=== PATIENT | male | born 1950 | race Caucasian/White ===

== ENCOUNTER → 2020-02-15 09:24 | Outpatient (BNVA) | payer MEDICARE, SELFPAY | PROVIDERS: Visit Provider Internal Medicine | DX: I48.20 Chronic atrial fibrillation, unspecified (principal); Z51.81 Encounter for therapeutic drug level monitoring; Z79.01 Long term (current) use of anticoagulants | CPT/HCPCS: 85610; 99211 ==

== ENCOUNTER → 2020-03-14 09:34 | Outpatient (BNVA) | payer MEDICARE, SELFPAY | PROVIDERS: Visit Provider Internal Medicine | DX: I48.20 Chronic atrial fibrillation, unspecified (principal); Z51.81 Encounter for therapeutic drug level monitoring; Z79.01 Long term (current) use of anticoagulants | CPT/HCPCS: 85610; 99211 ==

== ENCOUNTER → 2020-04-11 09:22 | Outpatient (BNVA) | payer MEDICARE, SELFPAY | PROVIDERS: Visit Provider Internal Medicine | DX: I48.20 Chronic atrial fibrillation, unspecified (principal); Z51.81 Encounter for therapeutic drug level monitoring; Z79.01 Long term (current) use of anticoagulants | CPT/HCPCS: 85610; 99211 ==

== ENCOUNTER → 2020-05-09 09:19 | Outpatient (BNVA) | payer MEDICARE, SELFPAY | PROVIDERS: Visit Provider Internal Medicine | DX: I48.20 Chronic atrial fibrillation, unspecified (principal); Z51.81 Encounter for therapeutic drug level monitoring; Z79.01 Long term (current) use of anticoagulants | CPT/HCPCS: 85610; 99211 ==

== ENCOUNTER → 2020-06-06 09:24 | Outpatient (BNVA) | payer MEDICARE, SELFPAY | PROVIDERS: PCP Internal Medicine; Visit Provider Internal Medicine | DX: I48.20 Chronic atrial fibrillation, unspecified (principal); Z51.81 Encounter for therapeutic drug level monitoring; Z79.01 Long term (current) use of anticoagulants | CPT/HCPCS: 85610; 99211 ==

== ENCOUNTER → 2020-07-04 09:23 | Outpatient (BNVA) | payer MEDICARE, SELFPAY | PROVIDERS: PCP Internal Medicine; Visit Provider Internal Medicine | DX: I48.20 Chronic atrial fibrillation, unspecified (principal); Z51.81 Encounter for therapeutic drug level monitoring; Z79.01 Long term (current) use of anticoagulants | CPT/HCPCS: 85610; 99211 ==

== ENCOUNTER → 2020-07-25 09:09 | Outpatient (BNVA) | payer MEDICARE, SELFPAY | PROVIDERS: PCP Internal Medicine; Visit Provider Internal Medicine Cardiovascular Disease | DX: I25.5 Ischemic cardiomyopathy (principal); I25.10 Atherosclerotic heart disease of native coronary artery without angina pectoris; R09.89 Other specified symptoms and signs involving the circulatory and respiratory systems | CPT/HCPCS: 93005; 99202 ==

== ENCOUNTER 2020-08-01 06:59 | Outpatient (REF) | payer MEDICARE, SELFPAY ==
--- NOTE | ~2020-08-01 | US_ITS ---
EXAMINATION: US EXTRACRANIAL CAROTID DUPLEX, BILATERAL CLINICAL INFORMATION: Other specified symptoms and signs. Risk factor hyperlipidemia. COMPARISON: None TECHNIQUE: Real-time ultrasound and Doppler techniques (integrating B-mode 2-D vascular images, Doppler spectral analysis and color-flow Doppler imaging) were utilized to interrogate the extracranial carotid arteries, the vertebral arteries and proximal subclavian arteries bilaterally. The degree of stenosis is determined by criteria similar to NASCET. FINDINGS: Right Side: 1. There is mild calcified atherosclerotic plaque seen in the bifurcation/proximal ICA region. 2. The common carotid artery PSV proximally is 64 cm/s and distally 70 cm/s. 3. The proximal internal carotid artery velocities are 61 cm/s systolic and 15 cm/s diastolic. 4. The proximal external carotid artery PSV is 126 cm/s. 5. The vertebral artery shows antegrade flow. 6. The subclavian artery waveforms are normal. Left Side: 1. There is mild calcified atherosclerotic plaque seen in the bifurcation/proximal ICA region. 2. The common carotid artery PSV proximally is 80 cm/s and distally 80 cm/s. 3. The proximal internal carotid artery velocities are 64 cm/s systolic and 12 cm/s diastolic. 4. The proximal external carotid artery PSV is 101 cm/s. 5. The vertebral artery shows antegrade flow. 6. The subclavian artery waveforms are normal. US/US carotid duplex BI IMPRESSION: 1. RIGHT: Mild calcified atherosclerotic plaque. 0-49% right ICA stenosis. 2. LEFT: Mild calcified atherosclerotic plaque. 0-49% left ICA stenosis.
--- NOTE | ~2020-08-01 | XR_ITS ---
EXAMINATION: XR CHEST CLINICAL INFORMATION: Tobacco use COMPARISON: None TECHNIQUE: 2 views of the chest were obtained. FINDINGS: The cardiac and mediastinal contours are normal. The lungs are well inflated. The lungs are clear. There is no pleural effusion or pneumothorax. There are mild degenerative changes of the spine. XR/XR chest 2V IMPRESSION: Well-inflated lungs are otherwise unremarkable exam.
[2020-08-01 08:02] LABS: MANUAL DIFF FLAG NO
[2020-08-01 08:04] LABS: Basophils Absolute Auto 0.1 X10*3/uL (0.0-0.2); Basophils Percent Auto 1.3 % (0-2); Eosinophils Absolute Auto 0.5 X10*3/uL (0.0-0.4); Eosinophils Percent Auto 6.4 % (0-4); Hematocrit 45.7 % (42-52); Hemoglobin 15.3 g/dl (14.0-18.0); Imm Gran Abs Auto 0.02 X10*3/uL (0.00-0.03); Imm Gran Pct Auto 0.3 % (0.0-0.4); Lymphocytes Absolute Auto 1.8 X10*3/uL (1.2-4.9); Lymphocytes Percent Auto 24.2 % (20-40); Mean Corpuscular HGB Conc 33.5 g/dl (31.0-36.0); Mean Corpuscular Volume 92.5 fL (80-98); Mean Platelet Volume 9.8 fL (9.4-12.4); Monocytes Absolute Auto 0.7 X10*3/uL (0.1-1.2); Monocytes Percent Auto 8.5 % (2-11); Neutrophils Absolute Auto 4.5 X10*3/uL (2.0-8.3); Neutrophils Percent Auto 59.3 % (45-73); Platelet Count 218 X10*3/uL (160-400); Red Blood Count 4.94 X10*6/uL (4.60-5.80); White Blood Count 7.6 X10*3/uL (4.8-10.8)
[2020-08-01 08:27] LABS: Alanine Aminotransferase 18 U/L (0-40); Albumin Level 3.9 g/dL (3.5-5.0); Alkaline Phosphatase 82 U/L (39-117); Anion Gap 10 (12-20); Aspartate Amino Transferase 17 U/L (5-37); Bilirubin Total 0.7 mg/dL (0.0-1.0); Blood Urea Nitrogen 18 mg/dL (9-16); Calcium 8.7 mg/dL (8.4-10.2); Carbon Dioxide 28 mmol/L (22-29); Chloride 105 mmol/L (96-108); Cholesterol 158 mg/dL; Estimated Glomerular Filt Rate > 60; Glucose Random 103 mg/dL (60-115); HDL Cholesterol 38 mg/dL; LDL Cholesterol Calculated 100 mg/dl; Potassium 4.6 mmol/L (3.3-5.1); Sodium 138 mmol/L (135-145); Total Protein 6.9 g/dL (6.5-8.0); Triglycerides 103 mg/dL
[2020-08-01 08:51] LABS: Estimated Average Glucose 117 mg/dL; Free T4 (Free Thyroxine) 0.98 ng/dL (0.71-1.85); Hemoglobin A1C 149.5618 umol/L; Hemoglobin A1c % 5.7 %; Prostate Specific Antigen Scr 1.87 ng/mL (<0.05-4.0); Thyroid Stimulating Hormone 1.01 uIU/mL (0.32-4.0)
[2020-08-01 09:11] LABS: Folate 13.1 ng/mL (> or = 4.0); Vitamin B12 234 pg/mL (200-900)
== END 2020-08-01 07:00 | disposition home or self-care (01) ==
LOC: HO.US 06:59
PROVIDERS: Absent Provider Internal Medicine; PCP Internal Medicine; Referring Provider Urology; Visit Provider Internal Medicine Cardiovascular Disease
DX: Z12.5 Encounter for screening for malignant neoplasm of prostate (principal); R09.89 Other specified symptoms and signs involving the circulatory and respiratory systems; I25.5 Ischemic cardiomyopathy; E78.00 Pure hypercholesterolemia, unspecified; R73.02 Impaired glucose tolerance (oral); C61 Malignant neoplasm of prostate; Z72.0 Tobacco use
CPT/HCPCS: 36415; 71046; 80053; 80061; 82607; 82746; 83036; 84153; 84439; 84443; 85025; 85610; 93880; 99211

== ENCOUNTER → 2020-08-29 09:20 | Outpatient (BNVA) | payer MEDICARE, SELFPAY | PROVIDERS: PCP Internal Medicine; Visit Provider Internal Medicine | DX: I48.20 Chronic atrial fibrillation, unspecified (principal); Z51.81 Encounter for therapeutic drug level monitoring; Z79.01 Long term (current) use of anticoagulants | CPT/HCPCS: 85610; 99211 ==

== ENCOUNTER → 2020-09-03 14:15 | Outpatient (BNVA) | payer MEDICARE, SELFPAY | PROVIDERS: PCP Internal Medicine; Referring Provider Internal Medicine; Visit Provider Nurse Practitioner | DX: Z12.11 Encounter for screening for malignant neoplasm of colon (principal); I25.5 Ischemic cardiomyopathy; Z79.01 Long term (current) use of anticoagulants | CPT/HCPCS: Q3014 ==

== ENCOUNTER → 2020-09-07 07:26 | Outpatient (REF) | payer MEDICARE, SELFPAY ==
--- NOTE | 2020-09-07 07:29 | CA_ITS ---
Transthoracic Echocardiogram Patient (Last, First, Middle): Justa Blanchard L Gender: Male Date of : 1950 Age: 70 Procedure Date: 09/07/2020 Procedure Type: Transthoracic Echocardiogram Location: OP Height: 180.34 cm Weight: 77.11 kg BSA: 1.97 m2 Heart Rate: bpm BP: 120 / 70 mmHg Laborer Livestock: PEYTON Referring MD: Donnie Buchanan MD Symptoms: I25.5 - Ischemic cardiomyopathy Study Quality: Fair Conclusions: - The left ventricular systolic function is moderately decreased. The visually estimated ejection fraction is between 30-35%. - Normal right ventricular cavity size and systolic function. Findings Left Ventricle Normal left ventricular cavity size. There is normal left ventricular wall thickness. The left ventricular systolic function is moderately decreased. The visually estimated ejection fraction is between 30-35%. There is evidence of regional wall motion abnormalities. Abnormal diastolic function is noted. Spectral Doppler is indicative of a pseudonormal filling pattern. E/E prime ratio is >15, consistent with elevated filling pressures. Wall Motion Rest Echo Findings The anterior wall, anterolateral wall, and apical lateral segment are hypokinetic. The inferior wall, inferolateral wall, and basal inferoseptal segment are akinetic. Right Ventricle Normal right ventricular cavity size and systolic function. Atria The left atrium is normal in size. Aortic Valve There is a normal trileaflet aortic valve. There is mild calcification of the aortic valve. There is mild thickening of the aortic valve. There is no aortic valve stenosis. There is trace (trivial) aortic valve regurgitation. Mitral Valve The mitral valve appears normal. There is trace mitral valve regurgitation. There is no mitral valve stenosis. Pulmonic Valve Normal pulmonic valve structure and function. There is trace pulmonic valve regurgitation. Tricuspid Valve Normal tricuspid valve structure. There is trace tricuspid valve regurgitation. Normal right atrial pressure. There is no evidence of pulmonary hypertension. Great Vessels All visible segments of the aorta are normal in size. The visualized portions of the pulmonary artery and branches are normal. Venous The inferior vena cava is normal in size and collapses greater than 50% with inspiration. Pericardium/Pleural There is no evidence of pericardial effusion. Prior Study Comparison Changes noted compared to prior study dated: 10/18/2014. EF 30-35% from 40%. Measurements 2D Linear Measurements IVSd: 0.89 0.6-0.9/0.6-1.0 cm LVIDd: 5.68 3.9-5.3/4.2-5.9 cm LVIDd Index: 2.88 2.4-3.2/2.2-3.1 cm/m2 LVIDs: 4.89 2.0-3.6 cm LVPWd: 0.97 0.7-1.1 cm Ao Root: 3.40 2.1-3.5 cm LA Diam: 3.80 2.7-3.8/3.0-4.0 cm LAIDs Index: 1.93 1.5-2.3 cm/m2 LV Mass: 254.52 67-162/88-224 g LV Mass Index: 129.20 43-95/49-115 g/m2 LVOT Diam: 2.30 3.0+(-)1.3 cm 2D Systolic Function EF 4C: 39.80 >55% EF 2C: 40.10 >55% EF BiP: 39.10 >55% Mitral Valve MV Pk E: 0.70 MV PK A: 0.61 MV Decel Time: 296.00 E/A: 1.10 E'Lateral: 3.59 E'Medial: 3.37 E/E' Med: 20.70 E/E' Lat: 19.40 PHT: 87.00 MVA PHT: 2.53 Decel [place]: 2.36 Aortic Valve AoV Pk Juan: 1.21 AoV Mn Juan: 0.76 AoV VTI: 0.29 AoV Pk Grad: 6.00 Aov Mn Grad: 3.00 BIENVENIDO Cont.VTI: 2.49 AI Pk Juan: 3.97 AI [place]: 2.00 LVOT LVOT Pk Juan: 0.67 LVOT Mn Juan: 0.49 LVOT VTI: 0.17 LVOT Pk Grad: 2.00 LVOT Mn Grad: 1.00 LVOT Diam: 2.30 LVOT Area: 4.15 Diastolic Function MV Pk E: 0.70 MV Pk A: 0.61 E/A: 1.10 E'Medial: 3.37 E/E' Med: 20.70 E' Laterial: 3.59 E/E' Lat: 19.40 Tricuspid Valve TR Pk Juan: 1.67 TR Pk Grad: 11.00 RA Press: 3.00 RVSP: 14.00 Great Vessels Aorta Ao Root-2D: 3.40 2.0-3.7 cm Ao Asc: 3.30 2.1-3.4 cm Ao Arch: 3.00 Updated in Other Vendor System with Status of Final Ryan Jones MD electronically signed on 09/09/2020 2:18:25 PM with status of Final
== END ==
LOC: HO.CARD 07:26
PROVIDERS: PCP Internal Medicine; Visit Provider Internal Medicine Cardiovascular Disease
DX: I25.5 Ischemic cardiomyopathy (principal)
CPT/HCPCS: 93306; 99212

== ENCOUNTER → 2020-09-26 09:23 | Outpatient (BNVA) | payer MEDICARE, SELFPAY | PROVIDERS: PCP Internal Medicine; Visit Provider Internal Medicine | DX: I48.20 Chronic atrial fibrillation, unspecified (principal); Z51.81 Encounter for therapeutic drug level monitoring; Z79.01 Long term (current) use of anticoagulants | CPT/HCPCS: 85610; 99211 ==

== ENCOUNTER → 2020-09-27 08:15 | Outpatient (REF) | payer MEDICARE, SELFPAY ==
--- NOTE | ~2020-09-27 | NM_ITS ---
Myocardial perfusion study Indication: Ischemic cardiomyopathy to evaluate for myocardial ischemia Technique: The patient was brought in for a Lexiscan perfusion study on 09/27/2020. Patient performed low-level exercise and was injected 0.4 mg of Lexiscan intravenously. Within a minute of injection, 25 mCi of sestamibi was given intravenously. Images were obtained using the SPECT gamma camera interlaced with the gating device. Images were obtained in supine position. Resting perfusion study was performed on 09/28/2020. Patient was administered 25 mCi of sestamibi intravenously at rest. Images were then obtained in supine position. Images obtained with and without CT attenuation. Total DLP 80 mGy-cm. Images were processed with the software and compared side to side in short axis, horizontal long axis and vertical long axis views. Findings: The stress perfusion study showed non attenuated images show large area of moderately reduced uptake in the inferior wall as well as severely reduced uptake in the apex and absent uptake in the distal inferolateral and moderately reduced uptake in the mid and distal inferolateral wall of the LV myocardium. Attenuation corrected images are somewhat suboptimal due to interference of inferior wall uptake but shows severely reduced uptake in the distal anterior mid anterior, apex and moderately reduced uptake in the basal anterior and moderately to severely reduced uptake in the anterolateral wall of the LV myocardium. Inferior wall uptake is moderately reduced of all.. The gated study shows reduced LV systolic function with calculated LVEF of 36%. LV cavity is moderately dilated size. The gated study shows reduced inferior and adjacent inferolateral wall thickening and contraction of segments. Resting study shows non attenuated images show moderately to severely reduced uptake in the basal images were also mildly reduced for apical and severely reduced uptake in the apex. There is improved uptake in the distal inferolateral wall of the LV myocardium. Attenuation corrected images show normalized uptake in the anterior and anterolateral wall of the LV myocardium. Is also moderately reduced uptake in the inferior wall of the LV myocardium.. Gating at rest reveals inferior wall motion abnormality with ejection fraction at 39%. The findings are consistent with discogenic findings with non attenuated attenuated corrected images. There is fixed inferior wall defect on non attenuated corrected prior nontransmural infarct with underlying wall motion abnormality, however there is partially reversible defect on attenuated corrected as well as large area of severe intensity anterior anterolateral defect suggestive of a reversible ischemia.. NM/NM [place] perf SPECT rest & str Impression: 1. Myocardial perfusion imaging study shows possible large territory of LAD territory ischemia in the inferior and inferolateral wall as well as partially reversible inferior wall defect. 2. Gated LVEF is 36% with stress and 39% with stress 3. Transient ischemic dilatation present EKG is nondiagnostic for ischemia
--- NOTE | 2020-09-27 08:18 | CA_ITS ---
Acquisition Time: 2020-09-27 08:18:39 Total Exercise Time: 00:02:00 Test Indications: Dyspnea Medications: ATORVASTATIN METOPROLOL WARFARIN Protocol: LEXISCAN Max HR: 137 BPM 91% of Pred: 150 BPM Max BP: 120/064 mmHG Max Work Load: 1.0 METS Pharmacological stress test with Lexiscan injection, while sitting and kicking his legs, with shortness of breath following injection, no chest discomfort, with frequent PACs, rare PVCs, with normotensive response to injection, with nondiagnostic EKG for ischemia.In recovery he reported ongoing sob and was treated with Aminophylline 75mg IVP to reverse Lexiscan with resolution of symptom. Nuclear images pending. Test reviewed with Dr Jones. Referred By: Donnie Buchanan Overread By: MAIKEL WHATLEY
== END ==
LOC: HO.CARD 08:15
PROVIDERS: Visit Provider Internal Medicine Cardiovascular Disease
DX: Z01.810 Encounter for preprocedural cardiovascular examination (principal); I25.10 Atherosclerotic heart disease of native coronary artery without angina pectoris; I25.5 Ischemic cardiomyopathy
CPT/HCPCS: 78452; 93016; 93017; 93018; A9500; J0280; J2785

== ENCOUNTER → 2020-10-12 13:40 | Outpatient (BNVA) | payer MEDICARE, SELFPAY | PROVIDERS: PCP Internal Medicine; Visit Provider Internal Medicine | DX: I48.20 Chronic atrial fibrillation, unspecified (principal); Z51.81 Encounter for therapeutic drug level monitoring; Z79.01 Long term (current) use of anticoagulants | CPT/HCPCS: 85610; 99211 ==

== ENCOUNTER → 2020-10-15 09:25 | Outpatient (BNVA) | payer MEDICARE, SELFPAY | PROVIDERS: PCP Internal Medicine; Visit Provider Internal Medicine | DX: I48.20 Chronic atrial fibrillation, unspecified (principal); Z51.81 Encounter for therapeutic drug level monitoring; Z79.01 Long term (current) use of anticoagulants | CPT/HCPCS: 85610; 99211 ==

== ENCOUNTER → 2020-10-17 11:27 | Outpatient (BNVA) | payer MEDICARE, SELFPAY | PROVIDERS: PCP Internal Medicine; Visit Provider Internal Medicine Cardiovascular Disease | DX: I25.5 Ischemic cardiomyopathy (principal); I25.10 Atherosclerotic heart disease of native coronary artery without angina pectoris; R94.39 Abnormal result of other cardiovascular function study | CPT/HCPCS: 99212 ==

== ENCOUNTER 2020-10-22 08:11 | Outpatient (REF) | payer MEDICARE, SELFPAY ==
[2020-10-22 09:22] LABS: Hemoglobin 13.1 g/dl (14.0-18.0); Mean Corpuscular HGB Conc 32.8 g/dl (31.0-36.0); Mean Corpuscular Hemoglobin 30.3 pg (27.0-33.0); Mean Corpuscular Volume 92.6 fL (80-98); Mean Platelet Volume 9.9 fL (9.4-12.4); Platelet Count 247 X10*3/uL (160-400); Red Blood Count 4.32 X10*6/uL (4.60-5.80); Red Cell Distribution Width 13.7 % (11.0-16.0); White Blood Count 8.5 X10*3/uL (4.8-10.8)
[2020-10-22 09:30] LABS: INTERNATIONAL NORM RATIO 1.7 (0.9-1.1); Prothrombin Time 20.8 SEC (10.8-13.0)
[2020-10-22 10:01] LABS: Anion Gap 8 (12-20); Blood Urea Nitrogen 19 mg/dL (9-16); Calcium 8.6 mg/dL (8.4-10.2); Carbon Dioxide 27 mmol/L (22-29); Chloride 107 mmol/L (96-108); Estimated Glomerular Filt Rate > 60; Glucose Random 100 mg/dL (60-115); Potassium 5.5 mmol/L (3.3-5.1); Sodium 136 mmol/L (135-145)
== END 2020-10-22 08:12 | disposition home or self-care (01) ==
LOC: HO.LAB 08:11
PROVIDERS: PCP Internal Medicine; Visit Provider Internal Medicine Cardiovascular Disease
DX: I25.5 Ischemic cardiomyopathy (principal)
CPT/HCPCS: 36415; 80048; 85027; 85610

== ENCOUNTER → 2020-10-30 08:07 | Outpatient (BNVA) | payer MEDICARE, SELFPAY | PROVIDERS: PCP Internal Medicine; Visit Provider Internal Medicine | DX: I48.20 Chronic atrial fibrillation, unspecified (principal); Z51.81 Encounter for therapeutic drug level monitoring; Z79.01 Long term (current) use of anticoagulants | CPT/HCPCS: 85610; 99211 ==

== ENCOUNTER → 2020-11-05 08:36 | Outpatient (BNVA) | payer MEDICARE, SELFPAY | PROVIDERS: PCP Internal Medicine; Visit Provider Internal Medicine | DX: I48.20 Chronic atrial fibrillation, unspecified (principal); Z51.81 Encounter for therapeutic drug level monitoring; Z79.01 Long term (current) use of anticoagulants | CPT/HCPCS: 85610; 99211 ==

== ENCOUNTER → 2020-11-19 08:38 | Outpatient (BNVA) | payer MEDICARE, SELFPAY | PROVIDERS: PCP Internal Medicine; Visit Provider Internal Medicine | DX: I48.20 Chronic atrial fibrillation, unspecified (principal); Z51.81 Encounter for therapeutic drug level monitoring; Z79.01 Long term (current) use of anticoagulants | CPT/HCPCS: 85610 ==

== ENCOUNTER → 2020-12-03 09:40 | Outpatient (BNVA) | payer MEDICARE, SELFPAY | PROVIDERS: PCP Internal Medicine; Visit Provider Internal Medicine | DX: I48.20 Chronic atrial fibrillation, unspecified (principal); Z51.81 Encounter for therapeutic drug level monitoring; Z79.01 Long term (current) use of anticoagulants | CPT/HCPCS: 85610; 99211 ==

== ENCOUNTER → 2020-12-05 13:09 | Outpatient (BNVA) | payer MEDICARE, SELFPAY | PROVIDERS: PCP Internal Medicine; Visit Provider Nurse Practitioner Family ==

== ENCOUNTER → 2020-12-06 08:33 | Outpatient (BNVA) | payer MEDICARE, SELFPAY | PROVIDERS: PCP Internal Medicine; Visit Provider Internal Medicine | DX: I48.0 Paroxysmal atrial fibrillation (principal); Z51.81 Encounter for therapeutic drug level monitoring; Z79.01 Long term (current) use of anticoagulants | CPT/HCPCS: 85610; 99211 ==

== ENCOUNTER → 2020-12-12 07:18 | Outpatient (REF) | payer MEDICARE, SELFPAY ==
--- NOTE | 2020-12-12 07:21 | CA_ITS ---
Transthoracic Echocardiogram Patient (Last, First, Middle): Justa Blanchard L Gender: Male Date of : 1950 Age: 70 Procedure Date: 12/12/2020 Procedure Type: Transthoracic Echocardiogram Location: OP Height: 180.34 cm Weight: 79.38 kg BSA: 1.99 m2 Heart Rate: bpm BP: 122 / 60 mmHg Database Administration Project Manager: RAE Referring MD: Opal Moncada ACCOUNTING ADMINISTRATIVE ASSISTANTJuan Pablo Symptoms: I25.5 - Ischemic cardiomyopathy Study Quality: Fair ECG Rhythm: Sinus Conclusions: - The left ventricular systolic function is mild to moderately decreased. The calculated ejection fraction is 41% by biplane method. - The anterior wall is hypokinetic. - The inferolateral wall, the basal inferior, and mid inferior segments are akinetic. Findings Left Ventricle Normal left ventricular cavity size. The left ventricular systolic function is mild to moderately decreased. The calculated ejection fraction is 41% by biplane method. There is evidence of regional wall motion abnormalities. Wall Motion Rest Echo Findings The anterior wall is hypokinetic. The inferolateral wall, the basal inferior, and mid inferior segments are akinetic. Prior Study Comparison Changes noted compared to prior study dated: 09/07/2020. Slight improvement in LVEF but this could also be technical Measurements 2D Linear Measurements IVSd: 1.01 0.6-0.9/0.6-1.0 cm LVIDd: 5.74 3.9-5.3/4.2-5.9 cm LVIDd Index: 2.88 2.4-3.2/2.2-3.1 cm/m2 LVIDs: 5.14 2.0-3.6 cm LVPWd: 0.96 0.7-1.1 cm LV Mass: 279.96 67-162/88-224 g LV Mass Index: 140.68 43-95/49-115 g/m2 LVOT Diam: 2.20 3.0+(-)1.3 cm 2D Systolic Function EF 4C: 43.90 >55% EF 2C: 33.50 >55% EF BiP: 41.00 >55% Mitral Valve MV Pk E: 0.52 MV PK A: 0.85 MV Decel Time: 293.00 E/A: 0.60 E'Lateral: 3.15 E'Medial: 3.81 E/E' Med: 13.70 E/E' Lat: 16.60 PHT: 86.00 MVA PHT: 2.56 Decel [place]: 1.78 LVOT LVOT Pk Juan: 0.74 LVOT Mn Juan: 0.51 LVOT VTI: 0.19 LVOT Pk Grad: 2.00 LVOT Mn Grad: 1.00 LVOT Diam: 2.20 LVOT Area: 3.80 Diastolic Function MV Pk E: 0.52 MV Pk A: 0.85 E/A: 0.60 E'Medial: 3.81 E/E' Med: 13.70 E' Laterial: 3.15 E/E' Lat: 16.60 Right Ventricle TAPSE (mm): 24.00 TVS' Juan: 13.00 Updated in Other Vendor System with Status of Final Frank Wright MD electronically signed on 12/13/2020 3:47:07 PM with status of Final
== END ==
LOC: HO.CARD 07:18
PROVIDERS: Visit Provider Nurse Practitioner Family
DX: I25.5 Ischemic cardiomyopathy (principal); R94.39 Abnormal result of other cardiovascular function study; I25.10 Atherosclerotic heart disease of native coronary artery without angina pectoris; Z79.01 Long term (current) use of anticoagulants; Z98.890 Other specified postprocedural states
CPT/HCPCS: 93308; Q9957

== ENCOUNTER 2020-12-24 07:34 | Outpatient (REF) | payer MEDICARE, SELFPAY ==
[2020-12-24 08:56] LABS: Anion Gap 13 (12-20); Blood Urea Nitrogen 18 mg/dL (9-16); Calcium 8.8 mg/dL (8.4-10.2); Carbon Dioxide 23 mmol/L (22-29); Chloride 108 mmol/L (96-108); Estimated Glomerular Filt Rate > 60; Glucose Random 104 mg/dL (60-115); Potassium 4.6 mmol/L (3.3-5.1); Sodium 139 mmol/L (135-145)
== END 2020-12-24 07:35 | disposition home or self-care (01) ==
LOC: HO.LAB 07:34
PROVIDERS: Absent Provider Nurse Practitioner Family; PCP Internal Medicine; Visit Provider Internal Medicine Cardiovascular Disease
DX: I25.10 Atherosclerotic heart disease of native coronary artery without angina pectoris (principal)
CPT/HCPCS: 36415; 80048

== ENCOUNTER → 2021-01-03 09:35 | Outpatient (BNVA) | payer MEDICARE, SELFPAY | PROVIDERS: PCP Internal Medicine; Visit Provider Internal Medicine | DX: I48.20 Chronic atrial fibrillation, unspecified (principal); Z51.81 Encounter for therapeutic drug level monitoring; Z79.01 Long term (current) use of anticoagulants | CPT/HCPCS: 85610; 99211 ==

== ENCOUNTER → 2021-01-31 09:22 | Outpatient (BNVA) | payer MEDICARE, SELFPAY | PROVIDERS: PCP Internal Medicine; Visit Provider Internal Medicine | DX: I48.20 Chronic atrial fibrillation, unspecified (principal); Z51.81 Encounter for therapeutic drug level monitoring; Z79.01 Long term (current) use of anticoagulants | CPT/HCPCS: 85610; 99211 ==

== ENCOUNTER → 2021-02-14 10:11 | Outpatient (BNVA) | payer MEDICARE, SELFPAY | PROVIDERS: PCP Internal Medicine; Visit Provider Internal Medicine | DX: I48.20 Chronic atrial fibrillation, unspecified (principal); Z51.81 Encounter for therapeutic drug level monitoring; Z79.01 Long term (current) use of anticoagulants | CPT/HCPCS: 85610; 99211 ==

== ENCOUNTER → 2021-03-07 09:40 | Outpatient (BNVA) | payer MEDICARE, SELFPAY | PROVIDERS: PCP Internal Medicine; Referring Provider Internal Medicine; Visit Provider Internal Medicine Cardiovascular Disease | DX: Z01.810 Encounter for preprocedural cardiovascular examination (principal); I25.10 Atherosclerotic heart disease of native coronary artery without angina pectoris; I25.5 Ischemic cardiomyopathy | CPT/HCPCS: 93005; 99212 ==

== ENCOUNTER → 2021-03-14 09:40 | Outpatient (BNVA) | payer MEDICARE, SELFPAY | PROVIDERS: PCP Internal Medicine; Visit Provider Internal Medicine | DX: I48.20 Chronic atrial fibrillation, unspecified (principal); Z51.81 Encounter for therapeutic drug level monitoring; Z79.01 Long term (current) use of anticoagulants | CPT/HCPCS: 85610; 99211 ==

== ENCOUNTER 2021-04-10 08:50 | Day surgery (SDC) | payer MEDICARE, SELFPAY ==
[2021-04-04 12:50] VITALS: BMI 23.0
--- NOTE | 2021-04-09 10:26 | P.CONAN_ITS ---
Documented by User: Roberta Sanderson NP 04/09/21 10:46 HPI - Anesthesia Eval Consult details Narrative: 71yo M for Colonoscopy Cardiac cleared at low to intermediate Warfarin PMFSH Active Problems Active Problems: All Active Problems (Updated 02/14/21 @ 12:52 by Jumana Espitia, [employer]) Abnormal prostate specific antigen (PSA) (Acute) Encounter for Medicare annual wellness exam (Acute) Status post cardiac catheterization (Acute) Abnormal nuclear stress test (Acute) Current use of anticoagulant therapy (Acute) Coronary artery disease (Acute) Tobacco abuse (Acute) Colon cancer screening (Acute) Left carotid bruit (Acute) Preoperative cardiovascular examination (Acute) Thrombophilia (Acute) Ischemic cardiomyopathy (Acute) Prostate cancer (Acute) Hypercholesterolemia (Acute) Impaired glucose tolerance (Acute) Past Medical History Medical History Bladder cancer CAD (coronary artery disease) Erectile dysfunction Hx of myocardial infarction Hypercholesterolemia Impaired glucose tolerance Ischemic cardiomyopathy Mild carotid artery disease On anticoagulant therapy On beta ruslan at home Prostate cancer Family History Family History Mother No problems noted. Father No problems noted. Surgical History Surgical History H/O transurethral destruction of bladder lesion History of bladder surgery Hx of colonoscopy Hx of heart artery stent Status post cardiac catheterization Social History Social History Household Members: None Are you a primary daytime caregiver to a significant other at home: No Do you presently have visiting nurse or other home services: No Alcohol intake: current Alcohol intake frequency: holidays/special occasions only Patient Tobacco Use Status: Former Tobacco user Quit Date: 1999 Tobacco use type: Cigarette and Cigar Years Smoked: 40 Smoked in Last 30 Days: No Have you been hit, kicked, punched, or otherwise hurt by someone within the past year? If so, by whom?: No Are you DNR?: No Advance Directives: No Advance Directives Information Provided: Yes Advance Directives on File: No Recently lost weight without trying: No Current occupational status: disabled Meds Allergies Allergy/AdvReac Type Severity Reaction Status Date / Time penicillin G Allergy Unknown PASSED OUT Verified 04/04/21 12:54 Exam Exam Date and Time: April 09, 2021 1026 Height,Weight and Vital Signs: Height 6 ft Weight 77.111 kg Pertinent Lab Results Pertinent Lab Results: Laboratory Tests 10/22/20 12/24/20 08:44 07:45 WBC 8.5 Hgb 13.1 L Hct 40.0 L Plt Count 247 Sodium 139 Potassium 4.6 Chloride 108 Carbon Dioxide 23 BUN 18 H Creatinine 1.10 Narrative Narrative: EKG 02/2021 normal sinus rhythm with normal EKG at 74 beats per minute Cath 11/2020 Patient mid RCA stent 60% distal RCA and 40% proximal LCx stenosis. ECHO 11/2020 Conclusions: - The left ventricular systolic function is mild to moderately ? decreased.? The calculated ejection fraction is 41% by biplane ? method.? - The anterior wall is hypokinetic.? - The inferolateral wall, the basal inferior, and mid inferior ? segments are akinetic. ? Assessment and Plan Assessment Anesthesia Assessment: Chart Reviewed Documented by User: Jo Bland MD 04/10/21 09:13 [facility] Past Medical History Medical History Bladder cancer CAD (coronary artery disease) Erectile dysfunction Hx of myocardial infarction Hypercholesterolemia Impaired glucose tolerance Ischemic cardiomyopathy Mild carotid artery disease On anticoagulant therapy On beta ruslan at home Prostate cancer Family History Family History Mother No problems noted. Father No problems noted. Family history of problems with anesthesia: No Surgical History Surgical History H/O transurethral destruction of bladder lesion History of bladder surgery Hx of colonoscopy Hx of heart artery stent Status post cardiac catheterization History of Problems with Anesthesia: No Social History Social History Household Members: None Are you a primary daytime caregiver to a significant other at home: No Do you presently have visiting nurse or other home services: No Alcohol intake: current Alcohol intake frequency: holidays/special occasions only Patient Tobacco Use Status: Former Tobacco user Quit Date: 1999 Tobacco use type: Cigarette and Cigar Years Smoked: 40 Smoked in Last 30 Days: No Have you been hit, kicked, punched, or otherwise hurt by someone within the past year? If so, by whom?: No Are you DNR?: No Advance Directives: No Advance Directives Information Provided: Yes Advance Directives on File: No Recently lost weight without trying: No Current occupational status: disabled Meds Allergies Allergy/AdvReac Type Severity Reaction Status Date / Time penicillin G Allergy Unknown PASSED OUT Verified 04/04/21 12:54 Exam Airway Mallampati Class: II TM Dist: >3cm Neck ROM: Full Denture: Upper and Lower Heart: rrr Lungs: cta Assessment and Plan Assessment Anesthesia Assessment: Anesthesia Plan Discussed and Chart Reviewed Final Anesthetic Review Family History of Problems with Anesthesia: No History of Problems with Anesthesia: No NPO: Yes ASA Class: III Final Preanesthetic Review: No Changes in Pt Med Stat, Meds/Allgs Chart Reviewed and Consent Obtained/Reviewed Patient Risk: Intermediate Procedure Risk: Intermediate Anesthetic Plan Anesthetic Plan: MAC: Disposition: Standard PACU
[2021-04-10 09:03] VITALS: BP 118/56; PULSE 96; RESP 16; TEMP 36.8; O2SAT 97
--- NOTE | 2021-04-10 09:13 | P.HPSUR_ITS ---
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 Relevant Family History (Specify if Yes): No Relevant Social History: None Present Medications: see Short Stay Collaborative assessment Medical History: Significant History (Bladder cancer CAD (coronary artery disease) Erectile dysfunction Hx of myocardial infarction Hypercholesterolemia Impaired glucose tolerance Ischemic cardiomyopathy Mild carotid artery disease On anticoagulant therapy On beta ruslan at home Prostate cancer) History of Previous Operations: Relevant previous surgery/procedure and date(s) (H/O transurethral destruction of bladder lesion History of bladder surgery Hx of colonoscopy Hx of heart artery stent Status post cardiac catheterization) Allergies: Allergies Allergy/AdvReac Type Severity Reaction Status Date / Time penicillin G Allergy Unknown PASSED OUT Verified 04/04/21 12:54 Review of Systems Sugical H&P ROS: Negative: Constitution, Cardiovascular, Respiratory, Neurological, Psychiatric, Hem-Onc, Allergic/Immunologic, Gastrointestinal, Genitourinary, Musculoskeletal, Integumentary, Endocrine and Eyes/Ears/Nose/Throat Exam Surgical H&P Exam: Normal: HEENT, Normal: Heart, Normal: Lungs, Normal: Extremities, Normal: Abdomen, Normal: Skin and Normal: Neurological Plan Diagnosis/Plan: Unchanged I have reviewed the history and physical and performed a pertinent physical examination on my patient. No changes have occurred unless specified.
[2021-04-10 09:14] LABS: INTERNATIONAL NORM RATIO 1.1 (0.9-1.1)
--- NOTE | 2021-04-10 11:01 | P.OP_ITS ---
Operative Note Operative Note Date of Service: 04/10/21 Narrative: Operative Information Procedure Description: Colonoscopy COLONOSCOPY Instrument: Olympus variable stiffness adult scope 190L Colonoscopy Monitoring: Vital signs and clinical assessment, continuous EKG monitoring, Pulse oximetry, Carbon Dioxide monitoring and blood pressure monitoring were done throughout the procedure. Colon withdrawal time was 11 minutes. Procedure: The patient was placed in the left lateral decubitis position and pre-procedure medications were administered. After a digital rectal examination of the ano-rectum, the video colonoscope was inserted into the rectum and advanced through the colon to the cecum/TI. The colonoscope was slowly withdrawn in a retrograde panoramic fashion and the colon mucosa was carefully examined including a retroflexed view of the rectum. Findings and interventions are described below. Procedure Difficulty:easy Findings: Terminal Ileum-normal Cecum:normal Ascending Colon: diminutive polyp 3-4 mm removed with forceps Transverse Colon -normal Descending Colon: 7-9 mm sessile polyp removed with cold snare Sigmoid Colon: mild diverticulosis noted Rectum: Retroflexion with small internal hemorrhoids, grade I Anorectum - normal Colon preparation: [place] Bowel Preparation Scale Right colon; 3 Transverse colon: 3 Left colon; 3 (0 = Unprepared colon segment with mucosa not seen due to solid stool that cannot be cleared. 1 = Portion of mucosa of the colon segment seen, but other areas of the colon segment not well seen due to staining, residual stool and/or opaque liquid. 2 = Minor amount of residual staining, small fragments of stool and/or opaque liquid, but mucosa of colon segment seen well. 3 = Entire mucosa of colon segment seen well with no residual staining, small fragments of stool or opaque liquid) Impression and Post Procedure Diagnosis: polyps internal hemorrhoids diverticular disease Plan: High fiber diet leaflet Avoid straining at stool, epsom salts and sitz bath, anusol supps or cream Repeat Colonoscopy in 5-6 years due to polyps or earlier if clinically indicated restart lovenox tomorrow, but can take coumadin tonight Above findings were reviewed with the patient and relevant handouts were provided if indicated.
--- NOTE | 2021-04-10 11:01 | PM.OP ---
Brief Operative Note Date of Service: 04/10/21 Pre-op diagnosis: colon screening Post-op diagnosis: same Procedure: see op note Surgeon: Jama Rodriguez MD Anesthesia: MAC Was an Drama Critic used for this Procedure?: No Estimated blood loss (mL): 0 Condition: stable Disposition: PACU
[2021-04-10 11:07] VITALS: BP 78/40; PULSE 75; RESP 16; TEMP 36.2; O2SAT 97
[2021-04-10 11:11] VITALS: BP 91/50
[2021-04-10 11:14] VITALS: BP 106/51; PULSE 64; RESP 16; O2SAT 95
[2021-04-10 11:29] VITALS: BP 131/50; PULSE 64; RESP 18; TEMP 36.2; O2SAT 97
== END 2021-04-10 12:08 ==
LOC: HO.SSS 08:50
PROVIDERS: Nurse Practitioner; PCP Internal Medicine; Visit Provider Internal Medicine Gastroenterology
PROC: 0DJD8ZZ Inspection of Lower Intestinal Tract, Via Natural or Artificial Opening Endoscopic (ICD-10-PCS; CPT 45378; principal; 2021-04-10 10:10)
DX: Z12.11 Encounter for screening for malignant neoplasm of colon (principal); D12.4 Benign neoplasm of descending colon; K63.5 Polyp of colon; K57.30 Diverticulosis of large intestine without perforation or abscess without bleeding; K64.0 First degree hemorrhoids; I25.5 Ischemic cardiomyopathy; I25.10 Atherosclerotic heart disease of native coronary artery without angina pectoris; Z98.61 Coronary angioplasty status; I25.2 Old myocardial infarction; E78.00 Pure hypercholesterolemia, unspecified; Z87.891 Personal history of nicotine dependence; Z79.01 Long term (current) use of anticoagulants; Z79.899 Other long term (current) drug therapy; R73.02 Impaired glucose tolerance (oral); Z85.51 Personal history of malignant neoplasm of bladder; Z88.0 Allergy status to penicillin
CPT/HCPCS: 45385; 45380; 36415; 85610; 88305

== ENCOUNTER → 2021-04-15 09:19 | Outpatient (BNVA) | payer MEDICARE, SELFPAY | PROVIDERS: PCP Internal Medicine; Visit Provider Internal Medicine | DX: I48.20 Chronic atrial fibrillation, unspecified (principal); Z51.81 Encounter for therapeutic drug level monitoring; Z79.01 Long term (current) use of anticoagulants | CPT/HCPCS: 85610; 99211 ==

== ENCOUNTER → 2021-04-25 09:31 | Outpatient (BNVA) | payer MEDICARE, SELFPAY | PROVIDERS: PCP Internal Medicine; Visit Provider Internal Medicine | DX: I48.20 Chronic atrial fibrillation, unspecified (principal); Z51.81 Encounter for therapeutic drug level monitoring; Z79.01 Long term (current) use of anticoagulants | CPT/HCPCS: 85610; 99211 ==

== ENCOUNTER → 2021-04-30 09:31 | Outpatient (BNVA) | payer MEDICARE, SELFPAY | PROVIDERS: PCP Internal Medicine; Referring Provider Internal Medicine; Visit Provider Nurse Practitioner | DX: D12.6 Benign neoplasm of colon, unspecified (principal) | CPT/HCPCS: 99212 ==

== ENCOUNTER → 2021-05-09 09:35 | Outpatient (BNVA) | payer MEDICARE, SELFPAY | PROVIDERS: PCP Internal Medicine; Visit Provider Internal Medicine | DX: I48.20 Chronic atrial fibrillation, unspecified (principal); Z51.81 Encounter for therapeutic drug level monitoring; Z79.01 Long term (current) use of anticoagulants | CPT/HCPCS: 85610; 99211 ==

== ENCOUNTER 2021-05-30 08:52 | Outpatient (REF) | payer MEDICARE, SELFPAY ==
[2021-05-30 09:23] LABS: MANUAL DIFF FLAG NO
[2021-05-30 09:29] LABS: Basophils Absolute Auto 0.1 X10*3/uL (0.0-0.2); Basophils Percent Auto 0.7 % (0-2); Eosinophils Absolute Auto 0.4 X10*3/uL (0.0-0.4); Eosinophils Percent Auto 5.2 % (0-4); Hematocrit 46.8 % (42.0-52.0); Hemoglobin 15.3 g/dl (14.0-18.0); Imm Gran Abs Auto 0.02 X10*3/uL (0.00-0.03); Imm Gran Pct Auto 0.3 % (0.0-0.4); Immature Retic Fraction 10.1 % (2.3-13.4); Lymphocytes Absolute Auto 1.8 X10*3/uL (1.2-4.9); Lymphocytes Percent Auto 23.4 % (20-40); Mean Corpuscular HGB Conc 32.7 g/dl (31.0-36.0); Mean Corpuscular Volume 91.8 fL (80.0-98.0); Mean Platelet Volume 9.5 fL (9.4-12.4); Monocytes Absolute Auto 0.7 X10*3/uL (0.1-1.2); Monocytes Percent Auto 8.8 % (2-11); Neutrophils Absolute Auto 4.7 x10*3/uL (2.0-8.3); Neutrophils Percent Auto 61.6 % (45-73); Platelet Count 225 X10*3/uL (160-400); Red Cell Distribution Width 13.9 % (11.0-16.0); Retic HGB Equivalent 34.8 pg (30.0-35.0); Reticulocyte Percent 1.1 % (0.5-1.8); Reticulocytes Absolute 0.055 X10*6/uL (0.026-0.095); White Blood Count 7.6 X10*3/uL (4.8-10.8)
[2021-05-30 09:52] LABS: Alanine Aminotransferase 19 U/L (0-40); Albumin Level 4.1 g/dL (3.5-5.0); Alkaline Phosphatase 98 U/L (39-117); Anion Gap 12 (12-20); Aspartate Amino Transferase 16 U/L (5-37); Bilirubin Total 0.6 mg/dL (0.0-1.0); Blood Urea Nitrogen 20 mg/dL (9-16); Calcium 9.2 mg/dL (8.4-10.2); Carbon Dioxide 25 mmol/L (22-29); Chloride 107 mmol/L (96-108); Cholesterol 112 mg/dL; Estimated Glomerular Filt Rate > 60; Glucose Random 114 mg/dL (60-115); HDL Cholesterol 30 mg/dL; Iron 85 mcg/dL (45-160); LDL Cholesterol Calculated 67 mg/dl; Percent Iron Saturation 31 % (15-50); Potassium 5.2 mmol/L (3.3-5.1); Sodium 139 mmol/L (135-145); Total Iron Binding Capacity 278 mcg/dL (228-428); Total Protein 7.3 g/dL (6.5-8.0); Triglycerides 77 mg/dL; Unsaturated Iron Binding 193 ug/dL
[2021-05-30 10:16] LABS: Ferritin 186 ng/mL (20-250); Free T4 (Free Thyroxine) 1.22 ng/dL (0.71-1.85); Prostate Specific Antigen Scr 1.47 ng/mL (<0.05-4.0); Thyroid Stimulating Hormone 0.64 uIU/mL (0.32-4.0)
[2021-05-30 10:30] LABS: Vitamin B12 253 pg/mL (200-900)
== END 2021-05-30 08:53 | disposition home or self-care (01) ==
LOC: HO.LAB 08:52
PROVIDERS: Absent Provider Internal Medicine Cardiovascular Disease; PCP Internal Medicine; Referring Provider Nurse Practitioner Family; Visit Provider Internal Medicine
DX: Z12.5 Encounter for screening for malignant neoplasm of prostate (principal); I25.5 Ischemic cardiomyopathy; I25.10 Atherosclerotic heart disease of native coronary artery without angina pectoris; C61 Malignant neoplasm of prostate; E78.00 Pure hypercholesterolemia, unspecified
CPT/HCPCS: 36415; 80053; 80061; 82607; 82728; 82746; 83540; 84153; 84439; 84443; 85025; 85045; 85610; 99211

== ENCOUNTER → 2021-06-27 09:22 | Outpatient (BNVA) | payer MEDICARE, SELFPAY | PROVIDERS: PCP Internal Medicine; Visit Provider Internal Medicine | DX: I48.20 Chronic atrial fibrillation, unspecified (principal); Z51.81 Encounter for therapeutic drug level monitoring; Z79.01 Long term (current) use of anticoagulants | CPT/HCPCS: 85610; 99211 ==

== ENCOUNTER → 2021-07-25 09:34 | Outpatient (BNVA) | payer MEDICARE, SELFPAY | PROVIDERS: PCP Internal Medicine; Visit Provider Internal Medicine | DX: I48.20 Chronic atrial fibrillation, unspecified (principal); Z51.81 Encounter for therapeutic drug level monitoring; Z79.01 Long term (current) use of anticoagulants | CPT/HCPCS: 85610; 99211 ==

== ENCOUNTER → 2021-08-22 09:32 | Outpatient (BNVA) | payer MEDICARE, SELFPAY | PROVIDERS: PCP Internal Medicine; Visit Provider Internal Medicine | DX: I48.20 Chronic atrial fibrillation, unspecified (principal); Z79.01 Long term (current) use of anticoagulants; Z51.81 Encounter for therapeutic drug level monitoring | CPT/HCPCS: 85610; 99211 ==

== ENCOUNTER → 2021-09-10 09:00 | Outpatient (BNVA) | payer MEDICARE, SELFPAY | PROVIDERS: PCP Internal Medicine; Referring Provider Internal Medicine; Visit Provider Internal Medicine Cardiovascular Disease | DX: I25.5 Ischemic cardiomyopathy (principal); I25.10 Atherosclerotic heart disease of native coronary artery without angina pectoris | CPT/HCPCS: 99212 ==

== ENCOUNTER → 2021-09-19 09:18 | Outpatient (BNVA) | payer MEDICARE, SELFPAY | PROVIDERS: PCP Internal Medicine; Visit Provider Internal Medicine | DX: I48.20 Chronic atrial fibrillation, unspecified (principal); Z79.01 Long term (current) use of anticoagulants; Z51.81 Encounter for therapeutic drug level monitoring | CPT/HCPCS: 85610; 99211 ==

== ENCOUNTER 2021-09-24 07:08 | Outpatient (REF) | payer MEDICARE, SELFPAY ==
--- NOTE | ~2021-09-24 | XR_ITS ---
EXAMINATION: XR KNEE STANDING, BILATERAL XR KNEE, LEFT XR HIP, BILATERAL WITH AP PELVIS CLINICAL INFORMATION: Trochanteric bursitis, right hip. Chronic bilateral hip pain. Bilateral knee pain. COMPARISON: None. TECHNIQUE: AP standing view of both knees with lateral and sunrise views of the left knee. AP pelvis with 2 views of each hip. FINDINGS: AP view of the pelvis does not demonstrate any evidence of acute fracture or diastasis. No evidence of fusion or widening of the sacroiliac joints. Hip joint spaces appear maintained. No destructive bony lesions appreciated. There are some vascular calcifications present. Degenerative disc disease is seen at the L5-S1 level with facet arthropathy. 2 views of the right hip do not demonstrate any evidence of acute fracture or dislocation. Hip joint space is maintained. No significant spurring is seen about the greater trochanter. 2 views of the left hip do not demonstrate any evidence of acute fracture or dislocation. Hip joint space maintained. No evidence of calcific tendinitis of the greater trochanter. AP standing view of the right knee shows maintenance of the medial and lateral joint space compartments. No acute fracture or dislocation is evident. 3 views of the left knee demonstrate minimal spurring of the lateral facet of the patellofemoral joint without narrowing of the joint space. Medial and lateral joint space compartments are maintained. No left knee effusion is appreciated. Vascular calcifications present. XR/XR hip BI w PEL1V IMPRESSION: Degenerative change lower lumbar spine. No evidence of acute fracture or diastasis of the pelvis. No significant right or left hip abnormality is appreciated. No significant abnormality of the knees appreciated.
== END 2021-09-24 07:09 | disposition home or self-care (01) ==
LOC: HO.XRAY 07:08
PROVIDERS: PCP Internal Medicine; Visit Provider Internal Medicine
DX: M70.61 Trochanteric bursitis, right hip (principal); M70.62 Trochanteric bursitis, left hip
CPT/HCPCS: 73521

== ENCOUNTER 2021-09-26 08:38 | Outpatient (REF) | payer MEDICARE, SELFPAY ==
--- NOTE | ~2021-09-26 | XR_ITS ---
EXAMINATION: XR KNEE STANDING, BILATERAL XR KNEE, LEFT XR HIP, BILATERAL WITH AP PELVIS CLINICAL INFORMATION: Trochanteric bursitis, right hip. Chronic bilateral hip pain. Bilateral knee pain. COMPARISON: None. TECHNIQUE: AP standing view of both knees with lateral and sunrise views of the left knee. AP pelvis with 2 views of each hip. FINDINGS: AP view of the pelvis does not demonstrate any evidence of acute fracture or diastasis. No evidence of fusion or widening of the sacroiliac joints. Hip joint spaces appear maintained. No destructive bony lesions appreciated. There are some vascular calcifications present. Degenerative disc disease is seen at the L5-S1 level with facet arthropathy. 2 views of the right hip do not demonstrate any evidence of acute fracture or dislocation. Hip joint space is maintained. No significant spurring is seen about the greater trochanter. 2 views of the left hip do not demonstrate any evidence of acute fracture or dislocation. Hip joint space maintained. No evidence of calcific tendinitis of the greater trochanter. AP standing view of the right knee shows maintenance of the medial and lateral joint space compartments. No acute fracture or dislocation is evident. 3 views of the left knee demonstrate minimal spurring of the lateral facet of the patellofemoral joint without narrowing of the joint space. Medial and lateral joint space compartments are maintained. No left knee effusion is appreciated. Vascular calcifications present. XR/XR knee standing BI IMPRESSION: Degenerative change lower lumbar spine. No evidence of acute fracture or diastasis of the pelvis. No significant right or left hip abnormality is appreciated. No significant abnormality of the knees appreciated.
--- NOTE | ~2021-09-26 | XR_ITS ---
EXAMINATION: XR KNEE STANDING, BILATERAL XR KNEE, LEFT XR HIP, BILATERAL WITH AP PELVIS CLINICAL INFORMATION: Trochanteric bursitis, right hip. Chronic bilateral hip pain. Bilateral knee pain. COMPARISON: None. TECHNIQUE: AP standing view of both knees with lateral and sunrise views of the left knee. AP pelvis with 2 views of each hip. FINDINGS: AP view of the pelvis does not demonstrate any evidence of acute fracture or diastasis. No evidence of fusion or widening of the sacroiliac joints. Hip joint spaces appear maintained. No destructive bony lesions appreciated. There are some vascular calcifications present. Degenerative disc disease is seen at the L5-S1 level with facet arthropathy. 2 views of the right hip do not demonstrate any evidence of acute fracture or dislocation. Hip joint space is maintained. No significant spurring is seen about the greater trochanter. 2 views of the left hip do not demonstrate any evidence of acute fracture or dislocation. Hip joint space maintained. No evidence of calcific tendinitis of the greater trochanter. AP standing view of the right knee shows maintenance of the medial and lateral joint space compartments. No acute fracture or dislocation is evident. 3 views of the left knee demonstrate minimal spurring of the lateral facet of the patellofemoral joint without narrowing of the joint space. Medial and lateral joint space compartments are maintained. No left knee effusion is appreciated. Vascular calcifications present. XR/XR knee LT 2V IMPRESSION: Degenerative change lower lumbar spine. No evidence of acute fracture or diastasis of the pelvis. No significant right or left hip abnormality is appreciated. No significant abnormality of the knees appreciated.
== END 2021-09-26 08:39 | disposition home or self-care (01) ==
LOC: HO.HOSX 08:38
PROVIDERS: PCP Internal Medicine; Visit Provider Physician Assistant
DX: M17.12 Unilateral primary osteoarthritis, left knee (principal); M70.61 Trochanteric bursitis, right hip; M70.62 Trochanteric bursitis, left hip
CPT/HCPCS: 20610; 73560; 73565; 99202; J1040

== ENCOUNTER → 2021-10-18 09:05 | Outpatient (BNVA) | payer MEDICARE, SELFPAY | PROVIDERS: PCP Internal Medicine; Visit Provider Internal Medicine | DX: I48.20 Chronic atrial fibrillation, unspecified (principal); Z79.01 Long term (current) use of anticoagulants; Z51.81 Encounter for therapeutic drug level monitoring | CPT/HCPCS: 85610; 99211 ==

== ENCOUNTER → 2021-11-08 08:59 | Outpatient (BNVA) | payer MEDICARE, SELFPAY | PROVIDERS: PCP Internal Medicine; Visit Provider Internal Medicine | DX: I48.20 Chronic atrial fibrillation, unspecified (principal); Z79.01 Long term (current) use of anticoagulants; Z51.81 Encounter for therapeutic drug level monitoring | CPT/HCPCS: 85610; 99211 ==

== ENCOUNTER → 2021-11-15 08:45 | Outpatient (BNVA) | payer MEDICARE, SELFPAY | PROVIDERS: PCP Internal Medicine; Visit Provider Internal Medicine | DX: I48.20 Chronic atrial fibrillation, unspecified (principal); Z79.01 Long term (current) use of anticoagulants; Z51.81 Encounter for therapeutic drug level monitoring | CPT/HCPCS: 85610; 99211 ==

== ENCOUNTER → 2021-12-13 08:51 | Outpatient (BNVA) | payer MEDICARE, SELFPAY | PROVIDERS: PCP Internal Medicine; Visit Provider Internal Medicine | DX: I48.20 Chronic atrial fibrillation, unspecified (principal); Z79.01 Long term (current) use of anticoagulants; Z51.81 Encounter for therapeutic drug level monitoring | CPT/HCPCS: 85610; 99211 ==

== ENCOUNTER → 2022-01-10 08:53 | Outpatient (BNVA) | payer MEDICARE, SELFPAY | PROVIDERS: PCP Internal Medicine; Visit Provider Internal Medicine | DX: I48.20 Chronic atrial fibrillation, unspecified (principal); Z79.01 Long term (current) use of anticoagulants; Z51.81 Encounter for therapeutic drug level monitoring | CPT/HCPCS: 85610; 99211 ==

== ENCOUNTER → 2022-02-07 09:16 | Outpatient (BNVA) | payer MEDICARE, SELFPAY | PROVIDERS: PCP Internal Medicine; Visit Provider Internal Medicine | DX: I48.20 Chronic atrial fibrillation, unspecified (principal); Z79.01 Long term (current) use of anticoagulants; Z51.81 Encounter for therapeutic drug level monitoring | CPT/HCPCS: 85610; 99211 ==

== ENCOUNTER → 2022-02-14 09:27 | Outpatient (BNVA) | payer MEDICARE, SELFPAY | PROVIDERS: PCP Internal Medicine; Visit Provider Internal Medicine | DX: I48.20 Chronic atrial fibrillation, unspecified (principal); Z79.01 Long term (current) use of anticoagulants; Z51.81 Encounter for therapeutic drug level monitoring | CPT/HCPCS: 85610; 99211 ==

== ENCOUNTER 2022-02-26 07:22 | Outpatient (REF) | payer MEDICARE, SELFPAY ==
[2022-02-26 08:22] LABS: Basophils Absolute Auto 0.1 X10*3/uL (0.0-0.2); Basophils Percent Auto 0.9 % (0-2); Eosinophils Absolute Auto 0.4 X10*3/uL (0.0-0.4); Eosinophils Percent Auto 4.2 % (0-4); Hematocrit 45.1 % (42.0-52.0); Hemoglobin 15.1 g/dl (14.0-18.0); Imm Gran Abs Auto 0.02 X10*3/uL (0.00-0.03); Imm Gran Pct Auto 0.2 % (0.0-0.4); Lymphocytes Absolute Auto 2.9 X10*3/uL (1.2-4.9); Lymphocytes Percent Auto 30.2 % (20-40); MANUAL DIFF FLAG SCAN; Mean Corpuscular HGB Conc 33.5 g/dl (31.0-36.0); Mean Corpuscular Hemoglobin 30.8 pg (27.0-33.0); Mean Platelet Volume 9.7 fL (9.4-12.4); Monocytes Absolute Auto 0.6 X10*3/uL (0.1-1.2); Monocytes Percent Auto 6.4 % (2-11); Neutrophils Absolute Auto 5.5 x10*3/uL (2.0-8.3); Neutrophils Percent Auto 58.1 % (45-73); Platelet Count 244 X10*3/uL (160-400); Red Cell Distribution Width 14.1 % (11.0-16.0); SCAN SMEAR FLAG 1; White Blood Count 9.5 X10*3/uL (4.8-10.8)
[2022-02-26 08:32] LABS: Estimated Average Glucose 120 mg/dL; Hemoglobin A1C 148.6356 umol/L; Hemoglobin A1c % 5.8 %
[2022-02-26 08:47] LABS: Alanine Aminotransferase 11 U/L (0-40); Albumin Level 4.1 g/dL (3.5-5.0); Alkaline Phosphatase 89 U/L (39-117); Anion Gap 15 (12-20); Aspartate Amino Transferase 14 U/L (5-37); Bilirubin Total 0.3 mg/dL (0.0-1.0); Blood Urea Nitrogen 21 mg/dL (9-16); Carbon Dioxide 23 mmol/L (22-29); Chloride 106 mmol/L (96-108); Cholesterol 185 mg/dL; Estimated Glomerular Filt Rate > 60; Glucose Random 115 mg/dL (60-115); HDL Cholesterol 33 mg/dL; LDL Cholesterol Calculated 120 mg/dl; Potassium 5.1 mmol/L (3.3-5.1); Sodium 139 mmol/L (135-145); Total Protein 7.3 g/dL (6.5-8.0); Triglycerides 160 mg/dL
[2022-02-26 08:49] LABS: SLIDE REVIEW VERIFIED
[2022-02-26 08:55] LABS: B Type Natriuretic Peptide 136 pg/mL (<100)
[2022-02-26 09:10] LABS: Free T4 (Free Thyroxine) 1.09 ng/dL (0.71-1.85); Prostate Specific Antigen Scr 1.45 ng/mL (<0.05-4.0); Thyroid Stimulating Hormone 0.71 uIU/mL (0.32-4.0)
[2022-02-26 09:33] LABS: Folate 13.4 ng/mL (> or = 4.0); Vitamin B12 183 pg/mL (200-900)
== END 2022-02-26 07:23 | disposition home or self-care (01) ==
LOC: HO.LAB 07:22
PROVIDERS: PCP Internal Medicine; Visit Provider Internal Medicine
DX: Z12.5 Encounter for screening for malignant neoplasm of prostate (principal); C61 Malignant neoplasm of prostate; I25.5 Ischemic cardiomyopathy; R73.02 Impaired glucose tolerance (oral); E78.00 Pure hypercholesterolemia, unspecified
CPT/HCPCS: 36415; 80053; 80061; 82607; 82746; 83036; 83880; 84153; 84439; 84443; 85025

== ENCOUNTER → 2022-03-07 09:01 | Outpatient (REF) | payer MEDICARE, SELFPAY ==
--- NOTE | 2022-03-07 09:04 | CA_ITS ---
Transthoracic Echocardiogram Patient (Last, First, Middle): Justa Blanchard L Gender: Male Date of : 1950 Age: 72 Procedure Date: 03/07/2022 Procedure Type: Transthoracic Echocardiogram Location: OP Height: 182.88 cm Weight: 75.3 kg BSA: 1.97 m2 Heart Rate: bpm BP: 105 / 60 mmHg Concrete Laborer: TO Referring MD: Donnie Buchanan MD Symptoms: I25.5 - Ischemic cardiomyopathy Study Quality: Fair Conclusions: - Normal left ventricular cavity size. There is mildly increased left ventricular wall thickness. The left ventricular systolic function is moderately decreased. The visually estimated ejection fraction is between 30-35%. - The basal inferior, mid inferior, basal inferoseptal, and basal anteroseptal segments are akinetic. - Normal right ventricular cavity size and systolic function. - There is mild dilatation of the ascending aorta measuring 3.40 cm. Findings Left Ventricle Normal left ventricular cavity size. There is mildly increased left ventricular wall thickness. The left ventricular systolic function is moderately decreased. The visually estimated ejection fraction is between 30 35%. There is evidence of regional wall motion abnormalities. There is moderate global hypokinesis. Abnormal diastolic function is noted. Spectral Doppler is indicative of an impaired relaxation filling pattern. E/E prime ratio is >15, consistent with elevated filling pressures. Wall Motion Rest Echo Findings The basal inferior, mid inferior, basal inferoseptal, and basal anteroseptal segments are akinetic. Right Ventricle Normal right ventricular cavity size and systolic function. Atria The left atrium is normal in size. The right atrium is normal in size. Aortic Valve Normal aortic valve structure and function. There is no aortic valve stenosis. There is trace (trivial) aortic valve regurgitation. Mitral Valve The mitral valve appears normal. There is no mitral valve regurgitation. There is no mitral valve stenosis. Pulmonic Valve The pulmonic valve is likely normal. There is trace pulmonic valve regurgitation. Tricuspid Valve Normal tricuspid valve structure and function. There is trace tricuspid valve regurgitation. Tricuspid regurgitation envelope is inadequate for calculation of right ventricular systolic pressure. Normal right atrial pressure. Great Vessels There is mild dilatation of the ascending aorta measuring 3.40 cm. The visualized portions of the pulmonary artery and branches are normal. Venous The inferior vena cava is normal in size and collapses greater than 50% with inspiration. Pericardium/Pleural There is no evidence of pericardial effusion. Prior Study Comparison Changes noted compared to prior study dated: 12/12/2020. EF 30-35% (worse than before). Measurements 2D Linear Measurements IVSd: 0.98 0.6-0.9/0.6-1.0 cm LVIDd: 5.14 3.9-5.3/4.2-5.9 cm LVIDd Index: 2.61 2.4-3.2/2.2-3.1 cm/m2 LVIDs: 4.35 2.0-3.6 cm LVPWd: 0.91 0.7-1.1 cm LA Diam: 3.60 2.7-3.8/3.0-4.0 cm LAIDs Index: 1.83 1.5-2.3 cm/m2 LV Mass: 220.10 67-162/88-224 g LV Mass Index: 111.72 43-95/49-115 g/m2 LVOT Diam: 2.10 3.0+(-)1.3 cm 2D Systolic Function EF 4C: 35.50 >55% EF 2C: 32.70 >55% EF BiP: 35.20 >55% Mitral Valve MV Pk E: 0.39 MV PK A: 1.00 MV Decel Time: 188.00 E/A: 0.40 E'Lateral: 2.39 E'Medial: 2.61 E/E' Med: 15.10 E/E' Lat: 16.50 PHT: 55.00 MVA PHT: 4.00 Decel Rawlins: 2.09 Aortic Valve AoV Pk Juan: 1.43 AoV Mn Juan: 1.00 AoV VTI: 0.31 AoV Pk Grad: 8.00 Aov Mn Grad: 4.00 BIENVENIDO Cont.VTI: 1.86 AI Pk Juan: 3.93 AI Rawlins: 2.00 LVOT LVOT Pk Juan: 0.75 LVOT Mn Juan: 0.49 LVOT VTI: 0.17 LVOT Pk Grad: 2.00 LVOT Mn Grad: 1.00 LVOT Diam: 2.10 LVOT Area: 3.46 Diastolic Function MV Pk E: 0.39 MV Pk A: 1.00 E/A: 0.40 E'Medial: 2.61 E/E' Med: 15.10 E' Laterial: 2.39 E/E' Lat: 16.50 Right Ventricle TAPSE (mm): 18.40 TVS' Juan: 11.20 Tricuspid Valve RA Press: 3.00 Great Vessels Aorta Sinus of Valsalva: 3.24 2.0-3.[address] [place]: 2.53 1.7-3.4 cm Ao Asc: 3.40 2.1-3.4 cm Updated in Other Vendor System with Status of Final Ryan Jones MD electronically signed on 03/10/2022 9:01:17 AM with status of Final
== END ==
LOC: HO.CARD 09:01
PROVIDERS: PCP Internal Medicine; Visit Provider Internal Medicine Cardiovascular Disease
DX: I25.5 Ischemic cardiomyopathy (principal)
CPT/HCPCS: 93306

== ENCOUNTER → 2022-03-14 09:25 | Outpatient (BNVA) | payer MEDICARE, SELFPAY | PROVIDERS: PCP Internal Medicine; Visit Provider Internal Medicine | DX: I48.20 Chronic atrial fibrillation, unspecified (principal); Z51.81 Encounter for therapeutic drug level monitoring; Z79.01 Long term (current) use of anticoagulants | CPT/HCPCS: 85610; 99211 ==

== ENCOUNTER → 2022-03-25 09:14 | Outpatient (BNVA) | payer MEDICARE, SELFPAY | PROVIDERS: PCP Internal Medicine; Referring Provider Internal Medicine; Visit Provider Internal Medicine Cardiovascular Disease | DX: I25.5 Ischemic cardiomyopathy (principal); I25.10 Atherosclerotic heart disease of native coronary artery without angina pectoris; R42 Dizziness and giddiness | CPT/HCPCS: 93005; 99212 ==

== ENCOUNTER → 2022-04-11 09:24 | Outpatient (BNVA) | payer MEDICARE, SELFPAY | PROVIDERS: PCP Internal Medicine; Visit Provider Internal Medicine | DX: I48.20 Chronic atrial fibrillation, unspecified (principal); Z79.01 Long term (current) use of anticoagulants; Z51.81 Encounter for therapeutic drug level monitoring | CPT/HCPCS: 85610; 99211 ==

== ENCOUNTER → 2022-05-09 09:13 | Outpatient (BNVA) | payer MEDICARE, SELFPAY | PROVIDERS: PCP Internal Medicine; Visit Provider Internal Medicine | DX: I48.20 Chronic atrial fibrillation, unspecified (principal); Z79.01 Long term (current) use of anticoagulants; Z51.81 Encounter for therapeutic drug level monitoring | CPT/HCPCS: 85610; 99211 ==

== ENCOUNTER → 2022-05-28 09:31 | Outpatient (BNVA) | payer MEDICARE, SELFPAY | PROVIDERS: PCP Internal Medicine; Visit Provider Internal Medicine | DX: I48.20 Chronic atrial fibrillation, unspecified (principal); Z79.01 Long term (current) use of anticoagulants; Z51.81 Encounter for therapeutic drug level monitoring | CPT/HCPCS: 85610; 99211 ==

== ENCOUNTER → 2022-06-04 09:03 | Outpatient (BNVA) | payer MEDICARE, SELFPAY | PROVIDERS: PCP Internal Medicine; Visit Provider Internal Medicine | DX: I48.20 Chronic atrial fibrillation, unspecified (principal); Z79.01 Long term (current) use of anticoagulants; Z51.81 Encounter for therapeutic drug level monitoring | CPT/HCPCS: 85610; 99211 ==

== ENCOUNTER → 2022-07-02 09:19 | Outpatient (BNVA) | payer MEDICARE, SELFPAY | PROVIDERS: PCP Internal Medicine; Visit Provider Internal Medicine | DX: I48.20 Chronic atrial fibrillation, unspecified (principal); Z79.01 Long term (current) use of anticoagulants; Z51.81 Encounter for therapeutic drug level monitoring | CPT/HCPCS: 85610; 99211 ==

== ENCOUNTER → 2022-07-14 13:14 | Outpatient (BNVA) | payer MEDICARE, SELFPAY | PROVIDERS: PCP Internal Medicine; Visit Provider Internal Medicine | DX: Z45.02 Encounter for adjustment and management of automatic implantable cardiac defibrillator (principal); I25.5 Ischemic cardiomyopathy; I25.10 Atherosclerotic heart disease of native coronary artery without angina pectoris; I48.20 Chronic atrial fibrillation, unspecified; Z79.01 Long term (current) use of anticoagulants; Z51.81 Encounter for therapeutic drug level monitoring | CPT/HCPCS: 85610; 99211; 99212 ==

== ENCOUNTER → 2022-08-12 09:12 | Outpatient (BNVA) | payer MEDICARE, SELFPAY | PROVIDERS: PCP Internal Medicine; Visit Provider Internal Medicine | DX: I48.20 Chronic atrial fibrillation, unspecified (principal); Z79.01 Long term (current) use of anticoagulants; Z51.81 Encounter for therapeutic drug level monitoring | CPT/HCPCS: 85610; 99211 ==

== ENCOUNTER 2022-08-18 12:40 | Outpatient (REF) | payer MEDICARE, SELFPAY ==
[2022-08-18 14:30] LABS: Estimated Average Glucose 126 mg/dL
[2022-08-18 14:52] LABS: Alanine Aminotransferase 21 U/L (0-40); Alkaline Phosphatase 104 U/L (39-117); Anion Gap 12 (12-20); Aspartate Amino Transferase 19 U/L (5-37); Bilirubin Total 0.7 mg/dL (0.0-1.0); Blood Urea Nitrogen 17 mg/dL (9-16); Calcium 8.6 mg/dL (8.4-10.2); Carbon Dioxide 25 mmol/L (22-29); Chloride 107 mmol/L (96-108); Cholesterol 115 mg/dL; Estimated Glomerular Filt Rate > 60; Glucose Random 101 mg/dL (60-115); HDL Cholesterol 30 mg/dL; LDL Cholesterol Calculated 65 mg/dl; Potassium 4.5 mmol/L (3.3-5.1); Sodium 139 mmol/L (135-145); Total Protein 6.6 g/dL (6.5-8.0); Triglycerides 102 mg/dL
[2022-08-18 15:12] LABS: Folate 18.4 ng/mL (> or = 4.0); Vitamin B12 1490 pg/mL (200-900)
== END 2022-08-18 12:41 | disposition home or self-care (01) ==
LOC: HO.HMGCLDS 12:40
PROVIDERS: PCP Internal Medicine; Visit Provider Internal Medicine
DX: R73.02 Impaired glucose tolerance (oral) (principal); E78.00 Pure hypercholesterolemia, unspecified
CPT/HCPCS: 36415; 80053; 80061; 82607; 82746; 83036

== ENCOUNTER → 2022-08-26 09:16 | Outpatient (BNVA) | payer MEDICARE, SELFPAY | PROVIDERS: PCP Internal Medicine; Visit Provider Internal Medicine | DX: I48.20 Chronic atrial fibrillation, unspecified (principal); Z79.01 Long term (current) use of anticoagulants; Z51.81 Encounter for therapeutic drug level monitoring | CPT/HCPCS: 85610; 99211 ==

== ENCOUNTER → 2022-09-05 10:48 | Outpatient (BNVA) | payer MEDICARE, SELFPAY | PROVIDERS: PCP Internal Medicine; Visit Provider Internal Medicine | DX: I48.20 Chronic atrial fibrillation, unspecified (principal); Z79.01 Long term (current) use of anticoagulants; Z51.81 Encounter for therapeutic drug level monitoring | CPT/HCPCS: 85610; 99211 ==

== ENCOUNTER → 2022-09-19 09:15 | Outpatient (BNVA) | payer MEDICARE, SELFPAY | PROVIDERS: PCP Internal Medicine; Visit Provider Internal Medicine | DX: I48.20 Chronic atrial fibrillation, unspecified (principal); Z79.01 Long term (current) use of anticoagulants; Z51.81 Encounter for therapeutic drug level monitoring | CPT/HCPCS: 85610; 99211 ==

== ENCOUNTER → 2022-10-17 09:19 | Outpatient (BNVA) | payer MEDICARE, SELFPAY | PROVIDERS: PCP Internal Medicine; Visit Provider Internal Medicine | DX: I48.20 Chronic atrial fibrillation, unspecified (principal); Z79.01 Long term (current) use of anticoagulants; Z51.81 Encounter for therapeutic drug level monitoring | CPT/HCPCS: 85610; 99211 ==

== ENCOUNTER → 2022-10-28 23:59 | Outpatient (BNV) | payer MEDICARE, SELFPAY ==
--- NOTE | 2022-11-04 11:21 | A.OFFVIS_ITS ---
Intake Intake Visit Reasons: Remote HF Monitoring- [employer] Allergies penicillin G Allergy (Unknown, Verified 10/17/22 09:30) PASSED OUT [facility] Medical History (Updated 08/07/22 @ 08:37 by Benny Ramírez MD) Abnormal nuclear stress test Bladder cancer CAD (coronary artery disease) Colon cancer screening COVID-19 virus infection Encounter for Medicare annual wellness exam Erectile dysfunction Hx of myocardial infarction Hypercholesterolemia ICD (implantable cardioverter-defibrillator) in place Impaired glucose tolerance Ischemic cardiomyopathy Mild carotid artery disease On anticoagulant therapy On beta ruslan at home Preoperative cardiovascular examination Prostate cancer Surgical History (Updated 07/14/22 @ 14:33 by Donnie Buchanan MD) H/O transurethral destruction of bladder lesion History of bladder surgery Hx of colonoscopy Hx of heart artery stent Status post cardiac catheterization Family History Mother No problems noted. Father No problems noted. 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 Heart failure parameters are stable [id number] Cardiac Device Interrogation, cardio physiologic monitor Procedure code (CPT) selection complete Coding Level of Care Code Procedure Only Diagnoses CPT Codes Cardiac Device Check - Cardiac Device 15: [id number] Cardiac Device Interrogation, cardio physiologic monitor ([id number])
== END ==
PROVIDERS: PCP Internal Medicine; Visit Provider Internal Medicine Cardiovascular Disease
DX: I25.5 Ischemic cardiomyopathy (principal); Z95.810 Presence of automatic (implantable) cardiac defibrillator
CPT/HCPCS: 93297

== ENCOUNTER 2022-11-14 09:23 | Outpatient (AMB) | payer MEDICARE, SELFPAY ==
[2022-11-14 09:32] LABS: Prothrombin Time Whole Bld POC 54.4 sec (11.1-13.5); ~PT, ~INR - Anti Coag Clinic 4.5 (0.9-1.1)
--- NOTE | 2022-11-14 10:12 | MHC.OFFVISCO ---
Intake Intake Visit Reasons: Anticoagulation Allergies penicillin G Allergy (Unknown, Verified 11/14/22 09:27) PASSED OUT Medication List - Last Reconciled 11/14/22 by Joan Huitron RN atorvastatin 40 mg PO DAILY 90 days cyanocobalamin (vitamin B-12) 2,500 mcg PO .qod ezetimibe (Zetia) 10 mg PO DAILY metoprolol succinate ER (Toprol XL) 50 mg PO DAILY 90 days valsartan 80 mg PO DAILY 90 days warfarin 5 mg See Protocol PO DAILY Nursing Note PT.STATES THAT HE HAS BEEN TAKING MORE TYLENOL THAN USUAL AND LIKELY NOT HYDRATING WELL WHILE PAINTING HIS HOUSE IN THE EXTREME HEAT RECENTLY. HOLD WARFARIN TOMORROW(TOOK TODAY) 2.5MGM THURSDAY THEN RESUME USUAL DOSE AND FOLLOW-UP IN 1 WEEK. [place] TODAY GOOD UNDERSTANDING OF DOSING INSTR VERB. 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
== END 2022-11-14 10:15 | disposition home or self-care (01) ==
LOC: HO.ACS 09:23
PROVIDERS: PCP Internal Medicine; Visit Provider Internal Medicine
DX: Z79.01 Long term (current) use of anticoagulants (principal)

== ENCOUNTER → 2022-11-14 09:23 | Outpatient (BNVA) | payer MEDICARE, SELFPAY | PROVIDERS: PCP Internal Medicine; Visit Provider Internal Medicine | DX: I48.20 Chronic atrial fibrillation, unspecified (principal); Z79.01 Long term (current) use of anticoagulants; Z51.81 Encounter for therapeutic drug level monitoring | CPT/HCPCS: 85610; 99211 ==

== ENCOUNTER 2022-11-18 08:35 | Outpatient (AMB) | payer MEDICARE, SELFPAY ==
[2022-11-18 08:40] VITALS: BP 140/72; PULSE 79; O2SAT 98; BMI 23.8
--- NOTE | 2022-11-18 08:40 | A.OFFPC_ITS ---
Vital Signs 11/18/22 08:40 11/18/22 09:05 Height 5 ft 11 in Weight 171 lb BMI 23.8 BP 140/72 H 128/70 Blood Pressure Location Lt brachial Lt brachial Position Sitting Sitting Pulse 79 Pulse Source Pulse Oximeter Pulse Oximetry (%) 98 Oxygen Delivery Method Room Air Intake Visit Reasons: CAD, cholesterol Allergies penicillin G Allergy (Unknown, Verified 11/18/22 08:41) PASSED OUT Tobacco use date assessed: 08/07/22 Fall risk assessment: No Falls in past year Last assessed Fall Risk: 11/18/22 Dental Screening Dental Screen Date: 11/18/22 Did you have a dental visit in the last 12 months?: Yes Did you have a dental problem in the last 6 months where you did not have access to dental care?: No Was dental information given to patient?: Patient has dentist HPI CAD, cholesterol HPI Details 72-year-old male smoker with a history of prostate cancer hypercholesterolemia ICD coming in for follow-up last seen in July 2022 blood work was requested-states has fired but is asymptomatic - feels like beesting sometimes last few seconds. [facility] Medical History (Updated 11/18/22 @ 09:00 by Benny Ramírez MD) Abnormal nuclear stress test Abnormal prostate specific antigen (PSA) Bladder cancer CAD (coronary artery disease) Colon cancer screening COVID-19 virus infection Encounter for Medicare annual wellness exam Erectile dysfunction Hx of myocardial infarction Hypercholesterolemia ICD (implantable cardioverter-defibrillator) in place Impaired glucose tolerance Ischemic cardiomyopathy Mild carotid artery disease On anticoagulant therapy On beta ruslan at home Preoperative cardiovascular examination Prostate cancer Surgical History (Updated 07/14/22 @ 14:33 by Donnie Buchanan MD) H/O transurethral destruction of bladder lesion History of bladder surgery Hx of colonoscopy Hx of heart artery stent Status post cardiac catheterization Family History Mother No problems noted. Father No problems noted. 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 1. Little interest or pleasure in doing things: not at all 2. Feeling down, depressed, or hopeless: not at all 3. Trouble falling or staying asleep, or sleeping too much: not at all 4. Feeling tired or having little energy: not at all 5. Poor appetite or overeating: not at all 6. Feeling bad about yourself - or that you are a failure or have let yourself or your family down: not at all 7. Trouble concentrating on things, such as reading the newspaper or watching television: not at all 8. Moving or speaking so slowly that other people could have noticed. Or the opposite - being so fidgety or restless that you have been moving around a lot more than usual: not at all 9. Thoughts that you would be better off or of hurting yourself in some way: not at all Total score: 0 Depression Screening Interpretation: Negative Source: Developed by Drs. Tom Clark, Teagan Edwards, Chuy Stauffer and colleagues, with an educational cassandra from [employer]. Thrive Questionnaire Date Thrive assessed: 08/07/22 AUDIT C Alcohol Use Questionnaire (AUDIT-C) 1. How often do you have a drink containing alcohol?: Monthly or less 2. How many drinks containing alcohol do you have on a typical day when you are drinking?: 1 or 2 3. How often do you have six or more drinks on one occasion?: Never Total Score: 1 Score Reviewed/Action Taken: No REGGIE-7 AMB Questionnaire REGGIE-7 Date REGGIE - 7 assessed: 08/07/22 Source: Developed by Drs. Tom Clark, Chuy Johnson and colleagues, with an educational cassandra from [employer]. Physical exam (Primary Care) Vital Signs: Last Vital Signs Pulse 79 11/18/22 08:40 BP 140/72 H 11/18/22 08:40 Pulse Ox 98 11/18/22 08:40 Oxygen Delivery Method Room Air 11/18/22 08:40 BMI result Body Mass Index 23.8 Tobacco/Smoking Status: Tobacco use Status Tobacco use date assessed 08/07/22 11/18/22 08:45 Patient Tobacco Use Status Former Tobacco user 11/18/22 08:45 Tobacco use type Cigarette,Cigar 11/18/22 08:45 e-Cigarette/Vaping Use Never Used 11/18/22 08:45 PHQ-9: PHQ-9 Score PHQ-9: Total score 0 11/18/22 08:45 Depression Screening Interpretation: Negative Thrive Assessment: Date of Thrive Assessment Date Thrive assessed 08/07/22 11/18/22 08:45 Const General: alert; No acute distress Eyes Conjunctivae: conjunctivae normal Resp Auscultation: clear to auscultation bilaterally Cardio Rate: regular rate Rhythm: regular rhythm GI Inspection: Yes normal to inspection Extrem General: Yes normal to inspection and No edema Assessment and Plan Assessment & Plan (1) Tobacco abuse: Code(s): Z72.0 - Tobacco use Plan: Patient strongly advised to stop smoking ! (2) Coronary artery disease: Comment: 04/[address] Swann,Echocardiogram January 2019 ejection fraction 40% dilated left atrium. Evidence of basal mid inferior septal mid anterior septal and basal inferior wall infarct Code(s): I25.10 - Atherosclerotic heart disease of [place] coronary artery without angina pectoris Qualifiers: Coronary Disease-Associated Artery/Lesion type: [place] artery Hoh vs. transplanted heart: [place] heart Associated angina: without angina Qualified Code(s): I25.10 - Atherosclerotic heart disease of [place] coronary artery without angina pectoris Plan: Control the cholesterol, weight, blood pressure, and stop smoking (3) Ischemic cardiomyopathy: Code(s): I25.5 - Ischemic cardiomyopathy Plan: Continue with present medication (4) Hypercholesterolemia: Code(s): E78.00 - Pure hypercholesterolemia, unspecified Plan: Avoid fried foods, chicken skin, eggs, butter margarine, pastries and meat. Be it pork or beef they have a lot of cholesterol LDL goal of less than 70 (5) Impaired glucose tolerance: Code(s): R73.02 - Impaired glucose tolerance (oral) Plan: Decrease the amount of carbohydrate intake, pasta, bread, rice and potatoes are all sugar and that is aside from all the sweet stuff, remember that fruits are good but they are Sweet also. (6) Prostate cancer: Comment: Low risk [place] 6 Code(s): C61 - Malignant neoplasm of prostate Plan: Continue to monitor (7) ICD (implantable cardioverter-defibrillator) in place: Comment: [employer] single-chamber ICD in place for primary prevention, April 2022 Code(s): Z95.810 - Presence of automatic (implantable) cardiac defibrillator Plan: Patient is followed up by Cardiology and regularly monitor Orders: Orders Vitamin B12 and Folate 4 Months I25.10 - Atherosclerotic heart disease of [place] coronary artery without angina pectoris B Type Natriuretic Peptide 4 Months I25.10 - Atherosclerotic heart disease of [place] coronary artery without angina pectoris Comprehensive Met. Panel 4 Months I25.10 - Atherosclerotic heart disease of [place] coronary artery without angina pectoris Lipid Panel 4 Months E78.00 - Pure hypercholesterolemia, unspecified, I25.10 - Atherosclerotic heart disease of [place] coronary artery without angina pectoris Free T4 (Free Thyroxine) 4 Months I25.10 - Atherosclerotic heart disease of [place] coronary artery without angina pectoris Thyroid Stimulating Hormone 4 Months I25.10 - Atherosclerotic heart disease of [place] coronary artery without angina pectoris Complete Blood Count Auto Diff 4 Months I25.10 - Atherosclerotic heart disease of [place] coronary artery without angina pectoris Hemoglobin A1c 4 Months R73.02 - Impaired glucose tolerance (oral) Medications: Refilled atorvastatin 40 mg PO DAILY 90 days 90 tabs 2RF E78.00 - Pure hypercholesterolemia, unspecified Coding Level of Care Code Est Pt Level 4 (76812) Diagnoses Tobacco abuse Z72.0 Coronary artery disease I25.10 Coronary Disease-Associated Artery/Lesion type: [place] artery Hoh vs. transplanted heart: [place] heart Associated angina: without angina Ischemic cardiomyopathy I25.5 Hypercholesterolemia E78.00 Impaired glucose tolerance R73.02 Prostate cancer C61 ICD (implantable cardioverter-defibrillator) in place Z95.810 Additional Codes PHQ-9 - 51938 - PHQ-9 Billing: Y ([id number])
[2022-11-18 09:05] VITALS: BP 128/70
== END 2022-11-18 09:27 | disposition home or self-care (01) ==
PROVIDERS: Visit Provider Internal Medicine
DX: E78.00 Pure hypercholesterolemia, unspecified (principal); C61 Malignant neoplasm of prostate; Z72.0 Tobacco use; I25.10 Atherosclerotic heart disease of native coronary artery without angina pectoris; I25.5 Ischemic cardiomyopathy; R73.02 Impaired glucose tolerance (oral); Z95.810 Presence of automatic (implantable) cardiac defibrillator
CPT/HCPCS: 99214

== ENCOUNTER 2022-11-21 11:25 | Outpatient (AMB) | payer MEDICARE, SELFPAY ==
[2022-11-21 11:37] LABS: Prothrombin Time Whole Bld POC 37.8 sec (11.1-13.5); ~PT, ~INR - Anti Coag Clinic 3.1 (0.9-1.1)
--- NOTE | 2022-11-21 11:42 | MHC.OFFVISCO ---
Intake Intake Visit Reasons: Anticoagulation Allergies penicillin G Allergy (Unknown, Verified 11/21/22 11:30) PASSED OUT Medication List - Last Reconciled 11/21/22 by Beronica Domínguez RN atorvastatin 40 mg PO DAILY 90 days cyanocobalamin (vitamin B-12) 2,500 mcg PO .qod ezetimibe (Zetia) 10 mg PO DAILY metoprolol succinate ER (Toprol XL) 50 mg PO DAILY 90 days valsartan 80 mg PO DAILY 90 days warfarin 5 mg See Protocol PO DAILY Nursing Note Amb to ACS, accomp by spouse, feeling ok after recent elevated INR Medications and supplements reviewed No changes in health, diet, medications, or supplements Denies any unusual signs and symptoms of bruising, bleeding Denies any new Chest pain, SOB, or clotting INR: 3.1 just above therapeutic range Nutritional guidance given: ok for greens today then balance greens and reds in diet Dose: continue usual dosing; 7.5mg x 3 days and 5mg x 4 days F/U INR: 2 weeks Patient verbalizes understanding of instructions given with accurate read back/ teach back of dosing Anti-Coag Initial Assessment Social Hx Patient Tobacco Use Status: Former Tobacco user Quit Date: 1999 Tobacco use type: Cigarette and Cigar alcohol intake: current Alcohol intake frequency: holidays/special occasions only Coding Level of Care Code Est Patient Level 1 Diagnoses Current use of anticoagulant therapy Z79.01 Time Spent (min) 15 Assessment & Plan Assessment & Plan (1) Current use of anticoagulant therapy: 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
== END 2022-11-21 11:47 | disposition home or self-care (01) ==
LOC: HO.ACS 11:25
PROVIDERS: PCP Internal Medicine; Visit Provider Internal Medicine
DX: Z79.01 Long term (current) use of anticoagulants (principal)

== ENCOUNTER → 2022-11-21 11:25 | Outpatient (BNVA) | payer MEDICARE, SELFPAY | PROVIDERS: PCP Internal Medicine; Visit Provider Internal Medicine | DX: I48.20 Chronic atrial fibrillation, unspecified (principal); Z79.01 Long term (current) use of anticoagulants; Z51.81 Encounter for therapeutic drug level monitoring | CPT/HCPCS: 85610; 99211 ==

== ENCOUNTER → 2022-12-02 23:59 | Outpatient (BNV) | payer MEDICARE, SELFPAY ==
--- NOTE | 2022-12-02 09:40 | A.OFFVIS_ITS ---
Intake Intake Visit Reasons: Remote HF Monitoring- [employer] Allergies penicillin G Allergy (Unknown, Verified 11/21/22 11:30) PASSED OUT [facility] Medical History (Updated 11/18/22 @ 09:00 by Benny Ramírez MD) Abnormal nuclear stress test Abnormal prostate specific antigen (PSA) Bladder cancer CAD (coronary artery disease) Colon cancer screening COVID-19 virus infection Encounter for Medicare annual wellness exam Erectile dysfunction Hx of myocardial infarction Hypercholesterolemia ICD (implantable cardioverter-defibrillator) in place Impaired glucose tolerance Ischemic cardiomyopathy Mild carotid artery disease On anticoagulant therapy On beta ruslan at home Preoperative cardiovascular examination Prostate cancer Surgical History (Updated 07/14/22 @ 14:33 by Donnie Buchanan MD) H/O transurethral destruction of bladder lesion History of bladder surgery Hx of colonoscopy Hx of heart artery stent Status post cardiac catheterization Family History Mother No problems noted. Father No problems noted. 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 Heart failure parameters are within normal limits but on the rise. Will follow on a monthly basis. [id number] Cardiac Device Interrogation, cardio physiologic monitor Procedure code (CPT) selection complete Coding Level of Care Code Procedure Only Diagnoses CPT Codes Cardiac Device Check - Cardiac Device 15: [id number] Cardiac Device Interrogation, cardio physiologic monitor ([id number])
== END ==
PROVIDERS: PCP Internal Medicine; Visit Provider Internal Medicine Cardiovascular Disease
DX: R55 Syncope and collapse (principal)
CPT/HCPCS: 93297

== ENCOUNTER 2022-12-05 08:45 | Outpatient (AMB) | payer MEDICARE, SELFPAY ==
[2022-12-05 09:12] LABS: Prothrombin Time Whole Bld POC 55.5 sec (11.1-13.5); ~PT, ~INR - Anti Coag Clinic 4.6 (0.9-1.1)
--- NOTE | 2022-12-05 09:23 | MHC.OFFVISCO ---
Intake Intake Visit Reasons: Anticoagulation Allergies penicillin G Allergy (Unknown, Verified 12/05/22 09:04) PASSED OUT Medication List - Last Reconciled 12/05/22 by Parvin Cortez RN atorvastatin 40 mg PO DAILY 90 days cyanocobalamin (vitamin B-12) 2,500 mcg PO .qod ezetimibe (Zetia) 10 mg PO DAILY metoprolol succinate ER (Toprol XL) 50 mg PO DAILY 90 days valsartan 80 mg PO DAILY 90 days warfarin 5 mg See Protocol PO DAILY Nursing Note INR 4.6?? out of therapeutic range Medications and supplements reviewed Patient status: PAINTING HOUSE/ ? ENOUGH FLUIDS Medications or supplements: NO CHANGES Diet: MAY NOT HAVE HAD ENOUGH GREENS Denies any signs and symptoms of bleeding or clotting or unusual bruising Bleeding, bruising, clotting discussed Nutritional guidance given: GREENS TODAY Dose: ALREADY TOOK TODAY'S DOSE HOLD TOMORROW THEN REDUCE DOSE 7.5MG X 2 DAYS/ 5MG X 5 DAYS F/U INR Date : 1 WEEK ?? Patient verbalizing understanding of instructions given. 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
== END 2022-12-05 09:26 | disposition home or self-care (01) ==
LOC: HO.ACS 08:45
PROVIDERS: PCP Internal Medicine; Visit Provider Internal Medicine
DX: Z79.01 Long term (current) use of anticoagulants (principal)

== ENCOUNTER → 2022-12-05 08:45 | Outpatient (BNVA) | payer MEDICARE, SELFPAY | PROVIDERS: PCP Internal Medicine; Visit Provider Internal Medicine | DX: I48.20 Chronic atrial fibrillation, unspecified (principal); Z79.01 Long term (current) use of anticoagulants; Z51.81 Encounter for therapeutic drug level monitoring | CPT/HCPCS: 85610; 99211 ==

== ENCOUNTER 2022-12-12 09:56 | Outpatient (AMB) | payer MEDICARE, SELFPAY ==
--- NOTE | 2022-12-12 09:59 | MHC.OFFVISCO ---
Intake Intake Visit Reasons: Anticoagulation Allergies penicillin G Allergy (Unknown, Verified 12/12/22 09:59) PASSED OUT Medication List - Last Reconciled 12/12/22 by Parvin Cortez RN atorvastatin 40 mg PO DAILY 90 days cyanocobalamin (vitamin B-12) 2,500 mcg PO .qod ezetimibe (Zetia) 10 mg PO DAILY metoprolol succinate ER (Toprol XL) 50 mg PO DAILY 90 days valsartan 80 mg PO DAILY 90 days warfarin 5 mg See Protocol PO DAILY Nursing Note INR: 2.5 in therapeutic range- NOW HTAT HE FINALLY FIISHED PAINTING TTHE EXTERIOR OF HIS ENTIRE HOUSE AND GARAGE Medications and supplements reviewed No changes in health, diet, medications, or supplements, Denies any signs and symptoms of bleeding or bruising or clotting. Bleeding, bruising, clotting discussed Nutritional guidance given - KEEP UP WEEKLY GREENS SUCH SPINACH Dose: RESUME 7.5MG X 3 DAYS / 5MG X 4 DAYS F/U INR: 4 WEEKS Patient verbalizes understanding of instructions given Anti-Coag Initial Assessment Social Hx Patient Tobacco Use Status: Former Tobacco user Quit Date: 1999 Tobacco use type: Cigarette and Cigar alcohol intake: current Alcohol intake frequency: holidays/special occasions only Coding Level of Care Code Est Patient Level 1 Diagnoses Current use of anticoagulant therapy Z79.01 Assessment & Plan Assessment & Plan (1) Current use of anticoagulant therapy: Code(s): Z79.01 - snf (current) use of 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
[2022-12-12 10:05] LABS: Prothrombin Time Whole Bld POC 30.2 sec (11.1-13.5); ~PT, ~INR - Anti Coag Clinic 2.5 (0.9-1.1)
== END 2022-12-12 10:17 | disposition home or self-care (01) ==
LOC: HO.ACS 09:56
PROVIDERS: PCP Internal Medicine; Visit Provider Internal Medicine
DX: Z79.01 Long term (current) use of anticoagulants (principal)

== ENCOUNTER → 2022-12-12 09:56 | Outpatient (BNVA) | payer MEDICARE, SELFPAY | PROVIDERS: PCP Internal Medicine; Visit Provider Internal Medicine | DX: I48.20 Chronic atrial fibrillation, unspecified (principal); Z79.01 Long term (current) use of anticoagulants; Z51.81 Encounter for therapeutic drug level monitoring | CPT/HCPCS: 85610; 99211 ==

== ENCOUNTER 2023-01-09 09:15 | Outpatient (AMB) | payer MEDICARE, SELFPAY ==
[2023-01-09 09:44] LABS: Prothrombin Time Whole Bld POC 44.8 sec (11.1-13.5); ~PT, ~INR - Anti Coag Clinic 3.7 (0.9-1.1)
--- NOTE | 2023-01-09 09:49 | MHC.OFFVISCO ---
Intake Intake Visit Reasons: Anticoagulation Allergies penicillin G Allergy (Unknown, Verified 01/09/23 09:36) PASSED OUT Medication List - Last Reconciled 01/09/23 by Beronica Domínguez RN atorvastatin 40 mg PO DAILY 90 days cyanocobalamin (vitamin B-12) 2,500 mcg PO .qod ezetimibe (Zetia) 10 mg PO DAILY metoprolol succinate ER 50 mg PO DAILY valsartan 80 mg PO DAILY 90 days warfarin 5 mg See Protocol PO DAILY Nursing Note Amb to ACS feeling well Medications and supplements reviewed No changes in health, diet, medications, or supplements Denies any unusual signs and symptoms of bruising, bleeding Denies any new Chest pain, SOB, or clotting INR: 3.7 above therapeutic range, pt has been up and down for several visits Nutritional guidance given: ok for greens today then balance greens and reds in diet, be consistent with amounts and types of greens, food list reviewed Dose: already took warfarin today so decrease tomorrow to 2.5mg the resume usual dosing;7.5mg x 3 days and 5mg x 4 days F/U INR: 2 weeks Patient verbalizes understanding of instructions given with accurate read back/ teach back of dosing Anti-Coag Initial Assessment Social Hx Patient Tobacco Use Status: Former Tobacco user Quit Date: 1999 Tobacco use type: Cigarette and Cigar alcohol intake: current Alcohol intake frequency: holidays/special occasions only Coding Level of Care Code Est Patient Level 1 Diagnoses Current use of anticoagulant therapy Z79.01 Time Spent (min) 15 Results AMB INR Fingerstick AMB INR Fingerstick 3.7 Last Edit by Beronica Domínguez RN on 01/09/23 09:45 interface failure Assessment & Plan Assessment & Plan (1) Current use of anticoagulant therapy: Code(s): Z79.01 - jail (current) use of 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
== END 2023-01-09 09:54 | disposition home or self-care (01) ==
LOC: HO.ACS 09:15
PROVIDERS: PCP Internal Medicine; Visit Provider Internal Medicine
DX: Z79.01 Long term (current) use of anticoagulants (principal)

== ENCOUNTER → 2023-01-09 09:15 | Outpatient (BNVA) | payer MEDICARE, SELFPAY | PROVIDERS: PCP Internal Medicine; Visit Provider Internal Medicine | DX: I48.20 Chronic atrial fibrillation, unspecified (principal); Z79.01 Long term (current) use of anticoagulants; Z51.81 Encounter for therapeutic drug level monitoring | CPT/HCPCS: 85610; 99211 ==

== ENCOUNTER 2023-01-23 09:18 | Outpatient (AMB) | payer MEDICARE, SELFPAY ==
[2023-01-23 09:28] LABS: Prothrombin Time Whole Bld POC 37.6 sec (11.1-13.5); ~PT, ~INR - Anti Coag Clinic 3.1 (0.9-1.1)
--- NOTE | 2023-01-23 09:30 | MHC.OFFVISCO ---
Intake Intake Visit Reasons: Anticoagulation Allergies penicillin G Allergy (Unknown, Verified 01/23/23 09:20) PASSED OUT Medication List - Last Reconciled 01/23/23 by Joan Huitron RN atorvastatin 40 mg PO DAILY 90 days cyanocobalamin (vitamin B-12) 2,500 mcg PO .qod ezetimibe (Zetia) 10 mg PO DAILY metoprolol succinate ER 50 mg PO DAILY valsartan 80 mg PO DAILY 90 days warfarin 5 mg See Protocol PO DAILY Nursing Note NO CP,SOB,DIET/MED CHANGES,FALLS OR SX OF BLEEDING. CONTINUE PRESENT DOSE AND FOLLOW-UP IN 3 WEEKS. GOOD UNDERSTANDING OF DOSING INSTR. 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
== END 2023-01-23 09:38 | disposition home or self-care (01) ==
LOC: HO.ACS 09:18
PROVIDERS: PCP Internal Medicine; Visit Provider Internal Medicine
DX: Z79.01 Long term (current) use of anticoagulants (principal)

== ENCOUNTER → 2023-01-23 09:18 | Outpatient (BNVA) | payer MEDICARE, SELFPAY | PROVIDERS: PCP Internal Medicine; Visit Provider Internal Medicine | DX: I48.20 Chronic atrial fibrillation, unspecified (principal); Z79.01 Long term (current) use of anticoagulants; Z51.81 Encounter for therapeutic drug level monitoring | CPT/HCPCS: 85610; 99211 ==

== ENCOUNTER 2023-02-13 09:04 | Outpatient (AMB) | payer MEDICARE, SELFPAY ==
[2023-02-13 09:19] LABS: Prothrombin Time Whole Bld POC 35.3 sec (11.1-13.5); ~PT, ~INR - Anti Coag Clinic 2.9 (0.9-1.1)
--- NOTE | 2023-02-13 09:22 | MHC.OFFVISCO ---
Intake Intake Visit Reasons: Anticoagulation Allergies penicillin G Allergy (Unknown, Verified 02/13/23 09:12) PASSED OUT Medication List - Last Reconciled 02/13/23 by Joan Huitron RN atorvastatin 40 mg PO DAILY 90 days cyanocobalamin (vitamin B-12) 2,500 mcg PO .qod ezetimibe (Zetia) 10 mg PO DAILY metoprolol succinate ER 50 mg PO DAILY valsartan 80 mg PO DAILY 90 days warfarin 5 mg See Protocol PO DAILY Nursing Note NO CP,SOB,DIET/MED CHANGES,FALLS OR SX OF BLEEDING. CONTINUE PRESENT DOSING AND FOLLOW-UP IN WEEKS. GOOD UNDERSTANDING OF DOSING INSTR. 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
== END 2023-02-13 09:24 | disposition home or self-care (01) ==
LOC: HO.ACS 09:04
PROVIDERS: PCP Internal Medicine; Visit Provider Internal Medicine
DX: Z79.01 Long term (current) use of anticoagulants (principal)

== ENCOUNTER → 2023-02-13 09:04 | Outpatient (BNVA) | payer MEDICARE, SELFPAY | PROVIDERS: PCP Internal Medicine; Visit Provider Internal Medicine | DX: I48.20 Chronic atrial fibrillation, unspecified (principal); Z51.81 Encounter for therapeutic drug level monitoring; Z79.01 Long term (current) use of anticoagulants | CPT/HCPCS: 85610; 99211 ==

== ENCOUNTER → 2023-03-01 23:59 | Outpatient (BNV) | payer MEDICARE, SELFPAY ==
--- NOTE | 2023-03-06 15:55 | A.OFFVIS_ITS ---
Intake Intake Visit Reasons: Remote HF Monitoring- [employer] Allergies penicillin G Allergy (Unknown, Verified 02/13/23 09:12) PASSED OUT [facility] Medical History (Updated 11/18/22 @ 09:00 by Benny Ramírez MD) ICD (implantable cardioverter-defibrillator) in place COVID-19 virus infection Abnormal prostate specific antigen (PSA) Encounter for Medicare annual wellness exam Abnormal nuclear stress test Hx of myocardial infarction Mild carotid artery disease On anticoagulant therapy On beta ruslan at home CAD (coronary artery disease) Preoperative cardiovascular examination Ischemic cardiomyopathy Colon cancer screening Hypercholesterolemia Impaired glucose tolerance Erectile dysfunction Prostate cancer Bladder cancer Surgical History (Updated 07/14/22 @ 14:33 by Donnie Buchanan MD) Status post cardiac catheterization Hx of heart artery stent Hx of colonoscopy H/O transurethral destruction of bladder lesion History of bladder surgery Family History Mother No problems noted. Father No problems noted. 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 Heart failure parameters were elevated. Clinical follow-up with patient shows no other symptoms of heart failure [id number] Cardiac Device Interrogation, cardio physiologic monitor Procedure code (CPT) selection complete Coding Level of Care Code Procedure Only CPT Codes Cardiac Device Check - Cardiac Device 15: [id number] Cardiac Device Interrogation, cardio physiologic monitor ([id number])
== END ==
PROVIDERS: PCP Internal Medicine; Visit Provider Internal Medicine Cardiovascular Disease
DX: I25.5 Ischemic cardiomyopathy (principal); Z95.810 Presence of automatic (implantable) cardiac defibrillator
CPT/HCPCS: 93297

== ENCOUNTER 2023-03-09 08:44 | Outpatient (AMB) | payer MEDICARE, SELFPAY ==
[2023-03-09 08:53] VITALS: BP 132/68; PULSE 66; O2SAT 99; BMI 22.7
--- NOTE | 2023-03-09 08:53 | MHC.PC.OV ---
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 Allergies penicillin G Allergy (Unknown, Verified 03/09/23 08:54) PASSED OUT Medication List - Last Reconciled 03/09/23 by Benny Ramírez MD atorvastatin 40 mg PO DAILY 90 days cyanocobalamin (vitamin B-12) 2,500 mcg PO .qod ezetimibe (Zetia) 10 mg PO DAILY metoprolol succinate ER 50 mg PO DAILY multivitamin (One-A-Day Essential tablet) 1 tab PO DAILY valsartan 80 mg PO DAILY 90 days warfarin 5 mg See Protocol PO DAILY Tobacco use date assessed: 03/09/23 Fall risk assessment: No Falls in past year Last assessed Fall Risk: 03/09/23 Dental Screening Dental Screen Date: 03/09/23 Did you have a dental visit in the last 12 months?: Yes Did you have a dental problem in the last 6 months where you did not have access to dental care?: No Was dental information given to patient?: Patient has dentist HPI Annual Physical HPI Details 73-year-old male smoker with coronary artery disease ischemic cardiomyopathy with an ICD implant hypercholesterolemia impaired glucose tolerance history of prostate cancer and metastatic bladder cancer(complete response local/chemo/radiation therapy) coming in for physical exam. Patient had colonoscopy done March 2021. Review of the notes patient has been follow-up with cardiology for monitoring of the ICD. Review of the notes in November 2022 has seen neurology for the bladder . Last note from cardiology June 2022 severe ischemic cardiomyopathy on valsartan mental continue with atorvastatin and Zetia target goal LDL 50 cancer. Patient feels good but states occasionally gets dizzy and knows to eat as he forgets eating being busy helping with son. Otherwise no chest pains does have episodes of shortness of breath on heavy activity and knows to stop. Reminded about the blood work [facility] Medical History (Updated 03/09/23 @ 09:02 by Benny Ramírez MD) ICD (implantable cardioverter-defibrillator) in place COVID-19 virus infection Abnormal prostate specific antigen (PSA) Encounter for Medicare annual wellness exam Abnormal nuclear stress test Hx of myocardial infarction Mild carotid artery disease On anticoagulant therapy On beta ruslan at home CAD (coronary artery disease) Preoperative cardiovascular examination Ischemic cardiomyopathy Colon cancer screening Hypercholesterolemia Impaired glucose tolerance Erectile dysfunction Prostate cancer Bladder cancer Surgical History (Updated 07/14/22 @ 14:33 by Donnie Buchanan MD) Status post cardiac catheterization Hx of heart artery stent Hx of colonoscopy H/O transurethral destruction of bladder lesion History of bladder surgery Family History Mother No problems noted. Father No problems noted. 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 How often do you have a drink containing alcohol?: Monthly or less 2. How many drinks containing alcohol do you have on a typical day when you are drinking?: 1 or 2 3. How often do you have six or more drinks on one occasion?: Never Total Score: 1 Score Reviewed/Action Taken: No REGGIE-7 AMB Questionnaire REGGIE-7 Date REGGIE - 7 assessed: 08/07/22 Source: Developed by Drs. Tom Clark, Teagan Edwards, Chuy Stauffer and colleagues, with an educational cassandra from [employer]. Review of Systems Const Denies poor appetite and Denies weakness Eyes Denies no additional complaints ENT Reports Normal hearing present, Denies dizziness, Denies nasal congestion, Denies tinnitus and Denies sore throat Card Denies chest pain, Denies syncope, Denies rapid heart rate and Denies dyspnea Resp Denies cough and Denies dyspnea GI Denies change in stool character, Reports constipation, Denies diarrhea, Denies nausea and Denies vomiting Denies dysuria and Denies urinary frequency Neuro Reports Normal hearing present, Denies confusion, Denies dizziness, Denies syncope and Denies weakness Psych Denies confusion Physical exam (Primary Care) Vital Signs: Last Vital Signs Pulse 66 03/09/23 08:53 BP 132/68 03/09/23 08:53 Pulse Ox 99 03/09/23 08:53 Oxygen Delivery Method Room Air 03/09/23 08:53 BMI result Body Mass Index 22.7 Tobacco/Smoking Status: Tobacco use Status Tobacco use date assessed 03/09/23 03/09/23 08:58 Patient Tobacco Use Status Former Tobacco user 03/09/23 08:58 Tobacco use type Cigarette,Cigar 03/09/23 08:58 e-Cigarette/Vaping Use Never Used 03/09/23 08:58 Thrive Assessment: Date of Thrive Assessment Date Thrive assessed 08/07/22 03/09/23 08:58 Const General: No confusion Orientation/consciousness: No confusion HENMT Head: Yes normocephalic Ears: external ears normal and TM's normal bilaterally Face and sinus: Yes normal facial exam Mouth: moist mucous membranes Throat: Yes tonsils normal Eyes Conjunctivae: conjunctivae normal Pupils: Equal, round and reactive pupils present and Pupil accommodation reflex normal Direct Ophthalmoscopy: normal light reflex Neck Neck: No lymphadenopathy Thyroid: Thyroid normal Chest Chest palpation & inspection: normal inspection of the chest Resp Effort & Inspection: normal respiratory effort and no audible wheezes Auscultation: clear to auscultation bilaterally, no crackles, no wheezes and lung sounds not diminished Cardio Rate: regular rate Rhythm: regular rhythm Peripheral pulses: radial pulses present and dorsalis pedis present GI Other: Declined rectal Palpation (GI): no masses Auscultation: normal bowel sounds and normoactive bowel sounds Rectal Exam - Male: Yes deferred Other: Declined exam Skin General skin exam: no rashes or lesions noted Rashes: no rashes Neuro General: No confusion Cranial nerves: Yes Equal, round and reactive pupils present and Yes Normal hearing present Cognition (Neuro): normal cognition Gait exam (Neuro): Normal gait present Motor exam (neuro): 5/5 motor strength present throughout Deep tendon reflexes (DTR's): Right brachioradialis reflex intensity grade: 2+, Left brachioradialis reflex intensity grade: 2+, Right patellar reflex intensity grade: 2+ and Left patellar reflex intensity grade: 2+ Extrem General: No edema Assessment and Plan Assessment & Plan (1) Annual physical exam: Code(s): Z00.00 - Encounter for general adult medical examination without abnormal findings (2) Tobacco abuse: Code(s): Z72.0 - Tobacco use Plan: Patient is strongly advised to stop smoking! (3) Coronary artery disease: Comment: 04/[address] [place] [address] Swann,Echocardiogram January 2019 ejection fraction 40% dilated left atrium. Evidence of basal mid inferior septal mid anterior septal and basal inferior wall infarct Code(s): I25.10 - Atherosclerotic heart disease of enterprise coronary artery without angina pectoris Qualifiers: Coronary Disease-Associated Artery/Lesion type: enterprise artery [place] vs. transplanted heart: enterprise heart Associated angina: without angina Qualified Code(s): I25.10 - Atherosclerotic heart disease of enterprise coronary artery without angina pectoris Plan: Control the cholesterol, weight, blood pressure, continue with aspirin (4) ICD (implantable cardioverter-defibrillator) in place: Comment: [place] single-chamber ICD in place for primary prevention, April 2022 Code(s): Z95.810 - Presence of automatic (implantable) cardiac defibrillator Plan: Patient continues to follow-up with cardiology (5) Ischemic cardiomyopathy: Code(s): I25.5 - Ischemic cardiomyopathy Plan: Continue to follow-up with cardiology patient has the ICD continue with anticoagulation (6) Prostate cancer: Comment: Low risk [place] 6 Code(s): C61 - Malignant neoplasm of prostate Plan: Patient follows up with urology on surveillance (7) Impaired glucose tolerance: Code(s): R73.02 - Impaired glucose tolerance (oral) Plan: Decrease the amount of carbohydrate intake, pasta, bread, rice and potatoes are all sugar and that is aside from all the sweet stuff, remember that fruits are good but they are Sweet also. (8) Hypercholesterolemia: Code(s): E78.00 - Pure hypercholesterolemia, unspecified Plan: Avoid fried foods, chicken skin, eggs, butter margarine, pastries and meat. Be it pork or beef they have a lot of cholesterol LDL goal of less than 50 and triglyceride of less than 150. Patient on atorvastatin 40 mg once a day and Zetia 10 mg once a day Medications: Changed From warfarin 7.5MG Thu, 5MG SUN TUE THUR SAT 5 mg See Protocol PO DAILY 90 tabs 3RF I25.5 - Ischemic cardiomyopathy To warfarin 7.5MG Thu, 5MG SUN TUE THUR SAT or as directed 5 mg See Protocol PO DAILY 180 tabs 3RF I25.5 - Ischemic cardiomyopathy Coding Level of Care Code Est Pt Prev Care >65y(63420) Diagnoses Annual physical exam Z00.00 Tobacco abuse Z72.0 Coronary artery disease involving enterprise coronary artery of enterprise heart without angina pectoris I25.10 Coronary Disease-Associated Artery/Lesion type: enterprise artery [place] vs. transplanted heart: enterprise heart Associated angina: without angina ICD (implantable cardioverter-defibrillator) in place Z95.810 Ischemic cardiomyopathy I25.5 Prostate cancer C61 Impaired glucose tolerance R73.02 Hypercholesterolemia E78.00
== END 2023-03-09 10:01 | disposition home or self-care (01) ==
PROVIDERS: Visit Provider Internal Medicine
DX: Z00.00 Encounter for general adult medical examination without abnormal findings (principal); C61 Malignant neoplasm of prostate; Z72.0 Tobacco use; I25.10 Atherosclerotic heart disease of native coronary artery without angina pectoris; Z95.810 Presence of automatic (implantable) cardiac defibrillator; I25.5 Ischemic cardiomyopathy; R73.02 Impaired glucose tolerance (oral); E78.00 Pure hypercholesterolemia, unspecified
CPT/HCPCS: 99397

== ENCOUNTER 2023-03-13 08:58 | Outpatient (AMB) | payer MEDICARE, SELFPAY ==
--- NOTE | 2023-03-13 09:26 | MHC.OFFVISCO ---
Intake Intake Visit Reasons: Anticoagulation Allergies penicillin G Allergy (Unknown, Verified 03/13/23 09:13) PASSED OUT Medication List - Last Reconciled 03/13/23 by Parvin Cortez RN atorvastatin 40 mg PO DAILY 90 days cyanocobalamin (vitamin B-12) 2,500 mcg PO .qod ezetimibe (Zetia) 10 mg PO DAILY metoprolol succinate ER 50 mg PO DAILY multivitamin (One-A-Day Essential tablet) 1 tab PO DAILY valsartan 80 mg PO DAILY 90 days warfarin 5 mg See Protocol PO DAILY Nursing Note INR: 3.3 OUT OF therapeutic range STARTED NEW MVI 1 MONTH AGO WITHOUT VIT K - MAYBE RAISING THE INR Medications and supplements reviewed No changes in health, diet, medications, or supplements, Denies any signs and symptoms of bleeding or bruising or clotting. Bleeding, bruising, clotting discussed Nutritional guidance given - ENC COOKED GREENS TO LOWER THE INR Dose: KEEP THE DOSE THE SAME FOR NOW INCREASE COOKED GREENS 7.5MG X 3 DAYS/ 5MG X 4 DAYS F/U INR: 4 WEEKS Patient verbalizes understanding of instructions given Anti-Coag Initial Assessment Social Hx Patient Tobacco Use Status: Former Tobacco user Quit Date: 1999 Tobacco use type: Cigarette and Cigar alcohol intake: current Alcohol intake frequency: holidays/special occasions only Coding Level of Care Code Est Patient Level 1 Diagnoses Current use of anticoagulant therapy Z79.01 Results AMB INR Fingerstick AMB INR Fingerstick 3.3 Last Edit by Parvin Cortez RN on 03/13/23 09:22 MANUAL ENTRY Assessment & Plan Assessment & Plan (1) Current use of anticoagulant therapy: Code(s): Z79.01 - emt intermediate (current) use of 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
[2023-03-13 10:29] LABS: ~PT, ~INR - Anti Coag Clinic 3.3 (0.9-1.1)
== END 2023-03-13 09:28 | disposition home or self-care (01) ==
LOC: HO.ACS 08:58
PROVIDERS: PCP Internal Medicine; Visit Provider Internal Medicine
DX: Z79.01 Long term (current) use of anticoagulants (principal)

== ENCOUNTER → 2023-03-13 08:58 | Outpatient (BNVA) | payer MEDICARE, SELFPAY | PROVIDERS: PCP Internal Medicine; Visit Provider Internal Medicine | DX: I48.20 Chronic atrial fibrillation, unspecified (principal); Z79.01 Long term (current) use of anticoagulants; Z51.81 Encounter for therapeutic drug level monitoring | CPT/HCPCS: 85610; 99211 ==

== ENCOUNTER 2023-03-16 13:38 | Outpatient (AMB) | payer MEDICARE, SELFPAY ==
[2023-03-16 14:07] VITALS: BP 130/62; PULSE 82; BMI 22.7
--- NOTE | 2023-03-16 14:07 | MHC.OFFVIS ---
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 Allergies penicillin G Allergy (Unknown, Verified 03/16/23 14:10) PASSED OUT Medication List - Last Reconciled 03/16/23 by Opal Moncada NP-C atorvastatin 40 mg PO DAILY 90 days cyanocobalamin (vitamin B-12) 2,500 mcg PO .qod ezetimibe (Zetia) 10 mg PO DAILY metoprolol succinate ER 50 mg PO DAILY multivitamin (One-A-Day Essential tablet) 1 tab PO DAILY valsartan 80 mg PO DAILY 90 days warfarin 5 mg See Protocol PO DAILY HPI 6 mth fu w/ Rustam Scinticfic HPI Details Justa is a 73-year-old male with past medical history of hyperlipidemia, impaired fasting glucose, mild carotid stenosis, coronary artery disease, ischemic cardiomyopathy, ICD who presents for follow-up. Today he reports he has been doing well with no concerning symptoms. He denies chest discomfort, shortness of breath, palpitations, presyncope, syncope, PND, orthopnea or edema. He says he was busy this past summer with painting his house and garage which he tolerated well. He is taking his meds as directed. No bleeding issues reported. [facility] Medical History ICD (implantable cardioverter-defibrillator) in place COVID-19 virus infection Abnormal prostate specific antigen (PSA) Encounter for Medicare annual wellness exam Abnormal nuclear stress test Hx of myocardial infarction Mild carotid artery disease On anticoagulant therapy On beta ruslan at home CAD (coronary artery disease) Preoperative cardiovascular examination Ischemic cardiomyopathy Colon cancer screening Hypercholesterolemia Impaired glucose tolerance Erectile dysfunction Prostate cancer Bladder cancer Surgical History Status post cardiac catheterization Hx of heart artery stent Hx of colonoscopy H/O transurethral destruction of bladder lesion History of bladder surgery Family History Mother No problems noted. Father No problems noted. 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 Cognitive needs: No Hearing needs: Yes Vision needs: Yes Review of Systems Const All systems reviewed & are unremarkable except as noted in HPI and below ENT Denies dizziness Card Denies chest pain, Denies chest pain at rest, Denies chest pain with activity, Denies rapid heart rate, Denies pedal edema, Denies edema, Denies leg edema, Denies lightheadedness, Denies palpitations, Denies dyspnea, Denies dyspnea on exertion and Denies orthopnea Resp Denies cough, Denies dyspnea and Denies dyspnea on exertion GI Denies hematochezia and Denies change in stool character Musc Denies abnormal gait, Denies muscle weakness, Denies numbness, Denies radiating pain into limb, Denies stiffness and Denies tingling Neuro Denies abnormal gait, Denies dizziness, Denies numbness and Denies tingling Endo Denies palpitations Physical Exam Vital Signs: Last Vital Signs Pulse 82 03/16/23 14:07 BP 130/62 03/16/23 14:07 BMI result Body Mass Index 22.7 Const General: cooperative, healthy appearing, comfortable and no acute distress Orientation/consciousness: patient oriented x3 Neck Neck: Yes normal visual inspection Resp Effort & Inspection: normal respiratory effort Auscultation: clear to auscultation bilaterally, no crackles, no rales, no rhonchi and no wheezes Cardio Jugular venous distension: no JVD Rate: regular rate Rhythm: regular rhythm Heart sounds: S1 normal heart sound present, S2 normal heart sound present, no murmurs and no rubs GI Inspection: Yes normal to inspection Skin General skin exam: no rashes or lesions noted Neuro General: patient oriented x3 Extrem General: Yes normal to inspection Psych Appearance: grossly normal Mental Status: mental status grossly normal Speech and movement: Normal speech and movement present Office Procedures Cardiac Device Check Cardiac Device Check Details: [employer] single lead ICD interrogation today, VVI mode rate 40, battery life 13 years, brief NSVT episodes, longus 10 seconds, monitor only, no therapies, RV threshold 1.5 at 0.4 milliseconds. [id number] Cardiac Device Check, single lead implantable defibrillator Procedure code (CPT) selection complete Assessment & Plan Assessment & Plan (1) Ischemic cardiomyopathy: Code(s): I25.5 - Ischemic cardiomyopathy Plan: History of ischemic cardiomyopathy. Last echo done 03/07/2022 showing EF 30-35%, basal inferior mid inferior basal inferior septal and basal anterior septal akinetic. He does have a known RCA stent in place, with prior ID. single lead AICD in place. Short episodes of NSVT noted, no therapies. He is on metoprolol XL and valsartan for neurohormonal modulation. On examination today has no clinical signs of heart failure. Labs done on 08/18/2022 showed potassium 4.5, creatinine 1.07. Continue current med management without change. Signs and symptoms of heart failure reviewed with him. Will plan to update echo prior to next visit. (2) ICD (implantable cardioverter-defibrillator) in place: Comment: [employer] single-chamber ICD in place for primary prevention, April 2022 Code(s): Z95.810 - Presence of automatic (implantable) cardiac defibrillator Plan: [employer] single-chamber ICD in place. Functioning normally on interrogation today. Brief runs of NSVT. Monitoring zone only, no therapies. Continue metoprolol XL. Continue remote monitoring. Next office interrogation due in 6 months (3) Coronary artery disease: Comment: 04/[address] Swann,Echocardiogram January 2019 ejection fraction 40% dilated left atrium. Evidence of basal mid inferior septal mid anterior septal and basal inferior wall infarct Code(s): I25.10 - Atherosclerotic heart disease of [place] coronary artery without angina pectoris Qualifiers: Associated angina: without angina Coronary Disease-Associated Artery/Lesion type: [place] artery [place] vs. transplanted heart: [place] heart Qualified Code(s): I25.10 - Atherosclerotic heart disease of [place] coronary artery without angina pectoris Plan: CAD with inferior ID 2011, RCA stent placed. Residual ischemic cardiomyopathy. No reports of anginal sounding symptoms. He is not on aspirin as he is on Coumadin. Coumadin use is for noncardiac reason. He reports history of clot in the past. [place] [facility] [place] and PCP for this. Continue atorvastatin with ideal LDL goal less than 70. Labs done on 08/18/2022 showed LDL 65. Continue metoprolol XL. Signs and symptoms of angina reviewed with him. 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 Orders: Orders CA echo transthoracic complete 5 Months I25.10 - Atherosclerotic heart disease of [place] coronary artery without angina pectoris, I25.5 - Ischemic cardiomyopathy Coding Level of Care Code Est Pt Level 4 (22217) Diagnoses Ischemic cardiomyopathy I25.5 ICD (implantable cardioverter-defibrillator) in place Z95.810 Coronary artery disease involving [place] coronary artery of [place] heart without angina pectoris I25.10 Associated angina: without angina Coronary Disease-Associated Artery/Lesion type: [place] artery [place] vs. transplanted heart: [place] heart Hypercholesterolemia E78.00 Current use of anticoagulant therapy Z79.01 CPT Codes Cardiac Device Check - Cardiac Device 4: [id number]-[id number] Cardiac Device Check, single lead implantable defibrillator ([id number]) Time Spent (min) 28
== END 2023-03-16 14:50 | disposition home or self-care (01) ==
PROVIDERS: PCP Internal Medicine; Visit Provider Nurse Practitioner Family
DX: I25.5 Ischemic cardiomyopathy (principal); Z95.810 Presence of automatic (implantable) cardiac defibrillator; I25.10 Atherosclerotic heart disease of native coronary artery without angina pectoris; E78.00 Pure hypercholesterolemia, unspecified; Z79.01 Long term (current) use of anticoagulants
CPT/HCPCS: 93282; 99214

== ENCOUNTER → 2023-03-16 13:38 | Outpatient (BNVA) | payer MEDICARE, SELFPAY | PROVIDERS: PCP Internal Medicine; Visit Provider Nurse Practitioner Family | DX: I25.5 Ischemic cardiomyopathy (principal); I25.10 Atherosclerotic heart disease of native coronary artery without angina pectoris; I10 Essential (primary) hypertension; R73.02 Impaired glucose tolerance (oral); E78.00 Pure hypercholesterolemia, unspecified; Z98.890 Other specified postprocedural states; Z95.5 Presence of coronary angioplasty implant and graft; Z79.01 Long term (current) use of anticoagulants; Z45.02 Encounter for adjustment and management of automatic implantable cardiac defibrillator | CPT/HCPCS: 99212 ==

== ENCOUNTER 2023-03-20 09:12 | Outpatient (REF) | payer MEDICARE, SELFPAY ==
[2023-03-20 10:25] LABS: MANUAL DIFF FLAG NO
[2023-03-20 10:30] LABS: Basophils Absolute Auto 0.1 X10*3/uL (0.0-0.2); Basophils Percent Auto 1.4 % (0-2); Eosinophils Absolute Auto 0.4 X10*3/uL (0.0-0.4); Hematocrit 47.5 % (42.0-52.0); Hemoglobin 15.5 g/dl (14.0-18.0); Imm Gran Abs Auto 0.02 X10*3/uL (0.00-0.03); Imm Gran Pct Auto 0.3 % (0.0-0.4); Lymphocytes Absolute Auto 1.9 X10*3/uL (1.2-4.9); Lymphocytes Percent Auto 23.7 % (20-40); Mean Corpuscular HGB Conc 32.6 g/dl (31.0-36.0); Mean Corpuscular Hemoglobin 29.5 pg (27.0-33.0); Mean Corpuscular Volume 90.5 fL (80.0-98.0); Mean Platelet Volume 9.8 fL (9.4-12.4); Monocytes Absolute Auto 0.7 X10*3/uL (0.1-1.2); Monocytes Percent Auto 8.3 % (2-11); Neutrophils Absolute Auto 4.8 x10*3/uL (2.0-8.3); Neutrophils Percent Auto 61.3 % (45-73); Platelet Count 205 X10*3/uL (160-400); Red Blood Count 5.25 X10*6/uL (4.60-5.80); Red Cell Distribution Width 14.1 % (11.0-16.0); White Blood Count 7.8 X10*3/uL (4.8-10.8)
[2023-03-20 11:05] LABS: Estimated Average Glucose 128 mg/dL; Hemoglobin A1c % 6.1 % (<6.0)
[2023-03-20 11:06] LABS: B Type Natriuretic Peptide 70 pg/mL (<100)
[2023-03-20 11:09] LABS: Alanine Aminotransferase 32 U/L (0-40); Albumin Level 4.2 g/dL (3.5-5.0); Alkaline Phosphatase 95 U/L (39-117); Anion Gap 11 (12-20); Aspartate Amino Transferase 26 U/L (5-37); Bilirubin Total 0.7 mg/dL (0.0-1.0); Blood Urea Nitrogen 17 mg/dL (9-16); Calcium 9.5 mg/dL (8.4-10.2); Carbon Dioxide 27 mmol/L (22-29); Chloride 105 mmol/L (96-108); Cholesterol 111 mg/dL (<200); Estimated Glomerular Filt Rate > 60; Glucose Random 121 mg/dL (60-115); HDL Cholesterol 32 mg/dL (>40); LDL Cholesterol Calculated 62 mg/dL (<100); Potassium 5.2 mmol/L (3.3-5.1); Sodium 138 mmol/L (135-145); Total Protein 7.7 g/dL (6.5-8.0); Triglycerides 85 mg/dL (<150)
[2023-03-20 11:16] LABS: Folate 15.7 ng/mL (> or = 4.0); Vitamin B12 506 pg/mL (200-900)
[2023-03-20 11:23] LABS: Free T4 (Free Thyroxine) 1.08 ng/dL (0.71-1.85); Thyroid Stimulating Hormone 0.96 uIU/mL (0.32-4.0)
== END 2023-03-20 09:13 | disposition home or self-care (01) ==
LOC: HO.HMGCLDS 09:12
PROVIDERS: PCP Internal Medicine; Visit Provider Internal Medicine
DX: I25.10 Atherosclerotic heart disease of native coronary artery without angina pectoris (principal); R73.02 Impaired glucose tolerance (oral); E78.00 Pure hypercholesterolemia, unspecified
CPT/HCPCS: 36415; 80053; 80061; 82607; 82746; 83036; 83880; 84439; 84443; 85025

== ENCOUNTER 2023-03-24 08:14 | Outpatient (AMB) | payer MEDICARE, SELFPAY ==
--- NOTE | 2023-03-24 08:23 | MHC.PC.OV ---
Vital Signs 03/24/23 08:25 Height 5 ft 11 in Weight 162 lb BMI 22.6 BP 130/68 Blood Pressure Location Lt brachial Position Sitting Pulse 75 Pulse Source Pulse Oximeter Pulse Oximetry (%) 93 Oxygen Delivery Method Room Air Intake Visit Reasons: 4mon f/u Allergies penicillin G Allergy (Unknown, Verified 03/24/23 08:25) PASSED OUT Tobacco use date assessed: 03/09/23 Fall risk assessment: No Falls in past year Last assessed Fall Risk: 03/24/23 Dental Screening Dental Screen Date: 03/24/23 Did you have a dental visit in the last 12 months?: Yes Did you have a dental problem in the last 6 months where you did not have access to dental care?: No Was dental information given to patient?: Patient has dentist HPI 4mon f/u HPI Details 73-year-old male smoker with coronary artery disease ischemic cardiomyopathy prostate cancer impaired glucose tolerance hypercholesterolemia coming in for follow-up. Last seen in February 2023. Patient did have blood work done and is here for follow-up. Colonoscopy is up-to-date March 2021 5-6 years. Noted notes from Cardiology in February 2023 patient has an ICD had a device check last echo was February 2022 ejection fraction of 30 35% basal inferior mid inferior basal inferior septal and basal anterior septal akinetic known RCA stent(April 2011) noted short episodes of an SVT. Metoprolol valsartan. PFSH Medical History ICD (implantable cardioverter-defibrillator) in place COVID-19 virus infection Abnormal prostate specific antigen (PSA) Encounter for Medicare annual wellness exam Abnormal nuclear stress test Hx of myocardial infarction Mild carotid artery disease On anticoagulant therapy On beta ruslan at home CAD (coronary artery disease) Preoperative cardiovascular examination Ischemic cardiomyopathy Colon cancer screening Hypercholesterolemia Impaired glucose tolerance Erectile dysfunction Prostate cancer Bladder cancer Surgical History Status post cardiac catheterization Hx of heart artery stent Hx of colonoscopy H/O transurethral destruction of bladder lesion History of bladder surgery Family History Mother No problems noted. Father No problems noted. 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 1. Little interest or pleasure in doing things: not at all 2. Feeling down, depressed, or hopeless: not at all 3. Trouble falling or staying asleep, or sleeping too much: not at all 4. Feeling tired or having little energy: not at all 5. Poor appetite or overeating: not at all 6. Feeling bad about yourself - or that you are a failure or have let yourself or your family down: not at all 7. Trouble concentrating on things, such as reading the newspaper or watching television: not at all 8. Moving or speaking so slowly that other people could have noticed. Or the opposite - being so fidgety or restless that you have been moving around a lot more than usual: not at all 9. Thoughts that you would be better off or of hurting yourself in some way: not at all Total score: 0 Depression Screening Interpretation: Negative Depression Screening Done: Yes Source: Developed by Drs. Tom Clark, Teagan Edwards, Chuy Stauffer and colleagues, with an educational cassandra from [employer]. Thrive Questionnaire Date Thrive assessed: 08/07/22 AUDIT C Alcohol Use Questionnaire (AUDIT-C) 1. How often do you have a drink containing alcohol?: Monthly or less 2. How many drinks containing alcohol do you have on a typical day when you are drinking?: 1 or 2 3. How often do you have six or more drinks on one occasion?: Never Total Score: 1 Score Reviewed/Action Taken: No REGGIE-7 AMB Questionnaire REGGIE-7 Date REGGIE - 7 assessed: 08/07/22 Source: Developed by Drs. Tom Clark, Teagan Edwards, Chuy Stauffer and colleagues, with an educational cassandra from [employer]. Physical exam (Primary Care) Vital Signs: Last Vital Signs Pulse 75 03/24/23 08:25 BP 130/68 03/24/23 08:25 Pulse Ox 93 03/24/23 08:25 Oxygen Delivery Method Room Air 03/24/23 08:25 BMI result Body Mass Index 22.6 Tobacco/Smoking Status: Tobacco use Status Tobacco use date assessed 03/09/23 03/24/23 08:31 Patient Tobacco Use Status Former Tobacco user 03/24/23 08:31 Tobacco use type Cigarette,Cigar 03/24/23 08:31 e-Cigarette/Vaping Use Never Used 03/24/23 08:31 PHQ-9: PHQ-9 Score PHQ-9: Total score 0 03/24/23 08:31 Depression Screening Interpretation: Negative Thrive Assessment: Date of Thrive Assessment Date Thrive assessed 08/07/22 03/24/23 08:31 Const General: alert; No acute distress Eyes Conjunctivae: conjunctivae normal Resp Auscultation: clear to auscultation bilaterally Cardio Rate: regular rate Rhythm: regular rhythm GI Inspection: Yes normal to inspection Extrem General: Yes normal to inspection and No edema Assessment and Plan Assessment & Plan (1) Tobacco abuse: Code(s): Z72.0 - Tobacco use Plan: Patient is strongly advised to stop smoking! (2) Thrombophilia: Comment: Dr. Knight ? Splenic thrombus Code(s): D68.59 - Other primary thrombophilia Plan: Anticoagulation for this problem (3) Ischemic cardiomyopathy: Code(s): I25.5 - Ischemic cardiomyopathy Plan: Patient is being followed up by Cardiology continue blood pressure control and neural hormonal treatment (4) Impaired glucose tolerance: Code(s): R73.02 - Impaired glucose tolerance (oral) Plan: Decrease the amount of carbohydrate intake, pasta, bread, rice and potatoes are all sugar and that is aside from all the sweet stuff, remember that fruits are good but they are Sweet also. Discussed with the patient increasing A1c (5) Hypercholesterolemia: Code(s): E78.00 - Pure hypercholesterolemia, unspecified Plan: Avoid fried foods, chicken skin, eggs, butter margarine, pastries and meat. Be it pork or beef they have a lot of cholesterol LDL goal of less than 70 and triglyceride of less than 150. Patient is on atorvastatin 40 mg once a day and Zetia 10 mg once a day (6) Coronary artery disease: Comment: 04/[address] [place] [address] Swann,Echocardiogram January 2019 ejection fraction 40% dilated left atrium. Evidence of basal mid inferior septal mid anterior septal and basal inferior wall infarct Code(s): I25.10 - Atherosclerotic heart disease of [place] coronary artery without angina pectoris Qualifiers: Coronary Disease-Associated Artery/Lesion type: [place] artery [place] vs. transplanted heart: [place] heart Associated angina: without angina Qualified Code(s): I25.10 - Atherosclerotic heart disease of [place] coronary artery without angina pectoris Plan: Control the cholesterol, weight, blood pressure presently on anticoagulation (7) ICD (implantable cardioverter-defibrillator) in place: Comment: [employer] single-chamber ICD in place for primary prevention, April 2022 Code(s): Z95.810 - Presence of automatic (implantable) cardiac defibrillator Plan: Interrogation done by Cardiology recently showingN SVT episodes Orders: Orders B Type Natriuretic Peptide 6 Months R73.02 - Impaired glucose tolerance (oral) Comprehensive Met. Panel 6 Months R73.02 - Impaired glucose tolerance (oral) Hemoglobin A1c 6 Months R73.02 - Impaired glucose tolerance (oral) Lipid Panel 6 Months E78.00 - Pure hypercholesterolemia, unspecified, R73.02 - Impaired glucose tolerance (oral) Coding Level of Care Code Est Pt Level 4 (83287) Diagnoses Tobacco abuse Z72.0 Thrombophilia D68.59 Ischemic cardiomyopathy I25.5 Impaired glucose tolerance R73.02 Hypercholesterolemia E78.00 Coronary artery disease involving [place] coronary artery of [place] heart without angina pectoris I25.10 Coronary Disease-Associated Artery/Lesion type: [place] artery [place] vs. transplanted heart: [place] heart Associated angina: without angina ICD (implantable cardioverter-defibrillator) in place Z95.810 Additional Codes PHQ-9 - 77966 - PHQ-9 Billing: ([id number])
[2023-03-24 08:25] VITALS: BP 130/68; PULSE 75; O2SAT 93; BMI 22.6
== END 2023-03-24 08:53 | disposition home or self-care (01) ==
PROVIDERS: PCP Internal Medicine; Visit Provider Internal Medicine
DX: Z72.0 Tobacco use (principal); D68.59 Other primary thrombophilia; I25.5 Ischemic cardiomyopathy; R73.02 Impaired glucose tolerance (oral); E78.00 Pure hypercholesterolemia, unspecified; I25.10 Atherosclerotic heart disease of native coronary artery without angina pectoris; Z95.810 Presence of automatic (implantable) cardiac defibrillator
CPT/HCPCS: 99214

== ENCOUNTER 2023-04-10 09:26 | Outpatient (AMB) | payer MEDICARE, SELFPAY ==
[2023-04-10 09:33] LABS: Prothrombin Time Whole Bld POC 35.8 sec (11.1-13.5)
--- NOTE | 2023-04-10 09:36 | MHC.OFFVISCO ---
Intake Intake Visit Reasons: Anticoagulation Allergies penicillin G Allergy (Unknown, Verified 04/10/23 09:27) PASSED OUT Medication List - Last Reconciled 04/10/23 by Beronica Doímnguez RN atorvastatin 40 mg PO DAILY 90 days cyanocobalamin (vitamin B-12) 2,500 mcg PO .qod ezetimibe (Zetia) 10 mg PO DAILY metoprolol succinate ER 50 mg PO DAILY multivitamin (One-A-Day Essential tablet) 1 tab PO DAILY valsartan 80 mg PO DAILY 90 days warfarin 5 mg See Protocol PO DAILY Nursing Note Amb to ACS feeling well Medications and supplements reviewed No changes in health, diet, medications, or supplements Denies any unusual signs and symptoms of bruising, bleeding Denies any new Chest pain, SOB, or clotting INR: 3.0 in therapeutic range Nutritional guidance given: discussion with pt regarding INRs at top or above range, reviewed greens in diet, sts only green this week was spinach (sts small serving ) on Thursday, encouraged good greens 2-3 times a week, keeping spinach to only once a week and balance greens and reds in diet Dose: continue usual dosing; 7.5mg x 3 days and 5mg x 4 days F/U INR: 1 month Patient verbalizes understanding of instructions given with accurate read back/ teach back of dosing Anti-Coag Initial Assessment Social Hx Patient Tobacco Use Status: Former Tobacco user Quit Date: 1999 Tobacco use type: Cigarette and Cigar alcohol intake: current Alcohol intake frequency: holidays/special occasions only Questionnaires HAS-BLED Does the patient had uncontrolled Hypertension?: No Does the patient have renal disease?: No Does the patient have liver disease?: No Does the patient have a history of stroke?: No Has the patient had major bleeding or predisposition to bleeding?: No Does the patient have labile INRs?: No Is the patient over 65 years of age?: Yes Is the patient on medications that gives them a predisposition to bleeding?: Yes Does the patient use alcohol?: No HAS-BLED Score: 2 CHADSVASC Age: 66-74 Gender: Male Does the patient have a history of CHF?: No Does the patient have a history of Hypertension?: Yes Does the patient have a history of Stroke/TIA/Thromboembolism?: Yes Does the patient have a history of Vascular Disease (prior IL, PAD or aortic plaque)?: No Does the patient have a history of Diabetes?: No CHADS VACS Score: 4 [place] Prediction Score Rsk VTE Active Cancer: No Previous VTE, excluding superficial vein thrombosis: Yes Reduced mobility: No Already known Thrombophilic Condition: Yes With-in last month Trauma and/or Surgery: No Elderly 70 year or older: No Heart and/or Respiratory Failure: No Acute Myocardial infarction and/or Ischemic Stroke: No Acute Infection and/or Rheumatologic Disorder: No Obesity (BMI 30 or greater): No Ongoing Hormonal Treatment: No Score: 6 [place] Score less than 4; Low Risk of VTE [place] Score 4 or greater; High Risk of VTE Coding Level of Care Code Est Patient Level 1 Diagnoses Current use of anticoagulant therapy Z79.01 Time Spent (min) 15 Assessment & Plan Assessment & Plan (1) Current use of anticoagulant therapy: Code(s): Z79.01 - senior care (current) use of 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
== END 2023-04-10 10:04 | disposition home or self-care (01) ==
LOC: HO.ACS 09:26
PROVIDERS: PCP Internal Medicine; Visit Provider Internal Medicine
DX: Z79.01 Long term (current) use of anticoagulants (principal)

== ENCOUNTER → 2023-04-10 09:26 | Outpatient (BNVA) | payer MEDICARE, SELFPAY | PROVIDERS: PCP Internal Medicine; Visit Provider Internal Medicine | DX: I48.20 Chronic atrial fibrillation, unspecified (principal); Z79.01 Long term (current) use of anticoagulants; Z51.81 Encounter for therapeutic drug level monitoring | CPT/HCPCS: 85610; 99211 ==

== ENCOUNTER 2023-04-25 09:05 | Outpatient (AMB) | payer MEDICARE, SELFPAY ==
[2023-04-25 09:47] VITALS: BP 120/60; PULSE 72; TEMP 36.9; O2SAT 100; BMI 23.0
--- NOTE | 2023-04-25 09:47 | MHC.OFFWIV ---
Intake Vital Signs 04/25/23 09:47 Height 5 ft 11 in Weight 165 lb BMI 23.0 BP 120/60 Blood Pressure Location Rt brachial Position Sitting Pulse 72 Pulse Source Pulse Oximeter Temp 98.5 F Temp Source Oral Pulse Oximetry (%) 100 Oxygen Delivery Method Room Air Intake Visit Reasons: EST/hand dog bite([phone]) Intake Note: Pt is here today c/o Lt hand dog bite x2 days ago (his dog) Last TD 2021 Patient Tobacco Use Status: Former Tobacco user Quit Date: 1999 Allergies penicillin G Allergy (Unknown, Verified 04/25/23 10:03) PASSED OUT Do you need a note to return to daycare/school/sports/work: No HPI HPI Comments History of Present Illness Details This is a 73-year-old male with a past medical history of hyperlipidemia, hypertension, ischemic cardiomyopathy and coronary artery disease presenting for evaluation of left hand pain after being bitten by his own dog 2 days ago. Patient states that he has 2 dogs that were in a conflict and he was breaking the event when has small manage her doxepin bit him on the top of his left hand. Patient cleanse the area thoroughly with soap and water and has been applying Neosporin ointment topically. Patient denies having any fevers but has had chills and describes an aching pain on the dorsal surface of his left hand. Of note, patient's most recent tetanus immunization was in 2021. [facility] Medical History ICD (implantable cardioverter-defibrillator) in place COVID-19 virus infection Abnormal prostate specific antigen (PSA) Encounter for Medicare annual wellness exam Abnormal nuclear stress test Hx of myocardial infarction Mild carotid artery disease On anticoagulant therapy On beta ruslan at home CAD (coronary artery disease) Preoperative cardiovascular examination Ischemic cardiomyopathy Colon cancer screening Hypercholesterolemia Impaired glucose tolerance Erectile dysfunction Prostate cancer Bladder cancer Surgical History Status post cardiac catheterization Hx of heart artery stent Hx of colonoscopy H/O transurethral destruction of bladder lesion History of bladder surgery Family History Mother No problems noted. Father No problems noted. 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 Cognitive needs: No Hearing needs: Yes Vision needs: Yes Review of Systems Const All systems reviewed & are unremarkable except as noted in HPI and below Reports chills, Denies fatigue, Denies fever(s) and Denies malaise Musc Reports no additional complaints and Reports other (dorsal left hand pain) Skin/Breast Reports erythema and Reports wounds Neuro Denies Sensory deficit (Neuro) Psych Reports no additional complaints Endo Denies fatigue Physical Exam Vital Signs: Last Vital Signs Temp 98.5 F 04/25/23 09:47 Pulse 72 04/25/23 09:47 BP 120/60 04/25/23 09:47 Pulse Ox 100 04/25/23 09:47 Oxygen Delivery Method Room Air 04/25/23 09:47 BMI result Body Mass Index 23.0 Patient is afebrile. Const General: cooperative, healthy appearing, comfortable, no acute distress and well developed Nutritional Appearance: average body habitus Orientation/consciousness: patient oriented x3 Limitations: no limitations Skin Lesions: lesion noted (There is macular erythema with underlying edema over left hand ) left dorsal hand Wounds: wounds noted (Surface abrasions and single puncture wound left dorsal hand) Neuro General: patient oriented x3 Cognition (Neuro): normal cognition Motor exam (neuro): 5/5 motor strength present throughout Sensory Exam: No Sensory deficit (Neuro) Extrem General: Yes normal to inspection Left upper extremity: hand Details: normal capillary refill, neuromotor exam normal, neurosensory exam normal, normal ROM of fingers, warmth, swelling, laceration and other (Erythema dorsal surface left hand) Psych Appearance: grossly normal Mental Status: mental status grossly normal Insight: Good insight present (Psych) Judgement: Good judgement present (Psych) Assessment & Plan Assessment & Plan (1) Dog bite of left hand with infection: Comment: Localized cellulitis to the left hand without evidence of lymphangitis or retained foreign body. Code(s): S61.452A - Open bite of left hand, initial encounter; L08.9 - Local infection of the skin and subcutaneous tissue, unspecified; W54.0XXA - Bitten by dog, initial encounter Plan: Augmentin b.i.d. x 10 days. Patient will follow up with his primary care physician or at urgent care for any worsening symptoms including fever, increased pain or increased redness extending up the left arm. Medications: New amoxicillin-pot clavulanate 875-125 mg 1 tab PO Q12H 20 tabs 0RF Coding Level of Care Code Est Pt Level 3 (11519) Diagnoses Dog bite of left hand with infection S61.452A; L08.9; W54.0XXA Time Spent (min) 20
== END 2023-04-25 11:19 | disposition home or self-care (01) ==
PROVIDERS: PCP Internal Medicine; Visit Provider Physician Assistant
DX: S61.452A Open bite of left hand, initial encounter (principal); L08.9 Local infection of the skin and subcutaneous tissue, unspecified; W54.0XXA Bitten by dog, initial encounter
CPT/HCPCS: 99213

== ENCOUNTER 2023-05-08 08:47 | Outpatient (AMB) | payer MEDICARE, SELFPAY ==
--- NOTE | 2023-05-08 09:36 | MHC.OFFVISCO ---
Intake Intake Visit Reasons: Anticoagulation Allergies penicillin G Allergy (Unknown, Verified 05/08/23 09:26) PASSED OUT Medication List - Last Reconciled 05/08/23 by Parvin Cortez RN atorvastatin 40 mg PO DAILY 90 days cyanocobalamin (vitamin B-12) 2,500 mcg PO .qod ezetimibe (Zetia) 10 mg PO DAILY metoprolol succinate ER 50 mg PO DAILY multivitamin (One-A-Day Essential tablet) 1 tab PO DAILY valsartan 80 mg PO DAILY 90 days warfarin 5 mg See Protocol PO DAILY Nursing Note INR: 2.8 in therapeutic range Medications and supplements reviewed PT IS S/P LEFT HAND CELLULTITIS S/P DOG BITE WAS ON ANTBX - COMPLETED COURSE AND IS BETTER /COMPLETED 1 WEEK AGO - ENC GREENS THIS WK DUE TO DELAYED ONSET OF ANTBX INCRASING THE INR Denies any signs and symptoms of bleeding or bruising or clotting. Bleeding, bruising, clotting discussed Nutritional guidance given - AN EXTRA GREENS THIS WK Dose: 7.5MG X 3 DAYS 5MG X 4 DAYS F/U INR: 4 WEEKS Patient verbalizes understanding of instructions given Anti-Coag Initial Assessment Social Hx Patient Tobacco Use Status: Former Tobacco user Quit Date: 1999 Tobacco use type: Cigarette and Cigar alcohol intake: current Alcohol intake frequency: holidays/special occasions only Coding Level of Care Code Est Patient Level 1 Diagnoses Current use of anticoagulant therapy Z79.01 Results AMB INR Fingerstick AMB INR Fingerstick 2.8 Last Edit by Parvin Cortez RN on 05/08/23 09:33 MANUAL ENTRY FAILED INTERFACING Assessment & Plan Assessment & Plan (1) Current use of anticoagulant therapy: Code(s): Z79.01 - residential (current) use of 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
[2023-05-08 09:40] LABS: ~PT, ~INR - Anti Coag Clinic 2.8 (0.9-1.1)
== END 2023-05-08 09:40 | disposition home or self-care (01) ==
LOC: HO.ACS 08:47
PROVIDERS: PCP Internal Medicine; Visit Provider Internal Medicine
DX: Z79.01 Long term (current) use of anticoagulants (principal)

== ENCOUNTER → 2023-05-08 08:47 | Outpatient (BNVA) | payer MEDICARE, SELFPAY | PROVIDERS: PCP Internal Medicine; Visit Provider Internal Medicine | DX: I48.20 Chronic atrial fibrillation, unspecified (principal); Z79.01 Long term (current) use of anticoagulants; Z51.81 Encounter for therapeutic drug level monitoring | CPT/HCPCS: 85610; 99211 ==

== ENCOUNTER → 2023-05-25 23:59 | Outpatient (BNV) | payer MEDICARE, SELFPAY ==
--- NOTE | 2023-05-25 16:50 | MHC.OFFVIS ---
Intake Intake Visit Reasons: Remote HF Monitoring- [employer] [employer] Allergies penicillin G Allergy (Unknown, Verified 05/08/23 09:26) PASSED OUT [facility] Medical History ICD (implantable cardioverter-defibrillator) in place COVID-19 virus infection Abnormal prostate specific antigen (PSA) Encounter for Medicare annual wellness exam Abnormal nuclear stress test Hx of myocardial infarction Mild carotid artery disease On anticoagulant therapy On beta ruslan at home CAD (coronary artery disease) Preoperative cardiovascular examination Ischemic cardiomyopathy Colon cancer screening Hypercholesterolemia Impaired glucose tolerance Erectile dysfunction Prostate cancer Bladder cancer Surgical History Status post cardiac catheterization Hx of heart artery stent Hx of colonoscopy H/O transurethral destruction of bladder lesion History of bladder surgery Family History Mother No problems noted. Father No problems noted. 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 Heart logic score is elevated, patient clinically having no symptoms. Advised to call us [id number] Cardiac Device Interrogation, cardio physiologic monitor Procedure code (CPT) selection complete Assessment & Plan Assessment & Plan (1) ICD (implantable cardioverter-defibrillator) in place: Comment: [employer] [employer] single-chamber ICD in place for primary prevention, April 2022 Code(s): Z95.810 - Presence of automatic (implantable) cardiac defibrillator Plan: See above Coding Level of Care Code Procedure Only Diagnoses ICD (implantable cardioverter-defibrillator) in place Z95.810 CPT Codes Cardiac Device Check - Cardiac Device 15: [id number] Cardiac Device Interrogation, cardio physiologic monitor ([id number])
== END ==
PROVIDERS: PCP Internal Medicine; Visit Provider Internal Medicine Cardiovascular Disease
DX: I25.5 Ischemic cardiomyopathy (principal); Z95.810 Presence of automatic (implantable) cardiac defibrillator
CPT/HCPCS: 93297

== ENCOUNTER → 2023-05-25 23:59 | Outpatient (BNV) | payer MEDICARE, SELFPAY ==
--- NOTE | 2023-05-25 16:48 | A.OFFVIS_ITS ---
Intake Intake Visit Reasons: Remote ICD Check- [employer] [place] [employer] Allergies penicillin G Allergy (Unknown, Verified 05/08/23 09:26) [facility] Medical History ICD (implantable cardioverter-defibrillator) in place COVID-19 virus infection Abnormal prostate specific antigen (PSA) Encounter for Medicare annual wellness exam Abnormal nuclear stress test Hx of myocardial infarction Mild carotid artery disease On anticoagulant therapy On beta ruslan at home CAD (coronary artery disease) Preoperative cardiovascular examination Ischemic cardiomyopathy Colon cancer screening Hypercholesterolemia Impaired glucose tolerance Erectile dysfunction Prostate cancer Bladder cancer Surgical History Status post cardiac catheterization Hx of heart artery stent Hx of colonoscopy H/O transurethral destruction of bladder lesion History of bladder surgery Family History Mother No problems noted. Father No problems noted. 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 ICD function is adequate. [place] [id number] Cardiac Interrogation, implant defibrillator w/interim Procedure code (CPT) selection complete Assessment & Plan Assessment & Plan (1) ICD (implantable cardioverter-defibrillator) in place: Comment: [employer] single-chamber ICD in place for primary prevention, April 2022 Code(s): Z95.810 - Presence of automatic (implantable) cardiac defibrillator Plan: See above Coding Level of Care Code Procedure Only Diagnoses ICD (implantable cardioverter-defibrillator) in place Z95.810 CPT Codes Cardiac Device Check - Cardiac Device 13: [id number] Cardiac Interrogation, implant defibrillator w/interim ([id number])
== END ==
PROVIDERS: PCP Internal Medicine; Visit Provider Internal Medicine Cardiovascular Disease
DX: I25.5 Ischemic cardiomyopathy (principal); Z95.810 Presence of automatic (implantable) cardiac defibrillator
CPT/HCPCS: 93295

== ENCOUNTER 2023-06-12 09:24 | Outpatient (AMB) | payer MEDICARE, SELFPAY ==
[2023-06-12 09:43] LABS: Prothrombin Time Whole Bld POC 45.7 sec (11.1-13.5); ~PT, ~INR - Anti Coag Clinic 3.8 (0.9-1.1)
--- NOTE | 2023-06-12 09:51 | MHC.OFFVISCO ---
Intake Intake Visit Reasons: Anticoagulation Allergies penicillin G Allergy (Unknown, Verified 06/12/23 09:37) PASSED OUT Medication List - Last Reconciled 06/12/23 by Parvin Cortez RN atorvastatin 40 mg PO DAILY 90 days cyanocobalamin (vitamin B-12) 2,500 mcg PO .qod ezetimibe (Zetia) 10 mg PO DAILY metoprolol succinate ER 50 mg PO DAILY multivitamin (One-A-Day Essential tablet) 1 tab PO DAILY valsartan 80 mg PO DAILY 90 days warfarin 5 mg See Protocol PO DAILY Nursing Note INR 3.8 out of therapeutic range Medications and supplements reviewed Patient status: STATES HE HAD A BAD COLD 2 WEEKS AGO TOOK TYLENOL AND NIGHT QUIL A FEW TIMES HE STATED HE FELT HIS DEFIBRILLATOR GO OFF FELT LIKE A KICK IN THE CHEST, HE WAS ENC TO F/U WITH SECURITY ENGINEER- HE STATED HE HAS AN ECHO IN NEAR FUTURE AND HIS HEART ACTIVITY IS SENT TO HIS SECURITY ENGINEER STATES HE TOOK TYLENOL THIS AM FOR SINUS HEADACHE HE WAS ENC TO F/U WITH MD IF HIS SYMPTOMS PERSIST Medications or supplements: RX THE SAME Diet: GOOD EVEN WITH COLD Denies any signs and symptoms of bleeding or clotting or unusual bruising Bleeding, bruising, clotting discussed Nutritional guidance given: REVIEW FOOD LIST WEEKLY Dose: 2.5MG TODAY THEN 7.5MG X 3DAYS/ 5MG X 4 DAYS F/U INR Date: 07/10/23 PER PT REQUEST ?? Patient verbalizing understanding of instructions given. Anti-Coag Initial Assessment Social Hx Patient Tobacco Use Status: Former Tobacco user Quit Date: 1999 Tobacco use type: Cigarette and Cigar alcohol intake: current Alcohol intake frequency: holidays/special occasions only Coding Level of Care Code Est Patient Level 1 Diagnoses Current use of anticoagulant therapy Z79.01 Assessment & Plan Assessment & Plan (1) Current use of anticoagulant therapy: Code(s): Z79.01 - USP (current) use of 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
== END 2023-06-12 10:01 | disposition home or self-care (01) ==
LOC: HO.ACS 09:24
PROVIDERS: PCP Internal Medicine; Visit Provider Internal Medicine
DX: Z79.01 Long term (current) use of anticoagulants (principal)

== ENCOUNTER → 2023-06-12 09:24 | Outpatient (BNVA) | payer MEDICARE, SELFPAY | PROVIDERS: PCP Internal Medicine; Visit Provider Internal Medicine | DX: I48.20 Chronic atrial fibrillation, unspecified (principal); Z79.01 Long term (current) use of anticoagulants; Z51.81 Encounter for therapeutic drug level monitoring | CPT/HCPCS: 85610; 99211 ==

== ENCOUNTER → 2023-06-29 23:59 | Outpatient (BNV) | payer MEDICARE, SELFPAY ==
--- NOTE | 2023-06-30 16:27 | A.OFFVIS_ITS ---
Intake Intake Visit Reasons: Remote HF Monitoring- [employer] [employer] Allergies penicillin G Allergy (Unknown, Verified 06/12/23 09:37) PASSED OUT [facility], [facility] Medical History ICD (implantable cardioverter-defibrillator) in place COVID-19 virus infection Abnormal prostate specific antigen (PSA) Encounter for Medicare annual wellness exam Abnormal nuclear stress test Hx of myocardial infarction Mild carotid artery disease On anticoagulant therapy On beta ruslan at home CAD (coronary artery disease) Preoperative cardiovascular examination Ischemic cardiomyopathy Colon cancer screening Hypercholesterolemia Impaired glucose tolerance Erectile dysfunction Prostate cancer Bladder cancer Surgical History Status post cardiac catheterization Hx of heart artery stent Hx of colonoscopy H/O transurethral destruction of bladder lesion History of bladder surgery Family History Mother No problems noted. Father No problems noted. 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 Heart failure parameters are within normal limits [id number] Cardiac Device Interrogation, cardio physiologic monitor Procedure code (CPT) selection complete Assessment & Plan Assessment & Plan (1) ICD (implantable cardioverter-defibrillator) in place: Comment: [place] [employer] single-chamber ICD in place for primary prevention, April 2022 Code(s): Z95.810 - Presence of automatic (implantable) cardiac defibrillator Plan: See above Coding Level of Care Code Procedure Only Diagnoses ICD (implantable cardioverter-defibrillator) in place Z95.810 CPT Codes Cardiac Device Check - Cardiac Device 15: [id number] Cardiac Device Interrogation, cardio physiologic monitor ([id number])
== END ==
PROVIDERS: PCP Internal Medicine; Visit Provider Internal Medicine Cardiovascular Disease
DX: I25.5 Ischemic cardiomyopathy (principal); Z95.810 Presence of automatic (implantable) cardiac defibrillator
CPT/HCPCS: 93297

== ENCOUNTER 2023-07-10 09:20 | Outpatient (AMB) | payer MEDICARE, SELFPAY ==
--- NOTE | 2023-07-10 09:26 | MHC.OFFVISCO ---
Intake Intake Visit Reasons: Anticoagulation Allergies penicillin G Allergy (Unknown, Verified 07/10/23 09:23) PASSED OUT Medication List - Last Reconciled 07/10/23 by Laly Ridley RN atorvastatin 40 mg PO DAILY 90 days cyanocobalamin (vitamin B-12) 2,500 mcg PO .qod ezetimibe (Zetia) 10 mg PO DAILY metoprolol succinate ER 50 mg PO DAILY multivitamin (One-A-Day Essential tablet) 1 tab PO DAILY valsartan 80 mg PO DAILY 90 days warfarin 5 mg See Protocol PO DAILY Nursing Note INR 3.3-?? out of therapeutic range of 2-3 Medications and supplements reviewed Patient status: pt with injury to left ring finger from ban saw yesterday- splint in place, enc to monitor and seek medical attention if nec Medications or supplements: no changes Diet: same Denies any signs and symptoms of bleeding or clotting or unusual bruising Bleeding, bruising, clotting discussed Nutritional guidance given: eat greens to lower Dose: 2.5mg today and tomm then cont reg- 7.5mg x 3, 5mg x 4 F/U INR Date : pt req 3 weeks?? Patient verbalizing understanding of instructions given. Anti-Coag Initial Assessment Social Hx Patient Tobacco Use Status: Former Tobacco user Quit Date: 1999 Tobacco use type: Cigarette and Cigar alcohol intake: current Alcohol intake frequency: holidays/special occasions only Coding Level of Care Code Est Patient Level 1 Diagnoses Current use of anticoagulant therapy Z79.01 Results AMB INR Fingerstick AMB INR Fingerstick 3.3 Last Edit by Laly Ridley RN on 07/10/23 09:29 Assessment & Plan Assessment & Plan (1) Current use of anticoagulant therapy: Code(s): Z79.01 - intermediate manager (current) use of 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
[2023-07-10 09:29] LABS: Prothrombin Time Whole Bld POC 39.6 sec (11.1-13.5); ~PT, ~INR - Anti Coag Clinic 3.3 (0.9-1.1)
== END 2023-07-10 09:33 | disposition home or self-care (01) ==
LOC: HO.ACS 09:20
PROVIDERS: PCP Internal Medicine; Visit Provider Internal Medicine
DX: Z79.01 Long term (current) use of anticoagulants (principal)

== ENCOUNTER → 2023-07-10 09:20 | Outpatient (BNVA) | payer MEDICARE, SELFPAY | PROVIDERS: PCP Internal Medicine; Visit Provider Internal Medicine | DX: I48.20 Chronic atrial fibrillation, unspecified (principal); Z79.01 Long term (current) use of anticoagulants; Z51.81 Encounter for therapeutic drug level monitoring | CPT/HCPCS: 85610; 99211 ==

== ENCOUNTER 2023-07-31 09:14 | Outpatient (AMB) | payer MEDICARE, SELFPAY ==
[2023-07-31 09:29] LABS: Prothrombin Time Whole Bld POC 34.3 sec (11.1-13.5); ~PT, ~INR - Anti Coag Clinic 2.9 (0.9-1.1)
--- NOTE | 2023-07-31 09:35 | MHC.OFFVISCO ---
Intake Intake Visit Reasons: Anticoagulation Allergies penicillin G Allergy (Unknown, Verified 07/31/23 09:24) PASSED OUT Medication List - Last Reconciled 07/31/23 by Beronica Augustine RN atorvastatin 40 mg PO DAILY 90 days cyanocobalamin (vitamin B-12) 2,500 mcg PO .qod ezetimibe (Zetia) 10 mg PO DAILY metoprolol succinate ER 50 mg PO DAILY multivitamin (One-A-Day Essential tablet) 1 tab PO DAILY valsartan 80 mg PO DAILY 90 days warfarin 5 mg See Protocol PO DAILY Nursing Note INR: 2.9 in therapeutic range of 2-3 Medications and supplements reviewed: no changes No changes in health, diet, medications, or supplements, Denies any signs and symptoms of bleeding or bruising or clotting. Bleeding, bruising, clotting discussed Nutritional guidance given to acoid greens today then to balance reds and greens. Dose: cont usual dose of 7.5mg X 3 days and 5mg X 4 days F/U INR: 4 weeks Patient verbalizes understanding of instructions given Anti-Coag Initial Assessment Social Hx Patient Tobacco Use Status: Former Tobacco user Quit Date: 1999 Tobacco use type: Cigarette and Cigar alcohol intake: current Alcohol intake frequency: holidays/special occasions only Coding Level of Care Code Est Patient Level 1 Diagnoses Current use of anticoagulant therapy Z79.01 Assessment & Plan Assessment & Plan (1) Current use of anticoagulant therapy: Code(s): Z79.01 - assisted (current) use of 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
== END 2023-07-31 09:39 | disposition home or self-care (01) ==
LOC: HO.ACS 09:14
PROVIDERS: PCP Internal Medicine; Visit Provider Internal Medicine
DX: Z79.01 Long term (current) use of anticoagulants (principal)

== ENCOUNTER → 2023-07-31 09:14 | Outpatient (BNVA) | payer MEDICARE, SELFPAY | PROVIDERS: PCP Internal Medicine; Visit Provider Internal Medicine | DX: I48.20 Chronic atrial fibrillation, unspecified (principal); Z79.01 Long term (current) use of anticoagulants; Z51.81 Encounter for therapeutic drug level monitoring | CPT/HCPCS: 85610; 99211 ==

== ENCOUNTER → 2023-08-03 23:59 | Outpatient (BNV) | payer MEDICARE, SELFPAY ==
--- NOTE | 2023-08-12 10:07 | A.OFFVIS_ITS ---
Intake Intake Visit Reasons: REmote HF monitoring- [employer] Allergies penicillin G Allergy (Unknown, Verified 07/31/23 09:24) PASSED OUT [facility] Medical History ICD (implantable cardioverter-defibrillator) in place COVID-19 virus infection Abnormal prostate specific antigen (PSA) Encounter for Medicare annual wellness exam Abnormal nuclear stress test Hx of myocardial infarction Mild carotid artery disease On anticoagulant therapy On beta ruslan at home CAD (coronary artery disease) Preoperative cardiovascular examination Ischemic cardiomyopathy Colon cancer screening Hypercholesterolemia Impaired glucose tolerance Erectile dysfunction Prostate cancer Bladder cancer Surgical History Status post cardiac catheterization Hx of heart artery stent Hx of colonoscopy H/O transurethral destruction of bladder lesion History of bladder surgery Family History Mother No problems noted. Father No problems noted. 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 Heart failure parameters are stable [id number] Cardiac Device Interrogation, cardio physiologic monitor Procedure code (CPT) selection complete Assessment & Plan Assessment & Plan (1) ICD (implantable cardioverter-defibrillator) in place: Comment: [employer] single-chamber ICD in place for primary prevention, April 2022 Code(s): Z95.810 - Presence of automatic (implantable) cardiac defibrillator Plan: See above Coding Level of Care Code Procedure Only Diagnoses ICD (implantable cardioverter-defibrillator) in place Z95.810 CPT Codes Cardiac Device Check - Cardiac Device 15: [id number] Cardiac Device Interrogation, cardio physiologic monitor ([id number])
== END ==
PROVIDERS: PCP Internal Medicine; Visit Provider Internal Medicine Cardiovascular Disease
DX: Z45.02 Encounter for adjustment and management of automatic implantable cardiac defibrillator (principal)
CPT/HCPCS: 93297

== ENCOUNTER → 2023-08-03 23:59 | Outpatient (BNV) | payer MEDICARE, SELFPAY ==
--- NOTE | 2023-08-12 10:06 | MHC.OFFVIS ---
Intake Intake Visit Reasons: Remote device check- [employer] Allergies penicillin G Allergy (Unknown, Verified 07/31/23 09:24) PASSED OUT [facility] Medical History ICD (implantable cardioverter-defibrillator) in place COVID-19 virus infection Abnormal prostate specific antigen (PSA) Encounter for Medicare annual wellness exam Abnormal nuclear stress test Hx of myocardial infarction Mild carotid artery disease On anticoagulant therapy On beta ruslan at home CAD (coronary artery disease) Preoperative cardiovascular examination Ischemic cardiomyopathy Colon cancer screening Hypercholesterolemia Impaired glucose tolerance Erectile dysfunction Prostate cancer Bladder cancer Surgical History Status post cardiac catheterization Hx of heart artery stent Hx of colonoscopy H/O transurethral destruction of bladder lesion History of bladder surgery Family History Mother No problems noted. Father No problems noted. 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 ICD function is adequate. [id number] Cardiac Interrogation, implant defibrillator w/interim Procedure code (CPT) selection complete Assessment & Plan Assessment & Plan (1) ICD (implantable cardioverter-defibrillator) in place: Comment: [employer] single-chamber ICD in place for primary prevention, April 2022 Code(s): Z95.810 - Presence of automatic (implantable) cardiac defibrillator Plan: See above Coding Level of Care Code Procedure Only Diagnoses ICD (implantable cardioverter-defibrillator) in place Z95.810 CPT Codes Cardiac Device Check - Cardiac Device 13: [id number] Cardiac Interrogation, implant defibrillator w/interim ([id number])
== END ==
PROVIDERS: PCP Internal Medicine; Visit Provider Internal Medicine Cardiovascular Disease
DX: Z45.02 Encounter for adjustment and management of automatic implantable cardiac defibrillator (principal)
CPT/HCPCS: 93295

== ENCOUNTER → 2023-08-17 08:50 | Outpatient (REF) | payer MEDICARE, SELFPAY ==
--- NOTE | 2023-08-17 08:52 | CA_ITS ---
Transthoracic Echocardiogram Patient (Last, First, Middle): Justa Blanchard L Gender: Male Date of : 1950 Age: 73 Procedure Date: 08/17/2023 Procedure Type: Transthoracic Echocardiogram Location: OP Height: 182.88 cm Weight: 74.39 kg BSA: 1.96 m2 Heart Rate: 75 bpm BP: 120 / 62 mmHg Title I Teacher: GREGG Referring MD: Opal Moncada COB [employer] Electrical Instrument Repairer: Donnie Buchanan MD Symptoms: I25.5 - Ischemic cardiomyopathy Study Quality: Fair ECG Rhythm: Sinus Conclusions: - 1. Moderate to severe LV systolic dysfunction with LVEF of 30 35% with moderately dilated LV with regional wall motion abnormality consistent with ischemic cardiomyopathy 2. Mild aortic regurgitation 3. No gross pericardial effusion Findings Left Ventricle Moderately increased left ventricular cavity size. There is normal left ventricular wall thickness. The left ventricular systolic function is moderate to severely decreased. The visually estimated ejection fraction is between 30-35%. There is evidence of regional wall motion abnormalities. Spectral Doppler is indicative of an impaired relaxation filling pattern. E/E prime ratio is between 8 and 15 consistent with indeterminate filling pressures. Wall Motion Rest Echo Findings The apex, apical inferior, apical lateral, and apical septum segments are hypokinetic. The inferoseptal wall, anterolateral wall, inferolateral wall, the basal inferior, and mid inferior segments are akinetic. All other scored wall segments showed normal motion. Right Ventricle Normal right ventricular cavity size and systolic function. There is an ICD wire seen in the right ventricle. Atria The left atrium is likely dilated. There is no evidence of interatrial shunt. The right atrium is normal in size. Aortic Valve There is mild calcification of the aortic valve. There is no aortic valve stenosis. There is mild aortic valve regurgitation. Mitral Valve There is mild anterior and posterior mitral leaflet thickening. There is mild mitral annular calcification. There is trace mitral valve regurgitation. There is no mitral valve stenosis. Pulmonic Valve The pulmonic valve is likely normal. There is trace pulmonic valve regurgitation. Tricuspid Valve Normal tricuspid valve structure. Tricuspid regurgitation envelope is inadequate for calculation of right ventricular systolic pressure. Normal right atrial pressure. Great Vessels The pulmonary artery was not well visualized. There is no dilatation of the ascending aorta measuring 3.40 cm. Small plaque is seen in the sino tubular ridge. Venous The inferior vena cava is normal in size and collapses greater than 50% with inspiration. Pericardium/Pleural There is no evidence of pericardial effusion. Prior Study Comparison No significant change compared to prior study dated: 03/07/2022. Measurements 2D Linear Measurements IVSd: 0.98 0.6-0.9/0.6-1.0 cm LVIDd: 6.26 3.9-5.3/4.2-5.9 cm LVIDd Index: 3.19 2.4-3.2/2.2-3.1 cm/m2 LVIDs: 5.36 2.0-3.6 cm LA Diam: 4.10 2.7-3.8/3.0-4.0 cm LAIDs Index: 2.09 1.5-2.3 cm/m2 LVOT Diam: 2.50 3.0+(-)1.3 cm 2D Systolic Function EF 4C: 31.40 >55% EF 2C: 36.50 >55% EF BiP: 32.20 >55% Mitral Valve MV Pk E: 0.58 MV PK A: 1.06 MV Decel Time: 208.00 E/A: 0.50 E'Lateral: 3.30 E'Medial: 3.08 E/E' Med: 18.70 E/E' Lat: 17.50 PHT: 61.00 MVA PHT: 3.61 Decel Simpson: 2.78 Aortic Valve AoV Pk Juan: 1.42 AoV Mn Juan: 0.98 AoV VTI: 0.31 AoV Pk Grad: 8.00 Aov Mn Grad: 4.00 BIENVENIDO Cont.VTI: 2.10 AI Pk Juan: 4.47 AI VTI: 2.00 AI Simpson: 3.37 LVOT LVOT Pk Juan: 0.63 LVOT Mn Juan: 0.44 LVOT VTI: 0.13 LVOT Pk Grad: 2.00 LVOT Mn Grad: 1.00 LVOT Diam: 2.50 LVOT Area: 4.91 Diastolic Function MV Pk E: 0.58 MV Pk A: 1.06 E/A: 0.50 E'Medial: 3.08 E/E' Med: 18.70 E' Laterial: 3.30 E/E' Lat: 17.50 Right Ventricle TAPSE (mm): 21.20 TVS' Juan: 12.40 Tricuspid Valve RA Press: 3.00 Great Vessels Aorta Sinus of Valsalva: 3.40 2.0-3.5 cm Ao Asc: 3.40 2.1-3.4 cm Pulmonary Veins Pulm Vein S/D 1.70 Pulmonary Valve PV Pk Juan: 0.91 Peak PV Grad: 3.00 Updated in Other Vendor System with Status of Final Donnie Buchanan MD electronically signed on 08/18/2023 10:56:03 AM with status of Final
== END ==
LOC: HO.CARD 08:50
PROVIDERS: PCP Internal Medicine; Visit Provider Nurse Practitioner Family
DX: I25.5 Ischemic cardiomyopathy (principal); I25.10 Atherosclerotic heart disease of native coronary artery without angina pectoris
CPT/HCPCS: 93306

== ENCOUNTER → 2023-08-17 08:52 | Outpatient (BNV) | payer MEDICARE, SELFPAY | PROVIDERS: PCP Internal Medicine; Visit Provider Internal Medicine Cardiovascular Disease | DX: I35.1 Nonrheumatic aortic (valve) insufficiency (principal); I25.5 Ischemic cardiomyopathy; I34.81 Nonrheumatic mitral (valve) annulus calcification | CPT/HCPCS: 93306 ==

== ENCOUNTER → 2023-08-28 09:12 | Outpatient (BNVA) | payer MEDICARE, SELFPAY | PROVIDERS: PCP Internal Medicine; Visit Provider Internal Medicine | DX: I48.20 Chronic atrial fibrillation, unspecified (principal); Z51.81 Encounter for therapeutic drug level monitoring; Z79.01 Long term (current) use of anticoagulants | CPT/HCPCS: 99211 ==

== ENCOUNTER 2023-08-31 11:03 | Outpatient (REF) | payer MEDICARE, SELFPAY ==
--- NOTE | ~2023-08-31 | XR_ITS ---
EXAMINATION: XR CHEST CLINICAL INFORMATION: Tobacco use COMPARISON: Previous chest x-ray most recent July 2020 TECHNIQUE: 2 views of the chest were obtained. FINDINGS: Left subclavian single chamber pacemaker AICD device projects over the right ventricular apex, new from prior exam. The cardiac and mediastinal contours are normal. The lungs are well-inflated. There is mild biapical pleural thickening. Lungs are otherwise clear. No pleural effusion or pneumothorax. Curvature of the lower thoracic and upper lumbar spine to the right and degenerative changes. XR/XR chest 2V IMPRESSION: New left subclavian pacemaker AICD device. Hyperinflation. No evidence for acute disease in the chest.
== END 2023-08-31 11:04 | disposition home or self-care (01) ==
LOC: HO.HMGCX 11:03
PROVIDERS: PCP Internal Medicine; Visit Provider Internal Medicine
DX: Z72.0 Tobacco use (principal)
CPT/HCPCS: 71046

== ENCOUNTER → 2023-09-07 23:59 | Outpatient (BNV) | payer MEDICARE, SELFPAY ==
--- NOTE | 2023-09-08 15:38 | MHC.OFFVIS ---
Intake Visit Reasons: Remote HF monitoring- [employer] Allergies penicillin G Allergy (Unknown, Verified 07/31/23 09:24) PASSED OUT [facility] Medical History ICD (implantable cardioverter-defibrillator) in place COVID-19 virus infection Abnormal prostate specific antigen (PSA) Encounter for Medicare annual wellness exam Abnormal nuclear stress test Hx of myocardial infarction Mild carotid artery disease On anticoagulant therapy On beta ruslan at home CAD (coronary artery disease) Preoperative cardiovascular examination Ischemic cardiomyopathy Colon cancer screening Hypercholesterolemia Impaired glucose tolerance Erectile dysfunction Prostate cancer Bladder cancer Surgical History Status post cardiac catheterization Hx of heart artery stent Hx of colonoscopy H/O transurethral destruction of bladder lesion History of bladder surgery Family History Mother No problems noted. Father No problems noted. 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 Heart failure parameters are normal. [id number] Cardiac Device Interrogation, cardio physiologic monitor Procedure code (CPT) selection complete Assessment & Plan Assessment & Plan (1) ICD (implantable cardioverter-defibrillator) in place: Comment: [employer] single-chamber ICD in place for primary prevention, April 2022 Code(s): Z95.810 - Presence of automatic (implantable) cardiac defibrillator Category: Medical Plan: See above Coding Level of Care Code Procedure Only Diagnoses ICD (implantable cardioverter-defibrillator) in place Z95.810 CPT Codes Cardiac Device Check - Cardiac Device 15: [id number] Cardiac Device Interrogation, cardio physiologic monitor ([id number])
== END ==
PROVIDERS: PCP Internal Medicine; Visit Provider Internal Medicine Cardiovascular Disease
DX: Z45.02 Encounter for adjustment and management of automatic implantable cardiac defibrillator (principal)
CPT/HCPCS: 93297

== ENCOUNTER 2023-09-14 09:40 | Outpatient (AMB) | payer MEDICARE, SELFPAY ==
[2023-09-14 09:48] LABS: Prothrombin Time Whole Bld POC 31.4 sec (11.1-13.5); ~PT, ~INR - Anti Coag Clinic 2.6 (0.9-1.1)
--- NOTE | 2023-09-14 09:50 | MHC.OFFVISCO ---
Intake Intake Visit Reasons: Anticoagulation Allergies penicillin G Allergy (Unknown, Verified 09/14/23 09:41) PASSED OUT Medication List - Last Reconciled 09/14/23 by Beronica Domínguez RN atorvastatin 40 mg PO DAILY 90 days cyanocobalamin (vitamin B-12) 2,500 mcg PO .qod ezetimibe (Zetia) 10 mg PO DAILY metoprolol succinate ER 50 mg PO DAILY multivitamin (One-A-Day Essential tablet) 1 tab PO DAILY valsartan 80 mg PO DAILY 90 days warfarin 5 mg See Protocol PO DAILY Nursing Note Amb to ACS feeling well Medications and supplements reviewed No changes in health, diet, medications, or supplements, Denies any signs and symptoms of bleeding, bruising, or clotting. INR 2.6 in therapeutic range Dose: continue usual dosing 7.5mg x 3 days and 5mg x 4 days balance greens and reds in diet, be consistent F/U INR:4 weeks Patient verbalizes understanding of instructions given Anti-Coag Initial Assessment Social Hx Patient Tobacco Use Status: Former Tobacco user Quit Date: 1999 Tobacco use type: Cigarette and Cigar alcohol intake: current Alcohol intake frequency: holidays/special occasions only Coding Level of Care Code Est Patient Level 1 Diagnoses Current use of anticoagulant therapy Z79.01 Time Spent (min) 15 Assessment & Plan Assessment & Plan (1) Current use of anticoagulant therapy: Code(s): 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
== END 2023-09-14 09:55 | disposition home or self-care (01) ==
LOC: HO.ACS 09:40
PROVIDERS: PCP Internal Medicine; Visit Provider Internal Medicine
DX: Z79.01 Long term (current) use of anticoagulants (principal)

== ENCOUNTER → 2023-09-14 09:40 | Outpatient (BNVA) | payer MEDICARE, SELFPAY | PROVIDERS: PCP Internal Medicine; Visit Provider Internal Medicine | DX: Z45.02 Encounter for adjustment and management of automatic implantable cardiac defibrillator (principal); I25.5 Ischemic cardiomyopathy; I25.10 Atherosclerotic heart disease of native coronary artery without angina pectoris; E78.00 Pure hypercholesterolemia, unspecified; I48.20 Chronic atrial fibrillation, unspecified; Z79.01 Long term (current) use of anticoagulants; Z51.81 Encounter for therapeutic drug level monitoring | CPT/HCPCS: 85610; 99211; 99212 ==

== ENCOUNTER 2023-09-14 14:38 | Outpatient (AMB) | payer MEDICARE, SELFPAY ==
[2023-09-14 15:09] VITALS: BP 120/62; PULSE 80; BMI 22.4
--- NOTE | 2023-09-14 15:09 | A.OFFVIS_ITS ---
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: No Allergies penicillin G Allergy (Unknown, Verified 09/14/23 15:10) PASSED OUT Medication List - Last Reconciled 09/14/23 by Opal Moncada NP-C atorvastatin 40 mg PO DAILY 90 days cyanocobalamin (vitamin B-12) 2,500 mcg PO .qod ezetimibe (Zetia) 10 mg PO DAILY metoprolol succinate ER 50 mg PO DAILY multivitamin (One-A-Day Essential tablet) 1 tab PO DAILY valsartan 80 mg PO DAILY 90 days warfarin 5 mg See Protocol PO DAILY HPI HPI 6 [facility]: Details: Justa is a 73-year-old male with past medical history of hyperlipidemia, impaired fasting glucose, mild carotid stenosis, coronary artery disease, ischemic cardiomyopathy, ICD who presents for follow-up. Today he reports he has been doing well with no concerning symptoms. He denies chest discomfort, shortness of breath, palpitations, presyncope, syncope, PND, orthopnea or edema. No ICD shocks. He is taking his meds as directed. No bleeding issues reported. [facility] Medical History ICD (implantable cardioverter-defibrillator) in place COVID-19 virus infection Abnormal prostate specific antigen (PSA) Encounter for Medicare annual wellness exam Abnormal nuclear stress test Hx of myocardial infarction Mild carotid artery disease On anticoagulant therapy On beta ruslan at home CAD (coronary artery disease) Preoperative cardiovascular examination Ischemic cardiomyopathy Colon cancer screening Hypercholesterolemia Impaired glucose tolerance Erectile dysfunction Prostate cancer Bladder cancer Surgical History Status post cardiac catheterization Hx of heart artery stent Hx of colonoscopy H/O transurethral destruction of bladder lesion History of bladder surgery Family History Mother No problems noted. Father No problems noted. 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 Cognitive needs: No Hearing needs: Yes Vision needs: Yes Review of Systems Const All systems reviewed & are unremarkable except as noted in HPI and below Denies fatigue Card Denies chest pain, Denies chest pain at rest, Denies chest pain with activity, Denies syncope, Denies rapid heart rate, Denies dyspnea on exertion and Denies orthopnea Resp Denies dyspnea on exertion Neuro Denies syncope Endo Denies fatigue Physical Exam Vital Signs: Last Vital Signs Pulse 80 09/14/23 15:09 BP 120/62 09/14/23 15:09 BMI result Body Mass Index 22.4 Const General: cooperative, healthy appearing, comfortable and no acute distress Orientation/consciousness: patient oriented x3 Neck Neck: Yes normal visual inspection and Yes no JVD Resp Effort & Inspection: normal respiratory effort Auscultation: clear to auscultation bilaterally, no crackles, no rales, no rhonchi and no wheezes Cardio Jugular venous distension: no JVD Rate: regular rate Rhythm: regular rhythm Heart sounds: S1 normal heart sound present, S2 normal heart sound present, no murmurs and no rubs Neuro General: patient oriented x3 Extrem General: Yes normal to inspection Psych Appearance: grossly normal Mental Status: mental status grossly normal Speech and movement: Normal speech and movement present Office Procedures Cardiac Device Check Cardiac Device Check Details: [employer] single lead ICD interrogation today shows battery 15 years, high V rate of 14 beats falling in VF zone, rate 216, occurring 09/13/2023 at 14:00, asymptomatic, VVI mode, low rate 40 V pacing less than 1%. V threshold 1.2 volts at 0.4 milliseconds [id number] Cardiac Device Check, single lead implantable defibrillator Procedure code (CPT) selection complete Assessment & Plan Assessment & Plan (1) Ischemic cardiomyopathy: Code(s): I25.5 - Ischemic cardiomyopathy Category: Medical Plan: History of ischemic cardiomyopathy. Echo done 03/07/2022 showing EF 30-35%, basal inferior mid inferior basal inferior septal and basal anterior septal akinetic. Echocardiogram done on 08/17/2023 showing EF 30-35%, regional wall motion abnormality present. He does have a known RCA stent in place, with prior TN. single lead AICD in place. Short episodes of NSVT noted, no therapies. He is on metoprolol XL and valsartan for neurohormonal modulation. On examination today has no clinical signs of heart failure. Labs done on 08/18/2022 showed potassium 5.3, creatinine 1.15. He has upcoming PCP visit and anticipates labs to be done. Continue current med management without change. If potassium remains elevated then valsartan use may need to be readdressed. Signs and symptoms of heart failure reviewed with him. Cardiology follow-up 6 months, sooner if needed (2) ICD (implantable cardioverter-defibrillator) in place: Comment: [employer] single-chamber ICD in place for primary prevention, April 2022 Code(s): Z95.810 - Presence of automatic (implantable) cardiac defibrillator Category: Medical Plan: [employer] single-chamber ICD in place. Functioning normally on interrogation today. Brief runs of NSVT. Monitoring zone only, no therapies. 1 episode does fall in the VF zone with heart rate 216. At this time will have him increase metoprolol XL dose from 50 mg daily up to 75 mg daily. Continue remote monitoring. Next office interrogation due in 6 months (3) Coronary artery disease: Comment: 04/[address] Swann,Echocardiogram January 2019 ejection fraction 40% dilated left atrium. Evidence of basal mid inferior septal mid anterior septal and basal inferior wall infarct Code(s): I25.10 - Atherosclerotic heart disease of grindstone coronary artery without angina pectoris Category: Medical Qualifiers: Associated angina: without angina Coronary Disease-Associated Artery/Lesion type: grindstone artery [place] vs. transplanted heart: grindstone heart Qualified Code(s): I25.10 - Atherosclerotic heart disease of grindstone coronary artery without angina pectoris Plan: CAD with inferior TN 2011, RCA stent placed. Residual ischemic cardiomyopathy. No reports of anginal sounding symptoms. He is not on aspirin as he is on Coumadin. Coumadin use is for noncardiac reason. He reports history of clot in the past. He follows with the [facility] and PCP for this. Continue atorvastatin with ideal LDL goal less than 70. Labs done on 03/20/2023 showed LDL 62. Continue metoprolol XL. Signs and symptoms of angina reviewed with him. Cardiology office visit 6 months, sooner if needed (4) Hypercholesterolemia: Code(s): E78.00 - Pure hypercholesterolemia, unspecified Category: Medical Plan: As above (5) Current use of anticoagulant therapy: Code(s): Z79.01 - prison (current) use of 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 Plan: On Coumadin for noncardiac reason. Plan Time spent on chart review, documentation, interview and assessment Medications: Changed From metoprolol succinate ER 50 mg PO DAILY 90 tabs 3RF I25.5 - Ischemic cardiomyopathy To metoprolol succinate ER dose increased 75 mg (1.5 x 50 mg) PO DAILY 135 tabs 3RF 90 days I25.5 - Ischemic cardiomyopathy Coding Level of Care Code Est Pt Level 4 (95719) Diagnoses Ischemic cardiomyopathy I25.5 ICD (implantable cardioverter-defibrillator) in place Z95.810 Coronary artery disease involving grindstone coronary artery of grindstone heart without angina pectoris I25.10 Associated angina: without angina Coronary Disease-Associated Artery/Lesion type: grindstone artery [place] vs. transplanted heart: grindstone heart Hypercholesterolemia E78.00 Current use of anticoagulant therapy Z79.01 CPT Codes Cardiac Device Check - Cardiac Device 4: [id number] Cardiac Device Check, single lead implantable defibrillator ([id number]) Time Spent (min) 30
== END 2023-09-14 15:44 | disposition home or self-care (01) ==
PROVIDERS: PCP Internal Medicine; Visit Provider Nurse Practitioner Family
DX: I25.5 Ischemic cardiomyopathy (principal); Z95.810 Presence of automatic (implantable) cardiac defibrillator; I25.10 Atherosclerotic heart disease of native coronary artery without angina pectoris; E78.00 Pure hypercholesterolemia, unspecified
CPT/HCPCS: 93282; 99214

== ENCOUNTER 2023-09-17 08:27 | Outpatient (REF) | payer MEDICARE, SELFPAY ==
[2023-09-17 10:40] LABS: Estimated Average Glucose 123 mg/dL; Hemoglobin A1c % 5.9 % (<6.0)
[2023-09-17 10:51] LABS: Alanine Aminotransferase 49 U/L (0-40); Alkaline Phosphatase 90 U/L (39-117); Anion Gap 14 (12-20); Aspartate Amino Transferase 40 U/L (5-37); Bilirubin Total 0.4 mg/dL (0.0-1.0); Blood Urea Nitrogen 23 mg/dL (9-16); Carbon Dioxide 23 mmol/L (22-29); Chloride 105 mmol/L (96-108); Cholesterol 103 mg/dL (<200); Estimated Glomerular Filt Rate > 60; Glucose Random 105 mg/dL (60-115); HDL Cholesterol 31 mg/dL (>40); LDL Cholesterol Calculated 58 mg/dL (<100); Potassium 4.6 mmol/L (3.3-5.1); Sodium 137 mmol/L (135-145); Total Protein 7.4 g/dL (6.5-8.0); Triglycerides 70 mg/dL (<150)
[2023-09-17 10:54] LABS: B Type Natriuretic Peptide 90 pg/mL (<100)
== END 2023-09-17 08:28 | disposition home or self-care (01) ==
LOC: HO.HMGCLDS 08:27
PROVIDERS: PCP Internal Medicine; Visit Provider Internal Medicine
DX: R73.02 Impaired glucose tolerance (oral) (principal); E78.00 Pure hypercholesterolemia, unspecified
CPT/HCPCS: 36415; 80053; 80061; 83036; 83880

== ENCOUNTER 2023-09-22 08:12 | Outpatient (AMB) | payer MEDICARE, SELFPAY ==
--- NOTE | 2023-09-22 08:30 | MHC.PC.OV ---
Vital Signs 09/22/23 08:33 Height 5 ft 11 in Weight 160 lb 4 oz BMI 22.3 BP 110/62 Blood Pressure Location Rt brachial Position Sitting Pulse 69 Pulse Source Pulse Oximeter Pulse Oximetry (%) 95 Oxygen Delivery Method Room Air Intake Visit Reasons: IGT Intake Note: Patient is here to follow up on IGT and lab results. 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 Jig Grinder Required: No Molding Technician: Not Required per policy Accompanied by: Self / Same As Patient Allergies penicillin G Allergy (Unknown, Verified 09/22/23 08:32) PASSED OUT Tobacco use date assessed: 09/22/23 Fall risk assessment: No Falls in past year Last assessed Fall Risk: 09/22/23 Dental Screening Dental Screen Date: 09/22/23 Did you have a dental visit in the last 12 months?: Yes Did you have a dental problem in the last 6 months where you did not have access to dental care?: No Was dental information given to patient?: Patient has dentist HPI IGT HPI Details 73 year old male smoker ischemic cardiomyopathy impaired glucose tolerance coronary artery disease([place] 2011) patient does have an implantable cardioverter defibrillator in place. Patient was seen by Cardiology in September 13 echocardiogram done 08/15/2023 EF of 30 35% noted short episodes of an SVT on metoprolol and valsartan noted mild hyperkalemia patient was noted to have 1 episode falling in the VF zone heart rate advised to increase metoprolol XL 50 mg to 75 mg once a day plus anticoagulation. Noted urgent care visit for a dog bite on left hand. PAtient states has been eating at that time [facility] Medical History ICD (implantable cardioverter-defibrillator) in place COVID-19 virus infection Abnormal prostate specific antigen (PSA) Encounter for Medicare annual wellness exam Abnormal nuclear stress test Hx of myocardial infarction Mild carotid artery disease On anticoagulant therapy On beta ruslan at home CAD (coronary artery disease) Preoperative cardiovascular examination Ischemic cardiomyopathy Colon cancer screening Hypercholesterolemia Impaired glucose tolerance Erectile dysfunction Prostate cancer Bladder cancer Surgical History Status post cardiac catheterization Hx of heart artery stent Hx of colonoscopy H/O transurethral destruction of bladder lesion History of bladder surgery Family History Mother No problems noted. Father No problems noted. 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 1. Little interest or pleasure in doing things: not at all 2. Feeling down, depressed, or hopeless: not at all 3. Trouble falling or staying asleep, or sleeping too much: not at all 4. Feeling tired or having little energy: not at all 5. Poor appetite or overeating: not at all 6. Feeling bad about yourself - or that you are a failure or have let yourself or your family down: not at all 7. Trouble concentrating on things, such as reading the newspaper or watching television: not at all 8. Moving or speaking so slowly that other people could have noticed. Or the opposite - being so fidgety or restless that you have been moving around a lot more than usual: not at all 9. Thoughts that you would be better off or of hurting yourself in some way: not at all Total score: 0 Depression Screening Interpretation: Negative Depression Screening Done: Yes Source: Developed by Drs. Tom Clark, Teagan Edwards, Chuy Stauffer and colleagues, with an educational cassandra from [employer]. Thrive Questionnaire Date Thrive assessed: 09/22/23 I am a: Patient What is your living situation today?: I have a steady place to live Within the past 12 months, did the food you bought not last and you didn't have the money to get more?: Never true Within the past 12 months, did you worry whether your food would run out before you got money to buy more?: Never true Do you have trouble paying for medicines?: No Do you have trouble getting transportation to medical appointments?: No Do you have trouble paying your heating and electricity bill?: No Do you have trouble taking care of your child, family member or friend?: No Do you have trouble with day-to-day activities such as bathing, preparing meals, shopping, managing finances, etc.?: No Are you currently unemployed and looking for a job?: No Are you interested in more education?: No Currently or been in a relationship where the following occur: no concerns reported THRIVE Score: 0 AUDIT C Alcohol Use Questionnaire (AUDIT-C) 1. How often do you have a drink containing alcohol?: Monthly or less 2. How many drinks containing alcohol do you have on a typical day when you are drinking?: 1 or 2 Total Score: 1 REGGIE-7 AMB Questionnaire REGGIE-7 Date REGGIE - 7 assessed: 09/22/23 Feeling nervous, anxious, or on edge: 0 = Not at all Not being able to stop or control worryin = Not at all Worrying too much about different things: 0 = Not at all Trouble relaxin = Not at all Being so restless that it is hard to sit still: 0 = Not at all Becoming easily annoyed or irritable: 0 = Not at all Feeling afraid as if something awful might happen: 0 = Not at all Total REGGIE-7 score (0-4 normal; 5-9 mild; 10-14 moderate; 15-21 severe): 0 Source: Developed by Drs. Tom Clark, Teagan Edwards, Chuy Stauffer and colleagues, with an educational cassandra from [employer]. Physical exam (Primary Care) Vital Signs: Last Vital Signs Pulse 69 09/22/23 08:33 BP 110/62 09/22/23 08:33 Pulse Ox 95 09/22/23 08:33 Oxygen Delivery Method Room Air 09/22/23 08:33 BMI result Body Mass Index 22.3 Tobacco/Smoking Status: Tobacco use Status Tobacco use date assessed 09/22/23 09/22/23 08:39 Patient Tobacco Use Status Former Tobacco user 09/22/23 08:32 Tobacco use type Cigarette,Cigar 09/22/23 08:32 e-Cigarette/Vaping Use Never Used 09/22/23 08:32 PHQ-9: PHQ-9 Score PHQ-9: Total score 0 09/22/23 08:32 Depression Screening Interpretation: Negative Thrive Assessment: Date of Thrive Assessment Date Thrive assessed 09/22/23 09/22/23 08:32 Currently or been in a relationship where the following occur: no concerns reported Const General: alert; No acute distress Eyes Conjunctivae: conjunctivae normal Resp Auscultation: clear to auscultation bilaterally Cardio Rate: regular rate Rhythm: regular rhythm GI Inspection: Yes normal to inspection Extrem General: Yes normal to inspection and No edema Assessment and Plan Assessment & Plan (1) Tobacco abuse: Comment: stopped 2022 Code(s): Z72.0 - Tobacco use Plan: Patient is strongly advised to stop smoking! (2) Ischemic cardiomyopathy: Code(s): I25.5 - Ischemic cardiomyopathy Plan: Patient continue to follow-up with cardiology. Noted on interrogation of the ICD episode of V F and was advised to increase metoprolol to 75 mg once a day (3) Impaired glucose tolerance: Code(s): R73.02 - Impaired glucose tolerance (oral) Plan: Decrease the amount of carbohydrate intake, pasta, bread, rice and potatoes are all sugar and that is aside from all the sweet stuff, remember that fruits are good but they are Sweet also. (4) Hypercholesterolemia: Code(s): E78.00 - Pure hypercholesterolemia, unspecified Plan: Avoid fried foods, chicken skin, eggs, butter margarine, pastries and meat. Be it pork or beef they have a lot of cholesterol (5) Prostate cancer: Comment: Low risk Cornel 6 Code(s): C61 - Malignant neoplasm of prostate Plan: Continue to monitor (6) Coronary artery disease: Comment: 04/[address] [place] [address] Swann,Echocardiogram January 2019 ejection fraction 40% dilated left atrium. Evidence of basal mid inferior septal mid anterior septal and basal inferior wall infarct Code(s): I25.10 - Atherosclerotic heart disease of [place] coronary artery without angina pectoris Qualifiers: Coronary Disease-Associated Artery/Lesion type: [place] artery [place] vs. transplanted heart: [place] heart Associated angina: without angina Qualified Code(s): I25.10 - Atherosclerotic heart disease of [place] coronary artery without angina pectoris Plan: Control the cholesterol, weight, blood pressure, diabetes presently on anticoagulation (7) ICD (implantable cardioverter-defibrillator) in place: Comment: [employer] single-chamber ICD in place for primary prevention, April 2022 Code(s): Z95.810 - Presence of automatic (implantable) cardiac defibrillator Plan: Patient follows up with Cardiology with routine surveillance (8) LFT elevation: Code(s): R79.89 - Other specified abnormal findings of blood chemistry Plan: Noted in the blood work elevated liver function test will repeat test as well as ultrasound of the abdomen. Medications: New sildenafil administer 30 minutes to 4 hours before activity 100 mg PO DAILY PRN 14 tabs 4RF sexual activity Coding Level of Care Code Est Pt Level 4 (46377) Diagnoses Tobacco abuse Z72.0 Ischemic cardiomyopathy I25.5 Impaired glucose tolerance R73.02 Hypercholesterolemia E78.00 Prostate cancer C61 Coronary artery disease involving [place] coronary artery of [place] heart without angina pectoris I25.10 Coronary Disease-Associated Artery/Lesion type: [place] artery [place] vs. transplanted heart: [place] heart Associated angina: without angina ICD (implantable cardioverter-defibrillator) in place Z95.810 LFT elevation R79.89
[2023-09-22 08:33] VITALS: BP 110/62; PULSE 69; O2SAT 95; BMI 22.3
== END 2023-09-22 09:04 | disposition home or self-care (01) ==
PROVIDERS: PCP Internal Medicine; Visit Provider Internal Medicine
DX: Z72.0 Tobacco use (principal); I25.5 Ischemic cardiomyopathy; R73.02 Impaired glucose tolerance (oral); E78.00 Pure hypercholesterolemia, unspecified; C61 Malignant neoplasm of prostate; I25.10 Atherosclerotic heart disease of native coronary artery without angina pectoris; Z95.810 Presence of automatic (implantable) cardiac defibrillator; R79.89 Other specified abnormal findings of blood chemistry
CPT/HCPCS: 99214

== ENCOUNTER 2023-10-01 07:45 | Outpatient (REF) | payer MEDICARE, SELFPAY ==
--- NOTE | ~2023-10-01 | US_ITS ---
EXAMINATION: US ABDOMEN COMPLETE CLINICAL INFORMATION: Other specified abnormal findings of blood chemistry. COMPARISON: None available. TECHNIQUE: Real-time imaging of the abdominal viscera. FINDINGS: PANCREAS: Normal. ABDOMINAL AORTA: Calcific atherosclerotic change seen without aneurysm. INFERIOR VENA CAVA: Visualized portions are normal. LIVER: The liver is normal in size. The liver contour is normal. There is mild increased liver parenchymal echogenicity, consistent with hepatic steatosis. No focal hepatic lesion. There is no intrahepatic biliary duct dilatation seen. GALLBLADDER: The gallbladder is physiologically distended without evidence of stones, sludge, polyps, wall thickening or pericholecystic fluid. COMMON BILE DUCT: Normal in caliber measuring 0.6 cm in diameter. RIGHT KIDNEY: No hydronephrosis. No renal calculi or focal parenchymal lesions. The kidney measures 10.5 cm in maximum dimension. LEFT KIDNEY: No hydronephrosis. No renal calculi or focal parenchymal lesions. The kidney measures 10.1 cm in maximum dimension. SPLEEN: Not visualized. FREE FLUID: None. US/US abdomen complete IMPRESSION: Hepatic steatosis.
== END 2023-10-01 07:46 | disposition home or self-care (01) ==
LOC: HO.US 07:45
PROVIDERS: PCP Internal Medicine; Visit Provider Internal Medicine
DX: R79.89 Other specified abnormal findings of blood chemistry (principal)
CPT/HCPCS: 76700

== ENCOUNTER 2023-10-03 13:11 | Outpatient (REF) | payer MEDICARE, SELFPAY ==
[2023-10-03 15:29] LABS: Alanine Aminotransferase 77 U/L (0-40); Albumin Level 4.1 g/dL (3.5-5.0); Alkaline Phosphatase 93 U/L (39-117); Anion Gap 10 (12-20); Aspartate Amino Transferase 55 U/L (5-37); Bilirubin Total 0.5 mg/dL (0.0-1.0); Blood Urea Nitrogen 19 mg/dL (9-16); Calcium 9.4 mg/dL (8.4-10.2); Carbon Dioxide 27 mmol/L (22-29); Chloride 105 mmol/L (96-108); Estimated Glomerular Filt Rate > 60; Glucose Random 98 mg/dL (60-115); Potassium 4.5 mmol/L (3.3-5.1); Sodium 137 mmol/L (135-145); Total Protein 7.5 g/dL (6.5-8.0)
[2023-10-05 08:42] LABS: HBS Num1 0.64 mIU/mL (0-7.99); HBc Num1 0.25 S/CO (0.00-0.79); HBsAGNum1 0.32 S/CO (0.00-0.99); Hepatitis B Core Antibody Nonreactive (Nonreactive); Hepatitis B Surface Antigen Negative (Negative); ~HepC Num1 0.14 S/CO (0.00-0.79); ~Hepatitis B Surface Antibody NONREACTIVE (Nonreactive); ~Hepatitis C Antibody Nonreactive (Nonreactive)
== END 2023-10-03 13:12 | disposition home or self-care (01) ==
LOC: HO.HMGCLDS 13:11
PROVIDERS: PCP Internal Medicine; Visit Provider Internal Medicine
DX: R79.89 Other specified abnormal findings of blood chemistry (principal)
CPT/HCPCS: 36415; 80053; 86704; 86706; 86803; 87340

== ENCOUNTER 2023-10-12 09:19 | Outpatient (AMB) | payer MEDICARE, SELFPAY ==
--- NOTE | 2023-10-12 09:29 | MHC.OFFVISCO ---
Intake Intake Visit Reasons: Anticoagulation Allergies penicillin G Allergy (Unknown, Verified 10/12/23 09:24) PASSED OUT Medication List - Last Reconciled 10/12/23 by Beronica Domínguez, RN atorvastatin 40 mg PO DAILY 90 days cyanocobalamin (vitamin B-12) 2,500 mcg PO .qod ezetimibe (Zetia) 10 mg PO DAILY metoprolol succinate ER 75 mg (1.5 x 50 mg) PO DAILY 90 days multivitamin (One-A-Day Essential tablet) 1 tab PO DAILY sildenafil 100 mg PO DAILY PRN valsartan 80 mg PO DAILY 90 days warfarin 5 mg See Protocol PO DAILY Nursing Note Amb to ACS feeling well, sts he had dental bone extraction about 3 weeks ago, was off warfarin and did Lovenx bridge discussion with pt as last visit here was 09/13 and quick review of ACS notes we were not aware of procedure, sts he took lovenox for 3 days after dental and then ran out no noted INRs done during that time reviewed with pt importance of informing ACS of all procedures especially those involving holds of warfarin and lovenox bridging pt sts lovenox was from Dr Ramírez Medications and supplements reviewed, pt sts his metoprolol was increased and he feels much better already No other changes in health, diet, medications, or supplements, Denies any signs and symptoms of bleeding, bruising,or clotting. Bleeding, bruising, clotting discussed INR 1.9 below therapeutic range increase dose today to 10mg then resume usual dosing 7.5mg x 3 days and 5mg x 4 days Nutritional guidance given- no cooked greens today or tomorrow (sts now he had cooked spinach last night) then balance greens and reds i diet F/U INR: 2 weeks Patient verbalizes understanding of instructions given Anti-Coag Initial Assessment Social Hx Patient Tobacco Use Status: Former Tobacco user Tobacco use type: Cigarette and Cigar alcohol intake: current Alcohol intake frequency: holidays/special occasions only Coding Level of Care Code Est Patient Level 1 Diagnoses Current use of anticoagulant therapy Z79.01 Time Spent (min) 15 Assessment & Plan Assessment & Plan (1) Current use of anticoagulant therapy: Code(s): 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
[2023-10-12 09:34] LABS: ~PT, ~INR - Anti Coag Clinic 1.9 (0.9-1.1)
== END 2023-10-12 10:23 | disposition home or self-care (01) ==
LOC: HO.ACS 09:19
PROVIDERS: PCP Internal Medicine; Visit Provider Internal Medicine
DX: Z79.01 Long term (current) use of anticoagulants (principal)

== ENCOUNTER → 2023-10-12 09:19 | Outpatient (BNVA) | payer MEDICARE, SELFPAY | PROVIDERS: PCP Internal Medicine; Visit Provider Internal Medicine | DX: I48.20 Chronic atrial fibrillation, unspecified (principal); Z79.01 Long term (current) use of anticoagulants; Z51.81 Encounter for therapeutic drug level monitoring | CPT/HCPCS: 85610; 99211 ==

== ENCOUNTER → 2023-10-12 23:59 | Outpatient (BNV) | payer MEDICARE, SELFPAY ==
--- NOTE | 2023-10-19 13:27 | MHC.OFFVIS ---
Intake Visit Reasons: Remote ICD Monitoring- [employer] Allergies penicillin G Allergy (Unknown, Verified 10/12/23 09:24) PASSED OUT [facility] Medical History ICD (implantable cardioverter-defibrillator) in place COVID-19 virus infection Abnormal prostate specific antigen (PSA) Encounter for Medicare annual wellness exam Abnormal nuclear stress test Hx of myocardial infarction Mild carotid artery disease On anticoagulant therapy On beta ruslan at home CAD (coronary artery disease) Preoperative cardiovascular examination Ischemic cardiomyopathy Colon cancer screening Hypercholesterolemia Impaired glucose tolerance Erectile dysfunction Prostate cancer Bladder cancer Surgical History Status post cardiac catheterization Hx of heart artery stent Hx of colonoscopy H/O transurethral destruction of bladder lesion History of bladder surgery Family History Mother No problems noted. Father No problems noted. 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 ICD function is adequate [id number] Cardiac Interrogation, implant defibrillator w/interim Procedure code (CPT) selection complete Assessment & Plan Assessment & Plan (1) ICD (implantable cardioverter-defibrillator) in place: Comment: [employer] single-chamber ICD in place for primary prevention, April 2022 Code(s): Z95.810 - Presence of automatic (implantable) cardiac defibrillator Category: Medical Plan: See above Coding Level of Care Code Procedure Only Diagnoses ICD (implantable cardioverter-defibrillator) in place Z95.810 CPT Codes Cardiac Device Check - Cardiac Device 13: [id number] Cardiac Interrogation, implant defibrillator w/interim ([id number])
== END ==
PROVIDERS: PCP Internal Medicine; Visit Provider Internal Medicine Cardiovascular Disease
DX: Z45.02 Encounter for adjustment and management of automatic implantable cardiac defibrillator (principal)
CPT/HCPCS: 93295

== ENCOUNTER 2023-10-26 09:11 | Outpatient (AMB) | payer MEDICARE, SELFPAY ==
--- NOTE | 2023-10-26 09:20 | MHC.OFFVISCO ---
Intake Intake Visit Reasons: Anticoagulation Allergies penicillin G Allergy (Unknown, Verified 10/26/23 09:17) PASSED OUT Medication List - Last Reconciled 10/26/23 by Laly Ridley RN atorvastatin 40 mg PO DAILY 90 days cyanocobalamin (vitamin B-12) 2,500 mcg PO .qod ezetimibe (Zetia) 10 mg PO DAILY metoprolol succinate ER 75 mg (1.5 x 50 mg) PO DAILY 90 days multivitamin (One-A-Day Essential tablet) 1 tab PO DAILY sildenafil 100 mg PO DAILY PRN valsartan 80 mg PO DAILY 90 days warfarin 5 mg See Protocol PO DAILY Nursing Note INR: 2.6- in therapeutic range of 2-3 Medications and supplements reviewed- no changes No changes in health, diet, medications, or supplements, Denies any signs and symptoms of bleeding or bruising or clotting. Bleeding, bruising, clotting discussed Nutritional guidance given Dose: 7.5mg x 3, 5mg x 4 F/U INR: 4 weeks Patient verbalizes understanding of instructions given Anti-Coag Initial Assessment Social Hx Patient Tobacco Use Status: Former Tobacco user Tobacco use type: Cigarette and Cigar alcohol intake: current Alcohol intake frequency: holidays/special occasions only Coding Level of Care Code Est Patient Level 1 Diagnoses Current use of anticoagulant therapy Z79.01 Results AMB INR Fingerstick AMB INR Fingerstick 2.6 Last Edit by Laly Ridley RN on 10/26/23 09:22 Assessment & Plan Assessment & Plan (1) Current use of anticoagulant therapy: Code(s): 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
[2023-10-26 09:21] LABS: Prothrombin Time Whole Bld POC 30.6 sec (11.1-13.5); ~PT, ~INR - Anti Coag Clinic 2.6 (0.9-1.1)
== END 2023-10-26 09:25 | disposition home or self-care (01) ==
LOC: HO.ACS 09:11
PROVIDERS: PCP Internal Medicine; Visit Provider Internal Medicine
DX: Z79.01 Long term (current) use of anticoagulants (principal)

== ENCOUNTER → 2023-10-26 09:11 | Outpatient (BNVA) | payer MEDICARE, SELFPAY | PROVIDERS: PCP Internal Medicine; Visit Provider Internal Medicine | DX: I48.20 Chronic atrial fibrillation, unspecified (principal); Z51.81 Encounter for therapeutic drug level monitoring; Z79.01 Long term (current) use of anticoagulants | CPT/HCPCS: 85610; 99211 ==

== ENCOUNTER → 2023-11-16 23:59 | Outpatient (BNV) | payer MEDICARE, SELFPAY ==
--- NOTE | 2023-11-18 14:38 | A.OFFVIS_ITS ---
Intake Visit Reasons: Remote ICD check- [employer] Allergies penicillin G Allergy (Unknown, Verified 10/26/23 09:17) PASSED OUT [facility] Medical History (Updated 10/25/23 @ 10:07 by Benny Ramírez MD) LFT elevation ICD (implantable cardioverter-defibrillator) in place COVID-19 virus infection Abnormal prostate specific antigen (PSA) Encounter for Medicare annual wellness exam Abnormal nuclear stress test Hx of myocardial infarction Mild carotid artery disease On anticoagulant therapy On beta ruslan at home CAD (coronary artery disease) Preoperative cardiovascular examination Ischemic cardiomyopathy Colon cancer screening Hypercholesterolemia Impaired glucose tolerance Erectile dysfunction Prostate cancer Bladder cancer Surgical History Status post cardiac catheterization Hx of heart artery stent Hx of colonoscopy H/O transurethral destruction of bladder lesion History of bladder surgery Family History Mother No problems noted. Father No problems noted. 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 ICD function is adequate. Nonsustained [place] episode noted [id number] Cardiac Interrogation, implant defibrillator w/interim Procedure code (CPT) selection complete Assessment & Plan Assessment & Plan (1) ICD (implantable cardioverter-defibrillator) in place: Comment: [employer] single-chamber ICD in place for primary prevention, April 2022 Code(s): Z95.810 - Presence of automatic (implantable) cardiac defibrillator Category: Medical Plan: See above Coding Level of Care Code Procedure Only Diagnoses ICD (implantable cardioverter-defibrillator) in place Z95.810 CPT Codes Cardiac Device Check - Cardiac Device 13: [id number] Cardiac Interrogation, implant defibrillator w/interim ([id number])
== END ==
PROVIDERS: PCP Internal Medicine; Visit Provider Internal Medicine Cardiovascular Disease
DX: I47.20 Ventricular tachycardia, unspecified (principal); Z95.810 Presence of automatic (implantable) cardiac defibrillator
CPT/HCPCS: 93295

== ENCOUNTER → 2023-11-16 23:59 | Outpatient (BNV) | payer MEDICARE, SELFPAY ==
--- NOTE | 2023-11-18 15:30 | A.OFFVIS_ITS ---
Intake Visit Reasons: REmote HF monitoring- [employer] Allergies penicillin G Allergy (Unknown, Verified 10/26/23 09:17) PASSED OUT [facility] Medical History (Updated 10/25/23 @ 10:07 by Benny Ramírez MD) LFT elevation ICD (implantable cardioverter-defibrillator) in place COVID-19 virus infection Abnormal prostate specific antigen (PSA) Encounter for Medicare annual wellness exam Abnormal nuclear stress test Hx of myocardial infarction Mild carotid artery disease On anticoagulant therapy On beta ruslan at home CAD (coronary artery disease) Preoperative cardiovascular examination Ischemic cardiomyopathy Colon cancer screening Hypercholesterolemia Impaired glucose tolerance Erectile dysfunction Prostate cancer Bladder cancer Surgical History Status post cardiac catheterization Hx of heart artery stent Hx of colonoscopy H/O transurethral destruction of bladder lesion History of bladder surgery Family History Mother No problems noted. Father No problems noted. 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 Heart failure parameters are stable [id number] Cardiac Device Interrogation, cardio physiologic monitor Procedure code (CPT) selection complete Assessment & Plan Assessment & Plan (1) ICD (implantable cardioverter-defibrillator) in place: Comment: [employer] single-chamber ICD in place for primary prevention, April 2022 Code(s): Z95.810 - Presence of automatic (implantable) cardiac defibrillator Category: Medical Plan: See above Coding Level of Care Code Procedure Only Diagnoses ICD (implantable cardioverter-defibrillator) in place Z95.810 CPT Codes Cardiac Device Check - Cardiac Device 15: [id number] Cardiac Device Interrogation, cardio physiologic monitor ([id number])
== END ==
PROVIDERS: PCP Internal Medicine; Visit Provider Internal Medicine Cardiovascular Disease
DX: Z45.02 Encounter for adjustment and management of automatic implantable cardiac defibrillator (principal)
CPT/HCPCS: 93297

== ENCOUNTER 2023-11-23 09:27 | Outpatient (AMB) | payer MEDICARE, SELFPAY ==
[2023-11-23 09:54] LABS: Prothrombin Time Whole Bld POC 30.8 sec (11.1-13.5); ~PT, ~INR - Anti Coag Clinic 2.6 (0.9-1.1)
--- NOTE | 2023-11-23 09:59 | MHC.OFFVISCO ---
Intake Intake Visit Reasons: Anticoagulation Allergies penicillin G Allergy (Unknown, Verified 11/23/23 09:49) PASSED OUT Medication List - Last Reconciled 11/23/23 by Joan Huitron RN atorvastatin 40 mg PO DAILY 90 days cyanocobalamin (vitamin B-12) 2,500 mcg PO .qod ezetimibe (Zetia) 10 mg PO DAILY metoprolol succinate ER 75 mg (1.5 x 50 mg) PO DAILY 90 days multivitamin (One-A-Day Essential tablet) 1 tab PO DAILY sildenafil 100 mg PO DAILY PRN valsartan 80 mg PO DAILY 90 days warfarin 5 mg See Protocol PO DAILY Nursing Note NO CP,SOB,DIET/MED CHANGES,FALLS OR SX OF BLEEDING. CONTINUE PRESENT DOSE AND FOLLOW-UP IN 4 WEEKS. GOOD UNDERSTANDING OF DOSING INSTR. 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
== END 2023-11-23 10:00 | disposition home or self-care (01) ==
LOC: HO.ACS 09:27
PROVIDERS: PCP Internal Medicine; Visit Provider Internal Medicine
DX: Z79.01 Long term (current) use of anticoagulants (principal)

== ENCOUNTER → 2023-11-23 09:27 | Outpatient (BNVA) | payer MEDICARE, SELFPAY | PROVIDERS: PCP Internal Medicine; Visit Provider Internal Medicine | DX: I48.20 Chronic atrial fibrillation, unspecified (principal); Z79.01 Long term (current) use of anticoagulants; Z51.81 Encounter for therapeutic drug level monitoring | CPT/HCPCS: 85610; 99211 ==

== ENCOUNTER 2023-12-10 08:43 | Outpatient (AMB) | payer MEDICARE, SELFPAY ==
[2023-12-10 08:46] VITALS: BP 110/56; PULSE 72; O2SAT 93
--- NOTE | 2023-12-10 08:46 | A.OFFPC_ITS ---
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 Allergies penicillin G Allergy (Unknown, Verified 12/10/23 08:47) PASSED OUT Medication List - Last Reconciled 12/10/23 by Ifeoma Del Castillo PA-C atorvastatin 40 mg PO DAILY 90 days cyanocobalamin (vitamin B-12) 2,500 mcg PO .qod ezetimibe (Zetia) 10 mg PO DAILY metoprolol succinate ER 75 mg (1.5 x 50 mg) PO DAILY 90 days multivitamin (One-A-Day Essential tablet) 1 tab PO DAILY ondansetron 4 mg PO Q8H PRN sildenafil 100 mg PO DAILY PRN valsartan 80 mg PO DAILY 90 days warfarin 5 mg See Protocol PO DAILY Tobacco use date assessed: 09/22/23 Fall risk assessment: 1 Fall in past year ([facility]) Last assessed Fall Risk: 12/10/23 Dental Screening Dental Screen Date: 09/22/23 HPI [facility] 12/02 fell/BP HPI Details 73 year old male smoker with past histor y of ischemic cardiomyopathy, impaired glucose tolerance, coronary artery disease ([place] 2011) with implantable cardioverter defibrillator in place last seen by Dr. Ramírez 08/2023 coming in for hospital follow up. In review of the notes, patient presented to [facility] ED 12/02/2023 after a syncopal episode labs were within normal limits, chest x-ray with no acute abnormalities, left elbow x-ray was normal, CT head with a nondisplaced fracture of the left occipital bone and no fracture of the C-spine.? Patient was admitted to medicine for observation. Echo was done which showed ejection fraction of 35-40% with inferobasilar and basal inferoseptal koch akinetic and mild aortic regurgitation.? Syncopal episode was likely secondary to dehydration advised plenty of water intake.? Patient was evaluated by PT and consulted by Cardiology and Neurology and cleared to be discharged home 12/04/2023. Patient also follows with cardiology for regular device interrogations. Patient states he has two stitches in his elbow which he would like to be removed at this appointment. He also mentions his visiting nurse has mentioned he has been having low normal blood pressures. He also has a chronic dry cough and is unsure if it is associated with the Valsartan. Lastly he notes he has been having bilateral rib pain that keeps him up at night when he moves in his sleep. PENDING SALE TO [facility] Medical History (Updated 12/10/23 @ 09:45 by Ifeoma Del Castillo PA-C) LFT elevation ICD (implantable cardioverter-defibrillator) in place COVID-19 virus infection Abnormal prostate specific antigen (PSA) Encounter for Medicare annual wellness exam Abnormal nuclear stress test Hx of myocardial infarction Mild carotid artery disease On anticoagulant therapy On beta ruslan at home CAD (coronary artery disease) Preoperative cardiovascular examination Ischemic cardiomyopathy Colon cancer screening Hypercholesterolemia Impaired glucose tolerance Erectile dysfunction Prostate cancer Bladder cancer Surgical History Status post cardiac catheterization Hx of heart artery stent Hx of colonoscopy H/O transurethral destruction of bladder lesion History of bladder surgery Family History Mother No problems noted. Father No problems noted. 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 How often do you have a drink containing alcohol?: Monthly or less 2. How many drinks containing alcohol do you have on a typical day when you are drinking?: 1 or 2 3. How often do you have six or more drinks on one occasion?: Never Total Score: 1 REGGIE-7 AMB Questionnaire REGGIE-7 Date REGGIE - 7 assessed: 09/22/23 Source: Developed by Drs. Tom Clark, Teagan Edwards, Chuy Stauffer and colleagues, with an educational cassandra from [employer]. Review of Systems Const Denies body aches, Denies chills, Denies fever(s), Denies headache(s) and Denies poor appetite Eyes Reports no additional complaints ENT Reports dizziness (occasional) and Denies headache(s) Card Denies chest pain, Denies edema, Denies irregular heart rhythm, Reports lightheadedness and Denies dyspnea Resp Reports cough and Denies dyspnea GI Denies abdominal pain, Denies constipation, Denies diarrhea, Denies nausea and Denies vomiting Reports no additional complaints Musc Details: bilateral rib pain Skin/Breast Details: two intact sutures in left elbow with normal wound healing Neuro Reports dizziness (occasional) and Denies headache(s) Psych Reports no additional complaints Physical exam (Primary Care) Vital Signs: Last Vital Signs Pulse 72 12/10/23 08:46 BP 110/56 L 12/10/23 08:46 Pulse Ox 93 12/10/23 08:46 Oxygen Delivery Method Room Air 12/10/23 08:46 Tobacco/Smoking Status: Tobacco use Status Tobacco use date assessed 09/22/23 12/10/23 08:50 Patient Tobacco Use Status Former Tobacco user 12/10/23 08:50 Tobacco use type Cigarette,Cigar 12/10/23 08:50 e-Cigarette/Vaping Use Never Used 12/10/23 08:50 Thrive Assessment: Date of Thrive Assessment Date Thrive assessed 09/22/23 12/10/23 08:50 Const General: cooperative, healthy appearing, comfortable and no acute distress Orientation/consciousness: patient oriented x3 HENMT Head: Yes normocephalic Ears: hearing grossly normal bilaterally General nose exam: Normal external nose present Eyes General: appearance normal, both eyes and all related structures Conjunctivae: conjunctivae normal Neck Neck: Yes full ROM and Yes no lymphadenopathy Chest Other: bilateral rib tenderness to palpation Resp Effort & Inspection: normal respiratory effort Auscultation: clear to auscultation bilaterally, no crackles, no rales, no rhonchi and no wheezes Cardio Rate: regular rate Rhythm: regular rhythm Skin Other: two intact sutures of left elbow with routine healing Neuro General: patient oriented x3 Gait exam (Neuro): Normal gait present Extrem General: Yes normal to inspection, Yes full ROM and No edema Psych Affect: normal affect Attitude: cooperative Insight: Good insight present (Psych) Judgement: Good judgement present (Psych) Assessment and Plan Assessment & Plan (1) Syncope: Code(s): R55 - Syncope and collapse Plan: Patient was found to have a syncopal episode and evaluated at [facility] ED. his defibrillator did not administer shock and syncope was thought to be likely secondary to dehydration. Advised patient to stay well hydrated and follow up with Cardiology. He also mentions his blood pressure has been low normal and he has been having a cough. Advised patient to reach out to Cardiology in regards to possible adjustment of valsartan. (2) Elbow laceration: Code(s): S51.019A - Laceration without foreign body of unspecified elbow, initial encounter Plan: Elbow laceration is well healed at this visit. Both stitches removed successfully without complication. Continue to keep this area clean and dry. (3) Rib pain: Code(s): R07.81 - Pleurodynia Plan: Patient has been having increased rib pain since his fall. States it is diffic ult to fall asleep as he moves in his sleep and wakes up in pain. We will trial muscle relaxers to help with this pain. (4) Occipital fracture: Code(s): S02.119A - Unspecified fracture of occiput, initial encounter for closed fracture Plan: Continue with pain management no surgical intervention indicated at this time. Plan This note was constructed using voice recognition software. While every effort has been made to ensure accuracy and copy operator, still areas may have been included sometimes these areas may affect the content or meeting of the given symptoms. Total time spent caring for the patient today was 30 minutes. This includes time spent before the visit reviewing the chart, time spent during the visit, and time spent after the visit and documentation. Medications: New cyclobenzaprine 5 mg PO BEDTIME PRN 20 tabs 0RF muscle spasm Coding Level of Care Code Est Pt Level 4 (93575) Diagnoses Syncope R55 Elbow laceration S51.019A Rib pain R07.81 Occipital fracture S02.119A
== END 2023-12-10 09:22 | disposition home or self-care (01) ==
PROVIDERS: PCP Internal Medicine
DX: R55 Syncope and collapse (principal); S51.019A Laceration without foreign body of unspecified elbow, initial encounter; R07.81 Pleurodynia; S02.119A Unspecified fracture of occiput, initial encounter for closed fracture
CPT/HCPCS: 99214

== ENCOUNTER 2023-12-10 09:44 | Outpatient (AMB) | payer MEDICARE, SELFPAY ==
[2023-12-10 10:07] LABS: Prothrombin Time Whole Bld POC 23.7 sec (11.1-13.5)
--- NOTE | 2023-12-10 10:20 | MHC.OFFVISCO ---
Intake Intake Visit Reasons: Anticoagulation Allergies penicillin G Allergy (Unknown, Verified 12/10/23 09:55) PASSED OUT Medication List - Last Reconciled 12/10/23 by Parvin Cortez RN atorvastatin 40 mg PO DAILY 90 days cyanocobalamin (vitamin B-12) 2,500 mcg PO .qod cyclobenzaprine 5 mg PO BEDTIME PRN ezetimibe (Zetia) 10 mg PO DAILY metoprolol succinate ER 75 mg (1.5 x 50 mg) PO DAILY 90 days multivitamin (One-A-Day Essential tablet) 1 tab PO DAILY ondansetron 4 mg PO Q8H PRN sildenafil 100 mg PO DAILY PRN valsartan 80 mg PO DAILY 90 days warfarin 5 mg See Protocol PO DAILY Nursing Note INR: 2.0 in therapeutic range- INR 1.3 on Thursday12/07/23 with [facility]- resumed warfarin thursday s/p unwitnessed fall in Garage - fell back hit head - skull fracture and rib contusions and elbow lac with sutures ? if r/t to B/p and heat and not drinking enough water: pt enc to monitor b/p at home, discuss b/p meds with MD, enc to avoid working in extreme heat - to get up and down slowly and enc to drink water especially in hot weather - states he only has 1 water bottle /day, Medications and supplements reviewed- muscle relaxer prn- enc to be careful may make him tiered,he would to take something for pain- due to bleed risk - enc extra strength tylenol instead of NSAID if still in pain enc to discuss with MD. it was explained that tyelnol while safer on stomach still can raise the INR and to adjust diet to offset affects Diet: states his appetite is decreased and has nausea med prn - he states it helps Denies any signs and symptoms of bleeding or bruising or clotting. Bleeding, bruising, clotting discussed Nutritional guidance given - for now no greens today or tomorrow but to increase his servings x 2 while taking tylenol like broccoli or a spinach Dose: decrease weekly amt for now 7.5mg x 2 days/ 5mg x 5days x 1 week while healing f/u 1 week F/U INR: 11/16/23 Patient verbalizes understanding of instructions given msg sent to PCP Anti-Coag Initial Assessment Social Hx Patient Tobacco Use Status: Former Tobacco user Tobacco use type: Cigarette and Cigar alcohol intake: current Alcohol intake frequency: holidays/special occasions only Coding Level of Care Code Est Patient Level 1 Diagnoses Current use of anticoagulant therapy Z79.01 Results AMB INR Fingerstick AMB INR Fingerstick 2.0 Last Edit by Parvin Cortez RN on 12/10/23 10:09 manual entry Assessment & Plan Assessment & Plan (1) Current use of anticoagulant therapy: Code(s): Z79.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
== END 2023-12-10 10:34 | disposition home or self-care (01) ==
LOC: HO.ACS 09:44
PROVIDERS: PCP Internal Medicine; Visit Provider Internal Medicine
DX: Z79.01 Long term (current) use of anticoagulants (principal)

== ENCOUNTER → 2023-12-10 09:44 | Outpatient (BNVA) | payer MEDICARE, SELFPAY | PROVIDERS: PCP Internal Medicine; Visit Provider Internal Medicine | DX: I48.20 Chronic atrial fibrillation, unspecified (principal); Z79.01 Long term (current) use of anticoagulants; Z51.81 Encounter for therapeutic drug level monitoring | CPT/HCPCS: 85610; 99211 ==

== ENCOUNTER 2023-12-17 09:09 | Outpatient (AMB) | payer MEDICARE, SELFPAY ==
[2023-12-17 09:41] LABS: Prothrombin Time Whole Bld POC 33.6 sec (11.1-13.5); ~PT, ~INR - Anti Coag Clinic 2.8 (0.9-1.1)
--- NOTE | 2023-12-17 09:50 | MHC.OFFVISCO ---
Intake Intake Visit Reasons: Anticoagulation Allergies penicillin G Allergy (Unknown, Verified 12/17/23 09:35) PASSED OUT Nursing Note Pt to ACS in WC accompanied by . INR: 2.8 in therapeutic range of 2-3 See previous note regarding pt fall. States is feeling better. Bp is good. It had been on the lower side per pt. Valsartan has been decreased since the fall. Medications and supplements reviewed No changes in health, or supplements, appetite is improving. Denies any signs and symptoms of bleeding or bruising or clotting. 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
== END 2023-12-17 09:56 | disposition home or self-care (01) ==
LOC: HO.ACS 09:09
PROVIDERS: PCP Internal Medicine; Visit Provider Internal Medicine
DX: Z79.01 Long term (current) use of anticoagulants (principal)

== ENCOUNTER → 2023-12-17 09:09 | Outpatient (BNVA) | payer MEDICARE, SELFPAY | PROVIDERS: PCP Internal Medicine; Visit Provider Internal Medicine | DX: I48.20 Chronic atrial fibrillation, unspecified (principal); Z79.01 Long term (current) use of anticoagulants; Z51.81 Encounter for therapeutic drug level monitoring | CPT/HCPCS: 85610; 99211 ==

== ENCOUNTER 2023-12-31 09:00 | Outpatient (AMB) | payer MEDICARE, SELFPAY ==
[2023-12-31 09:22] LABS: Prothrombin Time Whole Bld POC 32.4 sec (11.1-13.5); ~PT, ~INR - Anti Coag Clinic 2.7 (0.9-1.1)
--- NOTE | 2023-12-31 09:28 | MHC.OFFVISCO ---
Intake Intake Visit Reasons: Anticoagulation Allergies penicillin G Allergy (Unknown, Verified 12/31/23 09:14) PASSED OUT Medication List - Last Reconciled 12/31/23 by Parvin Cortez RN atorvastatin 40 mg PO DAILY 90 days cyanocobalamin (vitamin B-12) 2,500 mcg PO .qod ezetimibe (Zetia) 10 mg PO DAILY metoprolol succinate ER 75 mg (1.5 x 50 mg) PO DAILY 90 days multivitamin (One-A-Day Essential tablet) 1 tab PO DAILY ondansetron 4 mg PO Q8H PRN sildenafil 100 mg PO DAILY PRN valsartan 40 mg PO DAILY warfarin 5 mg See Protocol PO DAILY Nursing Note Pt came to appt with and walking with his walker as a safety measure INR: 2.7 in therapeutic range Medications and supplements reviewed About 1 month now since fall- ribs are feeling better, pt walking with walker - states he occ has a dizzy spell - when walking long distance prefers to walk with walker to be on safe side Denies any signs and symptoms of bleeding or bruising or clotting. Bleeding, bruising, clotting discussed Nutritional guidance given Dose: keep same dose 7.5mg thursday and thu/ 5mg x 5 days F/U INR: 3 weeks Patient verbalizes understanding of instructions given Anti-Coag Initial Assessment Social Hx Patient Tobacco Use Status: Former Tobacco user Tobacco use type: Cigarette and Cigar alcohol intake: current Alcohol intake frequency: holidays/special occasions only Coding Level of Care Code Est Patient Level 1 Diagnoses Current use of anticoagulant therapy Z79.01 Results AMB INR Fingerstick AMB INR Fingerstick 2.7 Last Edit by Parvin Cortez RN on 12/31/23 09:24 manual entry Assessment & Plan Assessment & Plan (1) Current use of anticoagulant therapy: Code(s): 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
== END 2023-12-31 09:31 | disposition home or self-care (01) ==
LOC: HO.ACS 09:00
PROVIDERS: PCP Internal Medicine; Visit Provider Internal Medicine
DX: Z79.01 Long term (current) use of anticoagulants (principal)

== ENCOUNTER → 2023-12-31 09:00 | Outpatient (BNVA) | payer MEDICARE, SELFPAY | PROVIDERS: PCP Internal Medicine; Visit Provider Internal Medicine | DX: I48.20 Chronic atrial fibrillation, unspecified (principal); Z79.01 Long term (current) use of anticoagulants; Z51.81 Encounter for therapeutic drug level monitoring | CPT/HCPCS: 85610; 99211 ==

== ENCOUNTER 2024-01-21 09:01 | Outpatient (AMB) | payer MEDICARE, SELFPAY ==
[2024-01-21 09:16] LABS: Prothrombin Time Whole Bld POC 41.5 sec (11.1-13.5); ~PT, ~INR - Anti Coag Clinic 3.5 (0.9-1.1)
--- NOTE | 2024-01-21 09:16 | MHC.OFFVISCO ---
Intake Intake Visit Reasons: Anticoagulation Allergies penicillin G Allergy (Unknown, Verified 01/21/24 09:09) PASSED OUT Medication List - Last Reconciled 01/21/24 by Parvin Cortez RN atorvastatin 40 mg PO DAILY 90 days cyanocobalamin (vitamin B-12) 2,500 mcg PO .qod ezetimibe (Zetia) 10 mg PO DAILY metoprolol succinate ER 50 mg PO BID 90 days multivitamin (One-A-Day Essential tablet) 1 tab PO DAILY ondansetron 4 mg PO Q8H PRN sildenafil 100 mg PO DAILY PRN valsartan 40 mg PO DAILY warfarin 5 mg See Protocol PO DAILY Nursing Note INR 3.5 out of therapeutic range Medications and supplements reviewed Patient status: HEALING POST FALL RIBS AND HEAD FEEL BETTER- STILL HAS OCC BOUTS OF DIZZINESS Medications or supplements: B/P MEDS DECREASED Diet: GOOD- HAS NOT HAD USUAL WEEKLY SPINACH Denies any signs and symptoms of bleeding or clotting or unusual bruising Bleeding, bruising, clotting discussed Nutritional guidance given: RESUME WEEKLY SPINACH Dose: KEEP SAME FOR NOW F/U INR Date: 7.5MG SUN WED/ 5MG X 5 DAYS ?? Patient AND verbalizing understanding of instructions given. 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
== END 2024-01-21 09:28 | disposition home or self-care (01) ==
LOC: HO.ACS 09:01
PROVIDERS: PCP Internal Medicine; Visit Provider Internal Medicine
DX: Z79.01 Long term (current) use of anticoagulants (principal)

== ENCOUNTER → 2024-01-21 09:01 | Outpatient (BNVA) | payer MEDICARE, SELFPAY | PROVIDERS: PCP Internal Medicine; Visit Provider Internal Medicine | DX: I48.20 Chronic atrial fibrillation, unspecified (principal); Z79.01 Long term (current) use of anticoagulants; Z51.81 Encounter for therapeutic drug level monitoring | CPT/HCPCS: 85610; 99211 ==

== ENCOUNTER → 2024-01-25 23:59 | Outpatient (BNV) | payer MEDICARE, SELFPAY ==
--- NOTE | 2024-01-27 15:47 | MHC.OFFVIS ---
Intake Visit Reasons: Remote HF monitoring- [id number] Allergies penicillin G Allergy (Unknown, Verified 01/21/24 09:09) PASSED OUT [facility] Medical History (Updated 12/10/23 @ 09:45 by Ifeoma Del Castillo PA-C) LFT elevation ICD (implantable cardioverter-defibrillator) in place COVID-19 virus infection Abnormal prostate specific antigen (PSA) Encounter for Medicare annual wellness exam Abnormal nuclear stress test Hx of myocardial infarction Mild carotid artery disease On anticoagulant therapy On beta ruslan at home CAD (coronary artery disease) Preoperative cardiovascular examination Ischemic cardiomyopathy Colon cancer screening Hypercholesterolemia Impaired glucose tolerance Erectile dysfunction Prostate cancer Bladder cancer Surgical History Status post cardiac catheterization Hx of heart artery stent Hx of colonoscopy H/O transurethral destruction of bladder lesion History of bladder surgery Family History Mother No problems noted. Father No problems noted. 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 Heart failure parameters are stable [id number] Cardiac Device Interrogation, cardio physiologic monitor Procedure code (CPT) selection complete Assessment & Plan Assessment & Plan (1) ICD (implantable cardioverter-defibrillator) in place: Comment: [email or web address] single-chamber ICD in place for primary prevention, April 2022 Code(s): Z95.810 - Presence of automatic (implantable) cardiac defibrillator Category: Medical Plan: See above Coding Level of Care Code Procedure Only Diagnoses ICD (implantable cardioverter-defibrillator) in place Z95.810 CPT Codes Cardiac Device Check - Cardiac Device 15: [id number] Cardiac Device Interrogation, cardio physiologic monitor ([id number])
== END ==
PROVIDERS: PCP Internal Medicine; Visit Provider Internal Medicine Cardiovascular Disease
DX: Z45.02 Encounter for adjustment and management of automatic implantable cardiac defibrillator (principal)
CPT/HCPCS: 93297

== ENCOUNTER 2024-02-04 09:31 | Outpatient (AMB) | payer MEDICARE, SELFPAY ==
--- NOTE | 2024-02-04 09:44 | MHC.OFFVISCO ---
Intake Intake Visit Reasons: Anticoagulation Allergies penicillin G Allergy (Unknown, Verified 02/04/24 09:36) PASSED OUT Medication List - Last Reconciled 02/04/24 by Beronica Augustine RN atorvastatin 40 mg PO DAILY 90 days cyanocobalamin (vitamin B-12) 2,500 mcg PO .qod ezetimibe (Zetia) 10 mg PO DAILY metoprolol succinate ER 50 mg PO BID 90 days multivitamin (One-A-Day Essential tablet) 1 tab PO DAILY ondansetron 4 mg PO Q8H PRN sildenafil 100 mg PO DAILY PRN valsartan 40 mg PO DAILY warfarin 5 mg See Protocol PO DAILY Nursing Note INR: 2.5 in therapeutic range OF 2-3 Medications and supplements reviewed No changes in health, diet, medications, or supplements, Denies any signs and symptoms of bleeding or bruising or clotting. Bleeding, bruising, clotting discussed Nutritional guidance given Dose: SAME DOSE OF 5MG x 5 DAYS AND 7.5MG x 2 DAYS F/U INR: 4 WEEKS Patient verbalizes understanding of instructions given Anti-Coag Initial Assessment Social Hx Patient Tobacco Use Status: Former Tobacco user Tobacco use type: Cigarette and Cigar alcohol intake: current Alcohol intake frequency: holidays/special occasions only Coding Level of Care Code Est Patient Level 1 Diagnoses Current use of anticoagulant therapy Z79.01 Results AMB INR Fingerstick AMB INR Fingerstick 2.5 Last Edit by Beronica Augustine RN on 02/04/24 09:41 INTERFACE DELAY Assessment & Plan Assessment & Plan (1) Current use of anticoagulant therapy: Code(s): Z79.01 - USP (current) use of 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
[2024-02-04 09:48] LABS: Prothrombin Time Whole Bld POC 30.1 sec (11.1-13.5); ~PT, ~INR - Anti Coag Clinic 2.5 (0.9-1.1)
== END 2024-02-04 09:45 | disposition home or self-care (01) ==
LOC: HO.ACS 09:31
PROVIDERS: PCP Internal Medicine; Visit Provider Internal Medicine
DX: Z79.01 Long term (current) use of anticoagulants (principal)

== ENCOUNTER → 2024-02-04 09:31 | Outpatient (BNVA) | payer MEDICARE, SELFPAY | PROVIDERS: PCP Internal Medicine; Visit Provider Internal Medicine | DX: I48.20 Chronic atrial fibrillation, unspecified (principal); Z79.01 Long term (current) use of anticoagulants; Z51.81 Encounter for therapeutic drug level monitoring | CPT/HCPCS: 85610; 99211 ==

== ENCOUNTER → 2024-02-29 23:59 | Outpatient (BNV) | payer MEDICARE, SELFPAY ==
--- NOTE | 2024-03-01 10:46 | A.OFFVIS_ITS ---
Intake Visit Reasons: Remote HF monitoring- [employer] Allergies penicillin G Allergy (Unknown, Verified 02/04/24 09:36) PASSED OUT [facility] Medical History (Updated 12/10/23 @ 09:45 by Ifeoma Del Castillo PA-C) LFT elevation ICD (implantable cardioverter-defibrillator) in place COVID-19 virus infection Abnormal prostate specific antigen (PSA) Encounter for Medicare annual wellness exam Abnormal nuclear stress test Hx of myocardial infarction Mild carotid artery disease On anticoagulant therapy On beta ruslan at home CAD (coronary artery disease) Preoperative cardiovascular examination Ischemic cardiomyopathy Colon cancer screening Hypercholesterolemia Impaired glucose tolerance Erectile dysfunction Prostate cancer Bladder cancer Surgical History Status post cardiac catheterization Hx of heart artery stent Hx of colonoscopy H/O transurethral destruction of bladder lesion History of bladder surgery Family History Mother No problems noted. Father No problems noted. 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 Heart failure parameters are within normal limits [id number] Cardiac Device Interrogation, cardio physiologic monitor Procedure code (CPT) selection complete Assessment & Plan Assessment & Plan (1) ICD (implantable cardioverter-defibrillator) in place: Comment: [employer] single-chamber ICD in place for primary prevention, April 2022 Code(s): Z95.810 - Presence of automatic (implantable) cardiac defibrillator Category: Medical Plan: See above Coding Level of Care Code Procedure Only Diagnoses ICD (implantable cardioverter-defibrillator) in place Z95.810 CPT Codes Cardiac Device Check - Cardiac Device 15: [id number] Cardiac Device Interrogation, cardio physiologic monitor ([id number])
== END ==
PROVIDERS: PCP Internal Medicine; Visit Provider Internal Medicine Cardiovascular Disease
DX: Z45.02 Encounter for adjustment and management of automatic implantable cardiac defibrillator (principal)
CPT/HCPCS: 93297

== ENCOUNTER → 2024-02-29 23:59 | Outpatient (BNV) | payer MEDICARE, SELFPAY ==
--- NOTE | 2024-03-01 10:45 | A.OFFVIS_ITS ---
Intake Visit Reasons: Remote ICD check- [employer] Allergies penicillin G Allergy (Unknown, Verified 02/04/24 09:36) PASSED OUT [facility] Medical History (Updated 12/10/23 @ 09:45 by Ifeoma Del Castillo PA-C) LFT elevation ICD (implantable cardioverter-defibrillator) in place COVID-19 virus infection Abnormal prostate specific antigen (PSA) Encounter for Medicare annual wellness exam Abnormal nuclear stress test Hx of myocardial infarction Mild carotid artery disease On anticoagulant therapy On beta ruslan at home CAD (coronary artery disease) Preoperative cardiovascular examination Ischemic cardiomyopathy Colon cancer screening Hypercholesterolemia Impaired glucose tolerance Erectile dysfunction Prostate cancer Bladder cancer Surgical History Status post cardiac catheterization Hx of heart artery stent Hx of colonoscopy H/O transurethral destruction of bladder lesion History of bladder surgery Family History Mother No problems noted. Father No problems noted. 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 ICD function is adequate [id number] Cardiac Interrogation, implant defibrillator w/interim Procedure code (CPT) selection complete Assessment & Plan Assessment & Plan (1) ICD (implantable cardioverter-defibrillator) in place: Comment: [employer] single-chamber ICD in place for primary prevention, April 2022 Code(s): Z95.810 - Presence of automatic (implantable) cardiac defibrillator Category: Medical Plan: See above Coding Level of Care Code Procedure Only Diagnoses ICD (implantable cardioverter-defibrillator) in place Z95.810 CPT Codes Cardiac Device Check - Cardiac Device 13: [id number] Cardiac Interrogation, implant defibrillator w/interim ([id number])
== END ==
PROVIDERS: PCP Internal Medicine; Visit Provider Internal Medicine Cardiovascular Disease
DX: Z45.02 Encounter for adjustment and management of automatic implantable cardiac defibrillator (principal)
CPT/HCPCS: 93295

== ENCOUNTER 2024-03-03 09:13 | Outpatient (AMB) | payer MEDICARE, SELFPAY ==
[2024-03-03 09:28] LABS: Prothrombin Time Whole Bld POC 31.5 sec (11.1-13.5); ~PT, ~INR - Anti Coag Clinic 2.6 (0.9-1.1)
--- NOTE | 2024-03-03 09:29 | MHC.OFFVISCO ---
Intake Intake Visit Reasons: Anticoagulation Allergies penicillin G Allergy (Unknown, Verified 03/03/24 09:20) PASSED OUT Medication List - Last Reconciled 03/03/24 by Parvin Cortez RN atorvastatin 40 mg PO DAILY 90 days cyanocobalamin (vitamin B-12) 2,500 mcg PO .qod ezetimibe (Zetia) 10 mg PO DAILY metoprolol succinate ER 50 mg PO BID 90 days multivitamin (One-A-Day Essential tablet) 1 tab PO DAILY ondansetron 4 mg PO Q8H PRN sildenafil 100 mg PO DAILY PRN valsartan 40 mg PO DAILY warfarin 5 mg See Protocol PO DAILY Nursing Note INR: 2.6 in therapeutic range Medications and supplements reviewed No changes in health, diet, medications, or supplements, Denies any signs and symptoms of bleeding or bruising or clotting. Bleeding, bruising, clotting discussed Nutritional guidance given Dose: 7.5MG X 2 DAYS/ 5MG X 5 DAYS F/U INR: 1 MONTH Patient verbalizes understanding of instructions given Anti-Coag Initial Assessment Social Hx Patient Tobacco Use Status: Former Tobacco user Tobacco use type: Cigarette and Cigar alcohol intake: current Alcohol intake frequency: holidays/special occasions only Questionnaires HAS-BLED Does the patient had uncontrolled Hypertension?: No Does the patient have renal disease?: No Does the patient have liver disease?: No Does the patient have a history of stroke?: No Has the patient had major bleeding or predisposition to bleeding?: No Does the patient have labile INRs?: No Is the patient over 65 years of age?: Yes Is the patient on medications that gives them a predisposition to bleeding?: Yes Does the patient use alcohol?: No HAS-BLED Score: 2 CHADSVASC Age: 66-74 Gender: Male Does the patient have a history of CHF?: No Does the patient have a history of Hypertension?: Yes Does the patient have a history of Stroke/TIA/Thromboembolism?: Yes (SPLENIC VEIN DVT ) Does the patient have a history of Vascular Disease (prior [place], PAD or aortic plaque)?: Yes ([place]) Does the patient have a history of Diabetes?: No CHADS VACS Score: 5 Bebeto Prediction Score Rsk VTE Active Cancer: No Previous VTE, excluding superficial vein thrombosis: Yes Reduced mobility: No 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 ) With-in last month Trauma and/or Surgery: No Elderly 70 year or older: Yes Heart and/or Respiratory Failure: No Acute Myocardial infarction and/or Ischemic Stroke: Yes ([place]) Acute Infection and/or Rheumatologic Disorder: No Obesity (BMI 30 or greater): No Ongoing Hormonal Treatment: No Score: 8 Bebeto Score less than 4; Low Risk of VTE Bebeto Score 4 or greater; High Risk of VTE Coding Level of Care Code Est Patient Level 1 Diagnoses Current use of anticoagulant therapy Z79.01 Results AMB INR Fingerstick AMB INR Fingerstick 2.6 Last Edit by Parvin Cortez RN on 03/03/24 09:26 MANUAL ENTRY Assessment & Plan Assessment & Plan (1) Current use of anticoagulant therapy: Code(s): 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
== END 2024-03-03 09:35 | disposition home or self-care (01) ==
LOC: HO.ACS 09:13
PROVIDERS: PCP Internal Medicine; Visit Provider Internal Medicine
DX: Z79.01 Long term (current) use of anticoagulants (principal)

== ENCOUNTER → 2024-03-03 09:13 | Outpatient (BNVA) | payer MEDICARE, SELFPAY | PROVIDERS: PCP Internal Medicine; Visit Provider Internal Medicine | DX: I48.20 Chronic atrial fibrillation, unspecified (principal); Z79.01 Long term (current) use of anticoagulants; Z51.81 Encounter for therapeutic drug level monitoring | CPT/HCPCS: 85610; 99211 ==

== ENCOUNTER 2024-03-10 08:47 | Outpatient (AMB) | payer MEDICARE, SELFPAY ==
[2024-03-10 09:01] VITALS: BP 122/58; PULSE 60; O2SAT 98; BMI 21.8
--- NOTE | 2024-03-10 09:01 | MHC.PC.OV ---
Vital Signs 03/10/24 09:01 Height 5 ft 11 in Weight 156 lb BMI 21.8 BP 122/58 L Blood Pressure Location Lt brachial Position Sitting Pulse 60 Pulse Source Pulse Oximeter Pulse Oximetry (%) 98 Oxygen Delivery Method Room Air Intake Visit Reasons: PE [employer] Required: No Accompanied by: Self / Same As Patient Allergies penicillin G Allergy (Unknown, Verified 03/10/24 09:07) PASSED OUT Medication List - Last Reconciled 03/10/24 by Benny Ramírez MD atorvastatin 40 mg PO DAILY 90 days cyanocobalamin (vitamin B-12) 2,500 mcg PO .qod ezetimibe (Zetia) 10 mg PO DAILY metoprolol succinate ER 50 mg PO BID 90 days multivitamin (One-A-Day Essential tablet) 1 tab PO DAILY sildenafil 100 mg PO DAILY PRN valsartan 40 mg PO DAILY warfarin 5 mg See Protocol PO DAILY Tobacco use date assessed: 09/22/23 Fall risk assessment: No Falls in past year Last assessed Fall Risk: 03/10/24 Dental Screening Dental Screen Date: 09/22/23 Did you have a dental visit in the last 12 months?: No Did you have a dental problem in the last 6 months where you did not have access to dental care?: No HPI PE HPI Details 74-year-old male smoker with a history of syncope(question of dehydration) having occipital fracture, history of prostate cancer with impaired glucose tolerance hypercholesterolemia ischemic cardiomyopathy with ICD with coronary artery disease steatohepatitis coming in for physical exam last seen in November 2023. Last colon test was 2020 5-6 years. Patient has also been seen by Urology in August for the bladder cancer and prostate cancer . On surveillance, still occ dizzy PAtients )2 sats runnig 89 but it does go up 94-95, continue to monitor. [facility] Medical History (Updated 03/10/24 @ 09:51 by Benny Ramírez MD) Tobacco abuse LFT elevation ICD (implantable cardioverter-defibrillator) in place COVID-19 virus infection Abnormal prostate specific antigen (PSA) Encounter for Medicare annual wellness exam Abnormal nuclear stress test Hx of myocardial infarction Mild carotid artery disease On anticoagulant therapy On beta ruslan at home CAD (coronary artery disease) Preoperative cardiovascular examination Ischemic cardiomyopathy Colon cancer screening Hypercholesterolemia Impaired glucose tolerance Erectile dysfunction Prostate cancer Bladder cancer Surgical History Status post cardiac catheterization Hx of heart artery stent Hx of colonoscopy H/O transurethral destruction of bladder lesion History of bladder surgery Family History Mother No problems noted. Father No problems noted. 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 1. Little interest or pleasure in doing things: not at all 2. Feeling down, depressed, or hopeless: not at all 3. Trouble falling or staying asleep, or sleeping too much: not at all 4. Feeling tired or having little energy: not at all 5. Poor appetite or overeating: not at all 6. Feeling bad about yourself - or that you are a failure or have let yourself or your family down: not at all 7. Trouble concentrating on things, such as reading the newspaper or watching television: not at all 8. Moving or speaking so slowly that other people could have noticed. Or the opposite - being so fidgety or restless that you have been moving around a lot more than usual: not at all 9. Thoughts that you would be better off or of hurting yourself in some way: not at all Total score: 0 Source: Developed by Drs. Tom Clark, Teagan Edwards, Chuy Stauffer and colleagues, with an educational cassandra from [employer]. Thrive Questionnaire Date Thrive assessed: 03/10/24 I am a: Patient What is your living situation today?: I have a steady place to live Within the past 12 months, did the food you bought not last and you didn't have the money to get more?: Never true Within the past 12 months, did you worry whether your food would run out before you got money to buy more?: Never true Do you have trouble paying for medicines?: No Do you have trouble getting transportation to medical appointments?: No Do you have trouble paying your heating and electricity bill?: No Do you have trouble taking care of your child, family member or friend?: No Do you have trouble with day-to-day activities such as bathing, preparing meals, shopping, managing finances, etc.?: No Are you currently unemployed and looking for a job?: No Are you interested in more education?: No THRIVE Score: 0 AUDIT C Alcohol Use Questionnaire (AUDIT-C) 1. How often do you have a drink containing alcohol?: Monthly or less 2. How many drinks containing alcohol do you have on a typical day when you are drinking?: 1 or 2 3. How often do you have six or more drinks on one occasion?: Never Total Score: 1 REGGIE-7 AMB Questionnaire REGGIE-7 Date REGGIE - 7 assessed: 03/10/24 Feeling nervous, anxious, or on edge: 0 = Not at all Not being able to stop or control worryin = Not at all Worrying too much about different things: 0 = Not at all Trouble relaxin = Not at all Being so restless that it is hard to sit still: 0 = Not at all Becoming easily annoyed or irritable: 0 = Not at all Feeling afraid as if something awful might happen: 0 = Not at all Total REGGIE-7 score (0-4 normal; 5-9 mild; 10-14 moderate; 15-21 severe): 0 Source: Developed by Drs. Tom Clark, Teagan Edwards, Chuy Stauffer and colleagues, with an educational cassandra from [employer]. REGGIE-7 Assessment Billing REGGIE-7 Assessment Tool: REGGIE-7 Assessment 57648 Review of Systems Const Denies poor appetite and Denies weakness Eyes Denies no additional complaints ENT Reports Normal hearing present, Denies dizziness, Denies nasal congestion, Denies tinnitus and Denies sore throat Card Denies chest pain, Denies syncope, Denies rapid heart rate and Denies dyspnea Resp Denies cough and Denies dyspnea GI Denies change in stool character, Reports constipation, Denies diarrhea, Denies nausea and Denies vomiting Denies dysuria and Denies urinary frequency Neuro Reports Normal hearing present, Denies confusion, Denies dizziness, Denies syncope and Denies weakness Psych Denies confusion Physical exam (Primary Care) Vital Signs: Last Vital Signs Pulse 60 03/10/24 09:01 BP 122/58 L 03/10/24 09:01 Pulse Ox 98 03/10/24 09:01 Oxygen Delivery Method Room Air 03/10/24 09:01 BMI result Body Mass Index 21.8 Tobacco/Smoking Status: Tobacco use Status Tobacco use date assessed 09/22/23 03/10/24 09:02 Patient Tobacco Use Status Former Tobacco user 03/10/24 09:02 Tobacco use type Cigarette,Cigar 03/10/24 09:02 e-Cigarette/Vaping Use Never Used 03/10/24 09:02 PHQ-9: PHQ-9 Score PHQ-9: Total score 0 03/10/24 09:10 Thrive Assessment: Date of Thrive Assessment Date Thrive assessed 03/10/24 03/10/24 09:02 Const General: No confusion Orientation/consciousness: No confusion HENMT Head: Yes normocephalic Ears: external ears normal and TM's normal bilaterally Face and sinus: Yes normal facial exam Mouth: moist mucous membranes Throat: Yes tonsils normal Eyes Conjunctivae: conjunctivae normal Pupils: Equal, round and reactive pupils present and Pupil accommodation reflex normal Direct Ophthalmoscopy: normal light reflex Neck Neck: No lymphadenopathy Thyroid: Thyroid normal Chest Chest palpation & inspection: normal inspection of the chest Resp Effort & Inspection: normal respiratory effort and no audible wheezes Auscultation: clear to auscultation bilaterally, no crackles, no wheezes and lung sounds not diminished Cardio Rate: regular rate Rhythm: regular rhythm Peripheral pulses: radial pulses present and dorsalis pedis present GI Other: mild hernia bilateral guaiac negative, did noted enlargement of prostate Palpation (GI): no masses Auscultation: normal bowel sounds and normoactive bowel sounds Other: bilateral mild inguinal hernia Skin General skin exam: no rashes or lesions noted Rashes: no rashes Neuro General: No confusion Cranial nerves: Yes Equal, round and reactive pupils present and Yes Normal hearing present Cognition (Neuro): normal cognition Gait exam (Neuro): Normal gait present Motor exam (neuro): 5/5 motor strength present throughout Deep tendon reflexes (DTR's): Right brachioradialis reflex intensity grade: 2+, Left brachioradialis reflex intensity grade: 2+, Right patellar reflex intensity grade: 2+ and Left patellar reflex intensity grade: 2+ Extrem General: No edema Coding Level of Care Code Est Pt Prev Care >65y(11949) Diagnoses Ischemic cardiomyopathy I25.5 Impaired glucose tolerance R73.02 Hypercholesterolemia E78.00 Coronary artery disease involving [place] coronary artery of [place] heart without angina pectoris I25.10 Coronary Disease-Associated Artery/Lesion type: [place] artery [place] vs. transplanted heart: [place] heart Associated angina: without angina Prostate cancer C61 ICD (implantable cardioverter-defibrillator) in place Z95.810 Hepatic steatosis K76.0 Syncope, unspecified syncope type R55 Syncope type: unspecified Annual physical exam Z00.00 SOB (shortness of breath) on exertion R06.02 Additional Codes REGGIE-7 Assessment Billing - REGGIE-7 Assessment Tool: REGGIE-7 Assessment 20015 ([id number]) Assessment & Plan Assessment & Plan (1) Ischemic cardiomyopathy: Code(s): I25.5 - Ischemic cardiomyopathy Category: Medical Plan: Continue with blood pressure control continue with cholesterol control. Continue with anticoagulation with Coumadin (2) Impaired glucose tolerance: Code(s): R73.02 - Impaired glucose tolerance (oral) Category: Medical Plan: Decrease the amount of carbohydrate intake, pasta, bread, rice and potatoes are all sugar and that is aside from all the sweet stuff, remember that fruits are good but they are Sweet also. (3) Hypercholesterolemia: Code(s): E78.00 - Pure hypercholesterolemia, unspecified Category: Medical Plan: Avoid fried foods, chicken skin, eggs, butter margarine, pastries and meat. Be it pork or beef they have a lot of cholesterol LDL goal of less than 70 and triglyceride of less than 150. 09/14/2023 last blood work (4) Coronary artery disease: Comment: 04/[address] [place] [address] Swann,Echocardiogram January 2019 ejection fraction 40% dilated left atrium. Evidence of basal mid inferior septal mid anterior septal and basal inferior wall infarct Code(s): I25.10 - Atherosclerotic heart disease of [place] coronary artery without angina pectoris Category: Medical Qualifiers: Coronary Disease-Associated Artery/Lesion type: [place] artery [place] vs. transplanted heart: [place] heart Associated angina: without angina Qualified Code(s): I25.10 - Atherosclerotic heart disease of [place] coronary artery without angina pectoris Plan: Control the cholesterol, weight, blood pressure, diabetes continue with anticoagulation (5) Prostate cancer: Comment: Low risk Cornel 6 Code(s): C61 - Malignant neoplasm of prostate Category: Medical Plan: Continue to follow-up with urology on sildenafil (6) ICD (implantable cardioverter-defibrillator) in place: Comment: [employer] single-chamber ICD in place for primary prevention, April 2022 Code(s): Z95.810 - Presence of automatic (implantable) cardiac defibrillator Category: Medical Plan: Patient continues to follow-up with cardiology with device check (7) Hepatic steatosis: Comment: September 2023 Code(s): K76.0 - Fatty (change of) liver, not elsewhere classified Category: Medical Plan: Low-fat diet and exercise (8) Syncope: Code(s): R55 - Syncope and collapse Category: Medical Qualifiers: Syncope type: unspecified Qualified Code(s): R55 - Syncope and collapse Plan: believed to be dehydration, with the O2 sat labile will do pulmonary function tests. (9) Annual physical exam: Code(s): Z00.00 - Encounter for general adult medical examination without abnormal findings Category: Medical Plan: Patient is advised to eat healthy, keep well hydrated, keep active and have adequate sleep. (10) SOB (shortness of breath) on exertion: Code(s): R06.02 - Shortness of breath Category: Medical Plan: Patient is ordered to have a lung function test Orders: Orders Comprehensive Met. Panel Today I25.5 - Ischemic cardiomyopathy Free T4 (Free Thyroxine) Today I25.5 - Ischemic cardiomyopathy Lipid Panel Today E78.00 - Pure hypercholesterolemia, unspecified, I25.5 - Ischemic cardiomyopathy Magnesium Today C61 - Malignant neoplasm of prostate PFT pulmonary function test Today R06.02 - Shortness of breath Complete Blood Count Auto Diff Today I25.5 - Ischemic cardiomyopathy Thyroid Stimulating Hormone Today I25.5 - Ischemic cardiomyopathy Vitamin B12 and Folate Today I25.5 - Ischemic cardiomyopathy PSA,Total (Free>4and<10) Today C61 - Malignant neoplasm of prostate UA CC w/rflx Micro + Cult Today C61 - Malignant neoplasm of prostate, R30.0 - Dysuria US carotid duplex BI Today R55 - Syncope and collapse
== END 2024-03-10 09:58 | disposition home or self-care (01) ==
PROVIDERS: PCP Internal Medicine; Visit Provider Internal Medicine
DX: Z00.00 Encounter for general adult medical examination without abnormal findings (principal); I25.5 Ischemic cardiomyopathy; C61 Malignant neoplasm of prostate; R73.02 Impaired glucose tolerance (oral); E78.00 Pure hypercholesterolemia, unspecified; I25.10 Atherosclerotic heart disease of native coronary artery without angina pectoris; Z95.810 Presence of automatic (implantable) cardiac defibrillator; K76.0 Fatty (change of) liver, not elsewhere classified; R55 Syncope and collapse; R06.02 Shortness of breath

== ENCOUNTER → 2024-03-10 08:47 | Outpatient (BNVA) | payer MEDICARE, SELFPAY | PROVIDERS: PCP Internal Medicine; Visit Provider Internal Medicine | DX: Z00.00 Encounter for general adult medical examination without abnormal findings (principal); I25.5 Ischemic cardiomyopathy; R73.02 Impaired glucose tolerance (oral); E78.00 Pure hypercholesterolemia, unspecified; I25.10 Atherosclerotic heart disease of native coronary artery without angina pectoris; C61 Malignant neoplasm of prostate; K76.0 Fatty (change of) liver, not elsewhere classified; R55 Syncope and collapse; Z95.810 Presence of automatic (implantable) cardiac defibrillator; R06.02 Shortness of breath | CPT/HCPCS: 96127; 99397 ==

== ENCOUNTER 2024-03-11 09:58 | Outpatient (REF) | payer MEDICARE, SELFPAY ==
[2024-03-11 13:04] LABS: MANUAL DIFF FLAG NO
[2024-03-11 13:11] LABS: Basophils Absolute Auto 0.1 X10*3/uL (0.0-0.2); Eosinophils Absolute Auto 0.2 X10*3/uL (0.0-0.4); Eosinophils Percent Auto 2.8 % (0-4); Hematocrit 44.3 % (42.0-52.0); Hemoglobin 14.8 g/dl (14.0-18.0); Imm Gran Abs Auto 0.03 X10*3/uL (0.00-0.03); Imm Gran Pct Auto 0.3 % (0.0-0.4); Lymphocytes Percent Auto 23.7 % (20-40); Mean Corpuscular HGB Conc 33.4 g/dl (31.0-36.0); Mean Corpuscular Hemoglobin 30.8 pg (27.0-33.0); Mean Corpuscular Volume 92.1 fL (80.0-98.0); Mean Platelet Volume 9.7 fL (9.4-12.4); Monocytes Absolute Auto 0.6 X10*3/uL (0.1-1.2); Monocytes Percent Auto 7.1 % (2-11); Neutrophils Absolute Auto 5.6 x10*3/uL (2.0-8.3); Neutrophils Percent Auto 65.1 % (45-73); Platelet Count 213 X10*3/uL (160-400); Red Blood Count 4.81 X10*6/uL (4.60-5.80); Red Cell Distribution Width 13.8 % (11.0-16.0); White Blood Count 8.6 X10*3/uL (4.8-10.8)
[2024-03-11 13:16] LABS: Appearance Urine Clear; Color Urine Dark Yellow; Glucose Urine UA Negative (Negative); Leukocyte Esterase Urine Negative (Negative); Nitrite Urine Negative (Negative); PH 6.5 (5.0-9.0); Specific Gravity - Urine 1.015 (1.005-1.025); Urine Blood Negative (Negative); Urine Ketones Negative (Negative); Urine Protein Negative (Neg-Trace)
[2024-03-11 13:33] LABS: Alanine Aminotransferase 45 U/L (0-40); Alkaline Phosphatase 96 U/L (39-117); Anion Gap 9 (12-20); Aspartate Amino Transferase 35 U/L (5-37); Bilirubin Total 0.7 mg/dL (0.0-1.0); Blood Urea Nitrogen 14 mg/dL (9-16); Calcium 8.8 mg/dL (8.4-10.2); Carbon Dioxide 29 mmol/L (22-29); Chloride 102 mmol/L (96-108); Cholesterol 108 mg/dL (<200); Estimated Glomerular Filt Rate > 60; Glucose Random 109 mg/dL (60-115); HDL Cholesterol 29 mg/dL (>40); LDL Cholesterol Calculated 57 mg/dL (<100); Potassium 4.2 mmol/L (3.3-5.1); Sodium 136 mmol/L (135-145); Total Protein 7.3 g/dL (6.5-8.0); Triglycerides 110 mg/dL (<150)
[2024-03-11 13:53] LABS: Free T4 (Free Thyroxine) 1.16 ng/dL (0.71-1.85); Thyroid Stimulating Hormone 0.77 uIU/mL (0.32-4.0)
[2024-03-11 13:56] LABS: PSA,Total (Free>4and<10) 1.39 ng/mL (0.00-4.00)
[2024-03-11 14:12] LABS: Folate 16.8 ng/mL (> or = 4.0); Vitamin B12 495 pg/mL (200-900)
== END 2024-03-11 09:59 | disposition home or self-care (01) ==
LOC: HO.HMGCLDS 09:58
PROVIDERS: PCP Internal Medicine; Visit Provider Internal Medicine
DX: I25.5 Ischemic cardiomyopathy (principal); C61 Malignant neoplasm of prostate; E78.00 Pure hypercholesterolemia, unspecified; R30.0 Dysuria; Z12.5 Encounter for screening for malignant neoplasm of prostate
CPT/HCPCS: 36415; 80053; 80061; 81003; 82607; 82746; 83735; 84153; 84439; 84443; 85025

== ENCOUNTER 2024-03-14 13:54 | Outpatient (AMB) | payer MEDICARE, SELFPAY ==
--- NOTE | 2024-03-14 14:10 | A.OFFVIS_ITS ---
Vital Signs 03/14/24 14:11 03/14/24 14:21 03/14/24 14:22 Height 5 ft 11 in Weight 156 lb 8.451 oz BMI 21.8 BP 114/58 L 113/57 L 108/54 L Blood Pressure Location Lt brachial Lt brachial Lt brachial Position Supine Sitting Standing Pulse 72 74 78 Intake Visit Reasons: 6 mth w/ samuel sci Intake Note: 6 month follow-up with Samuel Cormierfic was in [facility] [place] [place] in Nov feeling ok gets a little dizzy if turns to the left or getting up sometmes Blood Bank Attendant Required: No Allergies penicillin G Allergy (Unknown, Verified 03/10/24 09:07) PASSED OUT Medication List - Last Reconciled 03/14/24 by Donnie Buchanan MD atorvastatin 40 mg PO DAILY 90 days cyanocobalamin (vitamin B-12) 2,500 mcg PO .qod ezetimibe (Zetia) 10 mg PO DAILY metoprolol succinate ER 50 mg PO BID 90 days multivitamin (One-A-Day Essential tablet) 1 tab PO DAILY sildenafil 100 mg PO DAILY PRN valsartan 40 mg PO DAILY warfarin 5 mg See Protocol PO DAILY HPI Comments Details: Justa comes for follow-up. In November he was admitted to [facility] with what appears to be a syncopal episode. 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 By the time the came back he was in the chair with altered mental status and 911 was called and was brought to the emergency room. Workup in [facility] had shown no significant other abnormalities. Was felt that this was an orthostatic syncope. However he said he had a syncope with head injury and since then he has been having symptoms of lightheadedness very feels the world spinning especially when he changes the position of the head. [facility] Medical History Tobacco abuse LFT elevation ICD (implantable cardioverter-defibrillator) in place COVID-19 virus infection Abnormal prostate specific antigen (PSA) Encounter for Medicare annual wellness exam Abnormal nuclear stress test Hx of myocardial infarction Mild carotid artery disease On anticoagulant therapy On beta ruslan at home CAD (coronary artery disease) Preoperative cardiovascular examination Ischemic cardiomyopathy Colon cancer screening Hypercholesterolemia Impaired glucose tolerance Erectile dysfunction Prostate cancer Bladder cancer Surgical History Status post cardiac catheterization Hx of heart artery stent Hx of colonoscopy H/O transurethral destruction of bladder lesion History of bladder surgery Family History Mother No problems noted. Father No problems noted. 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 Cognitive needs: No Hearing needs: Yes Vision needs: Yes (Glasses) Review of Systems Const Denies chills, Denies fatigue, Denies fever(s), Reports frequent falls, Denies weakness, Denies weight gain and Denies weight loss ENT Reports dizziness Card Denies chest pain, Denies leg edema, Denies lightheadedness, Denies palpitations, Denies dyspnea, Denies dyspnea on exertion, Denies orthopnea and Denies other (loss of consciousness) Resp Denies cough, Denies dyspnea and Denies dyspnea on exertion GI Denies hematochezia and Denies change in stool character Musc Denies abnormal gait, Denies muscle weakness, Denies numbness, Denies radiating pain into limb and Denies tingling Neuro Denies abnormal gait, Reports dizziness, Reports frequent falls, Denies numbness, Denies tingling and Denies weakness Endo Denies fatigue and Denies palpitations Physical Exam Vital Signs: Last Vital Signs Pulse 78 03/14/24 14:22 BP 108/54 L 03/14/24 14:22 BMI result Body Mass Index 21.8 Const General: cooperative, healthy appearing, comfortable and no acute distress Orientation/consciousness: patient oriented x3 Neck Neck: Yes normal visual inspection and Yes no JVD Resp Effort & Inspection: normal respiratory effort Auscultation: clear to auscultation bilaterally, no crackles, no rales, no rhonchi and no wheezes Cardio Jugular venous distension: no JVD Rate: regular rate Rhythm: regular rhythm Heart sounds: S1 normal heart sound present, S2 normal heart sound present, no murmurs and no rubs Neuro General: patient oriented x3 Extrem General: Yes normal to inspection Psych Appearance: grossly normal Mental Status: mental status grossly normal Speech and movement: Normal speech and movement present Office Procedures Cardiac Device Check Cardiac Device Check Details: Single-chamber [employer] ICD in place. Programmed in VVI at 40 beats per minute. Battery life is excellent at 14.5 years. Ventricular capture thresholds adequate. Pacing and shocking lead impedance is stable. Ventricular sensing is excellent. Few episodes of ventricular tachycardia noted with 1 episode of reported VFib but this was very transient. 18780-[id number] Cardiac Device Check, single lead implantable defibrillator Procedure code (CPT) selection complete Assessment & Plan Assessment & Plan (1) Syncope: Code(s): R55 - Syncope and collapse Category: Medical Qualifiers: Syncope type: unspecified Qualified Code(s): R55 - Syncope and collapse Plan: Syncopal episode in November which clearly appears to be orthostatic in nature. Since then he has increased his fluid intake. On today's exam he does not have any episodes of orthostasis in his blood pressures remained stable after reducing his valsartan dose. I have also discussed with him to maintain adequate hydration and participate in orthostatic precautions. His current dizziness appears to be vertiginous in nature and have referred him to physical therapy to see if they can help him with his symptoms. (2) Ischemic cardiomyopathy: Code(s): I25.5 - Ischemic cardiomyopathy Category: Medical Plan: Ischemic cardiomyopathy moderate LV systolic dysfunction ischemic in nature. Clinically appears to be euvolemic and well compensated. Not able to tolerate any uptitration of neurohormonal modulation other medications. Continue current dose of valsartan and metoprolol. No indication for diuretic regimen. Signs and symptoms of heart failure were discussed. Avoidance of salt loading was discussed. (3) ICD (implantable cardioverter-defibrillator) in place: Comment: [employer] single-chamber ICD in place for primary prevention, April 2022 Code(s): Z95.810 - Presence of automatic (implantable) cardiac defibrillator Category: Medical Plan: ICD in place, working well. Will follow remotely for heart failure and device functioning. (4) Coronary artery disease: Comment: 04/[address] Swann,Echocardiogram January 2019 ejection fraction 40% dilated left atrium. Evidence of basal mid inferior septal mid anterior septal and basal inferior wall infarct Code(s): I25.10 - Atherosclerotic heart disease of one[place] coronary artery without angina pectoris Category: Medical Qualifiers: Coronary Disease-Associated Artery/Lesion type: [place] artery [place] vs. transplanted heart: oneida heart Associated angina: without angina Qualified Code(s): I25.10 - Atherosclerotic heart disease of one[place] coronary artery without angina pectoris Plan: CAD with prior inferior STEMI in 2011 and following that had another event. Clinically no symptoms of angina. Continue warfarin therapy and avoid aspirin therapy to reduce bleeding risk. Continue high-intensity statin therapy and e zetimibe with target goal LDL closer to 60 mg/dL. Will follow up in the clinic in 6 months time, sooner p.r.n.. Thank you for allowing me to partake in his care Orders: Orders PT Evaluation and Treatment Today H81.90 - Unspecified disorder of vestibular function, unspecified ear Coding Level of Care Code Est Pt Level 4 (58153) Complex EM visit Add On G2211 Diagnoses Syncope, unspecified syncope type R55 Syncope type: unspecified Ischemic cardiomyopathy I25.5 ICD (implantable cardioverter-defibrillator) in place Z95.810 Coronary artery disease involving oneida coronary artery of one[place] heart without angina pectoris I25.10 Coronary Disease-Associated Artery/Lesion type: [place] artery [place] vs. transplanted heart: oneida heart Associated angina: without angina CPT Codes Cardiac Device Check - Cardiac Device 4: [id number] Cardiac Device Check, single lead implantable defibrillator ([id number])
[2024-03-14 14:11] VITALS: BP 114/58; PULSE 72; BMI 21.8
[2024-03-14 14:21] VITALS: BP 113/57; PULSE 74
[2024-03-14 14:22] VITALS: BP 108/54; PULSE 78
== END 2024-03-14 14:41 | disposition home or self-care (01) ==
PROVIDERS: PCP Internal Medicine; Visit Provider Internal Medicine Cardiovascular Disease
DX: R55 Syncope and collapse (principal); I25.5 Ischemic cardiomyopathy; Z95.810 Presence of automatic (implantable) cardiac defibrillator; I25.10 Atherosclerotic heart disease of native coronary artery without angina pectoris
CPT/HCPCS: 93282; 99214; G2211

== ENCOUNTER → 2024-03-14 13:54 | Outpatient (BNVA) | payer MEDICARE, SELFPAY | PROVIDERS: PCP Internal Medicine; Visit Provider Internal Medicine Cardiovascular Disease | DX: R55 Syncope and collapse (principal); I25.5 Ischemic cardiomyopathy; I25.10 Atherosclerotic heart disease of native coronary artery without angina pectoris; H81.90 Unspecified disorder of vestibular function, unspecified ear; Z95.810 Presence of automatic (implantable) cardiac defibrillator | CPT/HCPCS: 99212 ==

== ENCOUNTER 2024-03-31 09:16 | Outpatient (AMB) | payer MEDICARE, SELFPAY ==
[2024-03-31 09:38] LABS: Prothrombin Time Whole Bld POC 40.3 sec (11.1-13.5); ~PT, ~INR - Anti Coag Clinic 3.4 (0.9-1.1)
--- NOTE | 2024-03-31 09:40 | MHC.OFFVISCO ---
Intake Intake Visit Reasons: Anticoagulation Allergies penicillin G Allergy (Unknown, Verified 03/31/24 09:25) PASSED OUT Medication List - Last Reconciled 03/31/24 by Parvin Cortez RN atorvastatin 40 mg PO DAILY 90 days cyanocobalamin (vitamin B-12) 2,500 mcg PO .qod ezetimibe (Zetia) 10 mg PO DAILY metoprolol succinate ER 50 mg PO BID 90 days multivitamin (One-A-Day Essential tablet) 1 tab PO DAILY sildenafil 100 mg PO DAILY PRN valsartan 40 mg PO DAILY warfarin 5 mg See Protocol PO DAILY Nursing Note INR: 3.4 OUT OF therapeutic range- had less greens over Thanksgiving and more foods that raise than lower Medications and supplements reviewed No changes in health, medications, or supplements, Denies any signs and symptoms of bleeding or bruising or clotting. Bleeding, bruising, clotting discussed Nutritional guidance given - COOKED GREENS TO LOWER THE INR MORE THAN RAW GREENS Dose: [] F/U INR: []Patient verbalizes understanding of instructions given Anti-Coag Initial Assessment Social Hx Patient Tobacco Use Status: Former Tobacco user Tobacco use type: Cigarette and Cigar alcohol intake: current Alcohol intake frequency: holidays/special occasions only Coding Level of Care Code Est Patient Level 1 Diagnoses Current use of anticoagulant therapy Z79.01 Results AMB INR Fingerstick AMB INR Fingerstick 3.4 Last Edit by Parvin Cortez RN on 03/31/24 09:34 MANUAL ENTRY Assessment & Plan Assessment & Plan (1) Current use of anticoagulant therapy: Code(s): Z79.01 - [facility] (current) use of 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
== END 2024-03-31 09:42 | disposition home or self-care (01) ==
LOC: HO.ACS 09:16
PROVIDERS: PCP Internal Medicine; Visit Provider Internal Medicine
DX: Z79.01 Long term (current) use of anticoagulants (principal)

== ENCOUNTER → 2024-03-31 09:16 | Outpatient (BNVA) | payer MEDICARE, SELFPAY | PROVIDERS: PCP Internal Medicine; Visit Provider Internal Medicine | DX: I48.20 Chronic atrial fibrillation, unspecified (principal); Z79.01 Long term (current) use of anticoagulants; Z51.81 Encounter for therapeutic drug level monitoring | CPT/HCPCS: 85610; 99211 ==

== ENCOUNTER → 2024-04-05 23:59 | Outpatient (BNV) | payer MEDICARE, SELFPAY ==
--- NOTE | 2024-04-06 15:34 | A.OFFVIS_ITS ---
Intake Visit Reasons: Remote ICD check- [employer] Allergies penicillin G Allergy (Unknown, Verified 03/31/24 09:25) PASSED OUT [facility] Medical History Tobacco abuse LFT elevation ICD (implantable cardioverter-defibrillator) in place COVID-19 virus infection Abnormal prostate specific antigen (PSA) Encounter for Medicare annual wellness exam Abnormal nuclear stress test Hx of myocardial infarction Mild carotid artery disease On anticoagulant therapy On beta ruslan at home CAD (coronary artery disease) Preoperative cardiovascular examination Ischemic cardiomyopathy Colon cancer screening Hypercholesterolemia Impaired glucose tolerance Erectile dysfunction Prostate cancer Bladder cancer Surgical History Status post cardiac catheterization Hx of heart artery stent Hx of colonoscopy H/O transurethral destruction of bladder lesion History of bladder surgery Family History Mother No problems noted. Father No problems noted. 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 ICD function is adequate [id number] Cardiac Interrogation, implant defibrillator w/interim Procedure code (CPT) selection complete Assessment & Plan Assessment & Plan (1) ICD (implantable cardioverter-defibrillator) in place: Comment: [employer] single-chamber ICD in place for primary prevention, April 2022 Code(s): Z95.810 - Presence of automatic (implantable) cardiac defibrillator Category: Medical Plan: See above Coding Level of Care Code Procedure Only Diagnoses ICD (implantable cardioverter-defibrillator) in place Z95.810 CPT Codes Cardiac Device Check - Cardiac Device 13: [id number] Cardiac Interrogation, implant defibrillator w/interim ([id number])
== END ==
PROVIDERS: PCP Internal Medicine; Visit Provider Internal Medicine Cardiovascular Disease
DX: Z45.02 Encounter for adjustment and management of automatic implantable cardiac defibrillator (principal)
CPT/HCPCS: 93295

== ENCOUNTER 2024-04-16 08:35 | Outpatient (REF) | payer MEDICARE, SELFPAY ==
--- NOTE | 2024-04-16 08:00 | PFT_ITS ---
Flows: FEV1: 61 % of predicted at 1.98 L FVC: 101 % of predicted at 4.44 L FEV1/FVC: 45 % Bronchodilator response: Present Volumes: Total lung capacity: 97 % of predicted at 7.36 L Residual volume: 116 % of predicted at 3.28 L Slow vital capacity: 88 % of predicted at 4.08 L Expiratory reserve volume: 110 % of predicted at 1.50 L Diffusion capacity: Severely decreased, adjusts to being moderately decreased after correction for alveolar ventilation. Impression: Moderate obstructive ventilatory defect with positive bronchodilator response. Decreased diffusion capacity suggests emphysema. MTDD
[2024-04-16 10:11] VITALS: PULSE 81; O2SAT 96
== END 2024-04-16 08:36 | disposition home or self-care (01) ==
LOC: HO.RESP 08:35
PROVIDERS: PCP Internal Medicine; Visit Provider Internal Medicine
DX: R06.02 Shortness of breath (principal)
CPT/HCPCS: 94010; 94640; 94727; 94729

== ENCOUNTER 2024-04-19 13:03 | Outpatient (REF) | payer MEDICARE, SELFPAY ==
--- NOTE | ~2024-04-19 | US_ITS ---
EXAMINATION: US EXTRACRANIAL CAROTID DUPLEX, BILATERAL CLINICAL INFORMATION: Syncope and collapse. COMPARISON: None available. TECHNIQUE: Real-time ultrasound and Doppler techniques (integrating B-mode 2-D vascular images, Doppler spectral analysis and color-flow Doppler imaging) were utilized to interrogate the extracranial carotid arteries, the vertebral arteries and proximal subclavian arteries bilaterally. The degree of stenosis is determined by criteria similar to NASCET. FINDINGS: Right Side: 1. There is mild atherosclerotic plaque seen in the bifurcation/proximal ICA region. 2. The common carotid artery PSV proximally is 79 cm/s and distally 70 cm/s. 3. The proximal internal carotid artery velocities are 100 cm/s systolic and 13 cm/s diastolic. 4. The proximal external carotid artery PSV is 165 cm/s. 5. The vertebral artery shows antegrade flow. 6. The subclavian artery waveforms are normal. Left Side: 1. There is [id number] atherosclerotic plaque seen in the bifurcation/proximal ICA region. 2. The common carotid artery PSV proximally is 101 cm/s and distally 109 cm/s. 3. The proximal internal carotid artery velocities are 131 cm/s systolic and 26 cm/s diastolic. 4. The proximal external carotid artery PSV is 159 cm/s. 5. The vertebral artery shows antegrade flow. 6. The subclavian artery waveforms are normal. US/US carotid duplex BI IMPRESSION: 1. RIGHT: Minimal, non-hemodynamically significant stenosis of the proximal right internal carotid artery corresponding to a 0-49% stenosis by velocity criteria. 2. LEFT: Moderate, hemodynamically significant stenosis of the proximal left internal carotid artery corresponding to a 50-79% stenosis by velocity criteria. 3. There has been some progression of disease with a change in the category severity of disease on the left only from 0-49% to 50-79% when compared to the previous study dated 08/01/2020. Electronically signed by: Troy Tovar MD 04/22/2024 12:51 AM SHRUTI
== END 2024-04-19 13:04 | disposition home or self-care (01) ==
LOC: HO.US 13:03
PROVIDERS: PCP Internal Medicine; Visit Provider Internal Medicine
DX: R55 Syncope and collapse (principal); R06.02 Shortness of breath
CPT/HCPCS: 93880

== ENCOUNTER 2024-04-28 09:20 | Outpatient (AMB) | payer MEDICARE, SELFPAY ==
--- NOTE | 2024-04-28 09:43 | MHC.OFFVISCO ---
Intake Intake Visit Reasons: Anticoagulation Allergies penicillin G Allergy (Unknown, Verified 04/28/24 09:33) PASSED OUT Medication List - Last Reconciled 04/28/24 by Beronica Augustine RN atorvastatin 40 mg PO DAILY 90 days cyanocobalamin (vitamin B-12) 2,500 mcg PO .qod ezetimibe (Zetia) 10 mg PO DAILY metoprolol succinate ER 50 mg PO BID 90 days multivitamin (One-A-Day Essential tablet) 1 tab PO DAILY sildenafil 100 mg PO DAILY PRN valsartan 40 mg PO DAILY warfarin 5 mg See Protocol PO DAILY Nursing Note INR: 3.0 in therapeutic range of 2-3 Medications and supplements reviewed No changes in health, diet, medications, or supplements, Denies any signs and symptoms of bleeding or bruising or clotting. Bleeding, bruising, clotting discussed Nutritional guidance given Dose: 5mg X 5 days and 7.5mg X 2 days F/U INR: 4 weeks Patient verbalizes understanding of instructions given Anti-Coag Initial Assessment Social Hx Patient Tobacco Use Status: Former Tobacco user Tobacco use type: Cigarette and Cigar alcohol intake: current Alcohol intake frequency: holidays/special occasions only Coding Level of Care Code Est Patient Level 1 Diagnoses Current use of anticoagulant therapy Z79.01 Results AMB INR Fingerstick AMB INR Fingerstick 3.0 Last Edit by Beronica Augustine RN on 04/28/24 09:40 interface delay Assessment & Plan Assessment & Plan (1) Current use of anticoagulant therapy: Code(s): Z79.01 - long term care pharmacist (current) use of 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
[2024-04-28 09:46] LABS: Prothrombin Time Whole Bld POC 35.4 sec (11.1-13.5)
== END 2024-04-28 09:46 | disposition home or self-care (01) ==
LOC: HO.ACS 09:20
PROVIDERS: PCP Internal Medicine; Visit Provider Internal Medicine
DX: Z79.01 Long term (current) use of anticoagulants (principal)

== ENCOUNTER → 2024-04-28 09:20 | Outpatient (BNVA) | payer MEDICARE, SELFPAY | PROVIDERS: PCP Internal Medicine; Visit Provider Internal Medicine | DX: I48.20 Chronic atrial fibrillation, unspecified (principal); Z79.01 Long term (current) use of anticoagulants; Z51.81 Encounter for therapeutic drug level monitoring | CPT/HCPCS: 85610; 99211 ==

== ENCOUNTER → 2024-05-09 23:59 | Outpatient (BNV) | payer MEDICARE, SELFPAY ==
--- NOTE | 2024-05-13 17:13 | A.OFFVIS_ITS ---
Intake Visit Reasons: Remote ICD check- [employer] Allergies penicillin G Allergy (Unknown, Verified 04/28/24 09:33) PASSED OUT [facility] Medical History Tobacco abuse LFT elevation ICD (implantable cardioverter-defibrillator) in place COVID-19 virus infection Abnormal prostate specific antigen (PSA) Encounter for Medicare annual wellness exam Abnormal nuclear stress test Hx of myocardial infarction Mild carotid artery disease On anticoagulant therapy On beta ruslan at home CAD (coronary artery disease) Preoperative cardiovascular examination Ischemic cardiomyopathy Colon cancer screening Hypercholesterolemia Impaired glucose tolerance Erectile dysfunction Prostate cancer Bladder cancer Surgical History Status post cardiac catheterization Hx of heart artery stent Hx of colonoscopy H/O transurethral destruction of bladder lesion History of bladder surgery Family History Mother No problems noted. Father No problems noted. 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 ICD function is adequate [id number] Cardiac Interrogation, implant defibrillator w/interim Procedure code (CPT) selection complete Assessment & Plan Assessment & Plan (1) ICD (implantable cardioverter-defibrillator) in place: Comment: [employer] single-chamber ICD in place for primary prevention, April 2022 Code(s): Z95.810 - Presence of automatic (implantable) cardiac defibrillator Category: Medical Plan: See above Coding Level of Care Code Procedure Only Diagnoses ICD (implantable cardioverter-defibrillator) in place Z95.810 CPT Codes Cardiac Device Check - Cardiac Device 13: [id number] Cardiac Interrogation, implant defibrillator w/interim ([id number])
== END ==
PROVIDERS: PCP Internal Medicine; Visit Provider Internal Medicine Cardiovascular Disease
DX: Z45.02 Encounter for adjustment and management of automatic implantable cardiac defibrillator (principal)
CPT/HCPCS: 93295

== ENCOUNTER 2024-05-26 09:26 | Outpatient (AMB) | payer MEDICARE, SELFPAY ==
[2024-05-26 09:48] LABS: Prothrombin Time Whole Bld POC 30.7 sec (11.1-13.5); ~PT, ~INR - Anti Coag Clinic 2.6 (0.9-1.1)
--- NOTE | 2024-05-26 09:51 | MHC.OFFVISCO ---
Intake Intake Visit Reasons: Anticoagulation Allergies penicillin G Allergy (Unknown, Verified 05/26/24 09:43) PASSED OUT Medication List - Last Reconciled 05/26/24 by Parvin Cortez RN atorvastatin 40 mg PO DAILY 90 days cyanocobalamin (vitamin B-12) 2,500 mcg PO .qod ezetimibe (Zetia) 10 mg PO DAILY metoprolol succinate ER 50 mg PO BID 90 days multivitamin (One-A-Day Essential tablet) 1 tab PO DAILY sildenafil 100 mg PO DAILY PRN valsartan 40 mg PO DAILY warfarin 5 mg See Protocol PO DAILY Nursing Note INR: 2.6 in therapeutic range Medications and supplements reviewed No changes in health, diet, medications, or supplements, Denies any signs and symptoms of bleeding or bruising or clotting. 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
== END 2024-05-26 09:52 | disposition home or self-care (01) ==
LOC: HO.ACS 09:26
PROVIDERS: PCP Internal Medicine; Visit Provider Internal Medicine
DX: Z79.01 Long term (current) use of anticoagulants (principal)

== ENCOUNTER → 2024-06-14 23:59 | Outpatient (BNV) | payer MEDICARE, SELFPAY ==
--- NOTE | 2024-06-15 10:52 | MHC.OFFVIS ---
Intake Visit Reasons: remote ICD check- [employer] Allergies penicillin G Allergy (Unknown, Verified 05/26/24 09:43) PASSED OUT [facility] Medical History Tobacco abuse LFT elevation ICD (implantable cardioverter-defibrillator) in place COVID-19 virus infection Abnormal prostate specific antigen (PSA) Encounter for Medicare annual wellness exam Abnormal nuclear stress test Hx of myocardial infarction Mild carotid artery disease On anticoagulant therapy On beta ruslan at home CAD (coronary artery disease) Preoperative cardiovascular examination Ischemic cardiomyopathy Colon cancer screening Hypercholesterolemia Impaired glucose tolerance Erectile dysfunction Prostate cancer Bladder cancer Surgical History Status post cardiac catheterization Hx of heart artery stent Hx of colonoscopy H/O transurethral destruction of bladder lesion History of bladder surgery Family History Mother No problems noted. Father No problems noted. 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 ICD function is adequate [id number] Cardiac Interrogation, implant defibrillator w/interim Procedure code (CPT) selection complete Assessment & Plan Assessment & Plan (1) ICD (implantable cardioverter-defibrillator) in place: Comment: [employer] single-chamber ICD in place for primary prevention, April 2022 Code(s): Z95.810 - Presence of automatic (implantable) cardiac defibrillator Category: Medical Plan: See above Coding Level of Care Code Procedure Only Diagnoses ICD (implantable cardioverter-defibrillator) in place Z95.810 CPT Codes Cardiac Device Check - Cardiac Device 13: [id number] Cardiac Interrogation, implant defibrillator w/interim ([id number])
== END ==
PROVIDERS: PCP Internal Medicine; Visit Provider Internal Medicine Cardiovascular Disease
DX: Z45.02 Encounter for adjustment and management of automatic implantable cardiac defibrillator (principal)
CPT/HCPCS: 93295

== ENCOUNTER 2024-06-23 09:49 | Outpatient (AMB) | payer MEDICARE, SELFPAY ==
[2024-06-23 09:56] LABS: Prothrombin Time Whole Bld POC 37.4 sec (11.1-13.5); ~PT, ~INR - Anti Coag Clinic 3.1 (0.9-1.1)
--- NOTE | 2024-06-23 09:58 | MHC.OFFVISCO ---
Intake Intake Visit Reasons: Anticoagulation Allergies penicillin G Allergy (Unknown, Verified 06/23/24 09:52) PASSED OUT Medication List - Last Reconciled 06/23/24 by Beronica Augustine RN atorvastatin 40 mg PO DAILY 90 days cyanocobalamin (vitamin B-12) 2,500 mcg PO .qod ezetimibe (Zetia) 10 mg PO DAILY metoprolol succinate ER 50 mg PO BID 90 days multivitamin (One-A-Day Essential tablet) 1 tab PO DAILY sildenafil 100 mg PO DAILY PRN valsartan 40 mg PO DAILY warfarin 5 mg See Protocol PO DAILY Nursing Note INR: 3.1 in therapeutic range 2-3 Medications and supplements reviewed No changes in health, diet, medications, or supplements, Denies any signs and symptoms of bleeding or bruising or clotting. Bleeding, bruising, clotting discussed Nutritional guidance given Dose: 5mg X 5 days and 7.5mg X 2 days F/U INR: 4 weeks Patient verbalizes understanding of instructions given Anti-Coag Initial Assessment Social Hx Patient Tobacco Use Status: Former Tobacco user Tobacco use type: Cigarette and Cigar alcohol intake: current Alcohol intake frequency: holidays/special occasions only Coding Level of Care Code Est Patient Level 1 Diagnoses Current use of anticoagulant therapy Z79.01 Results AMB INR Fingerstick AMB INR Fingerstick 3.1 Last Edit by Beronica Augustine RN on 06/23/24 09:58 interface delay Assessment & Plan Assessment & Plan (1) Current use of anticoagulant therapy: Code(s): Z79.01 - terminal carman (current) use of 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
== END 2024-06-23 10:01 | disposition home or self-care (01) ==
LOC: HO.ACS 09:49
PROVIDERS: PCP Internal Medicine; Visit Provider Internal Medicine
DX: Z79.01 Long term (current) use of anticoagulants (principal)

== ENCOUNTER → 2024-06-23 09:49 | Outpatient (BNVA) | payer MEDICARE, SELFPAY | PROVIDERS: PCP Internal Medicine; Visit Provider Internal Medicine | DX: I48.20 Chronic atrial fibrillation, unspecified (principal); Z79.01 Long term (current) use of anticoagulants; Z51.81 Encounter for therapeutic drug level monitoring | CPT/HCPCS: 85610; 99211 ==

== ENCOUNTER 2024-07-06 08:49 | Outpatient (AMB) | payer MEDICARE, SELFPAY ==
[2024-07-06 08:55] VITALS: BP 136/68; PULSE 81; O2SAT 94; BMI 21.3
--- NOTE | 2024-07-06 08:55 | A.OFFPC_ITS ---
Vital Signs 07/06/24 08:55 Height 5 ft 11 in Weight 153 lb BMI 21.3 BP 136/68 Blood Pressure Location Lt brachial Position Sitting Pulse 81 Pulse Source Pulse Oximeter Pulse Oximetry (%) 94 Oxygen Delivery Method Room Air Intake Visit Reasons: 3 month f/u Allergies penicillin G Allergy (Unknown, Verified 07/06/24 08:56) PASSED OUT Medication List - Last Reconciled 07/06/24 by Benny Ramírez MD albuterol sulfate 90 mcg/actuation 2 puffs inhalation Q4-6H PRN atorvastatin 40 mg PO DAILY 90 days cyanocobalamin (vitamin B-12) 2,500 mcg PO .qod ezetimibe (Zetia) 10 mg PO DAILY metoprolol succinate ER 50 mg PO BID 90 days multivitamin (One-A-Day Essential tablet) 1 tab PO DAILY sildenafil 100 mg PO DAILY PRN valsartan 40 mg PO DAILY warfarin 5 mg See Protocol PO DAILY Tobacco use date assessed: 07/06/24 Fall risk assessment: No Falls in past year Last assessed Fall Risk: 07/06/24 Dental Screening Dental Screen Date: 07/06/24 Did you have a dental visit in the last 12 months?: Yes Did you have a dental problem in the last 6 months where you did not have access to dental care?: No Was dental information given to patient?: Patient has dentist [facility] Medical History Tobacco abuse LFT elevation ICD (implantable cardioverter-defibrillator) in place COVID-19 virus infection Abnormal prostate specific antigen (PSA) Encounter for Medicare annual wellness exam Abnormal nuclear stress test Hx of myocardial infarction Mild carotid artery disease On anticoagulant therapy On beta ruslan at home CAD (coronary artery disease) Preoperative cardiovascular examination Ischemic cardiomyopathy Colon cancer screening Hypercholesterolemia Impaired glucose tolerance Erectile dysfunction Prostate cancer Bladder cancer Surgical History Status post cardiac catheterization Hx of heart artery stent Hx of colonoscopy H/O transurethral destruction of bladder lesion History of bladder surgery Family History Mother No problems noted. Father No problems noted. 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 1. Little interest or pleasure in doing things: not at all 2. Feeling down, depressed, or hopeless: not at all 3. Trouble falling or staying asleep, or sleeping too much: not at all 4. Feeling tired or having little energy: not at all 5. Poor appetite or overeating: not at all 6. Feeling bad about yourself - or that you are a failure or have let yourself or your family down: not at all 7. Trouble concentrating on things, such as reading the newspaper or watching television: not at all 8. Moving or speaking so slowly that other people could have noticed. Or the opposite - being so fidgety or restless that you have been moving around a lot more than usual: not at all 9. Thoughts that you would be better off or of hurting yourself in some way: not at all Total score: 0 Depression Screening Interpretation: Negative Depression Screening Done: Yes Source: Developed by Drs. Tom Clark, Teagan Edwards, Chuy Stauffer and colleagues, with an educational cassandra from [employer] Thrive Questionnaire Date Thrive assessed: 07/06/24 I am a: Patient What is your living situation today?: I have a steady place to live Within the past 12 months, did the food you bought not last and you didn't have the money to get more?: Never true Within the past 12 months, did you worry whether your food would run out before you got money to buy more?: Never true Do you have trouble paying for medicines?: No Do you have trouble getting transportation to medical appointments?: No Do you have trouble paying your heating and electricity bill?: No Do you have trouble taking care of your child, family member or friend?: No Do you have trouble with day-to-day activities such as bathing, preparing meals, shopping, managing finances, etc.?: No Are you currently unemployed and looking for a job?: No Are you interested in more education?: No Currently or been in a relationship where the following occur: No concerns reported THRIVE Score: 0 AUDIT C Alcohol Use Questionnaire (AUDIT-C) 2. How many drinks containing alcohol do you have on a typical day when you are drinking?: 1 or 2 3. How often do you have six or more drinks on one occasion?: Never Total Score: 0 REGGIE-7 AMB Questionnaire REGGIE-7 Date REGIGE - 7 assessed: 07/06/24 Feeling nervous, anxious, or on edge: 0 = Not at all Not being able to stop or control worryin = Not at all Worrying too much about different things: 0 = Not at all Trouble relaxin = Not at all Being so restless that it is hard to sit still: 0 = Not at all Becoming easily annoyed or irritable: 0 = Not at all Feeling afraid as if something awful might happen: 0 = Not at all Total REGGIE-7 score (0-4 normal; 5-9 mild; 10-14 moderate; 15-21 severe): 0 Source: Developed by Drs. Tom Clark, Teagan Edwards, Chuy Stauffer and colleagues, with an educational cassandra from [employer] REGGIE-7 Assessment Billing REGGIE-7 Assessment Tool: REGGIE-7 Assessment 64793 Physical exam (Primary Care) Vital Signs: Last Vital Signs Pulse 81 07/06/24 08:55 BP 136/68 07/06/24 08:55 Pulse Ox 94 07/06/24 08:55 Oxygen Delivery Method Room Air 07/06/24 08:55 BMI result Body Mass Index 21.3 Tobacco/Smoking Status: Tobacco use Status Tobacco use date assessed 07/06/24 07/06/24 09:02 Patient Tobacco Use Status Former Tobacco user 07/06/24 09:02 Tobacco use type Cigarette,Cigar 07/06/24 09:02 e-Cigarette/Vaping Use Never Used 07/06/24 09:02 PHQ-9: PHQ-9 Score PHQ-9: Total score 0 07/06/24 09:27 Depression Screening Interpretation: Negative Thrive Assessment: Date of Thrive Assessment Date Thrive assessed 07/06/24 07/06/24 09:02 Currently or been in a relationship where the following occur: No concerns reported Const General: alert; No acute distress Eyes Conjunctivae: conjunctivae normal Resp Auscultation: clear to auscultation bilaterally Cardio Rate: regular rate Rhythm: regular rhythm GI Inspection: Yes normal to inspection Extrem General: Yes normal to inspection and No edema Coding Level of Care Code Est Pt Level 4 (33680) Complex EM visit Add On G2211 Diagnoses Hepatic steatosis K76.0 Coronary artery disease involving viejas coronary artery of viejas heart without angina pectoris I25.10 Associated angina: without angina Coronary Disease-Associated Artery/Lesion type: viejas artery [place] vs. transplanted heart: viejas heart Ischemic cardiomyopathy I25.5 Prostate cancer C61 Hypercholesterolemia E78.00 Impaired glucose tolerance R73.02 COPD (chronic obstructive pulmonary disease) J44.9 Additional Codes REGGIE-7 Assessment Billing - REGGIE-7 Assessment Tool: REGGIE-7 Assessment 44006 ([id number]) Assessment & Plan Assessment & Plan (1) Hepatic steatosis: Comment: September 2023 Code(s): K76.0 - Fatty (change of) liver, not elsewhere classified Category: Medical Plan: Diet and exercise (2) Coronary artery disease: Comment: 04/[address] [place] [address] Swann,Echocardiogram January 2019 ejection fraction 40% dilated left atrium. Evidence of basal mid inferior septal mid anterior septal and basal inferior wall infarct Code(s): I25.10 - Atherosclerotic heart disease of viejas coronary artery without angina pectoris Category: Medical Qualifiers: Associated angina: without angina Coronary Disease-Associated Artery/Lesion type: viejas artery [place] vs. transplanted heart: viejas heart Qualified Code(s): I25.10 - Atherosclerotic heart disease of viejas coronary artery without angina pectoris Plan: Control the cholesterol, weight, blood pressure,. Patient presently on Coumadin (3) Ischemic cardiomyopathy: Code(s): I25.5 - Ischemic cardiomyopathy Category: Medical Plan: On Coumadin and has the ICD (4) Prostate cancer: Comment: Low risk Cornel 6 Code(s): C61 - Malignant neoplasm of prostate Category: Medical Plan: Continue to continue to follow-up with urology (5) Hypercholesterolemia: Code(s): E78.00 - Pure hypercholesterolemia, unspecified Category: Medical Plan: Avoid fried foods, chicken skin, eggs, butter margarine, pastries and meat. Be it pork or beef they have a lot of cholesterol on atorvastatin 40 mg once a day (6) Impaired glucose tolerance: Code(s): R73.02 - Impaired glucose tolerance (oral) Category: Medical Plan: Decrease the amount of carbohydrate intake, pasta, bread, rice and potatoes are all sugar and that is aside from all the sweet stuff, remember that fruits are good but they are Sweet also. (7) COPD (chronic obstructive pulmonary disease): Code(s): J44.9 - Chronic obstructive pulmonary disease, unspecified Category: Medical Plan History of Present Illness The patient is a 74-year-old male presenting for a follow-up concerning chronic conditions including impaired glucose tolerance, prostate cancer history, and hypercholesterolemia. Management has involved atorvastatin, diet modifications, and cardiac monitoring through an ICD. The patient recently showed mild stenosis in the aortic valve and moderate carotid artery stenosis, with hepatic steatosis noted upon imaging. Pulmonary assessment revealed emphysema with moderate obstructive ventilatory defect, responsive to bronchodilators. Lifestyle interventions have been emphasized to improve cardiovascular and respiratory outcomes. Health Maintenance - Advised on maintaining a low-fat and vegetable-rich diet to manage fatty live r. - Monitoring of blood glucose levels due to impaired tolerance. - Advised on regular physical activity to improve cardiovascular and respiratory health. - Continued atorvastatin therapy to manage cholesterol levels. - Encouraged breathing exercises and use of inhaler as needed for shortness of breath. Social History - Engages in regular activities such as dog walking and chair exercises. - Preparing for an upcoming cruise, indicating active planning and motivation for health improvement. - No regular use of tobacco or reports of alcohol use discussed. Review of Systems - Respiratory: Reports shortness of breath especially when climbing stairs. - General: Denies falls and significant weight changes. Physical Exam Results - Labs: Blood glucose at 109 mg/dL, LDL cholesterol at 57 mg/dL, normal blood count and electrolytes. - Tests: Echocardiogram showing ejection fraction 35-40%, mild aortic regurgitation. - Imaging: Carotid ultrasound with right-side minimal stenosis (0-49%) and left- side moderate stenosis (50-79%). - Pulmonary Function Test: Moderate obstructive ventilatory defect with positive bronchodilator response. Plan The patient is to maintain their current medication regimen for hypercholesterolemia and follow a modified diet to manage glucose tolerance and hepatic steatosis. Emphasizing physical activity and respiratory exercises, an inhaler is prescribed for managing symptomatic emphysema. Continued observation and care coordination involving cardiac and anticoagulation management through scheduled referrals and follow-ups are essential. Patient was informed and verbally consented to the use of an ambient scribe for clinic note documentation during this visit. Discussion Notes We discussed the current management plan, emphasizing continuation of atorvastatin for cholesterol management and dietary modifications to address fatty liver and glucose tolerance. Options for managing shortness of breath through inhaler use were explained, including technique and frequency. We talked about the moderate increase in left carotid stenosis but advised against intervention unless further progression is observed, highlighting the risks associated with potential procedures. I recommended engaging in regular physical activity to support upcoming personal activities. Follow-up in three months along with blood work was arranged to monitor progress. Patient Instructions - Continue with atorvastatin as prescribed. - Engage in regular physical activity, including walking and breathing exercises. - Use the inhaler as instructed for episodes of shortness of breath. - Follow a low-fat diet with increased vegetable intake and limit carbohydrate- rich foods and sweets. - Monitor glucose levels and blood pressure regularly. - Schedule and attend follow-up appointments and blood tests as instructed. - Report any significant changes in symptoms or health status, such as increased shortness of breath or signs of cardiovascular concerns. - Be vigilant about new or worsening symptoms and seek care if necessary. Orders: Orders Complete Blood Count Auto Diff 3 Months E78.00 - Pure hypercholesterolemia, unspecified Free T4 (Free Thyroxine) 3 Months E78.00 - Pure hypercholesterolemia, unspecified Thyroid Stimulating Hormone 3 Months E78.00 - Pure hypercholesterolemia, unspecified Hemoglobin A1c 3 Months E78.00 - Pure hypercholesterolemia, unspecified Comprehensive Met. Panel 3 Months E78.00 - Pure hypercholesterolemia, unspecified Lipid Panel 3 Months E78.00 - Pure hypercholesterolemia, unspecified Vitamin B12 and Folate 3 Months E78.00 - Pure hypercholesterolemia, unspecified Vitamin D 25-OH Total 3 Months E78.00 - Pure hypercholesterolemia, unspecified Prostate Specific Antigen Scr 3 Months C61 - Malignant neoplasm of prostate Referrals Urology Referral C61 - Malignant neoplasm of prostate Anticoagulation Service/Clinic I25.5 - Ischemic cardiomyopathy Medications: New albuterol sulfate 90 mcg/actuation 2 puffs inhalation Q4-6H PRN 8.5 grams 0RF Shortness Of Breath J44.9 - Chronic obstructive pulmonary disease, unspecified, J45.909 - Unspecified asthma, uncomplicated
== END 2024-07-06 09:44 | disposition home or self-care (01) ==
LOC: HO.HMCH 08:50
PROVIDERS: PCP Internal Medicine; Visit Provider Internal Medicine
DX: K76.0 Fatty (change of) liver, not elsewhere classified (principal); C61 Malignant neoplasm of prostate; J44.9 Chronic obstructive pulmonary disease, unspecified; I25.10 Atherosclerotic heart disease of native coronary artery without angina pectoris; I25.5 Ischemic cardiomyopathy; E78.00 Pure hypercholesterolemia, unspecified; R73.02 Impaired glucose tolerance (oral)

== ENCOUNTER → 2024-07-06 08:49 | Outpatient (BNVA) | payer MEDICARE, SELFPAY | PROVIDERS: PCP Internal Medicine; Visit Provider Internal Medicine | DX: K76.0 Fatty (change of) liver, not elsewhere classified (principal); I25.10 Atherosclerotic heart disease of native coronary artery without angina pectoris; I25.5 Ischemic cardiomyopathy; C61 Malignant neoplasm of prostate; E78.00 Pure hypercholesterolemia, unspecified; R73.02 Impaired glucose tolerance (oral); J44.9 Chronic obstructive pulmonary disease, unspecified | CPT/HCPCS: 96127; 99212 ==

== ENCOUNTER → 2024-07-18 23:59 | Outpatient (BNV) | payer MEDICARE, SELFPAY ==
--- NOTE | 2024-07-23 13:42 | A.OFFVIS_ITS ---
Intake Visit Reasons: remote ICD check- Juan Scient Allergies penicillin G Allergy (Unknown, Verified 07/21/24 09:27) PASSED OUT [facility] Medical History Tobacco abuse LFT elevation ICD (implantable cardioverter-defibrillator) in place COVID-19 virus infection Abnormal prostate specific antigen (PSA) Encounter for Medicare annual wellness exam Abnormal nuclear stress test Hx of myocardial infarction Mild carotid artery disease On anticoagulant therapy On beta ruslan at home CAD (coronary artery disease) Preoperative cardiovascular examination Ischemic cardiomyopathy Colon cancer screening Hypercholesterolemia Impaired glucose tolerance Erectile dysfunction Prostate cancer Bladder cancer Surgical History Status post cardiac catheterization Hx of heart artery stent Hx of colonoscopy H/O transurethral destruction of bladder lesion History of bladder surgery Family History Mother No problems noted. Father No problems noted. 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 ICD function is adequate [id number] Cardiac Interrogation, implant defibrillator w/interim Procedure code (CPT) selection complete Assessment & Plan Assessment & Plan (1) ICD (implantable cardioverter-defibrillator) in place: Comment: [employer] single-chamber ICD in place for primary prevention, April 2022 Code(s): Z95.810 - Presence of automatic (implantable) cardiac defibrillator Category: Medical Plan: See above Coding Level of Care Code Procedure Only Diagnoses ICD (implantable cardioverter-defibrillator) in place Z95.810 CPT Codes Cardiac Device Check - Cardiac Device 13: [id number] Cardiac Interrogation, implant defibrillator w/interim ([id number])
== END ==
PROVIDERS: PCP Internal Medicine; Visit Provider Internal Medicine Cardiovascular Disease
DX: Z45.02 Encounter for adjustment and management of automatic implantable cardiac defibrillator (principal)
CPT/HCPCS: 93295

== ENCOUNTER 2024-07-21 09:27 | Outpatient (AMB) | payer MEDICARE, SELFPAY ==
--- NOTE | 2024-07-21 09:42 | MHC.OFFVISCO ---
Intake Intake Visit Reasons: Anticoagulation Allergies penicillin G Allergy (Unknown, Verified 07/21/24 09:27) PASSED OUT Medication List - Last Reconciled 07/21/24 by Parvin Cortez RN albuterol sulfate 90 mcg/actuation 2 puffs inhalation Q4-6H PRN atorvastatin 40 mg PO DAILY 90 days cyanocobalamin (vitamin B-12) 2,500 mcg PO .qod ezetimibe (Zetia) 10 mg PO DAILY metoprolol succinate ER 50 mg PO BID 90 days multivitamin (One-A-Day Essential tablet) 1 tab PO DAILY sildenafil 100 mg PO DAILY PRN valsartan 40 mg PO DAILY warfarin 5 mg See Protocol PO DAILY Nursing Note pt comes ambulatory to clinic with - JORGE at times - has hearing aide INR: 2.9 in therapeutic range Medications and supplements reviewed BUILD A HOME GYM AND EXERCISING MORE ALONG WITH LIGHT WEIGHT TRAINING Denies any signs and symptoms of bleeding or bruising or clotting. Bleeding, bruising, clotting discussed Nutritional guidance given - KEEP UP WEEKLY GREENS Dose: KEEP SAME 7.5MG X 2 DAYS/ 5MG F/U INR: 1 MONTH Patient verbalizes understanding of instructions given with read back. Anti-Coag Initial Assessment Social Hx Patient Tobacco Use Status: Former Tobacco user Tobacco use type: Cigarette and Cigar alcohol intake: current Alcohol intake frequency: holidays/special occasions only Coding Level of Care Code Est Patient Level 1 Diagnoses Current use of anticoagulant therapy Z79.01 Results AMB INR Fingerstick AMB INR Fingerstick 2.9 Last Edit by Parvin Cortez RN on 07/21/24 09:38 MANUAL ENTRY Assessment & Plan Assessment & Plan (1) Current use of anticoagulant therapy: Code(s): Z79.01 - custodial (current) use of 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
[2024-07-21 09:44] LABS: Prothrombin Time Whole Bld POC 34.9 sec (11.1-13.5); ~PT, ~INR - Anti Coag Clinic 2.9 (0.9-1.1)
== END 2024-07-21 09:44 | disposition home or self-care (01) ==
LOC: HO.ACS 09:27
PROVIDERS: PCP Internal Medicine; Visit Provider Internal Medicine Medical Oncology
DX: Z79.01 Long term (current) use of anticoagulants (principal)

== ENCOUNTER → 2024-07-21 09:27 | Outpatient (BNVA) | payer MEDICARE, SELFPAY | PROVIDERS: PCP Internal Medicine; Visit Provider Internal Medicine Medical Oncology | DX: I48.20 Chronic atrial fibrillation, unspecified (principal); Z51.81 Encounter for therapeutic drug level monitoring; Z79.01 Long term (current) use of anticoagulants | CPT/HCPCS: 85610; 99211 ==

== ENCOUNTER 2024-08-18 09:23 | Outpatient (AMB) | payer MEDICARE, SELFPAY ==
[2024-08-18 09:39] LABS: Prothrombin Time Whole Bld POC 30.2 sec (11.1-13.5); ~PT, ~INR - Anti Coag Clinic 2.5 (0.9-1.1)
--- NOTE | 2024-08-18 09:45 | MHC.OFFVISCO ---
Intake Intake Visit Reasons: Anticoagulation Allergies penicillin G Allergy (Unknown, Verified 08/18/24 09:34) PASSED OUT Medication List - Last Reconciled 08/18/24 by Parvin Cortez RN albuterol sulfate 90 mcg/actuation 2 puffs inhalation Q4-6H PRN atorvastatin 40 mg PO DAILY 90 days cyanocobalamin (vitamin B-12) 2,500 mcg PO .qod ezetimibe (Zetia) 10 mg PO DAILY metoprolol succinate ER 50 mg PO BID 90 days multivitamin (One-A-Day Essential tablet) 1 tab PO DAILY sildenafil 100 mg PO DAILY PRN valsartan 40 mg PO DAILY warfarin 5 mg See Protocol PO DAILY Nursing Note INR: 2.5 in therapeutic range Medications and supplements reviewed No changes in health, diet, medications, or supplements, Denies any signs and symptoms of bleeding or bruising or clotting. 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
== END 2024-08-18 09:47 | disposition home or self-care (01) ==
LOC: HO.ACS 09:23
PROVIDERS: PCP Internal Medicine; Visit Provider Internal Medicine
DX: Z79.01 Long term (current) use of anticoagulants (principal)

== ENCOUNTER → 2024-08-18 09:23 | Outpatient (BNVA) | payer MEDICARE, SELFPAY | PROVIDERS: PCP Internal Medicine; Visit Provider Internal Medicine | DX: I48.20 Chronic atrial fibrillation, unspecified (principal); Z79.01 Long term (current) use of anticoagulants; Z51.81 Encounter for therapeutic drug level monitoring | CPT/HCPCS: 85610; 99211 ==

== ENCOUNTER → 2024-08-22 23:59 | Outpatient (BNV) | payer MEDICARE, SELFPAY ==
--- NOTE | 2024-08-23 14:44 | MHC.OFFVIS ---
Intake Visit Reasons: remote ICD check- Juan Scient Allergies penicillin G Allergy (Unknown, Verified 08/18/24 09:34) PASSED OUT [facility] Medical History Tobacco abuse LFT elevation ICD (implantable cardioverter-defibrillator) in place COVID-19 virus infection Abnormal prostate specific antigen (PSA) Encounter for Medicare annual wellness exam Abnormal nuclear stress test Hx of myocardial infarction Mild carotid artery disease On anticoagulant therapy On beta ruslan at home CAD (coronary artery disease) Preoperative cardiovascular examination Ischemic cardiomyopathy Colon cancer screening Hypercholesterolemia Impaired glucose tolerance Erectile dysfunction Prostate cancer Bladder cancer Surgical History Status post cardiac catheterization Hx of heart artery stent Hx of colonoscopy H/O transurethral destruction of bladder lesion History of bladder surgery Family History Mother No problems noted. Father No problems noted. 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 ICD function is adequate. [place] [id number] Cardiac Interrogation, implant defibrillator w/interim Procedure code (CPT) selection complete Assessment & Plan Assessment & Plan (1) ICD (implantable cardioverter-defibrillator) in place: Comment: [employer] single-chamber ICD in place for primary prevention, April 2022 Code(s): Z95.810 - Presence of automatic (implantable) cardiac defibrillator Category: Medical Plan: See above Coding Level of Care Code Procedure Only Diagnoses ICD (implantable cardioverter-defibrillator) in place Z95.810 CPT Codes Cardiac Device Check - Cardiac Device 13: [id number] Cardiac Interrogation, implant defibrillator w/interim ([id number])
== END ==
PROVIDERS: PCP Internal Medicine; Visit Provider Internal Medicine Cardiovascular Disease
DX: I47.10 Supraventricular tachycardia, unspecified (principal); Z95.810 Presence of automatic (implantable) cardiac defibrillator
CPT/HCPCS: 93295

== ENCOUNTER 2024-09-12 12:11 | Outpatient (AMB) | payer MEDICARE, SELFPAY ==
[2024-09-12 12:41] VITALS: BP 120/60; PULSE 68; BMI 21.2
--- NOTE | 2024-09-12 12:41 | MHC.OFFVIS ---
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 He has had no new cardiac symptoms. Still feels lightheaded but has not had any syncopal episode. Denies any progressive shortness of breath, orthopnea, PND, leg edema. No lightheadedness, syncope. Denies any exertional chest pain. He said 1 night when he woke up suddenly to let his dog out him when he rested he felt some palpitations. No syncopal episode and no ICD discharge with it. On ICD monitoring noted to have multiple nonsustained VT. Takes all his medications. No bleeding issues or neurologic events. He is LDL was well optimized on last test. [facility] Medical History Tobacco abuse LFT elevation ICD (implantable cardioverter-defibrillator) in place COVID-19 virus infection Abnormal prostate specific antigen (PSA) Encounter for Medicare annual wellness exam Abnormal nuclear stress test Hx of myocardial infarction Mild carotid artery disease On anticoagulant therapy On beta ruslan at home CAD (coronary artery disease) Preoperative cardiovascular examination Ischemic cardiomyopathy Colon cancer screening Hypercholesterolemia Impaired glucose tolerance Erectile dysfunction Prostate cancer Bladder cancer Surgical History Status post cardiac catheterization Hx of heart artery stent Hx of colonoscopy H/O transurethral destruction of bladder lesion History of bladder surgery Family History Mother No problems noted. Father No problems noted. 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 Cognitive needs: No Hearing needs: Yes Vision needs: Yes (Glasses) Review of Systems Const Denies chills, Denies fatigue, Denies fever(s), Denies frequent falls, Denies weakness, Denies weight gain and Denies weight loss ENT Denies dizziness Card Denies chest pain, Denies leg edema, Denies lightheadedness, Denies palpitations, Denies dyspnea, Denies dyspnea on exertion, Denies orthopnea and Denies other (loss of consciousness) Resp Denies cough, Denies dyspnea and Denies dyspnea on exertion GI Denies hematochezia and Denies change in stool character Musc Denies abnormal gait, Denies muscle weakness, Denies numbness, Denies radiating pain into limb and Denies tingling Neuro Denies abnormal gait, Denies dizziness, Denies frequent falls, Denies numbness, Denies tingling and Denies weakness Endo Denies fatigue and Denies palpitations Physical Exam Vital Signs: Last Vital Signs Pulse 68 09/12/24 12:41 BP 120/60 09/12/24 12:41 BMI result Body Mass Index 21.2 Const General: cooperative, healthy appearing, comfortable and no acute distress Orientation/consciousness: patient oriented x3 Neck Neck: Yes normal visual inspection and Yes no JVD Resp Effort & Inspection: normal respiratory effort Auscultation: clear to auscultation bilaterally, no crackles, no rales, no rhonchi and no wheezes Cardio Jugular venous distension: no JVD Rate: regular rate Rhythm: regular rhythm Heart sounds: S1 normal heart sound present, S2 normal heart sound present, no murmurs and no rubs Neuro General: patient oriented x3 Extrem General: Yes normal to inspection Psych Appearance: grossly normal Mental Status: mental status grossly normal Speech and movement: Normal speech and movement present Office Procedures Cardiac Device Check Cardiac Device Check Details: Single-chamber [employer] ICD in place. Programmed in VVI at 40 beats per minute. Ventricular pacing thresholds excellent. Multiple episodes of nonsustained VT noted which were self terminating. No therapies given. Ventricular pacing thresholds excellent. Battery life is excellent. Pacing and shock lead impedance is stable. [id number] Cardiac Device Check, single lead implantable defibrillator Procedure code (CPT) selection complete EKG Details: EKG shows normal sinus rhythm normal EKG 03531-[id number], Complete Assessment & Plan Assessment & Plan (1) Ischemic cardiomyopathy: Code(s): I25.5 - Ischemic cardiomyopathy Category: Medical Plan: Ischemic cardiomyopathy without any overt signs of congestive heart failure. Signs and symptoms of heart failure were discussed. No need for diuretic therapy at this point time. Advised to avoid sudden salt loading. Has issues with low blood pressure therefore can not maximize his neurohormonal modulation and/or/change to Entresto therapy. He is still has orthostatic symptoms. Discussed with him to maintain adequate oral hydration. Follow-up echocardiogram in 6 months time. (2) Coronary artery disease: Comment: 04/[address] Swann,Echocardiogram January 2019 ejection fraction 40% dilated left atrium. Evidence of basal mid inferior septal mid anterior septal and basal inferior wall infarct Code(s): I25.10 - Atherosclerotic heart disease of torres martinez coronary artery without angina pectoris Category: Medical Qualifiers: Coronary Disease-Associated Artery/Lesion type: torres martinez artery [place] vs. transplanted heart: torres martinez heart Associated angina: without angina Qualified Code(s): I25.10 - Atherosclerotic heart disease of torres martinez coronary artery without angina pectoris Plan: CAD with remote inferior myocardial infarction with status post stenting to RCA with now developed significant ischemic cardiomyopathy. Clinically having no symptoms currently. Continue warfarin therapy which is being used for medical reason. Currently would avoid aspirin therapy. Continue statin as well as ezetimibe therapy with well optimized LDL. Blood pressure is well optimized. Encouraged to maintain activity level as tolerated. (3) ICD (implantable cardioverter-defibrillator) in place: Comment: [employer] single-chamber ICD in place for primary prevention, April 2022 Code(s): Z95.810 - Presence of automatic (implantable) cardiac defibrillator Category: Medical Plan: ICD in place, working well. Noted multiple episodes of nonsustained VT. Will continue monitor remote telemetry. Currently there has been no therapy delivered at this point time would avoid escalation in therapy. Continue metoprolol. Avoidance of stimulants was discussed. Follow up in the clinic in 6 months time, sooner p.r.n.. Thank you for allowing me to partake in his care Coding Level of Care Code Est Pt Level 4 (59016) Complex EM visit Add On G2211 Diagnoses Ischemic cardiomyopathy I25.5 Coronary artery disease involving torres martinez coronary artery of torres martinez heart without angina pectoris I25.10 Coronary Disease-Associated Artery/Lesion type: torres martinez artery [place] vs. transplanted heart: torres martinez heart Associated angina: without angina ICD (implantable cardioverter-defibrillator) in place Z95.810 CPT Codes Cardiac Device Check - Cardiac Device 4: 37134-LE Cardiac Device Check, single lead implantable defibrillator ([id number]) EKG - CPT: 42015-[id number], Complete ([id number])
== END 2024-09-12 13:01 | disposition home or self-care (01) ==
LOC: HO.HCS 12:12
PROVIDERS: PCP Internal Medicine; Visit Provider Internal Medicine Cardiovascular Disease
DX: I25.5 Ischemic cardiomyopathy (principal); I25.10 Atherosclerotic heart disease of native coronary artery without angina pectoris; Z95.810 Presence of automatic (implantable) cardiac defibrillator
CPT/HCPCS: 93010; 93282; 99214; G2211

== ENCOUNTER → 2024-09-12 12:11 | Outpatient (BNVA) | payer MEDICARE, SELFPAY | PROVIDERS: PCP Internal Medicine; Visit Provider Internal Medicine Cardiovascular Disease | DX: I25.5 Ischemic cardiomyopathy (principal); I25.10 Atherosclerotic heart disease of native coronary artery without angina pectoris; Z95.810 Presence of automatic (implantable) cardiac defibrillator | CPT/HCPCS: 93005; 99212 ==

== ENCOUNTER 2024-09-15 09:37 | Outpatient (AMB) | payer MEDICARE, SELFPAY ==
--- NOTE | 2024-09-15 09:51 | MHC.OFFVISCO ---
Intake Intake Visit Reasons: Anticoagulation Allergies penicillin G Allergy (Unknown, Verified 09/15/24 09:38) PASSED OUT Medication List - Last Reconciled 09/15/24 by Parvin Cortez RN albuterol sulfate 90 mcg/actuation 2 puffs inhalation Q4-6H PRN atorvastatin 40 mg PO DAILY 90 days cyanocobalamin (vitamin B-12) 2,500 mcg PO .qod ezetimibe (Zetia) 10 mg PO DAILY metoprolol succinate ER 50 mg PO BID 90 days multivitamin (One-A-Day Essential tablet) 1 tab PO DAILY sildenafil 100 mg PO DAILY PRN valsartan 40 mg PO DAILY warfarin 5 mg See Protocol PO DAILY Nursing Note INR 3.6? out of therapeutic range Medications and supplements reviewed Patient status: S/P VACATION [employer] - ATE DIFFERENTLY, ALSO HAD A RECENT ADMISSION FOR AFIB Medications or supplements: NO CHANGES Diet: CHANGES WHILE ON VACATION Denies any signs and symptoms of bleeding or clotting or unusual bruising Bleeding, bruising, clotting discussed Nutritional guidance given: resume greens Dose: hold today then resume usual dose F/U INR Date : 4 weeks ?? Patient verbalizing understanding of instructions given. 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
[2024-09-15 10:37] LABS: Prothrombin Time Whole Bld POC 43.4 sec (11.1-13.5); ~PT, ~INR - Anti Coag Clinic 3.6 (0.9-1.1)
== END 2024-09-15 09:54 | disposition home or self-care (01) ==
LOC: HO.ACS 09:37
PROVIDERS: PCP Internal Medicine; Visit Provider Internal Medicine Medical Oncology
DX: Z79.01 Long term (current) use of anticoagulants (principal)

== ENCOUNTER → 2024-09-15 09:37 | Outpatient (BNVA) | payer MEDICARE, SELFPAY | PROVIDERS: PCP Internal Medicine; Visit Provider Internal Medicine Medical Oncology | DX: I48.20 Chronic atrial fibrillation, unspecified (principal); Z79.01 Long term (current) use of anticoagulants; Z51.81 Encounter for therapeutic drug level monitoring | CPT/HCPCS: 85610; 99211 ==

== ENCOUNTER → 2024-09-26 23:59 | Outpatient (BNV) | payer MEDICARE, SELFPAY ==
--- NOTE | 2024-09-27 13:21 | MHC.OFFVIS ---
Intake Visit Reasons: remote ICD check- [employer] Allergies penicillin G Allergy (Unknown, Verified 09/15/24 09:38) PASSED OUT [facility] Medical History Tobacco abuse LFT elevation ICD (implantable cardioverter-defibrillator) in place COVID-19 virus infection Abnormal prostate specific antigen (PSA) Encounter for Medicare annual wellness exam Abnormal nuclear stress test Hx of myocardial infarction Mild carotid artery disease On anticoagulant therapy On beta ruslan at home CAD (coronary artery disease) Preoperative cardiovascular examination Ischemic cardiomyopathy Colon cancer screening Hypercholesterolemia Impaired glucose tolerance Erectile dysfunction Prostate cancer Bladder cancer Surgical History Status post cardiac catheterization Hx of heart artery stent Hx of colonoscopy H/O transurethral destruction of bladder lesion History of bladder surgery Family History Mother No problems noted. Father No problems noted. 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 ICD function is adequate [id number] Cardiac Interrogation, implant defibrillator w/interim Procedure code (CPT) selection complete Assessment & Plan Assessment & Plan (1) ICD (implantable cardioverter-defibrillator) in place: Comment: [employer] single-chamber ICD in place for primary prevention, April 2022 Code(s): Z95.810 - Presence of automatic (implantable) cardiac defibrillator Category: Medical Plan: See above Coding Level of Care Code Procedure Only Diagnoses ICD (implantable cardioverter-defibrillator) in place Z95.810 CPT Codes Cardiac Device Check - Cardiac Device 13: [id number] Cardiac Interrogation, implant defibrillator w/interim ([id number])
== END ==
PROVIDERS: PCP Internal Medicine; Visit Provider Internal Medicine Cardiovascular Disease
DX: Z45.02 Encounter for adjustment and management of automatic implantable cardiac defibrillator (principal)
CPT/HCPCS: 93295

== ENCOUNTER 2024-10-13 09:16 | Outpatient (REF) | payer MEDICARE, SELFPAY ==
[2024-10-13 09:34] LABS: MANUAL DIFF FLAG NO
[2024-10-13 10:39] LABS: Basophils Absolute Auto 0.1 X10*3/uL (0.0-0.2); Eosinophils Absolute Auto 0.3 X10*3/uL (0.0-0.4); Eosinophils Percent Auto 3.8 % (0-4); Hematocrit 44.6 % (42.0-52.0); Hemoglobin 14.7 g/dl (14.0-18.0); Imm Gran Abs Auto 0.02 X10*3/uL (0.00-0.03); Imm Gran Pct Auto 0.2 % (0.0-0.4); Lymphocytes Absolute Auto 1.9 X10*3/uL (1.2-4.9); Lymphocytes Percent Auto 22.4 % (20-40); Mean Corpuscular Hemoglobin 30.7 pg (27.0-33.0); Mean Corpuscular Volume 93.1 fL (80.0-98.0); Mean Platelet Volume 9.5 fL (9.4-12.4); Monocytes Absolute Auto 0.6 X10*3/uL (0.1-1.2); Monocytes Percent Auto 7.2 % (2-11); Neutrophils Absolute Auto 5.5 x10*3/uL (2.0-8.3); Neutrophils Percent Auto 65.4 % (45-73); Platelet Count 195 X10*3/uL (160-400); Red Blood Count 4.79 X10*6/uL (4.60-5.80); Red Cell Distribution Width 13.6 % (11.0-16.0); White Blood Count 8.3 X10*3/uL (4.8-10.8)
[2024-10-13 10:47] LABS: Estimated Average Glucose 126 mg/dL; Total Hemoglobin (HGBA1C) 3864.8441 umol/L
[2024-10-13 11:46] LABS: Folate 12.3 ng/mL (> or = 4.0); Prostate Specific Antigen Scr 1.89 ng/mL (<0.05-4.0); Vitamin B12 373 pg/mL (200-900)
[2024-10-13 11:53] LABS: Alanine Aminotransferase 28 U/L (0-40); Albumin Level 4.2 g/dL (3.5-5.0); Alkaline Phosphatase 102 U/L (39-117); Anion Gap 10 (12-20); Aspartate Amino Transferase 29 U/L (5-37); Bilirubin Total 0.7 mg/dL (0.0-1.0); Blood Urea Nitrogen 17 mg/dL (9-16); Carbon Dioxide 27 mmol/L (22-29); Chloride 105 mmol/L (96-108); Cholesterol 98 mg/dL (<200); Estimated Glomerular Filt Rate > 60; Glucose Random 100 mg/dL (60-115); HDL Cholesterol 32 mg/dL (>40); LDL Cholesterol Calculated 49 mg/dL (<100); Potassium 4.2 mmol/L (3.3-5.1); Sodium 138 mmol/L (135-145); Total Protein 7.3 g/dL (6.5-8.0); Triglycerides 88 mg/dL (<150)
[2024-10-13 12:11] LABS: Free T4 (Free Thyroxine) 1.14 ng/dL (0.71-1.85); Thyroid Stimulating Hormone 0.59 uIU/mL (0.32-4.0)
== END 2024-10-13 09:17 | disposition home or self-care (01) ==
LOC: HO.LAB 09:16
PROVIDERS: PCP Internal Medicine; Visit Provider Internal Medicine
DX: E78.00 Pure hypercholesterolemia, unspecified (principal); C61 Malignant neoplasm of prostate; Z12.5 Encounter for screening for malignant neoplasm of prostate; Z79.01 Long term (current) use of anticoagulants
CPT/HCPCS: 36415; 80053; 80061; 82306; 82607; 82746; 83036; 84153; 84439; 84443; 85025; 85610; 99211

== ENCOUNTER 2024-10-13 09:28 | Outpatient (AMB) | payer MEDICARE, SELFPAY ==
[2024-10-13 09:49] LABS: ~PT, ~INR - Anti Coag Clinic 3.1 (0.9-1.1)
--- NOTE | 2024-10-13 09:55 | MHC.OFFVISCO ---
Intake Intake Visit Reasons: Anticoagulation Allergies penicillin G Allergy (Unknown, Verified 10/13/24 09:44) PASSED OUT Medication List - Last Reconciled 10/13/24 by Beronica Augustine RN albuterol sulfate 90 mcg/actuation 2 puffs inhalation Q4-6H PRN atorvastatin 40 mg PO DAILY 90 days cyanocobalamin (vitamin B-12) 2,500 mcg PO .qod ezetimibe (Zetia) 10 mg PO DAILY metoprolol succinate ER 50 mg PO BID 90 days multivitamin (One-A-Day Essential tablet) 1 tab PO DAILY sildenafil 100 mg PO DAILY PRN valsartan 40 mg PO DAILY warfarin 5 mg See Protocol PO DAILY Nursing Note INR: 3.1 out of therapeutic range of 2-3 Medications and supplements reviewed Patient status: well Medications or supplements: no changes Diet: no changes Denies any signs and symptoms of bleeding or clotting or unusual bruising Bleeding, bruising, clotting discussed Nutritional guidance given: to have a serving of greens today Dose: 5mg X 5 days and 7.5mg X 2 days F/U INR Date : 4 weeks? Patient verbalizing understanding of instructions given. 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
== END 2024-10-13 09:58 | disposition home or self-care (01) ==
LOC: HO.ACS 09:28
PROVIDERS: PCP Internal Medicine; Visit Provider Internal Medicine Medical Oncology
DX: Z79.01 Long term (current) use of anticoagulants (principal)

== ENCOUNTER 2024-10-18 09:09 | Outpatient (AMB) | payer MEDICARE, SELFPAY ==
[2024-10-18 09:11] VITALS: BP 100/60; PULSE 80; O2SAT 92; BMI 20.7
--- NOTE | 2024-10-18 09:11 | A.OFFPC_ITS ---
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 Accompanied by: Self / Same As Patient Allergies penicillin G Allergy (Unknown, Verified 10/18/24 09:11) PASSED OUT Medication List - Last Reconciled 10/18/24 by Benny Ramírez MD albuterol sulfate 90 mcg/actuation 2 puffs inhalation Q4-6H PRN atorvastatin 40 mg PO DAILY 90 days cyanocobalamin (vitamin B-12) 2,500 mcg PO .qod ezetimibe (Zetia) 10 mg PO DAILY metoprolol succinate ER 100 mg PO .QD 90 days multivitamin (One-A-Day Essential tablet) 1 tab PO DAILY sildenafil 100 mg PO DAILY PRN valsartan 40 mg PO DAILY warfarin 5 mg See Protocol PO DAILY Tobacco use date assessed: 10/18/24 Fall risk assessment: No Falls in past year Last assessed Fall Risk: 10/18/24 Dental Screening Dental Screen Date: 10/18/24 Did you have a dental visit in the last 12 months?: No Did you have a dental problem in the last 6 months where you did not have access to dental care?: No Was dental information given to patient?: No [facility] Medical History Tobacco abuse LFT elevation ICD (implantable cardioverter-defibrillator) in place COVID-19 virus infection Abnormal prostate specific antigen (PSA) Encounter for Medicare annual wellness exam Abnormal nuclear stress test Hx of myocardial infarction Mild carotid artery disease On anticoagulant therapy On beta ruslan at home CAD (coronary artery disease) Preoperative cardiovascular examination Ischemic cardiomyopathy Colon cancer screening Hypercholesterolemia Impaired glucose tolerance Erectile dysfunction Prostate cancer Bladder cancer Surgical History Status post cardiac catheterization Hx of heart artery stent Hx of colonoscopy H/O transurethral destruction of bladder lesion History of bladder surgery Family History Mother No problems noted. Father No problems noted. 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 1. Little interest or pleasure in doing things: not at all 2. Feeling down, depressed, or hopeless: not at all 3. Trouble falling or staying asleep, or sleeping too much: not at all 4. Feeling tired or having little energy: not at all 5. Poor appetite or overeating: not at all 6. Feeling bad about yourself - or that you are a failure or have let yourself or your family down: not at all 7. Trouble concentrating on things, such as reading the newspaper or watching television: not at all 8. Moving or speaking so slowly that other people could have noticed. Or the opposite - being so fidgety or restless that you have been moving around a lot more than usual: not at all 9. Thoughts that you would be better off or of hurting yourself in some way : not at all Total score: 0 Source: Developed by Drs. Tom Clark, Teagan Edwards, Chuy Stauffer and colleagues, with an educational cassandra from [employer]. Thrive Questionnaire Date Thrive assessed: 10/18/24 I am a: Patient What is your living situation today?: I have a steady place to live Within the past 12 months, did the food you bought not last and you didn't have the money to get more?: Never true Within the past 12 months, did you worry whether your food would run out before you got money to buy more?: Never true Do you have trouble paying for medicines?: No Do you have trouble getting transportation to medical appointments?: No Do you have trouble paying your heating and electricity bill?: No Do you have trouble taking care of your child, family member or friend?: No Do you have trouble with day-to-day activities such as bathing, preparing meals, shopping, managing finances, etc.?: No Are you currently unemployed and looking for a job?: No Are you interested in more education?: No Please select the resources that you would like help with: None Currently or been in a relationship where the following occur: No concerns reported THRIVE Score: 0 AUDIT C Alcohol Use Questionnaire (AUDIT-C) 1. How often do you have a drink containing alcohol?: Monthly or less 2. How many drinks containing alcohol do you have on a typical day when you are drinking?: 1 or 2 3. How often do you have six or more drinks on one occasion?: Never Total Score: 1 REGGIE-7 AMB Questionnaire REGGIE-7 Date REGGIE - 7 assessed: 10/18/24 Feeling nervous, anxious, or on edge: 0 = Not at all Not being able to stop or control worryin = Not at all Worrying too much about different things: 0 = Not at all Trouble relaxin = Not at all Being so restless that it is hard to sit still: 0 = Not at all Becoming easily annoyed or irritable: 0 = Not at all Feeling afraid as if something awful might happen: 0 = Not at all Total REGGIE-7 score (0-4 normal; 5-9 mild; 10-14 moderate; 15-21 severe): 0 Source: Developed by Drs. Tom Clark, Teagan Edwards, Chuy Stauffer and colleagues, with an educational cassandra from [employer]. Physical exam (Primary Care) Vital Signs: Last Vital Signs Pulse 80 10/18/24 09:11 BP 100/60 10/18/24 09:11 Pulse Ox 92 10/18/24 09:11 Oxygen Delivery Method Room Air 10/18/24 09:11 BMI result Body Mass Index 20.7 Tobacco/Smoking Status: Tobacco use Status Tobacco use date assessed 10/18/24 10/18/24 09:13 Patient Tobacco Use Status Former Tobacco user 10/18/24 09:13 Tobacco use type Cigarette,Cigar 10/18/24 09:13 e-Cigarette/Vaping Use Never Used 10/18/24 09:13 PHQ-9: PHQ-9 Score PHQ-9: Total score 0 10/18/24 09:53 Thrive Assessment: Date of Thrive Assessment Date Thrive assessed 10/18/24 10/18/24 09:13 Currently or been in a relationship where the following occur: No concerns reported Const General: alert; No acute distress Eyes Conjunctivae: conjunctivae normal Resp Auscultation: clear to auscultation bilaterally Cardio Rate: regular rate Rhythm: regular rhythm GI Inspection: Yes normal to inspection Extrem General: Yes normal to inspection and No edema Coding Level of Care Code Est Pt Level 4 (73211) Complex EM visit Add On G2211 Diagnoses Ischemic cardiomyopathy I25.5 ICD (implantable cardioverter-defibrillator) in place Z95.810 Coronary artery disease involving [place] coronary artery of [place] heart without angina pectoris I25.10 Associated angina: without angina Coronary Disease-Associated Artery/Lesion type: [place] artery [place] vs. transplanted heart: [place] heart Hypercholesterolemia E78.00 Impaired glucose tolerance R73.02 Hepatic steatosis K76.0 Tubular adenoma of colon D12.6 COPD (chronic obstructive pulmonary disease) J44.9 Assessment & Plan Assessment & Plan (1) Ischemic cardiomyopathy: Code(s): I25.5 - Ischemic cardiomyopathy Category: Medical Plan: Continue to follow up with Cardiology patient has the ICD and being tested regularly. (2) ICD (implantable cardioverter-defibrillator) in place: Comment: [employer] single-chamber ICD in place for primary prevention, April 2022 Code(s): Z95.810 - Presence of automatic (implantable) cardiac defibrillator Category: Medical Plan: Continue to monitor by Cardiology (3) Coronary artery disease: Comment: 04/[address] Swann,Echocardiogram January 2019 ejection fraction 40% dilated left atrium. Evidence of basal mid inferior septal mid anterior septal and basal inferior wall infarct Code(s): I25.10 - Atherosclerotic heart disease of [place] coronary artery without angina pectoris Category: Medical Qualifiers: Associated angina: without angina Coronary Disease-Associated Artery/Lesion type: [place] artery [place] vs. transplanted heart: [place] heart Qualified Code(s): I25.10 - Atherosclerotic heart disease of [place] coronary artery without angina pectoris Plan: Control the cholesterol, weight, blood pressure, patient on anticoagulation (4) Hypercholesterolemia: Code(s): E78.00 - Pure hypercholesterolemia, unspecified Category: Medical Plan: Avoid fried foods, chicken skin, eggs, butter margarine, pastries and meat. Be it pork or beef they have a lot of cholesterol LDL goal of less than 70 and triglyceride of less than 150 on atorvastatin (5) Impaired glucose tolerance: Code(s): R73.02 - Impaired glucose tolerance (oral) Category: Medical Plan: Decrease the amount of carbohydrate intake, pasta, bread, rice and potatoes are all sugar and that is aside from all the sweet stuff, remember that fruits are good but they are Sweet also. (6) Hepatic steatosis: Comment: September 2023 Code(s): K76.0 - Fatty (change of) liver, not elsewhere classified Category: Medical Plan: Low-fat diet and exercise (7) Tubular adenoma of colon: Comment: 2020 scope repeat 5 years Code(s): D12.6 - Benign neoplasm of colon, unspecified Category: Medical Plan: Patient being followed up by Gastroenterology (8) COPD (chronic obstructive pulmonary disease): Code(s): J44.9 - Chronic obstructive pulmonary disease, unspecified Category: Medical Plan: Continue with albuterol inhaler as needed Plan History of Present Illness The patient is a 74-year-old male presenting for routine follow-up and management of chronic conditions. The patient has a history of impaired glucose tolerance with a recent blood sugar level of 100 mg/dL and a hemoglobin A1c of 6%. He reports dietary habits including consumption of Cheerios and limited intake of potatoes and vegetables due to Coumadin use. The patient has hypercholesterolemia with an LDL cholesterol level of 49 mg/dL, managed with atorvastatin. He follows a no-fat diet and engages in regular exercise. The patient has a history of prostate cancer and is currently stable with normal PSA levels. The patient has ischemic cardiomyopathy and coronary artery disease, managed with an ICD and anticoagulation therapy. He experiences orthostatic symptoms and has a blood pressure on the lower side, which limits medication adjustments. The patient has a history of tubular adenoma with a colonoscopy scheduled for November 10. The patient has COPD, managed with an albuterol inhaler as needed. Health Maintenance - Colonoscopy scheduled for November 10 - Regular follow-up with cardiology for ICD management - Blood pressure monitoring due to orthostatic symptoms - No-fat diet and regular exercise for cholesterol management - Albuterol inhaler as needed for COPD management Social History - Dietary habits include consumption of Cheerios and limited intake of potatoes and vegetables due to Coumadin use. - Engages in regular exercise as part of lifestyle management. Review of Systems - Cardiovascular: Reports orthostatic symptoms, denies congestive heart failure signs - Respiratory: Reports difficulty breathing in hot weather, uses albuterol inhaler as needed - Musculoskeletal: Reports soreness in ribs, possibly muscular in origin Physical Exam - Cardiovascular: No signs of congestive heart failure, no diuretics used - Musculoskeletal: Soreness in ribs, possibly muscular in origin Results - Labs: Blood sugar 100 mg/dL, hemoglobin A1c 6%, LDL cholesterol 49 mg/dL, PSA within normal limits - Labs: Normal blood count, stable renal and liver function, normal electrolytes Plan The patient will continue to follow up with cardiology for management of ischemic cardiomyopathy and coronary artery disease, with regular ICD testing and monitoring of anticoagulation therapy. Due to orthostatic symptoms and low blood pressure, medication adjustments are limited, and blood pressure monitoring is advised. For hypercholesterolemia, the patient will maintain a no-fat diet and regular exercise regimen, with a goal of keeping LDL cholesterol below 70 mg/dL. Atorvastatin therapy will continue as prescribed. The patient will manage impaired glucose tolerance through dietary modifications, focusing on reducing carbohydrate intake and monitoring blood sugar levels. Regular follow-up appointments will be scheduled to monitor g lucose levels and adjust dietary recommendations as needed. For COPD, the patient will continue using the albuterol inhaler as needed and avoid exposure to extreme weather conditions. A colonoscopy is scheduled for November 10 to monitor the history of tubular adenoma. Patient was informed and verbally consented to the use of an ambient scribe for clinic note documentation during this visit. Discussion Notes During the visit, we discussed the management of ischemic cardiomyopathy and coronary artery disease, emphasizing the importance of regular ICD testing and anticoagulation therapy monitoring. We reviewed the patient's orthostatic symptoms and the need for careful blood pressure monitoring due to limited medication adjustments. For hypercholesterolemia, we reinforced the continuation of a no-fat diet and regular exercise, with atorvastatin therapy to maintain LDL cholesterol levels below 70 mg/dL. We also discussed dietary modifications for managing impaired glucose tolerance, focusing on reducing carbohydrate intake. The patient was advised to continue using the albuterol inhaler as needed for COPD and to avoid extreme weather conditions. A colonoscopy is scheduled for to monitor the history of tubular adenoma. Patient Instructions - Continue regular follow-up with cardiology for ICD management and anticoagulation therapy. - Monitor blood pressure regularly and report any significant changes. - Maintain a no-fat diet and regular exercise to manage cholesterol levels. - Follow dietary recommendations to manage blood sugar levels, focusing on reducing carbohydrate intake. - Use albuterol inhaler as needed for COPD and avoid extreme weather conditions. - Attend the scheduled colonoscopy on November 10. Medications: Changed From sildenafil administer 30 minutes to 4 hours before activity 100 mg PO DAILY PRN 14 tabs 4RF sexual activity To Viagra (sildenafil) administer 30 minutes to 4 hours before activity 100 mg PO DAILY PRN 14 tabs 4RF sexual activity NS From metoprolol succinate ER 50 mg PO BID 90 days 180 tabs 3RF I25.5 - Ischemic cardiomyopathy To metoprolol succinate ER 100 mg PO .QD 90 tabs 3RF 90 days I25.5 - Ischemic cardiomyopathy
== END 2024-10-18 10:08 | disposition home or self-care (01) ==
LOC: HO.HMCH 09:10
PROVIDERS: PCP Internal Medicine; Visit Provider Internal Medicine
DX: I25.5 Ischemic cardiomyopathy (principal); Z95.810 Presence of automatic (implantable) cardiac defibrillator; J44.9 Chronic obstructive pulmonary disease, unspecified; I25.10 Atherosclerotic heart disease of native coronary artery without angina pectoris; E78.00 Pure hypercholesterolemia, unspecified; R73.02 Impaired glucose tolerance (oral); K76.0 Fatty (change of) liver, not elsewhere classified; D12.6 Benign neoplasm of colon, unspecified

== ENCOUNTER → 2024-10-18 09:09 | Outpatient (BNVA) | payer MEDICARE, SELFPAY | PROVIDERS: PCP Internal Medicine; Visit Provider Internal Medicine | DX: I25.10 Atherosclerotic heart disease of native coronary artery without angina pectoris (principal); I25.5 Ischemic cardiomyopathy; J44.9 Chronic obstructive pulmonary disease, unspecified; E78.00 Pure hypercholesterolemia, unspecified; R73.02 Impaired glucose tolerance (oral); K76.0 Fatty (change of) liver, not elsewhere classified; D12.6 Benign neoplasm of colon, unspecified; Z79.899 Other long term (current) drug therapy; Z95.810 Presence of automatic (implantable) cardiac defibrillator | CPT/HCPCS: 96127; 99212 ==

== ENCOUNTER → 2024-10-31 23:59 | Outpatient (BNV) | payer MEDICARE, SELFPAY ==
--- NOTE | 2024-11-02 15:00 | MHC.OFFVIS ---
Intake Visit Reasons: Remote HF monitoring- [employer] Allergies penicillin G Allergy (Unknown, Verified 10/18/24 09:11) PASSED OUT [facility] Medical History Tobacco abuse LFT elevation ICD (implantable cardioverter-defibrillator) in place COVID-19 virus infection Abnormal prostate specific antigen (PSA) Encounter for Medicare annual wellness exam Abnormal nuclear stress test Hx of myocardial infarction Mild carotid artery disease On anticoagulant therapy On beta ruslan at home CAD (coronary artery disease) Preoperative cardiovascular examination Ischemic cardiomyopathy Colon cancer screening Hypercholesterolemia Impaired glucose tolerance Erectile dysfunction Prostate cancer Bladder cancer Surgical History Status post cardiac catheterization Hx of heart artery stent Hx of colonoscopy H/O transurethral destruction of bladder lesion History of bladder surgery Family History Mother No problems noted. Father No problems noted. 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 Heart failure parameters are within normal limits [id number] Cardiac Device Interrogation, cardio physiologic monitor Procedure code (CPT) selection complete Assessment & Plan Assessment & Plan (1) ICD (implantable cardioverter-defibrillator) in place: Comment: [employer] single-chamber ICD in place for primary prevention, April 2022 Code(s): Z95.810 - Presence of automatic (implantable) cardiac defibrillator Category: Medical Plan: See above Coding Level of Care Code Procedure Only Diagnoses ICD (implantable cardioverter-defibrillator) in place Z95.810 CPT Codes Cardiac Device Check - Cardiac Device 15: [id number] Cardiac Device Interrogation, cardio physiologic monitor ([id number])
== END ==
PROVIDERS: PCP Internal Medicine; Visit Provider Internal Medicine Cardiovascular Disease
DX: Z45.02 Encounter for adjustment and management of automatic implantable cardiac defibrillator (principal)
CPT/HCPCS: 93297

== ENCOUNTER → 2024-10-31 23:59 | Outpatient (BNV) | payer MEDICARE, SELFPAY ==
--- NOTE | 2024-11-02 15:01 | A.OFFVIS_ITS ---
Intake Visit Reasons: remote ICD check- [employer] Allergies penicillin G Allergy (Unknown, Verified 10/18/24 09:11) PASSED OUT [facility] Medical History Tobacco abuse LFT elevation ICD (implantable cardioverter-defibrillator) in place COVID-19 virus infection Abnormal prostate specific antigen (PSA) Encounter for Medicare annual wellness exam Abnormal nuclear stress test Hx of myocardial infarction Mild carotid artery disease On anticoagulant therapy On beta ruslan at home CAD (coronary artery disease) Preoperative cardiovascular examination Ischemic cardiomyopathy Colon cancer screening Hypercholesterolemia Impaired glucose tolerance Erectile dysfunction Prostate cancer Bladder cancer Surgical History Status post cardiac catheterization Hx of heart artery stent Hx of colonoscopy H/O transurethral destruction of bladder lesion History of bladder surgery Family History Mother No problems noted. Father No problems noted. 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 ICD function is adequate [id number] Cardiac Interrogation, implant defibrillator w/interim Procedure code (CPT) selection complete Assessment & Plan Assessment & Plan (1) ICD (implantable cardioverter-defibrillator) in place: Comment: [employer] single-chamber ICD in place for primary prevention, April 2022 Code(s): Z95.810 - Presence of automatic (implantable) cardiac defibrillator Category: Medical Plan: See above Coding Level of Care Code Procedure Only Diagnoses ICD (implantable cardioverter-defibrillator) in place Z95.810 CPT Codes Cardiac Device Check - Cardiac Device 13: [id number] Cardiac Interrogation, implant defibrillator w/interim ([id number])
== END ==
PROVIDERS: PCP Internal Medicine; Visit Provider Internal Medicine Cardiovascular Disease
DX: Z45.02 Encounter for adjustment and management of automatic implantable cardiac defibrillator (principal)
CPT/HCPCS: 93295

== ENCOUNTER 2024-11-10 09:15 | Outpatient (AMB) | payer MEDICARE, SELFPAY ==
[2024-11-10 09:28] LABS: Prothrombin Time Whole Bld POC 43.0 sec (11.1-13.5); ~PT, ~INR - Anti Coag Clinic 3.6 (0.9-1.1)
--- NOTE | 2024-11-10 09:28 | MHC.OFFVISCO ---
Intake Intake Visit Reasons: Anticoagulation Allergies penicillin G Allergy (Unknown, Verified 11/10/24 09:21) PASSED OUT Medication List - Last Reconciled 11/10/24 by Beronica Augustine RN albuterol sulfate 90 mcg/actuation 2 puffs inhalation Q4-6H PRN atorvastatin 40 mg PO DAILY 90 days cyanocobalamin (vitamin B-12) 2,500 mcg PO .qod ezetimibe (Zetia) 10 mg PO DAILY metoprolol succinate ER 100 mg PO .QD 90 days multivitamin (One-A-Day Essential tablet) 1 tab PO DAILY valsartan 40 mg PO DAILY Viagra (sildenafil) 100 mg PO DAILY PRN NS warfarin 5 mg See Protocol PO DAILY Nursing Note INR: 3.6 out of therapeutic range of 2-3 Medications and supplements reviewed No changes in health, diet, medications, or supplements, Denies any signs and symptoms of bleeding or bruising or clotting. Bleeding, bruising, clotting discussed Nutritional guidance given to have a serving of greens today. Pt states he will have a serving of spinach. Dose: decrease today's dose to 2.5mg (usual 5mg) then 5mg X 5 days and 7.5mg X 2 days (Sun & Wed) F/U INR: 4 weeks Patient verbalizes understanding of instructions given Anti-Coag Initial Assessment Social Hx Patient Tobacco Use Status: Former Tobacco user Tobacco use type: Cigarette and Cigar alcohol intake: current Alcohol intake frequency: holidays/special occasions only Coding Level of Care Code Est Patient Level 1 Diagnoses Current use of anticoagulant therapy Z79.01 Results AMB INR Fingerstick AMB INR Fingerstick 3.6 Last Edit by Beronica Augustine RN on 11/10/24 09:28 interface delay Assessment & Plan Assessment & Plan (1) Current use of anticoagulant therapy: Code(s): Z79.01 - senior care (current) use of 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
== END 2024-11-10 09:34 | disposition home or self-care (01) ==
LOC: HO.ACS 09:15
PROVIDERS: PCP Internal Medicine; Visit Provider Internal Medicine Medical Oncology
DX: Z79.01 Long term (current) use of anticoagulants (principal)

== ENCOUNTER → 2024-11-10 09:15 | Outpatient (BNVA) | payer MEDICARE, SELFPAY | PROVIDERS: PCP Internal Medicine; Visit Provider Internal Medicine Medical Oncology | DX: I48.20 Chronic atrial fibrillation, unspecified (principal); Z79.01 Long term (current) use of anticoagulants; Z51.81 Encounter for therapeutic drug level monitoring | CPT/HCPCS: 85610; 99211 ==

== ENCOUNTER → 2024-12-05 23:59 | Outpatient (BNV) | payer MEDICARE, SELFPAY ==
--- NOTE | 2024-12-06 12:20 | MHC.OFFVIS ---
Intake Visit Reasons: REmote HF monitoring- [employer] Allergies penicillin G Allergy (Unknown, Verified 11/10/24 09:21) PASSED OUT [facility] Medical History Tobacco abuse LFT elevation ICD (implantable cardioverter-defibrillator) in place COVID-19 virus infection Abnormal prostate specific antigen (PSA) Encounter for Medicare annual wellness exam Abnormal nuclear stress test Hx of myocardial infarction Mild carotid artery disease On anticoagulant therapy On beta ruslan at home CAD (coronary artery disease) Preoperative cardiovascular examination Ischemic cardiomyopathy Colon cancer screening Hypercholesterolemia Impaired glucose tolerance Erectile dysfunction Prostate cancer Bladder cancer Surgical History Status post cardiac catheterization Hx of heart artery stent Hx of colonoscopy H/O transurethral destruction of bladder lesion History of bladder surgery Family History Mother No problems noted. Father No problems noted. 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 Heart failure parameters are within normal limits [id number] Cardiac Device Interrogation, cardio physiologic monitor Procedure code (CPT) selection complete Assessment & Plan Assessment & Plan (1) ICD (implantable cardioverter-defibrillator) in place: Comment: [employer] single-chamber ICD in place for primary prevention, April 2022 Code(s): Z95.810 - Presence of automatic (implantable) cardiac defibrillator Category: Medical Plan: See above Coding Level of Care Code Procedure Only Diagnoses ICD (implantable cardioverter-defibrillator) in place Z95.810 CPT Codes Cardiac Device Check - Cardiac Device 15: [id number] Cardiac Device Interrogation, cardio physiologic monitor ([id number])
== END ==
PROVIDERS: PCP Internal Medicine; Visit Provider Internal Medicine Cardiovascular Disease
DX: Z45.02 Encounter for adjustment and management of automatic implantable cardiac defibrillator (principal)
CPT/HCPCS: 93297

== ENCOUNTER → 2024-12-05 23:59 | Outpatient (BNV) | payer MEDICARE, SELFPAY ==
--- NOTE | 2024-12-06 12:19 | A.OFFVIS_ITS ---
Intake Visit Reasons: Remote ICD check- [employer] Allergies penicillin G Allergy (Unknown, Verified 11/10/24 09:21) PASSED OUT [facility] Medical History Tobacco abuse LFT elevation ICD (implantable cardioverter-defibrillator) in place COVID-19 virus infection Abnormal prostate specific antigen (PSA) Encounter for Medicare annual wellness exam Abnormal nuclear stress test Hx of myocardial infarction Mild carotid artery disease On anticoagulant therapy On beta ruslan at home CAD (coronary artery disease) Preoperative cardiovascular examination Ischemic cardiomyopathy Colon cancer screening Hypercholesterolemia Impaired glucose tolerance Erectile dysfunction Prostate cancer Bladder cancer Surgical History Status post cardiac catheterization Hx of heart artery stent Hx of colonoscopy H/O transurethral destruction of bladder lesion History of bladder surgery Family History Mother No problems noted. Father No problems noted. 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 ICD function is adequate [id number] Cardiac Interrogation, implant defibrillator w/interim Procedure code (CPT) selection complete Assessment & Plan Assessment & Plan (1) ICD (implantable cardioverter-defibrillator) in place: Comment: [employer] single-chamber ICD in place for primary prevention, April 2022 Code(s): Z95.810 - Presence of automatic (implantable) cardiac defibrillator Category: Medical Plan: See above Coding Level of Care Code Procedure Only Diagnoses ICD (implantable cardioverter-defibrillator) in place Z95.810 CPT Codes Cardiac Device Check - Cardiac Device 13: [id number] Cardiac Interrogation, implant defibrillator w/interim ([id number])
== END ==
PROVIDERS: PCP Internal Medicine; Visit Provider Internal Medicine Cardiovascular Disease
DX: Z45.02 Encounter for adjustment and management of automatic implantable cardiac defibrillator (principal)
CPT/HCPCS: 93295

== ENCOUNTER 2024-12-08 09:16 | Outpatient (AMB) | payer MEDICARE, SELFPAY ==
--- NOTE | 2024-12-08 09:41 | MHC.OFFVISCO ---
Intake Intake Visit Reasons: Anticoagulation Allergies penicillin G Allergy (Unknown, Verified 12/08/24 09:34) PASSED OUT Medication List - Last Reconciled 12/08/24 by Beronica Augustine RN albuterol sulfate 90 mcg/actuation 2 puffs inhalation Q4-6H PRN atorvastatin 40 mg PO DAILY 90 days cyanocobalamin (vitamin B-12) 2,500 mcg PO .qod ezetimibe (Zetia) 10 mg PO DAILY metoprolol succinate ER 100 mg PO .QD 90 days multivitamin (One-A-Day Essential tablet) 1 tab PO DAILY Viagra (sildenafil) 100 mg PO DAILY PRN NS warfarin 5 mg See Protocol PO DAILY Nursing Note INR: 2.9 in therapeutic range of 2-3 Medications and supplements reviewed No changes in health, diet, medications, or supplements, Denies any signs and symptoms of bleeding or bruising or clotting. Bleeding, bruising, clotting discussed Nutritional guidance given Dose: 5mg X 5 days and 7.5mg X 2 days (Thu & Thu) F/U INR: 4 weeks Patient verbalizes understanding of instructions given Anti-Coag Initial Assessment Social Hx Patient Tobacco Use Status: Former Tobacco user Tobacco use type: Cigarette and Cigar alcohol intake: current Alcohol intake frequency: holidays/special occasions only Coding Level of Care Code Est Patient Level 1 Diagnoses Current use of anticoagulant therapy Z79.01 Results AMB INR Fingerstick AMB INR Fingerstick 2.9 Last Edit by Beronica Augustine RN on 12/08/24 09:40 interface delay Assessment & Plan Assessment & Plan (1) Current use of anticoagulant therapy: Code(s): Z79.01 - skilled nursing (current) use of 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
[2024-12-08 10:11] LABS: Prothrombin Time Whole Bld POC 34.2 sec (11.1-13.5); ~PT, ~INR - Anti Coag Clinic 2.9 (0.9-1.1)
== END 2024-12-08 09:44 | disposition home or self-care (01) ==
LOC: HO.ACS 09:16
PROVIDERS: PCP Internal Medicine; Visit Provider Internal Medicine Medical Oncology
DX: Z79.01 Long term (current) use of anticoagulants (principal)

== ENCOUNTER → 2024-12-08 09:16 | Outpatient (BNVA) | payer MEDICARE, SELFPAY | PROVIDERS: PCP Internal Medicine; Visit Provider Internal Medicine Medical Oncology | DX: Z79.01 Long term (current) use of anticoagulants (principal) | CPT/HCPCS: 85610; 99211 ==

== ENCOUNTER 2025-01-05 09:33 | Outpatient (AMB) | payer MEDICARE, SELFPAY ==
[2025-01-05 10:03] LABS: Prothrombin Time Whole Bld POC 42.1 sec (11.1-13.5); ~PT, ~INR - Anti Coag Clinic 3.5 (0.9-1.1)
--- NOTE | 2025-01-05 10:11 | MHC.OFFVISCO ---
Intake Intake Visit Reasons: Anticoagulation Allergies penicillin G Allergy (Unknown, Verified 01/05/25 09:58) PASSED OUT Medication List - Last Reconciled 01/05/25 by Beronica Augusitne RN albuterol sulfate 90 mcg/actuation 2 puffs inhalation Q4-6H PRN atorvastatin 40 mg PO DAILY 90 days cyanocobalamin (vitamin B-12) 2,500 mcg PO .qod ezetimibe (Zetia) 10 mg PO DAILY metoprolol succinate ER 100 mg PO .QD 90 days multivitamin (One-A-Day Essential tablet) 1 tab PO DAILY Viagra (sildenafil) 100 mg PO DAILY PRN NS warfarin 5 mg See Protocol PO DAILY Nursing Note INR: 3.5 out of therapeutic range of 2-3 Medications and supplements reviewed No changes in health, diet, medications, or supplements, Denies any signs and symptoms of bleeding or bruising or clotting. Bleeding, bruising, clotting discussed Nutritional guidance given to have a serving of greens today Dose: decrease today's dose to 2.5mg (5mg) then 5mg X 5 days and 7.5mg X 2 days (Thu & Wed) F/U INR: 3 weeks Patient verbalizes understanding of instructions given Anti-Coag Initial Assessment Social Hx Patient Tobacco Use Status: Former Tobacco user Tobacco use type: Cigarette and Cigar alcohol intake: current Alcohol intake frequency: holidays/special occasions only Coding Level of Care Code Est Patient Level 1 Diagnoses Current use of anticoagulant therapy Z79.01 Assessment & Plan Assessment & Plan (1) Current use of anticoagulant therapy: Code(s): Z79.01 - jail (current) use of 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
== END 2025-01-05 10:13 | disposition home or self-care (01) ==
LOC: HO.ACS 09:33
PROVIDERS: PCP Internal Medicine; Visit Provider Internal Medicine Medical Oncology
DX: Z79.01 Long term (current) use of anticoagulants (principal)

== ENCOUNTER → 2025-01-05 09:33 | Outpatient (BNVA) | payer MEDICARE, SELFPAY | PROVIDERS: PCP Internal Medicine; Visit Provider Internal Medicine Medical Oncology | DX: I48.20 Chronic atrial fibrillation, unspecified (principal); Z79.01 Long term (current) use of anticoagulants; Z51.81 Encounter for therapeutic drug level monitoring | CPT/HCPCS: 85610; 99211 ==

== ENCOUNTER → 2025-01-09 23:59 | Outpatient (BNV) | payer MEDICARE, SELFPAY ==
--- NOTE | 2025-01-10 09:50 | A.OFFVIS_ITS ---
Intake Visit Reasons: Remote HF Monitoring ([employer]) Allergies penicillin G Allergy (Unknown, Verified 01/05/25 09:58) PASSED OUT [facility] Medical History Tobacco abuse LFT elevation ICD (implantable cardioverter-defibrillator) in place COVID-19 virus infection Abnormal prostate specific antigen (PSA) Encounter for Medicare annual wellness exam Abnormal nuclear stress test Hx of myocardial infarction Mild carotid artery disease On anticoagulant therapy On beta ruslan at home CAD (coronary artery disease) Preoperative cardiovascular examination Ischemic cardiomyopathy Colon cancer screening Hypercholesterolemia Impaired glucose tolerance Erectile dysfunction Prostate cancer Bladder cancer Surgical History Status post cardiac catheterization Hx of heart artery stent Hx of colonoscopy H/O transurethral destruction of bladder lesion History of bladder surgery Family History Mother No problems noted. Father No problems noted. 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 Heart failure parameters are stable [id number] Cardiac Device Interrogation, cardio physiologic monitor Procedure code (CPT) selection complete Assessment & Plan Assessment & Plan (1) ICD (implantable cardioverter-defibrillator) in place: Comment: [employer] single-chamber ICD in place for primary prevention, April 2022 Code(s): Z95.810 - Presence of automatic (implantable) cardiac defibrillator Category: Medical Plan: See above Coding Level of Care Code Procedure Only Diagnoses ICD (implantable cardioverter-defibrillator) in place Z95.810 CPT Codes Cardiac Device Check - Cardiac Device 15: [id number] Cardiac Device Interroga tion, cardio physiologic monitor ([id number])
== END ==
PROVIDERS: PCP Internal Medicine; Visit Provider Internal Medicine Cardiovascular Disease
DX: Z45.02 Encounter for adjustment and management of automatic implantable cardiac defibrillator (principal)
CPT/HCPCS: 93297

== ENCOUNTER → 2025-01-09 23:59 | Outpatient (BNV) | payer MEDICARE, SELFPAY ==
--- NOTE | 2025-01-10 09:49 | A.OFFVIS_ITS ---
Intake Visit Reasons: Remove ICD Check ([employer]) Allergies penicillin G Allergy (Unknown, Verified 01/05/25 09:58) PASSED OUT [facility] Medical History Tobacco abuse LFT elevation ICD (implantable cardioverter-defibrillator) in place COVID-19 virus infection Abnormal prostate specific antigen (PSA) Encounter for Medicare annual wellness exam Abnormal nuclear stress test Hx of myocardial infarction Mild carotid artery disease On anticoagulant therapy On beta ruslan at home CAD (coronary artery disease) Preoperative cardiovascular examination Ischemic cardiomyopathy Colon cancer screening Hypercholesterolemia Impaired glucose tolerance Erectile dysfunction Prostate cancer Bladder cancer Surgical History Status post cardiac catheterization Hx of heart artery stent Hx of colonoscopy H/O transurethral destruction of bladder lesion History of bladder surgery Family History Mother No problems noted. Father No problems noted. 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 ICD function is adequate [id number] Cardiac Interrogation, implant defibrillator w/interim Procedure code (CPT) selection complete Assessment & Plan Assessment & Plan (1) ICD (implantable cardioverter-defibrillator) in place: Comment: [employer] single-chamber ICD in place for primary prevention, April 2022 Code(s): Z95.810 - Presence of automatic (implantable) cardiac defibrillator Category: Medical Plan: See above Coding Level of Care Code Procedure Only Diagnoses ICD (implantable cardioverter-defibrillator) in place Z95.810 CPT Codes Cardiac Device Check - Cardiac Device 13: [id number] Cardiac Interrogation, implant defibrillator w/interim ([id number])
== END ==
PROVIDERS: PCP Internal Medicine; Visit Provider Internal Medicine Cardiovascular Disease
DX: Z45.02 Encounter for adjustment and management of automatic implantable cardiac defibrillator (principal)
CPT/HCPCS: 93295

== ENCOUNTER 2025-01-27 09:34 | Outpatient (AMB) | payer MEDICARE, SELFPAY ==
[2025-01-27 09:42] LABS: Prothrombin Time Whole Bld POC 51.3 sec (11.1-13.5); ~PT, ~INR - Anti Coag Clinic 4.3 (0.9-1.1)
--- NOTE | 2025-01-27 09:42 | MHC.OFFVISCO ---
Intake Intake Visit Reasons: Anticoagulation Allergies penicillin G Allergy (Unknown, Verified 01/05/25 09:58) PASSED OUT Medication List - Last Reconciled 01/27/25 by Parvin Cortez RN albuterol sulfate 90 mcg/actuation 2 puffs inhalation Q4-6H PRN atorvastatin 40 mg PO DAILY 90 days cyanocobalamin (vitamin B-12) 2,500 mcg PO .qod ezetimibe (Zetia) 10 mg PO DAILY metoprolol succinate ER 100 mg PO .QD 90 days multivitamin (One-A-Day Essential tablet) 1 tab PO DAILY Viagra (sildenafil) 100 mg PO DAILY PRN NS warfarin 5 mg See Protocol PO DAILY Nursing Note INR 4.3 out of therapeutic range Medications and supplements reviewed Patient status: pt had previous elevated INR, he states he has been taking 2 tabs equate acetominophen at hs for sinus headaches with runny nose for 2 weeks, he also has been eating more peanuts than usual, *It was explained that the equate acetominophen and peanuts can raise the INR - he may decrease to 1 tab and if cont will call PCP to be seen Medications or supplements: off valsartan few months he states Diet: good Denies any signs and symptoms of bleeding or clotting or unusual bruising Bleeding, bruising, clotting discussed Nutritional guidance given: greens today and weekly Dose: hold today then decrease weekly dose 7.5mg x 1 day/ 5mg x 6 days while taking equate tylenol F/U INR Date : 1 week Patient verbalizing understanding of instructions given. 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
== END 2025-01-27 12:50 | disposition home or self-care (01) ==
LOC: HO.ACS 09:34
PROVIDERS: PCP Internal Medicine; Visit Provider Internal Medicine Medical Oncology
DX: Z79.01 Long term (current) use of anticoagulants (principal)

== ENCOUNTER → 2025-01-27 09:34 | Outpatient (BNVA) | payer MEDICARE, SELFPAY | PROVIDERS: PCP Internal Medicine; Visit Provider Internal Medicine Medical Oncology | DX: I48.20 Chronic atrial fibrillation, unspecified (principal); Z79.01 Long term (current) use of anticoagulants; Z51.81 Encounter for therapeutic drug level monitoring | CPT/HCPCS: 85610; 99211 ==

== ENCOUNTER 2025-02-01 09:15 | Outpatient (AMB) | payer MEDICARE, SELFPAY ==
[2025-02-01 09:26] LABS: Prothrombin Time Whole Bld POC 26.1 sec (11.1-13.5); ~PT, ~INR - Anti Coag Clinic 2.2 (0.9-1.1)
--- NOTE | 2025-02-01 09:34 | MHC.OFFVISCO ---
Intake Intake Visit Reasons: Anticoagulation Allergies penicillin G Allergy (Unknown, Verified 02/01/25 09:20) PASSED OUT Medication List - Last Reconciled 02/01/25 by Joan Huitron RN albuterol sulfate 90 mcg/actuation 2 puffs inhalation Q4-6H PRN atorvastatin 40 mg PO DAILY 90 days cyanocobalamin (vitamin B-12) 2,500 mcg PO .qod ezetimibe (Zetia) 10 mg PO DAILY metoprolol succinate ER 100 mg PO .QD 90 days multivitamin (One-A-Day Essential tablet) 1 tab PO DAILY Viagra (sildenafil) 100 mg PO DAILY PRN NS warfarin 5 mg See Protocol PO DAILY Nursing Note NO CP,SOB,DIET/MED CHANGES,FALLS OR SX OF BLEEDING. WILL CONTINUE WITH NEW DOSING AND FOLLOW-UP ON 02/23 AFTER RETURNING FROM [facility]. GOOD UNDERSTANDING OF DOSING INSTR. Anti-Coag Initial Assessment Social Hx Patient Tobacco Use Status: Former Tobacco user Tobacco use type: Cigarette and Cigar alcohol intake: current Alcohol intake frequency: holidays/special occasions only Coding Level of Care Code Est Patient Level 1 Diagnoses Current use of anticoagulant therapy Z79.01 Assessment & Plan Assessment & Plan (1) Current use of anticoagulant therapy: Code(s): Z79.01 - retirement (current) use of 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
== END 2025-02-01 09:38 | disposition home or self-care (01) ==
LOC: HO.ACS 09:15
PROVIDERS: PCP Internal Medicine; Visit Provider Internal Medicine Medical Oncology
DX: Z79.01 Long term (current) use of anticoagulants (principal)

== ENCOUNTER → 2025-02-01 09:15 | Outpatient (BNVA) | payer MEDICARE, SELFPAY | PROVIDERS: PCP Internal Medicine; Visit Provider Internal Medicine Medical Oncology | DX: I48.20 Chronic atrial fibrillation, unspecified (principal); Z79.01 Long term (current) use of anticoagulants; Z51.81 Encounter for therapeutic drug level monitoring | CPT/HCPCS: 85610; 99211 ==

== ENCOUNTER → 2025-02-14 23:59 | Outpatient (BNV) | payer MEDICARE, SELFPAY ==
--- NOTE | 2025-02-15 16:18 | MHC.OFFVIS ---
Intake Visit Reasons: Remote HF Monitoring ([employer]) Allergies penicillin G Allergy (Unknown, Verified 02/01/25 09:20) PASSED OUT [facility] Medical History Tobacco abuse LFT elevation ICD (implantable cardioverter-defibrillator) in place COVID-19 virus infection Abnormal prostate specific antigen (PSA) Encounter for Medicare annual wellness exam Abnormal nuclear stress test Hx of myocardial infarction Mild carotid artery disease On anticoagulant therapy On beta ruslan at home CAD (coronary artery disease) Preoperative cardiovascular examination Ischemic cardiomyopathy Colon cancer screening Hypercholesterolemia Impaired glucose tolerance Erectile dysfunction Prostate cancer Bladder cancer Surgical History Status post cardiac catheterization Hx of heart artery stent Hx of colonoscopy H/O transurethral destruction of bladder lesion History of bladder surgery Family History Mother No problems noted. Father No problems noted. 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 Heart failure parameters are stable [id number] Cardiac Device Interrogation, cardio physiologic monitor Procedure code (CPT) selection complete Assessment & Plan Assessment & Plan (1) ICD (implantable cardioverter-defibrillator) in place: Comment: [employer] single-chamber ICD in place for primary prevention, April 2022 Code(s): Z95.810 - Presence of automatic (implantable) cardiac defibrillator Category: Medical Plan: See above Coding Level of Care Code Procedure Only Diagnoses ICD (implantable cardioverter-defibrillator) in place Z95.810 CPT Codes Cardiac Device Check - Cardiac Device 15: [id number] Cardiac Device Interrogation, cardio physiologic monitor ([id number])
== END ==
PROVIDERS: PCP Internal Medicine; Visit Provider Internal Medicine Cardiovascular Disease
DX: Z45.02 Encounter for adjustment and management of automatic implantable cardiac defibrillator (principal)
CPT/HCPCS: 93297

== ENCOUNTER 2025-02-23 09:37 | Outpatient (AMB) | payer MEDICARE, SELFPAY ==
[2025-02-23 09:42] LABS: Prothrombin Time Whole Bld POC 45.9 sec (11.1-13.5); ~PT, ~INR - Anti Coag Clinic 3.8 (0.9-1.1)
--- NOTE | 2025-02-23 09:55 | MHC.OFFVISCO ---
Intake Intake Visit Reasons: Anticoagulation Allergies penicillin G Allergy (Unknown, Verified 02/23/25 09:37) PASSED OUT Medication List - Last Reconciled 02/23/25 by Parvin Cortez RN albuterol sulfate 90 mcg/actuation 2 puffs inhalation Q4-6H PRN atorvastatin 40 mg PO DAILY 90 days cyanocobalamin (vitamin B-12) 2,500 mcg PO .qod ezetimibe (Zetia) 10 mg PO DAILY metoprolol succinate ER 100 mg PO .QD 90 days multivitamin (One-A-Day Essential tablet) 1 tab PO DAILY Viagra (sildenafil) 100 mg PO DAILY PRN NS warfarin 5 mg See Protocol PO DAILY Nursing Note INR 3.8 out of therapeutic range Medications and supplements reviewed Patient status: celebrated 75 th birthday over the weekend, denies any ETOH, has not had usual weekly spinach, he states he miss understood what to do with diet with his recent warfarin dose decrease. It was explained he was to keep same diet because his dose was adjusted him and his diet and to resume weekly spinach Medications or supplements: no changes Diet: good Denies any signs and symptoms of bleeding or clotting or unusual bruising Bleeding, bruising, clotting discussed Nutritional guidance given: resume weekly greens Dose: HOLD TODAY'S DOSE, THEN RESUME 7.5MG X 1 DAYS/ 5MG X 6 DAYS F/U INR Date: 03/09/2025 2 WEEKS PER PT REQUEST TO LET THE DUST SETTLE ?? Patient verbalizing understanding of instructions given. Anti-Coag Initial Assessment Social Hx Patient Tobacco Use Status: Former Tobacco user Tobacco use type: Cigarette and Cigar alcohol intake: current Alcohol intake frequency: holidays/special occasions only Coding Level of Care Code Est Patient Level 1 Diagnoses Current use of anticoagulant therapy Z79.01 Assessment & Plan Assessment & Plan (1) Current use of anticoagulant therapy: Code(s): Z79.01 - [facility] (current) use of 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
== END 2025-02-23 09:59 | disposition home or self-care (01) ==
LOC: HO.ACS 09:37
PROVIDERS: PCP Internal Medicine; Visit Provider Internal Medicine Medical Oncology
DX: Z79.01 Long term (current) use of anticoagulants (principal)

== ENCOUNTER → 2025-02-23 09:37 | Outpatient (BNVA) | payer MEDICARE, SELFPAY | PROVIDERS: PCP Internal Medicine; Visit Provider Internal Medicine Medical Oncology | DX: I48.20 Chronic atrial fibrillation, unspecified (principal); Z79.01 Long term (current) use of anticoagulants; Z51.81 Encounter for therapeutic drug level monitoring | CPT/HCPCS: 85610; 99211 ==

== ENCOUNTER 2025-03-09 09:26 | Outpatient (AMB) | payer MEDICARE, SELFPAY ==
[2025-03-09 09:41] LABS: Prothrombin Time Whole Bld POC 38.9 sec (11.1-13.5); ~PT, ~INR - Anti Coag Clinic 3.2 (0.9-1.1)
--- NOTE | 2025-03-09 09:47 | MHC.OFFVISCO ---
Intake Intake Visit Reasons: Anticoagulation Allergies penicillin G Allergy (Unknown, Verified 03/09/25 09:36) PASSED OUT Medication List - Last Reconciled 03/09/25 by Beronica Augustine RN albuterol sulfate 90 mcg/actuation 2 puffs inhalation Q4-6H PRN atorvastatin 40 mg PO DAILY 90 days cyanocobalamin (vitamin B-12) 2,500 mcg PO .qod ezetimibe (Zetia) 10 mg PO DAILY metoprolol succinate ER 100 mg PO .QD 90 days multivitamin (One-A-Day Essential tablet) 1 tab PO DAILY Viagra (sildenafil) 100 mg PO DAILY PRN NS warfarin 5 mg See Protocol PO DAILY Nursing Note INR: 3.2 out of therapeutic range of 2-3 Previously 3.8 on 02/23/25 Medications and supplements reviewed Patient status: no changes Medications or supplements: no changes Diet: usual diet for pt but pt states his appetite is less Denies any signs and symptoms of bleeding or clotting or unusual bruising Bleeding, bruising, clotting discussed Nutritional guidance given: to have a serving of greens today. Pt states he will have spinach. Dose: weekly dose decreased by 2.5mg. Pt will take 5mg daily F/U INR Date: 03/30/25?? Patient verbalizing understanding of instructions given. Anti-Coag Initial Assessment Social Hx Patient Tobacco Use Status: Former Tobacco user Tobacco use type: Cigarette and Cigar alcohol intake: current Alcohol intake frequency: holidays/special occasions only Coding Level of Care Code Est Patient Level 1 Diagnoses Current use of anticoagulant therapy Z79.01 Results AMB INR Fingerstick AMB INR Fingerstick 3.2 Last Edit by Beronica Augustine RN on 03/09/25 09:46 interface delay Assessment & Plan Assessment & Plan (1) Current use of anticoagulant therapy: Code(s): Z79.01 - [facility] (current) use of 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
== END 2025-03-09 09:53 | disposition home or self-care (01) ==
LOC: HO.ACS 09:26
PROVIDERS: PCP Internal Medicine; Visit Provider Internal Medicine Medical Oncology
DX: Z79.01 Long term (current) use of anticoagulants (principal)

== ENCOUNTER → 2025-03-09 09:26 | Outpatient (BNVA) | payer MEDICARE, SELFPAY | PROVIDERS: PCP Internal Medicine; Visit Provider Internal Medicine Medical Oncology | DX: Z79.01 Long term (current) use of anticoagulants (principal) | CPT/HCPCS: 85610; 99211 ==

== ENCOUNTER 2025-03-13 11:58 | Outpatient (AMB) | payer MEDICARE, SELFPAY ==
--- NOTE | 2025-03-13 12:36 | A.OFFVIS_ITS ---
Vital Signs 03/13/25 12:37 Height 5 ft 11 in Weight 145 lb 8.081 oz BMI 20.3 BP 100/60 Blood Pressure Location Lt brachial Position Sitting Pulse 68 Intake Visit Reasons: 6 mth s/p; echo w/ [facility] Intake Note: 6 [facility] Buffer Inflated Pad Required: No Allergies penicillin G Allergy (Unknown, Verified 03/09/25 09:36) PASSED OUT Medication List - Last Reconciled 03/13/25 by Donnie Buchanan MD albuterol sulfate 90 mcg/actuation 2 puffs inhalation Q4-6H PRN atorvastatin 40 mg PO DAILY 90 days cyanocobalamin (vitamin B-12) 2,500 mcg PO .qod ezetimibe (Zetia) 10 mg PO DAILY metoprolol succinate ER 100 mg PO .QD 90 days multivitamin (One-A-Day Essential tablet) 1 tab PO DAILY Viagra (sildenafil) 100 mg PO DAILY PRN NS warfarin 5 mg See Protocol PO DAILY HPI Comments Details: Justa comes for follow-up, accompanied by his . He has been complaining of shortness of breath although he says that he is able to do his usual activities and chronic cough. He denies any orthopnea, PND, leg edema. Denies any chest pain. No palpitations, syncope, ICD discharge. Since stopping his valsartan he says lightheadedness symptoms have improved significantly although he is still occasionally gets lightheaded spells. No syncopal episodes. He does not drink much water every day. [facility] Medical History Tobacco abuse LFT elevation ICD (implantable cardioverter-defibrillator) in place COVID-19 virus infection Abnormal prostate specific antigen (PSA) Encounter for Medicare annual wellness exam Abnormal nuclear stress test Hx of myocardial infarction Mild carotid artery disease On anticoagulant therapy On beta ruslan at home CAD (coronary artery disease) Preoperative cardiovascular examination Ischemic cardiomyopathy Colon cancer screening Hypercholesterolemia Impaired glucose tolerance Erectile dysfunction Prostate cancer Bladder cancer Surgical History Status post cardiac catheterization Hx of heart artery stent Hx of colonoscopy H/O transurethral destruction of bladder lesion History of bladder surgery Family History Mother No problems noted. Father No problems noted. 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 Cognitive needs: No Hearing needs: Yes Vision needs: Yes (Glasses) Review of Systems Const Denies chills, Denies fatigue, Denies fever(s), Denies frequent falls, Denies weakness, Denies weight gain and Denies weight loss ENT Denies dizziness Card Denies chest pain, Denies leg edema, Denies lightheadedness, Denies palpitations, Denies dyspnea, Denies dyspnea on exertion, Denies orthopnea and Denies other (loss of consciousness) Resp Denies cough, Denies dyspnea and Denies dyspnea on exertion GI Denies hematochezia and Denies change in stool character Musc Denies abnormal gait, Denies muscle weakness, Denies numbness, Denies radiating pain into limb and Denies tingling Neuro Denies abnormal gait, Denies dizziness, Denies frequent falls, Denies numbness, Denies tingling and Denies weakness Endo Denies fatigue and Denies palpitations Physical Exam Vital Signs: Last Vital Signs Pulse 68 03/13/25 12:37 BP 100/60 03/13/25 12:37 BMI result Body Mass Index 20.3 Const General: cooperative, healthy appearing, comfortable and no acute distress Orientation/consciousness: patient oriented x3 Neck Neck: Yes normal visual inspection and Yes no JVD Resp Effort & Inspection: normal respiratory effort Auscultation: clear to auscultation bilaterally, no crackles, no rales, no rhonchi and no wheezes Cardio Jugular venous distension: no JVD Rate: regular rate Rhythm: regular rhythm Heart sounds: S1 normal heart sound present, S2 normal heart sound present, no murmurs and no rubs Neuro General: patient oriented x3 Extrem General: Yes normal to inspection Psych Appearance: grossly normal Mental Status: mental status grossly normal Speech and movement: Normal speech and movement present Office Procedures Cardiac Device Check Cardiac Device Check Details: Single-chamber [place] [employer] ICD in place. Programmed in VVI at 40 beats per minute. Ventricular sensing is excellent. Ventricular pacing thresholds adequate. Pacing and shock lead impedance is stable. Few episodes of nonsustained ventricular tachycardia noted. Battery life is excellent 58904-[id number] Cardiac Device Check, single lead implantable defibrillator Procedure code (CPT) selection complete Assessment & Plan Assessment & Plan (1) Ischemic cardiomyopathy: Code(s): I25.5 - Ischemic cardiomyopathy Category: Medical Plan: CAD with prior myocardial infarction status post RCA stent remotely. Patient has had no recurrent anginal sounding chest discomfort. Continue current warfarin therapy with target INR between 2 and 3 and avoid aspirin therapy to reduce bleeding risk. Warfarin as for LV thrombus. Continue high-intensity statin therapy with target goal LDL less than 60 mg/dL. Advise at least annual lipid check. Importance of medical therapy was discussed. Advised to call me with any new symptoms. (2) Coronary artery disease: Comment: 04/[address] Swann,Echocardiogram January 2019 ejection fraction 40% dilated left atrium. Evidence of basal mid inferior septal mid anterior septal and basal inferior wall infarct Code(s): I25.10 - Atherosclerotic heart disease of [place] coronary artery without angina pectoris Category: Medical Qualifiers: Coronary Disease-Associated Artery/Lesion type: [place] artery [place] vs. transplanted heart: [place] heart Associated angina: without angina Qualifi ed Code(s): I25.10 - Atherosclerotic heart disease of [place] coronary artery without angina pectoris Plan: Ischemic cardiomyopathy with moderate to severe LV systolic dysfunction with LVEF of less than 35% without any symptoms of heart failure at this point time. He has not been able to tolerate other neurohormonal modulation. Continue metoprolol therapy. Signs and symptoms of heart failure were discussed. Follow-up echocardiogram in 6 months time. (3) ICD (implantable cardioverter-defibrillator) in place: Comment: [employer] [employer] single-chamber ICD in place for primary prevention, April 2022 Code(s): Z95.810 - Presence of automatic (implantable) cardiac defibrillator Category: Medical Plan: ICD in place for primary prevention. Working well. Will follow up for heart failure and device function remotely. Follow up in the clinic in 6 months time, sooner PRN. Thank you for allowing me to partake in his care Coding Level of Care Code Est Pt Level 4 (64400) Complex EM visit Add On G2211 Diagnoses Ischemic cardiomyopathy I25.5 Coronary artery disease involving [place] coronary artery of [place] heart without angina pectoris I25.10 Coronary Disease-Associated Artery/Lesion type: [place] artery [place] vs. transplanted heart: [place] heart Associated angina: without angina ICD (implantable cardioverter-defibrillator) in place Z95.810 CPT Codes Cardiac Device Check - Cardiac Device 4: 02582-SL Cardiac Device Check, single lead implantable defibrillator ([id number])
[2025-03-13 12:37] VITALS: BP 100/60; PULSE 68; BMI 20.3
== END 2025-03-13 12:58 | disposition home or self-care (01) ==
LOC: HO.HCS 11:59
PROVIDERS: PCP Internal Medicine; Visit Provider Internal Medicine Cardiovascular Disease
DX: I25.5 Ischemic cardiomyopathy (principal); I25.10 Atherosclerotic heart disease of native coronary artery without angina pectoris; Z95.810 Presence of automatic (implantable) cardiac defibrillator
CPT/HCPCS: 93282; 99214; G2211

== ENCOUNTER → 2025-03-13 11:58 | Outpatient (BNVA) | payer MEDICARE, SELFPAY | PROVIDERS: PCP Internal Medicine; Visit Provider Internal Medicine Cardiovascular Disease | DX: I25.5 Ischemic cardiomyopathy (principal); I25.10 Atherosclerotic heart disease of native coronary artery without angina pectoris | CPT/HCPCS: 93282; 99212 ==

== ENCOUNTER 2025-03-17 10:41 | Outpatient (AMB) | payer MEDICARE, SELFPAY ==
[2025-03-17 10:44] VITALS: BP 110/58; PULSE 82; TEMP 36.1; O2SAT 94; BMI 20.4
--- NOTE | 2025-03-17 10:44 | MHC.PC.OV ---
Vital Signs 03/17/25 10:44 Height 5 ft 11 in Weight 146 lb 4 oz BMI 20.4 BP 110/58 L Blood Pressure Location Lt brachial Position Sitting Pulse 82 Pulse Source Pulse Oximeter Temp 97.0 F Temp Source Temporal Artery Scan Pulse Oximetry (%) 94 Oxygen Delivery Method Room Air Intake Visit Reasons: Annual exam Allergies penicillin G Allergy (Unknown, Verified 03/17/25 10:47) PASSED OUT Medication List - Last Reconciled 03/17/25 by Benny Ramírez MD albuterol sulfate 90 mcg/actuation 2 puffs inhalation Q4-6H PRN atorvastatin 40 mg PO DAILY 90 days cyanocobalamin (vitamin B-12) 2,500 mcg PO .qod ezetimibe (Zetia) 10 mg PO DAILY metoprolol succinate ER 100 mg PO .QD 90 days multivitamin (One-A-Day Essential tablet) 1 tab PO DAILY Viagra (sildenafil) 100 mg PO DAILY PRN NS warfarin 5 mg See Protocol PO DAILY Tobacco use date assessed: 03/17/25 Fall risk assessment: No Falls in past year Last assessed Fall Risk: 03/17/25 Dental Screening Dental Screen Date: 03/17/25 Did you have a dental visit in the last 12 months?: Yes Did you have a dental problem in the last 6 months where you did not have access to dental care?: No Was dental information given to patient?: Patient has dentist HPI Annual exam HPI Details dizzy HPI Comments History of Present Illness Details History of Present Illness The patient is a 75 year old individual presenting for a physical examination and management of chronic conditions. The patient has a history of ischemic cardiomyopathy with an ejection fraction of 30-35%, coronary artery disease with a stent in the right coronary artery, and has an implantable cardioverter-defibrillator (ICD) that has not fired. The last echocardiogram was performed in July 2023, and another is planned for the next cardiology appointment in July. The patient is on chronic anticoagulation with Coumadin and will be transitioning to Eliquis after the first of the year due to an insurance change. The patient reports daily use of an albuterol inhaler for shortness of breath, taking a couple of puffs in the morning and evening. The patient has a history of a tubular adenoma of the colon discovered five years ago and is due for a surveillance colonoscopy, which is pending clearance from cardiology. There is also a history of prostate cancer, which is followed by urology with PSA tests, and the last urology visit was noted as November 11. Past medical history also includes hypercholesterolemia, managed with atorvastatin and Zetia. Lab work from September 2024 indicated a hemoglobin A1c of 6.0, an LDL of 49, and triglycerides of 88. The patient reports experiencing dizziness recently, which is described as vertigo, particularly with changes in position. The patient reports an allergy to penicillin. Regarding social history, the patient denies smoking and has not consumed alcohol in approximately one year. Health Maintenance A surveillance colonoscopy is due for a history of tubular adenoma, and the patient will seek clearance from cardiology before scheduling. A digital rectal exam was performed and was normal; PSA will be checked with labs in 3 months for prostate cancer surveillance. Immunizations are up to date, including a flu shot received today. A prescription refill for generic sildenafil was sent to the patient's requested pharmacy. Social History - Alcohol Use: The patient reports not having had a drink in about a year. - Tobacco Use: The patient denies any use of cigarettes. - Nutritional Intake: The patient adds sugar to cereal. - Hydration: The patient drinks approximately three 16-ounce bottles of water per day. Results - Laboratory (from September 2024): - Hemoglobin A1c: 6.0% - LDL: 49 mg/dL - Triglycerides: 88 mg/dL - Blood count, electrolytes, liver function, and thyroid function were normal. - Procedures/Imaging: - Echocardiogram (July 2023): Revealed an ejection fraction of 30-35%. [facility] Medical History Tobacco abuse LFT elevation ICD (implantable cardioverter-defibrillator) in place COVID-19 virus infection Abnormal prostate specific antigen (PSA) Encounter for Medicare annual wellness exam Abnormal nuclear stress test Hx of myocardial infarction Mild carotid artery disease On anticoagulant therapy On beta ruslan at home CAD (coronary artery disease) Preoperative cardiovascular examination Ischemic cardiomyopathy Colon cancer screening Hypercholesterolemia Impaired glucose tolerance Erectile dysfunction Prostate cancer Bladder cancer Surgical History Status post cardiac catheterization Hx of heart artery stent Hx of colonoscopy H/O transurethral destruction of bladder lesion History of bladder surgery Family History Mother No problems noted. Father No problems noted. 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 1. Little interest or pleasure in doing things: not at all 2. Feeling down, depressed, or hopeless: not at all 3. Trouble falling or staying asleep, or sleeping too much: not at all 4. Feeling tired or having little energy: not at all 5. Poor appetite or overeating: not at all 6. Feeling bad about yourself - or that you are a failure or have let yourself or your family down: not at all 7. Trouble concentrating on things, such as reading the newspaper or watching television: not at all 8. Moving or speaking so slowly that other people could have noticed. Or the opposite - being so fidgety or restless that you have been moving around a lot more than usual: not at all 9. Thoughts that you would be better off or of hurting yourself in some way: not at all Total score: 0 Source: Developed by Drs. Tom Clark, Teagan Edwards, Chuy Stauffer and colleagues, with an educational cassandra from [employer]. Thrive Questionnaire Date Thrive assessed: 10/16/24 I am a: Patient What is your living situation today?: I have a steady place to live Within the past 12 months, did the food you bought not last and you didn't have the money to get more?: Never true Within the past 12 months, did you worry whether your food would run out before you got money to buy more?: Never true Do you have trouble paying for medicines?: No Do you have trouble getting transportation to medical appointments?: No Do you have trouble paying your heating and electricity bill?: No Do you have trouble taking care of your child, family member or friend?: No Do you have trouble with day-to-day activities such as bathing, preparing meals, shopping, managing finances, etc.?: No Are you currently unemployed and looking for a job?: No Are you interested in more education?: No Please select the resources that you would like help with: None Currently or been in a relationship where the following occur: No concerns reported THRIVE Score: 0 AUDIT C Alcohol Use Questionnaire (AUDIT-C) 1. How often do you have a drink containing alcohol?: Monthly or less 2. How many drinks containing alcohol do you have on a typical day when you are drinking?: 1 or 2 3. How often do you have six or more drinks on one occasion?: Never Total Score: 1 REGGIE-7 AMB Questionnaire REGGIE-7 Date REGGIE - 7 assessed: 10/18/24 Feeling nervous, anxious, or on edge: 0 = Not at all Not being able to stop or control worryin = Not at all Worrying too much about different things: 0 = Not at all Trouble relaxin = Not at all Being so restless that it is hard to sit still: 0 = Not at all Becoming easily annoyed or irritable: 0 = Not at all Feeling afraid as if something awful might happen: 0 = Not at all Total REGGIE-7 score (0-4 normal; 5-9 mild; 10-14 moderate; 15-21 severe): 0 Source: Developed by Drs. Tom Clark, Teagan Edwards, Chuy Stauffer and colleagues, with an educational cassandra from [employer]. Review of Systems Narrative Review of Systems - Constitutional: Denies fever or syncope. - Neurological: Reports episodes of dizziness/vertigo, particularly with changes in position. - HEENT: Denies vision problems. - GI: Reports dysphagia, needing to take smaller bites, but denies the sensation of food getting stuck. - _ Denies nausea, vomiting, or heartburn. - _ Reports regular bowel movements every morning and denies blood in the stool. - Cardiovascular: Denies chest pain or heaviness. - Respiratory: Reports shortness of breath in the mornings and evenings. - Genitourinary: Reports a decreased urinary stream but denies nocturia. Const Denies poor appetite and Denies weakness Eyes Denies no additional complaints ENT Reports Normal hearing present, Denies dizziness, Denies nasal congestion, Denies tinnitus and Denies sore throat Card Denies chest pain, Denies syncope, Denies rapid heart rate and Denies dyspnea Resp Denies cough and Denies dyspnea GI Denies change in stool character, Reports constipation, Denies diarrhea, Denies nausea and Denies vomiting Denies dysuria and Denies urinary frequency Neuro Reports Normal hearing present, Denies confusion, Denies dizziness, Denies syncope and Denies weakness Psych Denies confusion Physical exam (Primary Care) Vital Signs: Last Vital Signs Temp 97.0 F 03/17/25 10:44 Pulse 82 03/17/25 10:44 BP 110/58 L 03/17/25 10:44 Pulse Ox 94 03/17/25 10:44 Oxygen Delivery Method Room Air 03/17/25 10:44 BMI result Body Mass Index 20.4 Tobacco/Smoking Status: Tobacco use Status Tobacco use date assessed 03/17/25 03/17/25 10:51 Patient Tobacco Use Status Former Tobacco user 03/17/25 10:51 Tobacco use type Cigarette,Cigar 03/17/25 10:51 e-Cigarette/Vaping Use Never Used 03/17/25 10:51 PHQ-9: PHQ-9 Score PHQ-9: Total score 0 03/17/25 11:34 Thrive Assessment: Date of Thrive Assessment Date Thrive assessed 10/16/24 03/17/25 10:51 Currently or been in a relationship where the following occur: No concerns reported Narrative Physical Exam General: Cooperative, healthy appearing, comfortable, no acute distress and well developed Orientation: Patient oriented x3 Limitations: No limitations Head: Normal to inspection Ears: Hearing grossly normal bilaterally, a little bit of ear wax but not bad Nose: Normal external nose present Face and sinus: Normal facial exam Eyes: Appearance normal, both eyes and all related structures Neck: Normal visual inspection and Yes full ROM Respiratory: Normal respiratory effort and able to speak in complete sentences. Clear to auscultation bilaterally Cardiovascular: Regular rate and rhythm. Normal S1 and S2 GI: Normal to inspection. Soft to palpation and nontender Skin: No rashes or lesions noted Neuro: Patient oriented x3, reports dizziness and vertigo Extremities: Normal to inspection Const General: No confusion Orientation/consciousness: No confusion HENMT Head: Yes normocephalic Ears: external ears normal and TM's normal bilaterally Face and sinus: Yes normal facial exam Mouth: moist mucous membranes Throat: Yes tonsils normal Eyes Conjunctivae: conjunctivae normal Pupils: Equal, round and reactive pupils present and Pupil accommodation reflex normal Direct Ophthalmoscopy: normal light reflex Neck Neck: No lymphadenopathy Thyroid: Thyroid normal Chest Chest palpation & inspection: normal inspection of the chest Resp Effort & Inspection: normal respiratory effort and no audible wheezes Auscultation: clear to auscultation bilaterally, no crackles, no wheezes and lung sounds not diminished Cardio Rate: regular rate Rhythm: regular rhythm Peripheral pulses: radial pulses present and dorsalis pedis present GI Palpation (GI): no masses Auscultation: normal bowel sounds and normoactive bowel sounds Rectal Exam - Male: Yes deferred Skin General skin exam: no rashes or lesions noted Rashes: no rashes Neuro General: No confusion Cranial nerves: Yes Equal, round and reactive pupils present and Yes Normal hearing present Cognition (Neuro): normal cognition Gait exam (Neuro): Normal gait present Motor exam (neuro): 5/5 motor strength present throughout Deep tendon reflexes (DTR's): Right brachioradialis reflex intensity grade: 2+, Left brachioradialis reflex intensity grade: 2+, Right patellar reflex intensity grade: 2+ and Left patellar reflex intensity grade: 2+ Extrem General: No edema Office Procedures Flu Questionnaire Does the patient have a severe egg allergy?: No Does the patient have severe life threatening allergies?: No Does the patient have a fever or illness today?: No Has the patient ever had Guillain-[place] Syndrome?: No Has the patient ever had any past reaction to a flu shot?: No Immunizations Fluarix 9433-0307 (PF) 45 mcg (15 mcg x 3)/0.5 mL IM syringe Performing Provider: Benny Ramírez MD [facility] Administered by: Marilyn Faria CMA on 03/17/25 10:53 Dose Route Admin Location Dispensed Lot Number Expiration Date [facility] Catalytic Case Operator 0.5 mL IM Right Deltoid 0.5 mL [id number] 10/24/25 [id number] [employer] VIS Given Date VIS Provided VIS Publication Date 03/17/25 Single Vaccine 24 Eligibility Eligibility Date Funding Source Not VFC Eligible 03/17/25 Private Coding Level of Care Code Est Pt Prev Care >65y(84029) Diagnoses Ischemic cardiomyopathy I25.5 Coronary artery disease involving [place] coronary artery of [place] heart without angina pectoris I25.10 Associated angina: without angina Coronary Disease-Associated Artery/Lesion type: [place] artery [place] vs. transplanted heart: [place] heart ICD (implantable cardioverter-defibrillator) in place Z95.810 Hypercholesterolemia E78.00 Impaired glucose tolerance R73.02 Hepatic steatosis K76.0 Tubular adenoma of colon D12.6 Prostate cancer C61 COPD (chronic obstructive pulmonary disease) J44.9 Annual physical exam Z00.00 Benign paroxysmal positional vertigo, bilateral H81.13 Assessment & Plan Assessment & Plan (1) Ischemic cardiomyopathy: Code(s): I25.5 - Ischemic cardiomyopathy Category: Medical Plan: Patient follows up with Cardiology and has the ICD (2) Coronary artery disease: Comment: 04/[address] Swann,Echocardiogram January 2019 ejection fraction 40% dilated left atrium. Evidence of basal mid inferior septal mid anterior septal and basal inferior wall infarct Code(s): I25.10 - Atherosclerotic heart disease of [place] coronary artery without angina pectoris Category: Medical Qualifiers: Associated angina: without angina Coronary Disease-Associated Artery/Lesion type: [place] artery [place] vs. transplanted heart: [place] heart Qualified Code(s): I25.10 - Atherosclerotic heart disease of [place] coronary artery without angina pectoris Plan: Control the cholesterol, weight, blood pressure, patient is on Coumadin (3) ICD (implantable cardioverter-defibrillator) in place: Comment: [employer] single-chamber ICD in place for primary prevention, April 2022 Code(s): Z95.810 - Presence of automatic (implantable) cardiac defibrillator Category: Medical Plan: Continue to follow up with Cardiology (4) Hypercholesterolemia: Code(s): E78.00 - Pure hypercholesterolemia, unspecified Category: Medical Plan: Avoid fried foods, chicken skin, eggs, butter margarine, pastries and meat. Be it pork or beef they have a lot of cholesterol LDL goal of less than 70 and triglyceride of less than 150 on Zetia and atorvastatin (5) Impaired glucose tolerance: Code(s): R73.02 - Impaired glucose tolerance (oral) Category: Medical Plan: Decrease the amount of carbohydrate intake, pasta, bread, rice and potatoes are all sugar and that is aside from all the sweet stuff, remember that fruits are good but they are Sweet also. (6) Hepatic steatosis: Comment: September 2023 Code(s): K76.0 - Fatty (change of) liver, not elsewhere classified Category: Medical Plan: Low-fat diet and exercise (7) Tubular adenoma of colon: Comment: 2020 scope repeat 5 years Code(s): D12.6 - Benign neoplasm of colon, unspecified Category: Medical Plan: Patient was supposed to have a colon test (8) Prostate cancer: Comment: Low risk [place] 6 Code(s): C61 - Malignant neoplasm of prostate Category: Medical Plan: Follows up with urology (9) COPD (chronic obstructive pulmonary disease): Code(s): J44.9 - Chronic obstructive pulmonary disease, unspecified Category: Medical Plan: On albuterol stable (10) Annual physical exam: Code(s): Z00.00 - Encounter for general adult medical examination without abnormal findings Category: Medical Plan: Patient is advised to eat healthy, keep well hydrated, keep active and have adequate sleep. (11) Benign paroxysmal positional vertigo, bilateral: Code(s): H81.13 - Benign paroxysmal vertigo, bilateral Category: Medical Plan Plan Patient was informed and verbally consented to the use of an ambient scribe for clinic note documentation during this visit. 1. Ischemic Cardiomyopathy The patient has a history of ischemic cardiomyopathy with a reduced ejection fraction of 30-35% and has an ICD for primary prevention, which has not fired. The patient will continue to follow up with cardiology, with a repeat echocardiogram planned for the next visit in July to monitor cardiac function. The patient will continue metoprolol 100 mg daily. 2. Chronic Anticoagulation The patient is currently on Coumadin and will transition to Eliquis after the first of the year due to an insurance change. It was explained that Eliquis does not require frequent blood draws or dietary restrictions like Coumadin, but it is still a blood thinner and requires lifelong adherence and caution. 3. Shortness Of Breath The patient reports using an albuterol inhaler multiple times daily for shortness of breath. Due to frequent use of the short-acting inhaler, a prescription for Breo, a once-daily controller inhaler, will be sent to [facility] to help prevent symptoms. The patient was instructed to rinse their mouth after each use and to continue using albuterol for acute symptoms as needed. 4. Vertigo The patient is experiencing new-onset dizziness consistent with vertigo, which is worse with positional changes. A referral for vestibular physical therapy has been placed. The importance of maintaining adequate hydration was emphasized. 5. Prediabetes The patient's last hemoglobin A1c was 6.0%, which is in the prediabetic range. The patient was counseled to reduce dietary sugar, specifically to stop adding sugar to cereal. Follow-up blood work, including a repeat HgbA1c, is ordered for three months from now. 6. Hypercholesterolemia The patient is on atorvastatin 40 mg and Zetia 10 mg, with a recent LDL of 49, which meets the goal of less than 70. The plan is to continue the current medication regimen. Discussion Notes I discussed the results of the recent labs with the patient, noting the elevated hemoglobin A1c of 6.0. I provided dietary counseling on reducing sugar intake to manage the prediabetes and recommended a follow-up blood test in three months to monitor this. We reviewed the patient's frequent use of the albuterol inhaler for shortness of breath. I explained the rationale for starting a once-daily controller inhaler, Breo, to provide longer-lasting symptom prevention and sent a prescription to the patient's mail-order pharmacy, [facility]. I instructed the patient on the proper use of the new inhaler, including the need to rinse their mouth after use to prevent side effects. I addressed the new complaint of vertigo and placed a referral for vestibular physical therapy, which was beneficial for the patient's brother. I also emphasized the importance of adequate hydration, especially since the patient is on blood pressure medication. I discussed the upcoming change in anticoagulation from Coumadin to Eliquis, highlighting the benefits of the new medication, while reinforcing that it remains a blood thinner and requires lifelong caution. I performed a comprehensive physical exam, including a rectal exam for prostate and hernia screening, with the patient's consent; findings were normal. We confirmed that all recommended immunizations are up-to-date. Patient Instructions - You will receive a new inhaler called Breo in the mail from [facility]. - Use the Breo inhaler once every day. - After using the Breo inhaler, be sure to rinse your mouth out with water. - You can continue to use your blue albuterol inhaler as needed if you feel short of breath. - You will receive a call to schedule an appointment for physical therapy to help with your dizziness (vertigo). - Please try to reduce the sugar in your diet, such as by not adding sugar to your morning cereal. - Go for a follow-up blood test in three months. - After April 27, you will switch from taking Coumadin to Eliquis for your blood thinner. - A prescription refill for generic Viagra has been sent to the [email or web address] pharmacy. - Continue following up with your heart doctor (contracts advisor) as planned. - Drink plenty of water, aiming for about four 16-ounce bottles each day. - Continue checking your blood pressure at home. Orders: Orders PT Evaluation and Treatment Today H81.13 - Benign paroxysmal vertigo, bilateral Complete Blood Count Auto Diff 3 Months I25.10 - Atherosclerotic heart disease of [place] coronary artery without angina pectoris Comprehensive Met. Panel 3 Months I25.10 - Atherosclerotic heart disease of [place] coronary artery without angina pectoris Free T4 (Free Thyroxine) 3 Months I25.10 - Atherosclerotic heart disease of [place] coronary artery without angina pectoris Lipid Panel 3 Months E78.00 - Pure hypercholesterolemia, unspecified, I25.10 - Atherosclerotic heart disease of [place] coronary artery without angina pectoris Vitamin B12 and Folate 3 Months I25.10 - Atherosclerotic heart disease of [place] coronary artery without angina pectoris Prostate Specific Antigen Scr 3 Months I25.10 - Atherosclerotic heart disease of [place] coronary artery without angina pectoris Influenza [id number] Immunization Today Z23 - Encounter for immunization Hemoglobin A1c 3 Months I25.10 - Atherosclerotic heart disease of [place] coronary artery without angina pectoris Thyroid Stimulating Hormone 3 Months I25.10 - Atherosclerotic heart disease of [place] coronary artery without angina pectoris Magnesium 3 Months I25.10 - Atherosclerotic heart disease of [place] coronary artery without angina pectoris NT Pro B Type Natriuretic Pept 3 Months I25.10 - Atherosclerotic heart disease of [place] coronary artery without angina pectoris Medications: New fluticasone furoate-vilanterol 200-25 mcg/dose (Breo Ellipta) 1 inh inhalation DAILY 3 ea 3RF J44.9 - Chronic obstructive pulmonary disease, unspecified Refilled Viagra (sildenafil) administer 30 minutes to 4 hours before activity 100 mg PO DAILY PRN 14 tabs 4RF sexual activity NS J44.9 - Chronic obstructive pulmonary disease, unspecified
== END 2025-03-17 12:02 | disposition home or self-care (01) ==
LOC: HO.HMCH 10:42
PROVIDERS: PCP Internal Medicine; Visit Provider Internal Medicine
DX: Z00.00 Encounter for general adult medical examination without abnormal findings (principal); I25.5 Ischemic cardiomyopathy; I25.10 Atherosclerotic heart disease of native coronary artery without angina pectoris; Z95.810 Presence of automatic (implantable) cardiac defibrillator; E78.00 Pure hypercholesterolemia, unspecified; R73.02 Impaired glucose tolerance (oral); K76.0 Fatty (change of) liver, not elsewhere classified; D12.6 Benign neoplasm of colon, unspecified; C61 Malignant neoplasm of prostate; J44.9 Chronic obstructive pulmonary disease, unspecified; H81.13 Benign paroxysmal vertigo, bilateral; Z23 Encounter for immunization

== ENCOUNTER → 2025-03-17 10:41 | Outpatient (BNVA) | payer MEDICARE, SELFPAY | PROVIDERS: PCP Internal Medicine; Visit Provider Internal Medicine | DX: Z00.00 Encounter for general adult medical examination without abnormal findings (principal); I25.10 Atherosclerotic heart disease of native coronary artery without angina pectoris; E78.00 Pure hypercholesterolemia, unspecified; I25.5 Ischemic cardiomyopathy; R73.02 Impaired glucose tolerance (oral); K76.0 Fatty (change of) liver, not elsewhere classified; C61 Malignant neoplasm of prostate; J44.9 Chronic obstructive pulmonary disease, unspecified; H81.13 Benign paroxysmal vertigo, bilateral; Z23 Encounter for immunization; Z79.01 Long term (current) use of anticoagulants; Z79.899 Other long term (current) drug therapy; Z95.810 Presence of automatic (implantable) cardiac defibrillator; Z86.0101 Personal history of adenomatous and serrated colon polyps | CPT/HCPCS: 90471; 90656; 96127; 99397 ==

== ENCOUNTER 2025-03-30 09:35 | Outpatient (AMB) | payer MEDICARE, SELFPAY ==
[2025-03-30 09:40] LABS: Prothrombin Time Whole Bld POC 33.1 sec (11.1-13.5); ~PT, ~INR - Anti Coag Clinic 2.8 (0.9-1.1)
--- NOTE | 2025-03-30 09:44 | MHC.OFFVISCO ---
Intake Intake Visit Reasons: Anticoagulation Allergies penicillin G Allergy (Unknown, Verified 03/30/25 09:35) PASSED OUT Medication List - Last Reconciled 03/30/25 by Beronica Augustine RN albuterol sulfate 90 mcg/actuation 2 puffs inhalation Q4-6H PRN atorvastatin 40 mg PO DAILY 90 days cyanocobalamin (vitamin B-12) 2,500 mcg PO .qod ezetimibe (Zetia) 10 mg PO DAILY fluticasone furoate-vilanterol 200-25 mcg/dose (Breo Ellipta) 1 inh inhalation DAILY metoprolol succinate ER 100 mg PO .QD 90 days multivitamin (One-A-Day Essential tablet) 1 tab PO DAILY Viagra (sildenafil) 100 mg PO DAILY PRN NS warfarin 5 mg See Protocol PO DAILY Nursing Note INR: 2.8 in therapeutic range of 2-3 Medications and supplements reviewed No changes in health, diet, medications, or supplements, Denies any signs and symptoms of bleeding or bruising or clotting. 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
== END 2025-03-30 09:46 | disposition home or self-care (01) ==
LOC: HO.ACS 09:35
PROVIDERS: PCP Internal Medicine; Visit Provider Internal Medicine Medical Oncology
DX: Z79.01 Long term (current) use of anticoagulants (principal)

== ENCOUNTER → 2025-03-30 09:35 | Outpatient (BNVA) | payer MEDICARE, SELFPAY | PROVIDERS: PCP Internal Medicine; Visit Provider Internal Medicine Medical Oncology | DX: I48.20 Chronic atrial fibrillation, unspecified (principal); Z51.81 Encounter for therapeutic drug level monitoring; Z79.01 Long term (current) use of anticoagulants | CPT/HCPCS: 85610; 99211 ==

== ENCOUNTER → 2025-04-12 14:45 | Outpatient (BNV) | payer MEDICARE, SELFPAY | PROVIDERS: PCP Internal Medicine; Visit Provider Internal Medicine Cardiovascular Disease | DX: Z45.02 Encounter for adjustment and management of automatic implantable cardiac defibrillator (principal) | CPT/HCPCS: 93297 ==

== ENCOUNTER → 2025-04-12 15:20 | Outpatient (BNV) | payer MEDICARE, SELFPAY | PROVIDERS: PCP Internal Medicine; Visit Provider Internal Medicine Cardiovascular Disease | DX: Z45.02 Encounter for adjustment and management of automatic implantable cardiac defibrillator (principal) | CPT/HCPCS: 93295 ==

== ENCOUNTER → 2025-04-24 14:43 | Outpatient (BNV) | payer MEDICARE, SELFPAY | PROVIDERS: PCP Internal Medicine; Visit Provider Internal Medicine Cardiovascular Disease | DX: Z95.810 Presence of automatic (implantable) cardiac defibrillator (principal) | CPT/HCPCS: 93297 ==

== ENCOUNTER 2025-04-25 09:00 | Outpatient (AMB) | payer MEDICARE, SELFPAY ==
[2025-04-25 09:13] LABS: Prothrombin Time Whole Bld POC 38.7 sec (11.1-13.5); ~PT, ~INR - Anti Coag Clinic 3.2 (0.9-1.1)
--- NOTE | 2025-04-25 09:20 | MHC.OFFVISCO ---
Intake Intake Visit Reasons: Anticoagulation Allergies penicillin G Allergy (Unknown, Verified 04/25/25 09:12) PASSED OUT Medication List - Last Reconciled 04/25/25 by Ani Dickens RN albuterol sulfate 90 mcg/actuation 2 puffs inhalation Q4-6H PRN atorvastatin 40 mg PO DAILY 90 days cyanocobalamin (vitamin B-12) 2,500 mcg PO .qod ezetimibe (Zetia) 10 mg PO DAILY fluticasone furoate-vilanterol 200-25 mcg/dose (Breo Ellipta) 1 inh inhalation DAILY metoprolol succinate ER 100 mg PO .QD 90 days multivitamin (One-A-Day Essential tablet) 1 tab PO DAILY Viagra (sildenafil) 100 mg PO DAILY PRN NS warfarin 5 mg See Protocol PO DAILY Nursing Note INR 3.2 2-3 range out of therapeutic range Medications and supplements reviewed Patient status: Pt states he is starting Eliquis Apr 28, 2025. Medications or supplements: no changes Diet:no changes s/p holidays Denies any signs and symptoms of bleeding or clotting or unusual bruising Bleeding, bruising, clotting discussed Nutritional guidance given: eat greens today to get INR down towards 2 for startiung eliquis Dose: 2.5 today then 5 mg Thu and then stop Warfarin Thursday F/U INR Date : to f/u with PCP and cardiology? Education on Eliquis with handout provided. Patient verbalizing understanding of instructions given. 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
== END 2025-04-25 09:33 | disposition home or self-care (01) ==
LOC: HO.ACS 09:00
PROVIDERS: PCP Internal Medicine; Visit Provider Internal Medicine Medical Oncology
DX: Z79.01 Long term (current) use of anticoagulants (principal)

== ENCOUNTER → 2025-04-25 09:00 | Outpatient (BNVA) | payer MEDICARE, SELFPAY | PROVIDERS: PCP Internal Medicine; Visit Provider Internal Medicine Medical Oncology | DX: I48.19 Other persistent atrial fibrillation (principal); Z51.81 Encounter for therapeutic drug level monitoring; Z79.01 Long term (current) use of anticoagulants | CPT/HCPCS: 85610; 99211 ==